=== PATIENT | male | born 1965 | race Caucasian/White ===

== ENCOUNTER 2023-12-23 09:27 | Inpatient (IN) | payer MEDICARE, SELFPAY ==
--- NOTE | ~2023-12-23 | CT_ITS ---
EXAMINATION: CT CHEST WITH CONTRAST CLINICAL INFORMATION: Rule out Boor have's syndrome COMPARISON: Previous chest CT from earlier the same day. TECHNIQUE: Multidetector volumetric CT imaging of the chest was obtained after the administration of 85 mL of Omnipaque 350 intravenous contrast without immediate adverse reactions. Axial MIP volume rendering provided. Sagittal and coronal reformatted images were obtained. This CT examination was performed using dose optimization techniques as appropriate, variously including the following: *Automated exposure control *Adjustment of mA and/or kV according to patient size (this includes techniques or standardized protocols for targeted exams where dose is matched to indication/reason for exam; i.e. extremities or head) *Use of iterative reconstruction technique DLP: 396 mGy-cm FINDINGS: LUNGS: Subsegmental atelectasis in the inferior segment of the lingula. This is adjacent to tethered are prominent extrapleural fat. Lungs are otherwise clear. MEDIASTINUM: The mediastinum is normal. The esophagus is normal-appearing. No wall thickening, dilatation or abnormal air or fluid collection in the posterior mediastinum is seen. Normal heart size. No coronary artery calcification. No pericardial effusion. No adenopathy. PLEURA: There is no pleural effusion. No pleural mass or thickening. AXILLA: Mild bilateral gynecomastia. No adenopathy. UPPER ABDOMEN: See abdomen and pelvis report from the same day OSSEOUS STRUCTURES: Degenerative changes of the spine. CT/CT chest w IV con IMPRESSION: Mild subsegmental atelectasis in the inferior segment of the lingula adjacent to an area of prominent extrapleural fat. Otherwise unremarkable exam. Normal-appearing esophagus. Fleischner guidelines were followed.
--- NOTE | ~2023-12-23 | XR_ITS ---
EXAMINATION: XR CHEST CLINICAL INFORMATION: Chest pain COMPARISON: Chest x-ray October 15, 2014 TECHNIQUE: 2 views of the chest were obtained. FINDINGS: Similar cardiac enlargement. The lungs are hypoinflated. There is no lobar consolidation. No pleural effusion or pneumothorax. Mild degenerative changes of the spine. XR/XR chest 2V IMPRESSION: Cardiomegaly without acute pulmonary pathology.
--- NOTE | ~2023-12-23 | US_ITS ---
EXAMINATION: US ABDOMEN LIMITED CLINICAL INFORMATION: Right upper quadrant pain. COMPARISON: CT scan abdomen and pelvis 12/23/2023 TECHNIQUE: Real-time imaging of the gallbladder and common bile duct. Technically difficult study due to bowel gas and body habitus. FINDINGS: GALLBLADDER: Normal. The gallbladder is physiologically distended without evidence of stones, sludge, polyps, wall thickening or pericholecystic fluid. No sonographic De Los Santos's sign COMMON BILE DUCT: Normal in caliber measuring 0.5 cm in diameter. US/US abdomen limited IMPRESSION: Normal-appearing gallbladder and common bile duct. No cholelithiasis or sludge within the gallbladder.
--- NOTE | ~2023-12-23 | CT_ITS ---
EXAMINATION: CT ABDOMEN AND PELVIS WITH CONTRAST CLINICAL INFORMATION: Abdominal pain COMPARISON: None available. TECHNIQUE: Multidetector volumetric images were obtained from the superior aspect of the liver through the pubic symphysis following administration 85 mL of Omnipaque 350 intravenous contrast. Sagittal and coronal reformatted images were obtained on the technologist's workstation. Oral contrast: Yes This CT examination was performed using dose optimization techniques as appropriate, variously including the following: *Automated exposure control *Adjustment of mA and/or kV according to patient size (this includes techniques or standardized protocols for targeted exams where dose is matched to indication/reason for exam; i.e. extremities or head) *Use of iterative reconstruction technique DLP: 1039 mGy-cm FINDINGS: LIVER, GALLBLADDER, AND BILIARY TREE: Fatty liver. Mild dependent increased attenuation in the gallbladder questionable for small gallstones or sludge. The bladder otherwise normal. No focal liver lesion evidence of cirrhotic change or biliary duct dilatation. PANCREAS: Unremarkable. SPLEEN: Unremarkable. ADRENAL GLANDS: 1 cm low-attenuation left adrenal lesion. This is difficult to characterize due to IV contrast. No imaging follow-up recommended. Normal right adrenal gland. KIDNEYS AND URETERS: The kidneys are normal in size, shape, and attenuation. No hydronephrosis, hydroureter, or calculi seen. No perinephric stranding. BLADDER: Unremarkable. GASTROINTESTINAL TRACT: The small and large bowel are unremarkable. Stomach is normal. The appendix is unremarkable. ABDOMINAL WALL: No significant hernia is appreciated. LYMPH NODES: Normal. VASCULAR: Unremarkable. PELVIC VISCERA: Unremarkable. OSSEOUS STRUCTURES: Degenerative changes of the spine.. CT/CT abdomen pelvis w IV con IMPRESSION: No acute findings. Fatty liver. Question small layering gallstones versus sludge in the gallbladder. Fleischner guidelines were followed.
[2023-12-23 09:31] VITALS: BP 152/98; BP 167/96; PULSE 120; PULSE 130; RESP 24; TEMP 36.8; O2SAT 93; O2SAT 97; BMI 40.5
--- NOTE | 2023-12-23 10:27 | ECG_ITS ---
Test Reason : TACHYCARDIA Blood Pressure : / mmHG Vent. Rate : 119 BPM Atrial Rate : 119 BPM P-R Int : 174 ms QRS Dur : 084 ms QT Int : 314 ms P-R-T Axes : 041 029 020 degrees QTc Int : 441 ms Sinus tachycardia with frequent Premature ventricular complexes Otherwise normal ECG When compared with ECG of 15-OCT-2015 02:15, Premature ventricular complexes are now Present ST less elevated in Inferior leads Referred By: Jeanette Hull Electronically Signed By:ANGELITA MEDINA MD
--- NOTE | 2023-12-23 10:36 | ED.CHESTPAIN ---
HPI - Chest Pain General Chief Complaint: Chest Pain Stated Complaint: ETOH WITHDRAWAL X2 DAYS,V/N,SOB,CP,HIGH BP 204/124 Time Seen by Provider: 12/23/23 10:08 Source: patient and RN notes reviewed Mode of arrival: ambulatory Limitations: no limitations History of Present Illness HPI narrative: This is a 58-year-old male, with a history of hypertension noncompliant on medications, CHF, EtOH dependency, presenting to the emergency department with complaints of chest pain with nausea, vomiting, diarrhea and anxiety for the last 5 days. Patient states that over the last couple of weeks he relapsed on alcohol, typically drinks 2-3 pt per day, last drank 1 pt of vodka yesterday. He states that he has had constant chest pain, which radiates into his bilateral arms. He endorses some shortness of breath. Denies any bloody vomitus. He does endorse black stool which started yesterday. No recent travel, surgeries, hospitalizations. No other complaints or concerns at this time. MD complaint: chest pain, chest heaviness and chest discomfort Timing of current episode: constant Onset: during rest Pain location: substernal Relieving factors: nothing Exacerbating factors: nothing Treatment prior to arrival: none Risk Factors Coronary artery disease risk factors: none Thoracic aortic dissection risk factors: none Related Data Allergies Allergy/AdvReac Type Severity Reaction Status Date / Time No Known Allergies Allergy Unverified 07/20/20 16:18 [No Known Allergies*] Review of Systems Review of Systems: Yes all other systems are reviewed and are negative Constitutional: Constitutional: Reports as per [facility] Past Medical History Attestation statement: The following information was validated with the patient. Social History Social History Advance Directives: No Advance Directives Information Provided: Yes Physical Exam Vital Signs: Vital Signs: Last Vital Signs Temp 97.9 F 12/23/23 13:04 Pulse 107 H 12/23/23 13:04 Resp 17 12/23/23 13:04 BP 176/108 H 12/23/23 13:04 Pulse Ox 95 12/23/23 13:04 O2 Del Method Room Air 12/23/23 13:04 BMI result Body Mass Index 40.5 Const: Other: Diaphoretic General: cooperative, comfortable and no acute distress Orientation/consciousness: patient oriented x3 Limitations: no limitations HEENT: Other: Dry mucous membranes Head: Yes normal to inspection, Yes normocephalic and Yes atraumatic Ears: hearing grossly normal bilaterally General nose exam: Normal external nose present Face and sinus: Yes normal facial exam Mouth: Normal oral and palatal mucosa present, oropharynx normal and moist mucous membranes Throat: Yes posterior oropharynx normal Eyes: General: appearance normal, both eyes and all related structures Eyelids: Yes eyelids normal Conjunctivae: conjunctivae normal Sclerae: sclerae normal Pupils: Equal, round and reactive pupils present EOM: EOMs intact bilaterally Neck: Neck: Yes normal visual inspection, Yes full ROM and Yes no lymphadenopathy Lymphatic: no lymphadenopathy noted Chest: Chest palpation & inspection: normal inspection of the chest Resp: Effort & Inspection: normal respiratory effort and able to speak in complete sentences Auscultation: clear to auscultation bilaterally, no crackles, no rales, no rhonchi and no wheezes Cardio: Rate: regular rate Rhythm: regular rhythm Heart sounds: S1 normal heart sound present and S2 normal heart sound present GI: Other: Abdomen is obese, with tenderness palpation in the right upper quadrant, epigastrium with guarding Inspection: Yes normal to inspection Skin: General skin exam: no rashes or lesions noted Trauma: no lacerations or abrasions Wounds: no wounds Neuro: General: patient oriented x3 and moves all extremities Cranial nerves: Yes Equal, round and reactive pupils present Extrem: Other: No calf tenderness General: Yes normal to inspection Right upper extremity: normal to inspection Left upper extremity: normal to inspection Right lower extremity: normal to inspection Left lower extremity: normal to inspection Course Reevaluation(s) Reevaluation #1: Patient re-evaluated, no relief after receiving IV Ativan. Will medicate with Ativan 2 mg IV, and morphine. Labs returned, no leukocytosis, platelets 135 likely due to ongoing ETOH abuse. AST ALT elevated at 72 in 41 respectively. Troponin elevated at 42.2, will repeat in 3 hours to trend. Time: 12:20 Reevaluation #2: Repeat troponin flat at 42.2. CT abdomen CT chest return there is subsegmental atelectasis in the inferior segment of the lingula, fatty liver and question of small layering gallstones versus sludge in the gallbladder. Given gallbladder findings and right upper quadrant pain, will obtain ultrasound. Patient appears to be more comfortable, reporting some burning pain in his abdomen, will treat with GI cocktail of maalox and lidocaine. He appears more comfortable at this time. Time: 15:25 Reevaluation #3: Ultrasound unremarkable for any gallbladder etiology. Patient will be admitted for alcohol withdrawal, nausea and vomiting. Time: 16:43 Medications Administered Discontinued Medications Generic Name Dose Route Start Last Admin Trade Name Freq PRN Reason Stop Dose Admin Al Hydroxide/Mg Hydroxide 30 ml 12/23/23 15:10 12/23/23 16:01 Magnesium Hydrox/Alum Hydrox 30 Ml Oral.Susp PO 12/23/23 15:11 30 ml ONCE ONE Administration Diphenhydramine HCl 50 mg 12/23/23 13:55 12/23/23 14:21 Diphenhydramine Hcl 50 Mg/Ml Vial IVPUSH 12/23/23 13:56 50 mg ONCE ONE Administration Sodium Chloride 1,000 mls @ 999 mls/hr 12/23/23 10:28 12/23/23 11:57 Ns IVCONT 12/23/23 11:28 Infused .Q1H1M ONE Infusion Sodium Chloride 1,000 mls @ 999 mls/hr 12/23/23 13:14 12/23/23 15:06 Ns IV 12/23/23 14:14 Infused .Q1H1M ONE Infusion Iohexol 100 ml 12/23/23 13:04 12/23/23 13:04 Iohexol 350 Mg/Ml 100 Ml Infus..Btl IV 12/23/23 13:05 85 ml ONCE ONE Administration Lidocaine HCl 15 ml 12/23/23 15:10 12/23/23 16:01 Lidocaine Hcl Viscous 2 % 15 Ml Solution MUCOUS MEM 12/23/23 15:11 15 ml ONCE ONE Administration Lorazepam 2 mg 12/23/23 10:44 12/23/23 11:01 Lorazepam 2 Mg/Ml Vial IVPUSH 12/23/23 10:45 2 mg ONCE ONE Administration Lorazepam 2 mg 12/23/23 12:06 12/23/23 12:20 Lorazepam 2 Mg/Ml Vial IVPUSH 12/23/23 12:07 2 mg ONCE ONE Administration Lorazepam 2 mg 12/23/23 13:05 12/23/23 13:53 Lorazepam 2 Mg/Ml Vial IVPUSH 12/23/23 13:06 2 mg ONCE ONE Administration Metoclopramide HCl 10 mg 12/23/23 13:55 12/23/23 14:21 Metoclopramide Hcl 10 Mg/2 Ml Vial IVPUSH 12/23/23 13:56 10 mg ONCE ONE Administration Morphine Sulfate 4 mg 12/23/23 12:06 12/23/23 12:18 Morphine Sulfate 4 Mg/Ml Cartridge IVPUSH 12/23/23 12:07 4 mg ONCE ONE Administration Protocol Ondansetron HCl 4 mg 12/23/23 12:36 12/23/23 13:09 Ondansetron Hcl 4 Mg/2 Ml Vial IVPUSH 12/23/23 12:37 4 mg ONCE ONE Administration Phenobarbital Sodium 75 mg 12/23/23 13:59 12/23/23 14:20 Phenobarbital Sodium 65 Mg/Ml Vial IVPUSH 12/23/23 14:00 75 mg ONCE ONE Administration Medical Decision Making Medical Decision Making [facility] Narrative: This is a 58-year-old male, with a history of hypertension noncompliant on medications, CHF, EtOH dependency, presenting to the emergency department with complaints of chest pain with nausea, vomiting, diarrhea and anxiety for the last 5 days. On arrival, blood pressure 167/96, pulse 120, respirations 24, 93% on room air, temperature 98.2?. Patient diaphoretic, appears to be uncomfortable secondary to chest pain and abdominal pain. He also is tremulous, question alcohol withdrawal. Differential diagnoses include ACS, pancreatitis, cholecystitis, cholangitis, gastritis, electrolyte derangement. Less likely Boerhaave syndrome, PE, pneumothorax. Plan: Chest x-ray, labs, EKG, IV fluids, IV Ativan Differential Diagnosis Differential Diagnoses: The differential diagnosis associated with the presentation includes See above Admission/Observation Consideration of admission/observation: Escalation of care including admission/observation considered Lab Data [facility] Lab Attestation statement: I reviewed the patient's lab results. No leukocytosis, stable H&H, platelets 135, slight elevation AST ALT, troponin 42.2, repeat 45.6. Urine with no evidence of UTI. Ethyl alcohol 98. 12/23/23 11:12 12/23/23 11:12 Labs: Lab Results 12/23/23 12/23/23 Range/Units 11:12 14:29 WBC 7.6 (4.8-10.8) X10*3/uL RBC 5.32 (4.60-5.80) X10*6/uL Hgb 15.8 (14.0-18.0) g/dl Hct 46.0 (42.0-52.0) % MCV 86.5 (80.0-98.0) fL MCH 29.7 (27.0-33.0) pg MCHC 34.3 (31.0-36.0) g/dl RDW 14.6 (11.0-16.0) % Plt Count 135 L (160-400) X10*3/uL MPV 9.5 (9.4-12.4) fL Immature Gran % (Auto) 0.3 (0.0-0.4) % Neut % (Auto) 76.7 H (45-73) % Lymph % (Auto) 15.4 L (20-40) % [place] % (Auto) 6.7 (2-11) % Eos % (Auto) 0.5 (0-4) % Baso % (Auto) 0.4 (0-2) % Lymph # (Auto) 1.2 (1.2-4.9) X10*3/uL [place] # (Auto) 0.5 (0.1-1.2) X10*3/uL Eos # (Auto) 0.0 (0.0-0.4) X10*3/uL Baso # (Auto) 0.0 (0.0-0.2) X10*3/uL Abs Immat Gran (auto) 0.02 (0.00-0.03) X10*3/uL Absolute Neuts (auto) 5.9 (2.0-8.3) x10*3/uL Absolute Nucleated RBC 0.000 (0.0-0.012) X10*3/uL Nucleated RBC % (auto) 0.0 (0.0-0.2) /100WBC Sodium 141 (135-145) mmol/L Potassium 3.7 (3.3-5.1) mmol/L Chloride 100 (96-108) mmol/L Carbon Dioxide 28 (22-29) mmol/L Anion Gap 17 (12-20) BUN 14 (9-16) mg/dL Creatinine 0.97 (0.5-1.4) mg/dL Estim Creat Clear Calc 116.7 Estimated GFR > 60 Random Glucose 118 H (60-115) mg/dL Calcium 9.2 (8.4-10.2) mg/dL Magnesium 1.6 (1.6-2.6) mg/dL Total Bilirubin 0.7 (0.0-1.0) mg/dL Direct Bilirubin 0.3 (0.0-0.5) mg/dL AST 72 H (5-37) U/L ALT 41 H (0-40) U/L Alkaline Phosphatase 100 (39-117) U/L Troponin I High Sens 42.2 H 45.6 H (<3.5-35.0) ng/L Total Protein 7.4 (6.5-8.0) g/dL Albumin 4.0 (3.5-5.0) g/dL Lipase 64 (8-78) U/L Urine Color Dark Yellow Urine Appearance Cloudy Urine pH 7.0 (5.0-9.0) Ur Specific [place] 1.020 (1.005-1.025) Urine Protein 100 (2+) H (Neg-Trace) mg/dL Urine Glucose (UA) Negative (Negative) mg/dL Urine Ketones Negative (Negative) mg/dL Urine Blood Trace H (Negative) Urine Nitrite Negative (Negative) Ur Leukocyte Esterase Negative (Negative) Urine RBC 6-10 H (0-2) /HPF Urine WBC 0-5 (0-5) /HPF Ur Squamous Epith Cells 3-5 (0-2) /HPF Urine Bacteria Trace (None Seen) Hyaline Casts 3-5 (0-2) /LPF Ethyl Alcohol 98 mg/dL Independent Interpretation I performed an independent interpretation of an: EKG and CT Scan Interpretation: EKG sinus tachycardia with frequent PVCs, at a ventricular rate of 119 beats per minute, WI interval 174, QTC 441, no ST elevation or depression. Radiology Impression Discussion of test interpretation with radiology: I have reviewed the radiologist's reading. Radiologist Impression: EXAMINATION: CT CHEST WITH CONTRAST CLINICAL INFORMATION: Rule out Boor have's syndrome COMPARISON: Previous chest CT from earlier the same day. TECHNIQUE: Multidetector volumetric CT imaging of the chest was obtained after the administration of 85 mL of Omnipaque 350 intravenous contrast without immediate adverse reactions. Axial MIP volume rendering provided. Sagittal and coronal reformatted images were obtained. This CT examination was performed using dose optimization techniques as appropriate, variously including the following: *Automated exposure control *Adjustment of mA and/or kV according to patient size (this includes techniques or standardized protocols for targeted exams where dose is matched to indication/reason for exam; i.e. extremities or head) *Use of iterative reconstruction technique DLP: 396 mGy-cm FINDINGS: LUNGS: Subsegmental atelectasis in the inferior segment of the lingula. This is adjacent to tethered are prominent extrapleural fat. Lungs are otherwise clear. MEDIASTINUM: The mediastinum is normal. The esophagus is normal-appearing. No wall thickening, dilatation or abnormal air or fluid collection in the posterior mediastinum is seen. Normal heart size. No coronary artery calcification. No pericardial effusion. No adenopathy. PLEURA: There is no pleural effusion. No pleural mass or thickening. AXILLA: Mild bilateral gynecomastia. No adenopathy. UPPER ABDOMEN: See abdomen and pelvis report from the same day OSSEOUS STRUCTURES: Degenerative changes of the spine. CT/CT chest w IV con IMPRESSION: Mild subsegmental atelectasis in the inferior segment of the lingula adjacent to an area of prominent extrapleural fat. Otherwise unremarkable exam. Normal-appearing esophagus. Fleischner guidelines were followed. Dictated By: Michell Alicea MD EXAMINATION: CT ABDOMEN AND PELVIS WITH CONTRAST CLINICAL INFORMATION: Abdominal pain COMPARISON: None available. TECHNIQUE: Multidetector volumetric images were obtained from the superior aspect of the liver through the pubic symphysis following administration 85 mL of Omnipaque 350 intravenous contrast. Sagittal and coronal reformatted images were obtained on the technologist's workstation. Oral contrast: Yes This CT examination was performed using dose optimization techniques as appropriate, variously including the following: *Automated exposure control *Adjustment of mA and/or kV according to patient size (this includes techniques or standardized protocols for targeted exams where dose is matched to indication/reason for exam; i.e. extremities or head) *Use of iterative reconstruction technique DLP: 1039 mGy-cm FINDINGS: LIVER, GALLBLADDER, AND BILIARY TREE: Fatty liver. Mild dependent increased attenuation in the gallbladder questionable for small gallstones or sludge. The bladder otherwise normal. No focal liver lesion evidence of cirrhotic change or biliary duct dilatation. PANCREAS: Unremarkable. SPLEEN: Unremarkable. ADRENAL GLANDS: 1 cm low-attenuation left adrenal lesion. This is difficult to characterize due to IV contrast. No imaging follow-up recommended. Normal right adrenal gland. KIDNEYS AND URETERS: The kidneys are normal in size, shape, and attenuation. No hydronephrosis, hydroureter, or calculi seen. No perinephric stranding. BLADDER: Unremarkable. GASTROINTESTINAL TRACT: The small and large bowel are unremarkable. Stomach is normal. The appendix is unremarkable. ABDOMINAL WALL: No significant hernia is appreciated. LYMPH NODES: Normal. VASCULAR: Unremarkable. PELVIC VISCERA: Unremarkable. OSSEOUS STRUCTURES: Degenerative changes of the spine.. CT/CT abdomen pelvis w IV con IMPRESSION: No acute findings. Fatty liver. Question small layering gallstones versus sludge in the gallbladder. Fleischner guidelines were followed. Dictated By: Michell Alicea MD EXAMINATION: XR CHEST CLINICAL INFORMATION: Chest pain COMPARISON: Chest x-ray October 15, 2014 TECHNIQUE: 2 views of the chest were obtained. FINDINGS: Similar cardiac enlargement. The lungs are hypoinflated. There is no lobar consolidation. No pleural effusion or pneumothorax. Mild degenerative changes of the spine. XR/XR chest 2V IMPRESSION: Cardiomegaly without acute pulmonary pathology. Dictated By: Jacob Salazar MD Independent Historian Clinical information obtained from an independent historian. History obtained from or confirmed by: EMS Prescription Management I considered prescription management with: Pain Medication Chronic Conditions Patient?s care impacted by: Other (etoh abuse, HTN) Social Determinants Patient?s care significantly limited by Social Determinants of Health including: Alcoholism and drug addiction in family Critical Care Time Critical Care Time Critical Care Time: Yes Total Critical Care Time: 50 Attestation: I have personally provided critical care time exclusive of time spent on separately billable procedures. Time includes review of lab data, radiology results, discussion with consultants, and monitoring for potential decompensation. Intervention performed as documented. Discharge Plan Discharge Patient Disposition: Admitted As Inpatient
[2023-12-23] MEDS: 0.9 % Sodium Chloride 1,000 ML 999 ML IVCONT (10:56)
[2023-12-23] MEDS: LORazepam 2 MG/ML VIAL IVPUSH ×3 (11:01→13:53)
[2023-12-23 11:02] VITALS: BP 201/130; PULSE 113; RESP 18; TEMP 36.7; O2SAT 96
[2023-12-23 11:20] LABS: MANUAL DIFF FLAG NO
[2023-12-23 11:21] LABS: Basophils Percent Auto 0.4 % (0-2); Eosinophils Percent Auto 0.5 % (0-4); Hemoglobin 15.8 g/dl (14.0-18.0); Imm Gran Abs Auto 0.02 X10*3/uL (0.00-0.03); Imm Gran Pct Auto 0.3 % (0.0-0.4); Lymphocytes Absolute Auto 1.2 X10*3/uL (1.2-4.9); Lymphocytes Percent Auto 15.4 % (20-40); Mean Corpuscular HGB Conc 34.3 g/dl (31.0-36.0); Mean Corpuscular Hemoglobin 29.7 pg (27.0-33.0); Mean Corpuscular Volume 86.5 fL (80.0-98.0); Mean Platelet Volume 9.5 fL (9.4-12.4); Monocytes Absolute Auto 0.5 X10*3/uL (0.1-1.2); Monocytes Percent Auto 6.7 % (2-11); Neutrophils Absolute Auto 5.9 x10*3/uL (2.0-8.3); Neutrophils Percent Auto 76.7 % (45-73); Platelet Count 135 X10*3/uL (160-400); Red Blood Count 5.32 X10*6/uL (4.60-5.80); Red Cell Distribution Width 14.6 % (11.0-16.0); White Blood Count 7.6 X10*3/uL (4.8-10.8)
[2023-12-23 11:22] LABS: Appearance Urine Cloudy; Color Urine Dark Yellow; Glucose Urine UA Negative (Negative); Leukocyte Esterase Urine Negative (Negative); Nitrite Urine Negative (Negative); UMIC TRIGGER UACC YES; Urine Blood Trace (Negative); Urine Ketones Negative (Negative); Urine Protein 100 (2+) mg/dL (Neg-Trace)
[2023-12-23 11:25] LABS: Bacteria Urine Trace (None Seen); WBC Urine 0-5 /HPF (0-5)
[2023-12-23 11:36] LABS: Alanine Aminotransferase 41 U/L (0-40); Alkaline Phosphatase 100 U/L (39-117); Anion Gap 17 (12-20); Aspartate Amino Transferase 72 U/L (5-37); Bilirubin Direct 0.3 mg/dL (0.0-0.5); Bilirubin Total 0.7 mg/dL (0.0-1.0); Blood Urea Nitrogen 14 mg/dL (9-16); Calcium 9.2 mg/dL (8.4-10.2); Carbon Dioxide 28 mmol/L (22-29); Chloride 100 mmol/L (96-108); Creatinine Clr Calc Pharmacy 116.7; Estimated Glomerular Filt Rate > 60; Ethanol 98 mg/dL; Glucose Random 118 mg/dL (60-115); Lipase 64 U/L (8-78); Magnesium 1.6 mg/dL (1.6-2.6); Potassium 3.7 mmol/L (3.3-5.1); Sodium 141 mmol/L (135-145); Total Protein 7.4 g/dL (6.5-8.0)
[2023-12-23 11:44] LABS: Troponin-I High Sensitivity 42.2 ng/L (<3.5-35.0)
[2023-12-23] MEDS: Morphine Sulfate 4 MG/ML CARTRIDGE IVPUSH (12:18)
[2023-12-23 13:04] VITALS: BP 176/108; PULSE 107; RESP 17; TEMP 36.6; O2SAT 95
[2023-12-23] MEDS: iohexoL 350 MG/ML 100 ML INFUS..BTL IV (13:04)
[2023-12-23] MEDS: ondansetron HCL 4 MG/2 ML VIAL IVPUSH ×2 (13:09→23:16)
[2023-12-23] MEDS: 0.9 % Sodium Chloride 1,000 ML 999 ML IV ×2 (13:37→17:49)
[2023-12-23] MEDS: PHENobarbitaL sodium 65 MG/ML VIAL 75 MG IVPUSH (14:20)
[2023-12-23] MEDS: diphenhydrAMINE HCL 50 MG/ML VIAL IVPUSH (14:21)
[2023-12-23] MEDS: Metoclopramide HCl 10 MG/2 ML VIAL IVPUSH (14:21)
[2023-12-23 14:56] LABS: Troponin-I High Sensitivity 45.6 ng/L (<3.5-35.0)
[2023-12-23] MEDS: Lidocaine HCl Viscous 2 % 15 ML SOLUTION MUCOUS MEM (16:01)
[2023-12-23] MEDS: Magnesium Hydrox/Alum Hydrox 30 ML ORAL.SUSP PO (16:01)
--- NOTE | 2023-12-23 17:45 | PHA.MEDREC ---
Pharmacy Consult ? Medication Reconciliation Pharmacy has completed the medication reconciliation. Patient reports only taking a one a day vitamin. Madeleine Arevalo, CindiD
[2023-12-23] MEDS: PHENobarbitaL sodium 130 MG/ML IM ONCE 310.7 MG IM (17:48)
--- NOTE | 2023-12-23 18:05 | PM.IMHP ---
History of Present Illness Date of Service: 12/23/23 Attending physician on admission: Jaime Leija Chief Complaint: Nausea and vomiting 58-year-old male with history of hypertension not currently on antihypertensives, unspecified congestive heart failure, alcohol use disorder presents to the ED earlier today for evaluation of intractable nausea and vomiting ongoing for 2 days. He states alcohol use was in remission for the last year but then 2 weeks ago had several significant life stressors and began drinking a 5th of vodka on a daily basis. About 2 days ago, he describes a feeling of impending doom and developed burning chest pain associated with dyspnea. There has been significant nausea with 10+ episodes of blood-tinged bilious vomitus and p.o. intolerance. He has also been experiencing sweats and tremors as well as auditory hallucinations which he is aware are not real, and occasional confusion. He denies any history of alcohol withdrawal seizures. His last drink was this morning. He denies any illicit substance use or marijuana use. He does smoke 1/2 pack of cigarettes daily with a 20 pack-year history. He is also reporting bilateral numbness tingling of the hands and feet. Since arrival, patient has been hypertensive with blood pressure on admission 176/108 but was as high as 201/130. He has been tachycardic into the 120s, vitals otherwise stable. No leukocytosis or anemia. Platelet count 135. Renal function normal, electrolyte levels normal. AST 72, ALT 41, total bilirubin normal. Initial troponin 42.2, repeat 45.6. EKG shows sinus tachycardia with frequent PVCs, no ST/depressions. Urinalysis unremarkable. Ethyl alcohol level 98. CT abdomen/pelvis negative for any acute findings but shows fatty liver and question of small layering gallstones versus sludge in the gallbladder. Chest CT shows mild subsegmental atelectasis in the inferior segment of the lingula adjacent to the area of prominent extrapleural fat, otherwise unremarkable. Abdominal ultrasound shows normal-appearing gallbladder and common bile duct. No cholelithiasis or sludge within the gallbladder. In the ED, given 3 L IV NS, Maalox, Reglan, morphine, Benadryl, ondansetron. Was given 2 mg Ativan x3 without improvement in withdrawal symptoms and was started on phenobarbital per protocol for acute alcohol withdrawal. Review of Systems Review of Systems: General: No fevers, malaise, unintentional weight loss HEENT: No blurred vision, diplopia. No sore throat, nasal congestion, rhinorrhea, sinus pain, ear pain Cardiovascular: +chest pain. No palpitations, or leg edema Respiratory: +dyspnea. No shortness of breath, wheezing, cough GI: +abd pain, +nausea/vomiting. No diarrhea, constipation, melena, hematochezia : No dysuria, hematuria, increased urinary frequency, decreased urinary output MSK: No myalgia, back pain Neuro: No headaches, weakness, paresthesias. +tremors Psych: +AH Skin: No rashes or lesions [facility] Medical History (Updated 01/03/24 @ 00:02 by Best Hammond) Morbid obesity CHF (congestive heart failure) HTN (hypertension) Social History Household Members: Significant Other Housing: [facility] Alcohol intake: current Alcohol intake frequency: 3 or more drinks per day Alcohol type: hard liquor Patient Tobacco Use Status: Current everyday Tobacco user Tobacco use type: Cigarette Cigarette Packs Per Day: 1 Cigarettes Per Day: 20.0 Years Smoked: 45 Substance Use Type: Marijuana service: No Meds Allergies Allergy/AdvReac Type Severity Reaction Status Date / Time No Known Allergies Allergy Unverified 07/20/20 16:18 [No Known Allergies*] Active Medications: Current Medications Acetaminophen (Acetaminophen 325 Mg Tablet) 650 mg PO Q6H PRN PRN Reason: Pain, Mild (Pain Scale 1-3) Calcium Carbonate (Calcium Carbonate 750 Mg Tab.Chew) 750 mg PO Q4H PRN PRN Reason: Heartburn Enoxaparin Sodium (Enoxaparin Sodium 40 Mg/0.4 Ml Syringe) 40 mg SUBCUT Q24H IVAN Thiamine HCl 100 mg/ Sodium (Chloride) 101 mls @ 202 mls/hr IV DAILY IVAN Folic Acid 1 mg/ Sodium (Chloride) 50.2 mls @ 100.4 mls/hr IV DAILY IVAN Stop: 12/25/23 09:29 Metoprolol Tartrate (Metoprolol Tartrate 50 Mg Tablet) 50 mg PO BID IVAN; Protocol Ondansetron HCl (Ondansetron Hcl 4 Mg/2 Ml Vial) 4 mg IVPUSH Q8H PRN PRN Reason: Nausea and Vomiting Pharmacy Consult (Consult Rx Etoh Phenob Im/Po) 1 each MISCELLANE ONCE PRN; Protocol PRN Reason: Consult order Phenobarbital (Phenobarbital 30 Mg Tablet) 60 mg PO BID [facility]; Protocol Stop: 12/25/23 21:01 Phenobarbital (Phenobarbital 30 Mg Tablet) 30 mg PO BID [facility]; Protocol Stop: 12/27/23 21:01 Phenobarbital (Phenobarbital 30 Mg Tablet) 30 mg PO DAILY [facility]; Protocol Stop: 12/29/23 09:01 Phenobarbital Sodium (Phenobarbital Sodium 130 Mg/Ml Vial Im Q3hx2) 232.7 mg IM Q3H IVAN; Protocol Stop: 12/23/23 23:01 Senna (Sennosides 8.6 Mg Tablet) 17.2 mg PO BEDTIME PRN PRN Reason: Constipation Sodium Chloride (0.9 % Sodium Chloride Flush 3 Ml Syringe) 3 ml IVFLUSH QSHIFT [facility] Home Medications Medication Instructions Recorded Confirmed Last Taken Type multivitamin 1 tab PO DAILY 12/23/23 12/23/23 Unknown History Physical Exam Vital Signs and Narrative: Vital Signs: Last Vital Signs Temp 97.9 F 12/23/23 13:04 Pulse 107 H 12/23/23 13:04 Resp 17 12/23/23 13:04 BP 176/108 H 12/23/23 13:04 Pulse Ox 95 12/23/23 13:04 O2 Del Method Room Air 12/23/23 13:04 BMI result Body Mass Index 40.5 Constitutional - Awake and Alert, No apparent distress Eyes - PERRLA, EOMI Cardiovascular - S1S2, RRR, No edema Respiratory - Normal lung expansion, Normal respiratory effort, No respiratory distress, CTA bilaterally Gastrointestinal - epigastric ttp, ND; +BS; No rebound or guarding Extremities - no calf tenderness bilaterally, no swelling Musculoskeletal - Normal inspection, normal ROM Skin - Warm, clammy, flushed face Neurological - Alert & oriented x3, CN II-XII in tact, tremulous with outstretched arms Psychological - Appropriate affect Results Labs 12/24/23 06:12 12/26/23 06:41 Labs: Laboratory Results - last 24 hr 12/23/23 12/23/23 11:12 14:29 MCV 86.5 MCH 29.7 MCHC 34.3 RDW 14.6 Plt Count 135 L MPV 9.5 Immature Gran % (Auto) 0.3 Neut % (Auto) 76.7 H Lymph % (Auto) 15.4 L [place] % (Auto) 6.7 Eos % (Auto) 0.5 Baso % (Auto) 0.4 Lymph # (Auto) 1.2 [place] # (Auto) 0.5 Eos # (Auto) 0.0 Baso # (Auto) 0.0 Abs Immat Gran (auto) 0.02 Absolute Neuts (auto) 5.9 Absolute Nucleated RBC 0.000 Nucleated RBC % (auto) 0.0 Anion Gap 17 Estim Creat Clear Calc 116.7 Estimated GFR > 60 Random Glucose 118 H Calcium 9.2 Magnesium 1.6 Total Bilirubin 0.7 Direct Bilirubin 0.3 AST 72 H ALT 41 H Alkaline Phosphatase 100 Troponin I High Sens 42.2 H 45.6 H Total Protein 7.4 Albumin 4.0 Lipase 64 Urine Color Dark Yellow Urine Appearance Cloudy Urine pH 7.0 Ur Specific [place] 1.020 Urine Protein 100 (2+) H Urine Glucose (UA) Negative Urine Ketones Negative Urine Blood Trace H Urine Nitrite Negative Ur Leukocyte Esterase Negative Urine RBC 6-10 H Urine WBC 0-5 Ur Squamous Epith Cells 3-5 Urine Bacteria Trace Hyaline Casts 3-5 Ethyl Alcohol 98 Imaging Radiologist's Impressions: Impressions Chest X-Ray 12/23/23 11:55 IMPRESSION: Cardiomegaly without acute pulmonary pathology. Abdomen/Pelvis CT 12/23/23 13:05 IMPRESSION: No acute findings. Fatty liver. Question small layering gallstones versus sludge in the gallbladder. Fleischner guidelines were followed. Chest CT 12/23/23 13:05 IMPRESSION: Mild subsegmental atelectasis in the inferior segment of the lingula adjacent to an area of prominent extrapleural fat. Otherwise unremarkable exam. Normal-appearing esophagus. Fleischner guidelines were followed. Abdomen Ultrasound 12/23/23 16:06 IMPRESSION: Normal-appearing gallbladder and common bile duct. No cholelithiasis or sludge within the gallbladder. Assessment and Plan (1) Alcohol withdrawal: Status: Resolved (2) Chest pain, atypical: Status: Resolved Plan 58-year-old male with history of hypertension not currently on antihypertensives, unspecified congestive heart failure, alcohol use disorder admitted for management of acute alcohol withdrawal #Acute alcohol withdrawal -relapsed 2 w ago drinking a fifth daily, last drink this morning. ethyl etoh level on arrival 98 -phenobarbital per protocol -iv thiamine, iv folic acid -monitor on ciwa q4h -addiction med consult #Elevated troponins -likely related to uncontrolled hypertension -ekg without acute ischemic changes -echo ordered -monitor on tele #Uncontrolled HTN -initiate metoprolol 50mg BID -monitor bp #atypical chest pain -likely d/t intractable vomiting #Sinus tachycardia -likely due to w/d -check tsh # transaminitis -likely due to alcohol use -follow # stocking-glove paresthesias -likely due to alcohol abuse -check vitamin B12, folic acid, TSH # chronic heart failure, unspecified ejection fraction -clinically euvolemic # cigarette smoker -cessation counseling -nicotine patch for NRT # morbid obesity with BMI greater than 40 -weight loss efforts encouraged DVT prophylaxis-Lovenox Full code Patient requires inpatient stay for at least 2 midnights for management of acute alcohol withdrawal in a patient who is at risk for severe withdrawal on phenobarbital per protocol and requiring expert consultation as well as further management of uncontrolled blood pressure levels resulting in elevated troponins Quality Stroke Does the patient have a stroke diagnosis?: No VTE Prior VTE?: No VTE Risk Level:: Medical - moderate - high VTE Device Contraindication: Treatment Not Indicated VTE Drug Contraindication: N/A - Med Ordered
[2023-12-23 18:42] LABS: TSH reflex Free T4 0.92 uIU/mL (0.32-4.0)
--- NOTE | 2023-12-23 19:04 | PC.NURSE ---
pt reports cp/n/v/d. pt reports being daily vodka drinker. He stopped drinking for a couple months but started back up again. 20g iv inserted RAC, fluids and meds given as documented.
[2023-12-23] MEDS: Thiamine HCL 100 MG in 0.9 % Sodium Chloride 100 ML 202 MG IV (19:54)
[2023-12-23] MEDS: Nicotine 14 MG PATCH.TD24 TRANSDERMA (19:54)
[2023-12-23] MEDS: PHENobarbitaL sodium 130 MG/ML VIAL IM Q3Hx2 232.7 MG IM ×2 (19:55→23:17)
[2023-12-23] MEDS: Enoxaparin Sodium 40 MG/0.4 ML SYRINGE SUBCUT (19:55)
[2023-12-23] MEDS: Metoprolol Tartrate 50 MG TABLET PO (19:56)
[2023-12-23] MEDS: Folic Acid 1 MG in 0.9 % Sodium Chloride 50 ML 100.4 MG IV (20:26)
[2023-12-23 20:56] LABS: Folate 4.5 ng/mL (> or = 4.0); Vitamin B12 705 pg/mL (200-900)
[2023-12-23 22:24] VITALS: BP 162/96; PULSE 100; RESP 19; TEMP 36.2; O2SAT 92
[2023-12-23 22:37] VITALS: BMI 39.4
[2023-12-23] MEDS: Acetaminophen 325 MG TABLET 650 MG PO (23:17)
[2023-12-23] MEDS: 0.9 % Sodium Chloride Flush 3 ML SYRINGE IVFLUSH (23:17)
[2023-12-23 23:42] VITALS: BP 160/105; PULSE 91; RESP 20; TEMP 36.7; O2SAT 94
[2023-12-24 03:09] VITALS: BP 155/98; PULSE 96; RESP 20; TEMP 36.4; O2SAT 97
[2023-12-24 06:28] LABS: MANUAL DIFF FLAG NO
[2023-12-24 06:37] LABS: Basophils Percent Auto 0.5 % (0-2); Eosinophils Absolute Auto 0.2 X10*3/uL (0.0-0.4); Eosinophils Percent Auto 3.8 % (0-4); Hematocrit 43.8 % (42.0-52.0); Hemoglobin 14.7 g/dl (14.0-18.0); Imm Gran Abs Auto 0.01 X10*3/uL (0.00-0.03); Imm Gran Pct Auto 0.2 % (0.0-0.4); Lymphocytes Absolute Auto 1.7 X10*3/uL (1.2-4.9); Mean Corpuscular HGB Conc 33.6 g/dl (31.0-36.0); Mean Corpuscular Hemoglobin 29.7 pg (27.0-33.0); Mean Corpuscular Volume 88.5 fL (80.0-98.0); Mean Platelet Volume 10.3 fL (9.4-12.4); Monocytes Absolute Auto 0.5 X10*3/uL (0.1-1.2); Monocytes Percent Auto 8.7 % (2-11); Neutrophils Absolute Auto 3.3 x10*3/uL (2.0-8.3); Neutrophils Percent Auto 56.8 % (45-73); Platelet Count 110 X10*3/uL (160-400); Red Blood Count 4.95 X10*6/uL (4.60-5.80); Red Cell Distribution Width 14.5 % (11.0-16.0); White Blood Count 5.7 X10*3/uL (4.8-10.8)
[2023-12-24 06:43] LABS: Anion Gap 13 (12-20); Blood Urea Nitrogen 8 mg/dL (9-16); Calcium 7.9 mg/dL (8.4-10.2); Carbon Dioxide 31 mmol/L (22-29); Chloride 98 mmol/L (96-108); Creatinine Clr Calc Pharmacy 131.4; Estimated Glomerular Filt Rate > 60; Glucose Random 89 mg/dL (60-115); Potassium 3.1 mmol/L (3.3-5.1); Sodium 139 mmol/L (135-145)
--- NOTE | 2023-12-24 07:00 | CA_ITS ---
Transthoracic Echocardiogram Patient (Last, First, Middle): Joshua Dougherty J Gender: Male Date of : 1965 Age: 58 Procedure Date: 12/24/2023 Procedure Type: Transthoracic Echocardiogram Location: [facility] [place] Height: 182.88 cm Weight: 131.54 kg BSA: 2.49 m2 Heart Rate: 65 bpm BP: 155 / 98 mmHg Food Service Ambassador: ORION Referring MD: Tina OROZCO Director Client: Zhao Rubio MD Symptoms: elevated trops Study Quality: Technically Difficult ECG Rhythm: Sinus Conclusions: - 1.Technically limited study especially parasternal windows 2. Mildly reduced LV ejection fraction with [id number] LVH with impaired relaxation filling pattern 3. Normal cardiac valvular Dopplers although valves are not well visualize 4. Mildly dilated ascending aorta Findings Procedure Information Contrast agent, definity, is being given per protocol without apparent complications. The quality of the study was technically difficult. The study quality is limited by patients body habitus. Peak GLS is -8.4%, which is markedly reduced. Left Ventricle Normal left ventricular cavity size. There is mildly increased left ventricular wall thickness. The left ventricular systolic function is mildly decreased. The visually estimated ejection fraction is between 45-50%. Spectral Doppler is indicative of an impaired relaxation filling pattern. Right Ventricle Normal right ventricular cavity size and systolic function. Atria The left atrium is mildly dilated. possible PFO present, consider bubble study if clinically indicated. The right atrium is likely dilated. Aortic Valve The aortic valve was not well visualized. There is no aortic valve stenosis. There is no aortic valve regurgitation. Mitral Valve Likely normal mitral valve structure and function. There is trace mitral valve regurgitation. There is no mitral valve stenosis. Pulmonic Valve The pulmonic valve was not well visualized. Tricuspid Valve The tricuspid valve was not well visualized. Tricuspid regurgitation envelope is inadequate for calculation of right ventricular systolic pressure. Great Vessels The pulmonary artery was not well visualized. There is mild dilatation of the ascending aorta measuring 3.70 cm. Venous The inferior vena cava was not well visualized. Pericardium/Pleural The pericardium was not well visualized. Prior Study Comparison No prior study available for comparison. Measurements 2D Linear Measurements IVSd: 1.44 0.6-0.9/0.6-1.0 cm LVIDd: 5.60 3.9-5.3/4.2-5.9 cm LVIDd Index: 2.25 2.4-3.2/2.2-3.1 cm/m2 LVIDs: 4.55 2.0-3.6 cm LVPWd: 1.28 0.7-1.1 cm LA Diam: 4.30 2.7-3.8/3.0-4.0 cm LAIDs Index: 1.73 1.5-2.3 cm/m2 LV Mass: 416.33 67-162/88-224 g LV Mass Index: 167.20 43-95/49-115 g/m2 LVOT Diam: 2.10 3.0+(-)1.3 cm 2D Systolic Function EF 4C: 41.80 >55% EF 2C: 51.90 >55% EF BiP: 47.50 >55% Mitral Valve MV Pk E: 0.27 MV PK A: 1.14 E/A: 0.20 E'Lateral: 4.57 E/E' Lat: 5.90 Aortic Valve AoV Pk Pascual: 1.23 AoV Mn Pascual: 0.84 AoV VTI: 0.19 AoV Pk Grad: 6.00 Aov Mn Grad: 3.00 CHUCK Cont.VTI: 2.36 LVOT LVOT Pk Pascual: 0.74 LVOT Mn Pascual: 0.58 LVOT VTI: 0.13 LVOT Pk Grad: 2.00 LVOT Mn Grad: 2.00 LVOT Diam: 2.10 LVOT Area: 3.46 Diastolic Function MV Pk E: 0.27 MV Pk A: 1.14 E/A: 0.20 E' Laterial: 4.57 E/E' Lat: 5.90 Right Ventricle TAPSE (mm): 13.40 TVS' Pascual: 8.92 Great Vessels Aorta Ao Asc: 3.70 2.1-3.4 cm Pulmonary Valve PV Pk Pascual: 0.75 Peak PV Grad: 2.00 Updated in Other Vendor System with Status of Final Zhao Rubio MD electronically signed on 12/24/2023 1:12:50 PM with status of Final
[2023-12-24 07:46] VITALS: BP 148/100; PULSE 93; RESP 18; TEMP 36.2; O2SAT 95
[2023-12-24] MEDS: PHENobarbitaL 30 MG TABLET 60 MG PO ×2 (08:49→19:38)
[2023-12-24] MEDS: Multivitamin TABLET 1 TAB PO (08:49)
[2023-12-24] MEDS: Metoprolol Tartrate 50 MG TABLET PO (08:49)
[2023-12-24] MEDS: Thiamine HCL 100 MG in 0.9 % Sodium Chloride 100 ML 202 MG IV (08:49)
[2023-12-24] MEDS: 0.9 % Sodium Chloride Flush 3 ML SYRINGE IVFLUSH ×3 (08:53→19:39)
[2023-12-24] MEDS: Potassium Chloride Packet 20 MEQ PACKET 40 MEQ PO (08:53)
[2023-12-24] MEDS: Nicotine 14 MG PATCH.TD24 TRANSDERMA (08:53)
--- NOTE | 2023-12-24 09:35 | MHC.CM.PN ---
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 His PCP is Magda Menard at [facility], but he has not been there in a long time. HCP discussed, form to be given and added to chart. CM to follow and assist with DC plan.
[2023-12-24] MEDS: Folic Acid 1 MG in 0.9 % Sodium Chloride 50 ML 100.4 MG IV (10:00)
[2023-12-24 11:50] VITALS: BP 160/100; PULSE 92; RESP 18; TEMP 36.8; O2SAT 94
--- NOTE | 2023-12-24 13:00 | P.PNIM_ITS ---
Subjective Subjective Date of Service: 12/24/23 Interval History: Seen and evaluated this morning denies any fever or chills reporting abd discomfort, nausea and feeling stressed no reported seizures no other overnight events Review of Systems Review of Systems: Yes all other systems are reviewed and are negative Physical Exam 2 Vital Signs: Vital Signs: Last Vital Signs Temp 98.3 F 12/24/23 11:50 Pulse 92 12/24/23 11:50 Resp 18 12/24/23 11:50 BP 160/100 H 12/24/23 11:50 Pulse Ox 94 12/24/23 11:50 O2 Del Method Room Air 12/24/23 11:50 BMI result Body Mass Index 39.4 Const: Other: Constitutional : Awake, interactive, in mild distress Neck : Normal inspection, Supple Cardiovascular : RRR, no JVP, no lower extremity edema Respiratory : good bilateral air entry, no crackles, wheezes or rhonchi Gastrointestinal: soft, lax, Normal bowel sounds, Non tender Skin : Warm, Dry Neurological : Alert & oriented x3, No focal deficit Objective Data Active Medications Acetaminophen (Acetaminophen 325 Mg Tablet) 650 mg PO Q6H PRN PRN Reason: Pain, Mild (Pain Scale 1-3) Last Admin: 12/23/23 23:17 Dose: 650 mg Documented By: MELONIE Calcium Carbonate (Calcium Carbonate 750 Mg Tab.Chew) 750 mg PO Q4H PRN PRN Reason: Heartburn Enoxaparin Sodium (Enoxaparin Sodium 40 Mg/0.4 Ml Syringe) 40 mg SUBCUT Q24H [facility] Last Admin: 12/23/23 19:55 Dose: 40 mg Documented By: KATHLEEN Thiamine HCl 100 mg/ Sodium (Chloride) 101 mls @ 202 mls/hr IV DAILY [facility] Last Infusion: 12/24/23 09:35 Dose: Infused Documented By: JAMAICA Folic Acid 1 mg/ Sodium (Chloride) 50.2 mls @ 100.4 mls/hr IV DAILY [facility] Stop: 12/25/23 09:29 Last Infusion: 12/24/23 11:56 Dose: Infused Documented By: JAMAICA Metoprolol Tartrate (Metoprolol Tartrate 50 Mg Tablet) 50 mg PO BID [facility]; Protocol Last Admin: 12/24/23 08:49 Dose: 50 mg Documented By: JAMAICA Multivitamins/Vitamin C (Multivitamin Tablet) 1 tab PO DAILY [facility] Last Admin: 12/24/23 08:49 Dose: 1 tab Documented By: JAMAICA Nicotine (Nicotine 14 Mg Patch.Td24) 14 mg TRANSDERMA DAILY [facility] Last Admin: 12/24/23 08:53 Dose: 14 mg Documented By: JAMAICA Ondansetron HCl (Ondansetron Hcl 4 Mg/2 Ml Vial) 4 mg IVPUSH Q8H PRN PRN Reason: Nausea and Vomiting Last Admin: 12/23/23 23:16 Dose: 4 mg Documented By: MELONIE Pharmacy Consult (Consult Rx Etoh Phenob Im/Po) 1 each MISCELLANE ONCE PRN; Protocol PRN Reason: Consult order Phenobarbital (Phenobarbital 30 Mg Tablet) 60 mg PO BID [facility]; Protocol Stop: 12/25/23 21:01 Last Admin: 12/24/23 08:49 Dose: 60 mg Documented By: JAMAICA Phenobarbital (Phenobarbital 30 Mg Tablet) 30 mg PO BID [facility]; Protocol Stop: 12/27/23 21:01 Phenobarbital (Phenobarbital 30 Mg Tablet) 30 mg PO DAILY [facility]; Protocol Stop: 12/29/23 09:01 Senna (Sennosides 8.6 Mg Tablet) 17.2 mg PO BEDTIME PRN PRN Reason: Constipation Sodium Chloride (0.9 % Sodium Chloride Flush 3 Ml Syringe) 3 ml IVFLUSH QSHIFT [facility] Last Admin: 12/24/23 08:53 Dose: 3 ml Documented By: JAMAICA Labs 12/24/23 06:12 12/24/23 06:12 Labs: Laboratory Results - last 24 hr 12/23/23 12/23/23 12/23/23 11:12 14:29 19:46 MCV MCH MCHC RDW Plt Count MPV Immature Gran % (Auto) Neut % (Auto) Lymph % (Auto) Cotton % (Auto) Eos % (Auto) Baso % (Auto) Lymph # (Auto) Cotton # (Auto) Eos # (Auto) Baso # (Auto) Abs Immat Gran (auto) Absolute Neuts (auto) Absolute Nucleated RBC Nucleated RBC % (auto) Anion Gap Estim Creat Clear Calc Estimated GFR Random Glucose Calcium Troponin I High Sens 45.6 H Vitamin B12 705 Folate 4.5 TSH 0.92 12/24/23 06:12 MCV 88.5 MCH 29.7 MCHC 33.6 RDW 14.5 Plt Count 110 L MPV 10.3 Immature Gran % (Auto) 0.2 Neut % (Auto) 56.8 Lymph % (Auto) 30.0 Cotton % (Auto) 8.7 Eos % (Auto) 3.8 Baso % (Auto) 0.5 Lymph # (Auto) 1.7 Cotton # (Auto) 0.5 Eos # (Auto) 0.2 Baso # (Auto) 0.0 Abs Immat Gran (auto) 0.01 Absolute Neuts (auto) 3.3 Absolute Nucleated RBC 0.000 Nucleated RBC % (auto) 0.0 Anion Gap 13 Estim Creat Clear Calc 131.4 Estimated GFR > 60 Random Glucose 89 Calcium 7.9 L D Troponin I High Sens Vitamin B12 Folate TSH Assessment and Plan (1) Alcohol withdrawal: Status: Acute (2) Uncontrolled hypertension: Status: Acute Plan 58-year-old male with history of hypertension not currently on antihypertensives, unspecified congestive heart failure, alcohol use disorder admitted for management of acute alcohol withdrawal #Acute alcohol withdrawal Continue phenobarbital per protocol iv thiamine, iv folic acid monitor on [facility] addiction med consult Encourage PO intake #Elevated troponins related to uncontrolled hypertension Trop remained flat ekg without acute ischemic changes echo pending monitor on tele #Uncontrolled HTN Start Amlodipine Decrease metoprolol to 25mg BID monitor bp #atypical chest pain resolved, likely d/t intractable vomiting #Sinus tachycardia likely due to w/d Normal TSH # transaminitis likely due to alcohol use, follow # stocking-glove paresthesias likely due to alcohol abuse check vitamin B12, folic acid, TSH # chronic heart failure, unspecified ejection fraction clinically euvolemic # cigarette smoker cessation counseling nicotine patch for NRT # morbid obesity with BMI greater than 40 weight loss efforts encouraged DVT prophylaxis Lovenox Full code Patient requires inpatient stay overnight for management of acute alcohol withdrawal in a patient who is at risk for severe withdrawal on phenobarbital per protocol as well as further management of uncontrolled blood pressure levels resulting in elevated troponins Quality Stroke Does the patient have a stroke diagnosis?: No VTE Prior VTE?: No VTE Risk Level:: Medical - moderate - high VTE Device Contraindication: Treatment Not Indicated VTE Drug Contraindication: N/A - Med Ordered
[2023-12-24] MEDS: amLODIPine Besylate 5 MG TABLET PO (14:37)
[2023-12-24] MEDS: Sennosides 8.6 MG TABLET 17.2 MG PO (14:37)
[2023-12-24] MEDS: ondansetron HCL 4 MG/2 ML VIAL IVPUSH (14:37)
[2023-12-24 15:31] VITALS: BP 158/98; PULSE 123; RESP 18; TEMP 36.1; O2SAT 95
[2023-12-24] MEDS: Enoxaparin Sodium 40 MG/0.4 ML SYRINGE SUBCUT (17:19)
[2023-12-24] MEDS: Lactulose 20 GM/30 ML SOLUTION PO (17:19)
[2023-12-24 19:31] VITALS: BP 154/104; PULSE 111; RESP 18; TEMP 37; O2SAT 95
[2023-12-24] MEDS: Psyllium seed 3.7 GM PACKET PO (19:38)
[2023-12-24] MEDS: Metoprolol Tartrate 25 MG TABLET PO (19:38)
[2023-12-24 23:53] VITALS: BP 117/83; PULSE 102; RESP 20; TEMP 36.3; O2SAT 96
[2023-12-25] MEDS: Acetaminophen 325 MG TABLET 650 MG PO ×3 (00:02→17:20)
[2023-12-25] MEDS: ondansetron HCL 4 MG/2 ML VIAL IVPUSH ×3 (00:02→17:20)
[2023-12-25 04:00] VITALS: BP 143/89; PULSE 80; RESP 20; TEMP 36.2; O2SAT 97
[2023-12-25 06:06] LABS: Glucose, Whole Blood 93 mg/dL (60-115)
--- NOTE | 2023-12-25 06:10 | PC.NURSE ---
Pt CIWA 15. Nausea/drenched in sweat/shakes, HR in the 120s. MD Dennis Parker notified. 1x dose phenobarbital ordered STAT.
[2023-12-25] MEDS: PHENobarbitaL 30 MG TABLET 60 MG PO ×3 (06:20→21:08)
[2023-12-25 06:42] LABS: Anion Gap 15 (12-20); Blood Urea Nitrogen 13 mg/dL (9-16); Calcium 8.7 mg/dL (8.4-10.2); Carbon Dioxide 32 mmol/L (22-29); Chloride 95 mmol/L (96-108); Creatinine Clr Calc Pharmacy 104.4; Estimated Glomerular Filt Rate > 60; Glucose Random 83 mg/dL (60-115); Potassium 3.5 mmol/L (3.3-5.1); Sodium 138 mmol/L (135-145)
[2023-12-25 07:39] VITALS: BP 150/97; PULSE 93; RESP 16; TEMP 36.6; O2SAT 99
[2023-12-25 08:04] LABS: B Type Natriuretic Peptide 294 pg/mL (<100)
[2023-12-25] MEDS: Metoprolol Tartrate 25 MG TABLET PO ×2 (09:20→21:51)
[2023-12-25] MEDS: Multivitamin TABLET 1 TAB PO (09:20)
[2023-12-25] MEDS: amLODIPine Besylate 5 MG TABLET PO (09:20)
[2023-12-25] MEDS: Thiamine HCL 100 MG in 0.9 % Sodium Chloride 100 ML 202 MG IV (09:21)
[2023-12-25] MEDS: 0.9 % Sodium Chloride Flush 3 ML SYRINGE IVFLUSH (09:22)
[2023-12-25] MEDS: Nicotine 14 MG PATCH.TD24 TRANSDERMA (09:22)
[2023-12-25] MEDS: Folic Acid 1 MG in 0.9 % Sodium Chloride 50 ML 100.4 MG IV (09:28)
[2023-12-25 11:28] VITALS: BP 166/97; PULSE 84; RESP 16; TEMP 36.6; O2SAT 94
--- NOTE | 2023-12-25 12:54 | P.PNIM_ITS ---
Subjective Subjective Date of Service: 12/25/23 Interval History: Seen and evaluated this morning denies any fever or chills resolved abd discomfort, still reporting mild nausea and feeling stressed no reported seizures Review of Systems Review of Systems: Yes all other systems are reviewed and are negative Physical Exam 2 Vital Signs: Vital Signs: Last Vital Signs Temp 97.9 F 12/25/23 11:28 Pulse 84 12/25/23 11:28 Resp 16 12/25/23 11:28 BP 166/97 H 12/25/23 11:28 Pulse Ox 94 12/25/23 11:28 O2 Del Method Room Air 12/25/23 11:28 BMI result Body Mass Index 39.4 Const: Other: Constitutional : Awake, interactive, in mild distress Neck : Normal inspection, Supple Cardiovascular : RRR, no JVP, no lower extremity edema Respiratory : good bilateral air entry, no crackles, wheezes or rhonchi Gastrointestinal: soft, lax, Normal bowel sounds, Non tender Skin : Warm, Dry Neurological : Alert & oriented x3, No focal deficit Objective Data Active Medications Acetaminophen (Acetaminophen 325 Mg Tablet) 650 mg PO Q6H PRN PRN Reason: Pain, Mild (Pain Scale 1-3) Last Admin: 12/25/23 09:52 Dose: 650 mg Documented By: KIRTSIN Amlodipine Besylate (Amlodipine Besylate 5 Mg Tablet) 5 mg PO DAILY [facility]; Protocol Last Admin: 12/25/23 09:20 Dose: 5 mg Documented By: KIRSTIN Calcium Carbonate (Calcium Carbonate 750 Mg Tab.Chew) 750 mg PO Q4H PRN PRN Reason: Heartburn Enoxaparin Sodium (Enoxaparin Sodium 40 Mg/0.4 Ml Syringe) 40 mg SUBCUT Q24H [facility] Last Admin: 12/24/23 17:19 Dose: 40 mg Documented By: GIBSON Thiamine HCl 100 mg/ Sodium (Chloride) 101 mls @ 202 mls/hr IV DAILY [facility] Last Admin: 12/25/23 09:21 Dose: 202 mls/hr Documented By: KIRSTIN Lactulose (Lactulose 20 Gm/30 Ml Solution) 20 gm PO BID [facility] Last Admin: 12/25/23 07:30 Dose: Not Given Documented By: KIRSTIN Non-Admin Reason: pt had multiple loose stools Metoprolol Tartrate (Metoprolol Tartrate 25 Mg Tablet) 25 mg PO BID [facility]; Protocol Last Admin: 12/25/23 09:20 Dose: 25 mg Documented By: KIRSTIN Multivitamins/Vitamin C (Multivitamin Tablet) 1 tab PO DAILY [facility] Last Admin: 12/25/23 09:20 Dose: 1 tab Documented By: KIRSTIN Nicotine (Nicotine 14 Mg Patch.Td24) 14 mg TRANSDERMA DAILY [facility] Last Admin: 12/25/23 09:22 Dose: 14 mg Documented By: KIRSTIN Ondansetron HCl (Ondansetron Hcl 4 Mg/2 Ml Vial) 4 mg IVPUSH Q8H PRN PRN Reason: Nausea and Vomiting Last Admin: 12/25/23 09:28 Dose: 4 mg Documented By: KIRSTIN Pharmacy Consult (Consult Rx Etoh Phenob Im/Po) 1 each MISCELLANE ONCE PRN; Protocol PRN Reason: Consult order Phenobarbital (Phenobarbital 30 Mg Tablet) 60 mg PO BID [facility]; Protocol Stop: 12/25/23 21:01 Last Admin: 12/25/23 09:20 Dose: 60 mg Documented By: KIRSTIN Phenobarbital (Phenobarbital 30 Mg Tablet) 30 mg PO BID [facility]; Protocol Stop: 12/27/23 21:01 Phenobarbital (Phenobarbital 30 Mg Tablet) 30 mg PO DAILY [facility]; Protocol Stop: 12/29/23 09:01 Psyllium Hydrophilic Mucilloid (Psyllium Seed 3.7 Gm Packet) 3.7 gm PO BEDTIME [facility] Last Admin: 12/24/23 19:38 Dose: 3.7 gm Documented By: MELONIE Senna (Sennosides 8.6 Mg Tablet) 17.2 mg PO BEDTIME PRN PRN Reason: Constipation Last Admin: 12/24/23 14:37 Dose: 17.2 mg Documented By: JAMAICA Sodium Chloride (0.9 % Sodium Chloride Flush 3 Ml [facility]) [facility] Admin: 12/25/23 09:22 Dose: 3 ml Documented By: KIRSTIN Labs 12/24/23 06:12 12/25/23 05:56 Labs: Laboratory Results - last 24 hr 12/25/23 12/25/23 05:56 06:01 Anion Gap 15 Estim Creat Clear Calc 104.4 Estimated GFR > 60 POC Glucose 93 Random Glucose 83 Calcium 8.7 D B-Natriuretic Peptide 294 H Assessment and Plan (1) Uncontrolled hypertension: Status: Acute (2) Alcohol withdrawal: Status: Acute Plan 58-year-old male with history of hypertension not currently on antihypertensives, unspecified congestive heart failure, alcohol use disorder admitted for management of acute alcohol withdrawal #Acute alcohol withdrawal CIWA monitoring Continue phenobarbital per protocol iv thiamine, iv folic acid monitor on [facility] addiction team following Encourage PO intake #Elevated troponins related to uncontrolled hypertension Trop remained flat ekg without acute ischemic changes echo showing stable systolic CHF monitor on tele #Uncontrolled HTN Start Amlodipine Decrease metoprolol to 25mg BID monitor bp #Sinus tachycardia likely due to w/d Normal TSH # transaminitis likely due to alcohol use, follow # stocking-glove paresthesias likely due to alcohol abuse check vitamin B12, folic acid, TSH # chronic heart failure, reduced ejection fraction clinically euvolemic # cigarette smoker cessation counseling nicotine patch for NRT # morbid obesity with BMI greater than 40 weight loss efforts encouraged DVT prophylaxis Lovenox Full code Patient requires inpatient stay overnight for management of acute alcohol withdrawal in a patient who is at risk for severe withdrawal on phenobarbital per protocol as well as further management of uncontrolled blood pressure levels resulting in elevated troponins Quality Stroke Does the patient have a stroke diagnosis?: No VTE Prior VTE?: No VTE Risk Level:: Medical - moderate - high VTE Device Contraindication: Treatment Not Indicated VTE Drug Contraindication: N/A - Med Ordered
[2023-12-25] MEDS: 0.9 % Sodium Chloride 1,000 ML 125 ML IVCONT (13:28)
[2023-12-25 16:00] VITALS: BP 138/84; PULSE 109; RESP 16; TEMP 36.9; O2SAT 97
[2023-12-25] MEDS: Enoxaparin Sodium 40 MG/0.4 ML SYRINGE SUBCUT (17:20)
[2023-12-25 20:00] VITALS: BP 140/110; PULSE 110; RESP 18; TEMP 36.6; O2SAT 96
[2023-12-25] MEDS: Ketorolac Tromethamine 30 MG/ML VIAL IVPUSH (21:06)
[2023-12-25] MEDS: Prochlorperazine Edisylate 10 MG/2 ML VIAL 5 MG IVPUSH (21:06)
--- NOTE | 2023-12-25 21:10 | PC.NURSE ---
Assumed care of patient at 19:00. Pt on CIWA score protocol, scoring 18 at 20:00 (see assessment for full details). BP elevated 140/110 and HR 110. Pt c/o nausea/vomiting and generalized body aches, not yet due for prn tylenol or zofran. Covering Dr. Dennis Parker notified with orders for 1x compazine, 1x toradol and phenobarb with written orders to hold off on scheduled po phenobarb until later this shift (11pm or 12am per MD). Will continue to monitor safety and comfort.
[2023-12-25 23:24] VITALS: BP 120/102; PULSE 77; RESP 18; TEMP 36.1; O2SAT 99
--- NOTE | 2023-12-26 00:02 | PC.NURSE ---
Patient CIWA reassessment s/p 1x po phenobarbital given per MD in the evening was 6. Pt remained hypertensive as well 120/102 manually, HR 77 despite 1x toradol. Pt reports generalized aches improved, given prn tylenol. MD notified, written order to give the scheduled dose of po phenobarb from 21:00 now. 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
[2023-12-26] MEDS: Acetaminophen 325 MG TABLET 650 MG PO ×2 (00:05→07:38)
[2023-12-26] MEDS: 0.9 % Sodium Chloride Flush 3 ML SYRINGE IVFLUSH ×3 (00:06→10:53)
[2023-12-26] MEDS: PHENobarbitaL 30 MG TABLET 60 MG PO (00:06)
[2023-12-26 01:05] VITALS: RESP 16
[2023-12-26 03:22] VITALS: BP 150/98; PULSE 75; RESP 18; TEMP 36; O2SAT 94
[2023-12-26 07:25] LABS: Anion Gap 12 (12-20); Blood Urea Nitrogen 18 mg/dL (9-16); Calcium 8.1 mg/dL (8.4-10.2); Carbon Dioxide 27 mmol/L (22-29); Chloride 101 mmol/L (96-108); Creatinine Clr Calc Pharmacy 105.4; Estimated Glomerular Filt Rate > 60; Glucose Random 82 mg/dL (60-115); Potassium 3.2 mmol/L (3.3-5.1); Sodium 137 mmol/L (135-145)
[2023-12-26] MEDS: Metoprolol Tartrate 25 MG TABLET PO (07:39)
[2023-12-26] MEDS: PHENobarbitaL 30 MG TABLET PO (07:39)
[2023-12-26] MEDS: amLODIPine Besylate 5 MG TABLET PO (07:39)
[2023-12-26] MEDS: Multivitamin TABLET 1 TAB PO (07:39)
[2023-12-26] MEDS: Thiamine HCL 100 MG in 0.9 % Sodium Chloride 100 ML 202 MG IV (07:39)
[2023-12-26] MEDS: ondansetron HCL 4 MG/2 ML VIAL IVPUSH (07:40)
[2023-12-26] MEDS: Nicotine 14 MG PATCH.TD24 TRANSDERMA (07:41)
[2023-12-26] MEDS: Calcium Carbonate 750 MG TAB.CHEW PO (07:58)
[2023-12-26 08:00] VITALS: BP 165/101; PULSE 83; RESP 19; TEMP 36.3; O2SAT 93
[2023-12-26] MEDS: Potassium Chloride Packet 20 MEQ PACKET 40 MEQ PO (10:52)
--- NOTE | 2023-12-26 11:46 | P.DS_ITS ---
DS: Providers Provider Date of Service: 12/26/23 Date of admission: 12/23/23 17:57 Primary care physician: ERNESTO Scott Consults: 12/23/23 18:04 Addiction Medicine Routine Consulting Provider: Addiction Covering Reason for consultation: etoh dependence DS: Diagnosis Discharge Diagnosis (1) Uncontrolled hypertension: Status: Acute (2) Alcohol withdrawal: Status: Acute (3) Elevated troponin: Status: Acute DS: Summary Hospital Course Hospital Course: Admission note HPI 58-year-old male with history of hypertension not currently on antihypertensives, unspecified congestive heart failure, alcohol use disorder presents to the ED earlier today for evaluation of intractable nausea and vomiting ongoing for 2 days. He states alcohol use was in remission for the last year but then 2 weeks ago had several significant life stressors and began drinking a 5th of vodka on a daily basis. About 2 days ago, he describes a feeling of impending doom and developed burning chest pain associated with dyspnea. There has been significant nausea with 10+ episodes of blood-tinged bilious vomitus and p.o. intolerance. He has also been experiencing sweats and tremors as well as auditory hallucinations which he is aware are not real, and occasional confusion. He denies any history of alcohol withdrawal seizures. His last drink was this morning. He denies any illicit substance use or marijuana use. He does smoke 1/2 pack of cigarettes daily with a 20 pack-year history. He is also reporting bilateral numbness tingling of the hands and feet. Since arrival, patient has been hypertensive with blood pressure on admission 176/108 but was as high as 201/130. He has been tachycardic into the 120s, vitals otherwise stable. No leukocytosis or anemia. Platelet count 135. Renal function normal, electrolyte levels normal. AST 72, ALT 41, total bilirubin normal. Initial troponin 42.2, repeat 45.6. EKG shows sinus tachycardia with frequent PVCs, no ST/depressions. Urinalysis unremarkable. Ethyl alcohol level 98. CT abdomen/pelvis negative for any acute findings but shows fatty liver and question of small layering gallstones versus sludge in the gallbladder. Chest CT shows mild subsegmental atelectasis in the inferior segment of the lingula adjacent to the area of prominent extrapleural fat, otherwise unremarkable. Abdominal ultrasound shows normal-appearing gallbladder and common bile duct. No cholelithiasis or sludge within the gallbladder. In the ED, given 3 L IV NS, Maalox, Reglan, morphine, Benadryl, ondansetron. Was given 2 mg Ativan x3 without improvement in withdrawal symptoms and was started on phenobarbital per protocol for acute alcohol withdrawal. Hospital course #Acute alcohol withdrawal Monitored on CIWA and treated with phenobarbital protocol along with iv thiamine, iv folic acid. addiction team evaluated the patient and gave outpatient resources. tolerated diet well as withdrawal symptoms resolved and he was able to ambulate safely. #Elevated troponins related to uncontrolled hypertension Trop remained flat with ekg without acute ischemic changes. echo showing stable systolic CHF. will need better control of his blood pressure. #Uncontrolled HTN Started on Amlodipine and Metoprolol to 25mg BID with partial resoponse. changed to Amlodipine and Losartan on discharge. We advise you complete abstinence from alcohol Start Amlodipine and Losartan as prescribed Quit smoking record blood pressure readings 3-4 times daily for the next week and report read ings to PCP for further adjustments of your medications Time Attestation Discharge coordination time: Greater than 30 minutes Quality: Safe Use of Opioids Does Pt have an Active Cancer Diagnosis on the Problem List?: No Quality: Stroke Does the patient have a stroke diagnosis?: No Physical Exam Vital Signs: Vital Signs: Last Vital Signs Temp 97.3 F 12/26/23 08:00 Pulse 83 12/26/23 08:00 Resp 19 12/26/23 08:00 BP 165/101 H 12/26/23 08:00 Pulse Ox 93 12/26/23 08:00 O2 Del Method Room Air 12/26/23 08:00 BMI result Body Mass Index 39.4 Const: Other: Constitutional : Awake, interactive, not in distress Neck : Normal inspection, Supple Cardiovascular : RRR, no JVP, no lower extremity edema Respiratory : good bilateral air entry, no crackles, wheezes or rhonchi Gastrointestinal: soft, lax, Normal bowel sounds, Non tender Skin : Warm, Dry Neurological : Alert & oriented x3, No focal deficit DS: Data Data Completed and Pending Labs on day of discharge: Laboratory Results - last 24 hr 12/26/23 06:41 Hold Purple Top SEE NOTE Sodium 137 Potassium 3.2 L Chloride 101 Carbon Dioxide 27 Anion Gap 12 BUN 18 H Creatinine 1.06 Estim Creat Clear Calc 105.4 Estimated GFR > 60 Random Glucose 82 Calcium 8.1 L D Imaging Chest x-ray: Radiologist's impression: ITS Impressions Chest X-Ray 12/23/23 11:55 IMPRESSION: Cardiomegaly without acute pulmonary pathology. Abdomen/Pelvis CT 12/23/23 13:05 IMPRESSION: No acute findings. Fatty liver. Question small layering gallstones versus sludge in the gallbladder. Fleischner guidelines were followed. Chest CT 12/23/23 13:05 IMPRESSION: Mild subsegmental atelectasis in the inferior segment of the lingula adjacent to an area of prominent extrapleural fat. Otherwise unremarkable exam. Normal-appearing esophagus. Fleischner guidelines were followed. Abdomen Ultrasound 12/23/23 16:06 IMPRESSION: Normal-appearing gallbladder and common bile duct. No cholelithiasis or sludge within the gallbladder. Discharge Plan Discharge Anticipated Discharge Date/Time: 12/26/23 11:39 Patient Disposition: Home, Self-Care Discharge Diagnosis: Alcohol withdrawal Uncontrolled hypertention Referrals: Magda Menard PA [Primary Care Provider] - 1 Week Discharge Medications: New nicotine 14 mg/24 hr Patch 24 Hour 14 mg transdermal DAILY Qty: 30 0RF amlodipine 5 mg Tablet 5 mg PO DAILY Qty: 90 0RF Protocol: Hold for SBP< HOLD for SBP < : 90 losartan 25 mg tablet 25 mg PO DAILY Qty: 90 0RF Continued multivitamin Tablet 1 tab PO DAILY Discharge Orders: Discharge Order (Routine); Ordered 12/26/23 Ordered By: Denisse Martinez Diet: Advance to usual diet Activity on Discharge: As tolerated Stand Alone Forms: Patient Portal Discharge page Care Plan Goals: Read below Health Concerns: Read below Plan of Treatment: Read below Assessment: We advise you complete abstinence from alcohol Start Amlodipine and Losartan as prescribed Quit smoking record blood pressure readings 3-4 times daily for the next week and report readings to PCP for further adjustments of your medications
[2023-12-26 12:00] VITALS: BP 141/91; PULSE 100; RESP 20; TEMP 36.1; O2SAT 95
--- NOTE | 2023-12-26 13:18 | MHC.CM.PN ---
pt has been medically cleared for DC. He will go home via family transport, DC plan is self care.
--- NOTE | 2023-12-26 14:25 | MHC.RECOVRN ---
Met with pt in 477 after consult placed to Addiction Medicine for alcohol use. Pt had presented to the ED reporting chest pain, with n/v/d x 5 days as well as alcohol use. Upon evaluation, pt admitted for alcohol withdrawal and atypical chest pain. Pt sitting in bed, awake, alert, easily engages in conversation. Pt reports alcohol use, 1-2 pints vodka daily x 2 weeks. Pt reports prior to 2 weeks ago last use was 2022. Pt reports he ceased alcohol use day prior to admission and woke up feeling unwell so he came to the emergency room. Pt reports that when he ceased alcohol use in 2022 he did not have any withdrawal symptoms. Pt reports after he stopped drinking he was able to stay in recovery by staying busy, routine. 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 Pt reports 2 weeks ago he was having increased stress at work and his cat . Pt states It all just came crashing down. Pt tearful, reports he typically does not express his emotions and feels like he needs to. Discussed treatment options, including PHP. Pt reports he is not working for at least a week or 2, encouraged pt to call outpatient [facility] and explore PHP/IOP, pt agreeable. Pt provided with written recovery resources as well as t/w contact information if needed. Pt denies other questions or concerns. Plan to follow up with PHP/IOP.
== END 2023-12-26 14:47 | disposition home or self-care (01) | DRG 897 ==
LOC: HO.ED 16:45 → HO.EDOVER 19:50 → HO.IMC 20:00
PROVIDERS: Physician Assistant Medical; Admitting Provider Physician Assistant; Emergency Provider Emergency Medicine; PCP Physician Assistant; Visit Provider Student in an Organized Health Care Education/Training Program
DX: F10.232 Alcohol dependence with withdrawal with perceptual disturbance (principal); I50.22 Chronic systolic (congestive) heart failure; I11.0 Hypertensive heart disease with heart failure; E66.01 Morbid (severe) obesity due to excess calories; R20.2 Paresthesia of skin; Z71.3 Dietary counseling and surveillance; F17.210 Nicotine dependence, cigarettes, uncomplicated; Y90.4 Blood alcohol level of 80-99 mg/100 ml; Z68.39 Body mass index [BMI] 39.0-39.9, adult; Z91.148 Patient's other noncompliance with medication regimen for other reason; Z71.6 Tobacco abuse counseling; Z79.899 Other long term (current) drug therapy
CPT/HCPCS: 36415; 71046; 71260; 74177; 76705; 80048; 80076; 80307; 81001; 82607; 82746; 82947; 83690; 83735; 83880; 84443; 84484; 85025; 93005; 93306; 93356; 99285; J0737; J1200; J1650; J1885; J2060; J2270; J2405; J2560; J2765; J3411; Q9957; Q9967

== ENCOUNTER → 2023-12-23 10:27 | Outpatient (BNV) | payer OTHER, SELFPAY | PROVIDERS: Emergency Provider Emergency Medicine; Visit Provider Internal Medicine Cardiovascular Disease | DX: I49.3 Ventricular premature depolarization (principal) | CPT/HCPCS: 93010 ==

== ENCOUNTER 2023-12-23 17:57 | Outpatient (BNV) | payer OTHER, SELFPAY | END 2023-12-24 07:00 | PROVIDERS: Admitting Provider Physician Assistant; Emergency Provider Emergency Medicine; PCP Physician Assistant; Visit Provider Internal Medicine Cardiovascular Disease | DX: I51.7 Cardiomegaly (principal) | CPT/HCPCS: 93306 ==

== ENCOUNTER → 2023-12-23 17:57 | Outpatient (BNV) | payer SELFPAY | PROVIDERS: Admitting Provider Physician Assistant; Emergency Provider Emergency Medicine; PCP Physician Assistant; Visit Provider Student in an Organized Health Care Education/Training Program | DX: F10.939 Alcohol use, unspecified with withdrawal, unspecified (principal); Y90.4 Blood alcohol level of 80-99 mg/100 ml; R07.89 Other chest pain | CPT/HCPCS: 99223; 99232; 99233; 99238 ==

== ENCOUNTER 2025-01-05 19:42 | Inpatient (IN) | payer MEDICARE, OTHER, SELFPAY ==
--- NOTE | 2025-01-05 | ECG_ITS ---
Test Reason : REPEAT EKG Blood Pressure : */* mmHG Vent. Rate : 92 BPM Atrial Rate : 92 BPM P-R Int : 188 ms QRS Dur : 102 ms QT Int : 382 ms P-R-T Axes : 31 14 58 degrees QTcB Int : 472 ms Normal sinus rhythm Minimal voltage criteria for LVH, may be normal variant ( R in aVL ) Septal infarct , age undetermined Possible Inferior infarct , age undetermined Abnormal ECG When compared with ECG of 05-Jan-2025 19:47, Borderline criteria for Inferior infarct are now Present Referred By: Behzad Weir Electronically Signed By: ANGELITA MEDINA MD
--- NOTE | ~2025-01-05 | US_ITS ---
EXAMINATION: US TRIPLEX LOWER EXTREMITY, RIGHT CLINICAL INFORMATION: Right leg pain COMPARISON: None available. TECHNIQUE: Color-flow triplex imaging with spectral analysis and compression Doppler were performed on the right lower extremity. FINDINGS: Respiratory variation, normal compression and augmented flow are noted throughout the right lower extremity. The visualized common femoral vein, superficial femoral vein, profunda femoral vein, popliteal vein and midcalf peroneal and posterior tibial venous segments show no evidence of deep venous thrombosis. There is no Mckoy's cyst. US/US venous duplex LE RT IMPRESSION: No evidence of deep venous thrombosis involving the right lower extremity. Electronically signed by: Jay Fishman MD 01/06/2025 07:07 AM DONNY
--- NOTE | ~2025-01-05 | XR_ITS ---
CLINICAL HISTORY: cough 2 view chest x-ray Comparison: CT - CT CHEST W IV CON - 12/23/23 12:48 EST CR/SR - XR CHEST 2V - 12/23/23 11:53 EST Findings: The lungs are clear. Heart size is normal. No acute fracture. IMPRESSION: 1. No acute findings. This document has been electronically signed by: Damon Junior MD on 01/05/2025 22:20:52
--- NOTE | 2025-01-05 19:43 | ECG_ITS ---
Test Reason : CP Blood Pressure : */* mmHG Vent. Rate : 102 BPM Atrial Rate : 102 BPM P-R Int : 180 ms QRS Dur : 96 ms QT Int : 358 ms P-R-T Axes : 53 50 51 degrees QTcB Int : 466 ms Sinus tachycardia Nonspecific ST abnormality Abnormal ECG When compared with ECG of 23-Dec-2023 10:36, Premature ventricular complexes are no longer Present T wave inversion no longer evident in Inferior leads Referred By: Lily Peterson Electronically Signed By: ANGELITA MEDINA MD
[2025-01-05 19:50] VITALS: BP 181/90; PULSE 102; RESP 24; TEMP 36.6; O2SAT 97; BMI 44.0
--- NOTE | 2025-01-05 19:56 | ED_ITS ---
HPI - General Adult General Chief complaint: Psychiatric Symptoms Stated complaint: chest pain Time Seen by Provider: 01/05/25 20:27 Source: patient, RN notes reviewed and old records reviewed Mode of arrival: ambulatory Limitations: other (acute alcohol intoxication) History of Present Illness ED Provider: Carmella HPI narrative: 59-year-old male past medical history significant for hypertension, CHF, alcohol dependence, noncompliant with medications presents for evaluation depression with suicidal ideation. The patient also reports chest pain which has been going on for weeks. He reports the chest pain is chronic, constant, 6/10 and in the center of his chest. This is unrelated to eating or exertion The patient reports that he is unable to deal with life stressors including things have been going on for decades and he also mentions of passing of his . The patient states that he can not cope with all these and he is having suicidal thoughts. The patient admits to oxalate attempting to hang himself earlier today. He reports that he went down into his basement and tied a rope to a pipe. He reports that he tried to hang himself but ?the rope immediately snapped when I tried. The patient reports right leg swelling for the last few weeks that seems to be worsening Related Data Home Medications ?Medication ?Instructions ?Recorded ?Confirmed carvedilol 25 mg tablet 25 mg PO BID 01/05/25 01/05/25 folic acid 1 mg tablet 1 mg PO DAILY 01/05/25 01/05/25 furosemide 40 mg tablet 40 mg PO DAILY 01/05/25 01/05/25 thiamine HCl (vitamin B1) 100 mg 100 mg PO DAILY 01/05/25 01/05/25 tablet (Vitamin B-1) valsartan 40 mg tablet 40 mg PO DAILY 01/05/25 01/05/25 Allergies Allergy/AdvReac Type Severity Reaction Status Date / Time No Known Allergies Allergy Verified 01/05/25 19:58 [No Known Allergies*] Review of Systems 2 Constitutional: Constitutional: Denies body ache(s), Denies chills, Denies fever(s) and Denies headache(s) Eyes: Eyes: Denies blurry vision ENT: Denies dysphagia, Denies vertigo, Denies dizziness, Denies headache(s) and Denies neck pain Cardiovascular: Cardiovascular: Reports chest pain, Reports chest pain at rest and Denies dyspnea Respiratory: Respiratory: Denies cough and Denies dyspnea Gastrointestinal: Gastrointestinal: Denies abdominal pain, Denies dysphagia, Denies nausea and Denies vomiting Musculoskeletal: Musculoskeletal: Denies back pain, Denies arthralgias, Denies joint swelling, Denies limited range of motion and Denies neck pain Integumentary/Breasts: Skin/Breast: Denies rash Neurologic: Denies vertigo, Denies dizziness and Denies headache(s) Psychiatric: Psychiatric: Reports anxiety, Reports depression and Reports suicidal ideation [facility] Past Medical History Medical History (Updated 01/06/25 @ 14:40 by Amairani Hernandez MD) Morbid obesity CHF (congestive heart failure) HTN (hypertension) Social History Social History Household Members: Significant Other Housing: [facility] Alcohol intake: current Alcohol intake frequency: 3 or more drinks per day Alcohol type: hard liquor Patient Tobacco Use Status: Current everyday Tobacco user Tobacco use type: Cigarette Cigarette Packs Per Day: 1 Cigarettes Per Day: 20.0 Years Smoked: 45 Smoked in Last 30 Days: No Use of substances other than those prescribed or required for medical reasons: No Substance Use Type: Marijuana Advance Directives: No Advance Directives Information Provided: No Do you have a plan to hurt others: No Plan service: No Physical Exam ED Vital Signs: Vital Signs - 24 hr 01/05/25 19:50 01/05/25 22:35 01/06/25 03:11 Temperature 97.9 F 98.9 F Pulse Rate 102 H 102 H 90 Respiratory Rate 24 H 16 Blood Pressure 181/90 H 181/90 H 174/93 H Pulse Oximetry 97 93 Oxygen Delivery Method Room Air Room Air BMI result Body Mass Index 44.0 Const General: healthy appearing, comfortable, no acute distress, alert and awake Nutritional Appearance: well nourished Orientation/consciousness: patient oriented x3 HENMT Head: Yes normocephalic and Yes atraumatic Throat: Yes posterior oropharynx normal Eyes Eyelids: Yes eyelids normal Conjunctivae: conjunctivae normal Sclerae: sclerae normal Corneas: corneas normal Pupils: Equal, round and reactive pupils present EOM: EOMs intact bilaterally Neck Other: No anterior neck edema, no ligature yates. No C-spine tenderness Neck: Yes full ROM Resp Effort & Inspection: normal respiratory effort, able to speak in complete sentences, no audible wheezes and not labored Auscultation: clear to auscultation bilaterally Cardio Rate: regular rate Rhythm: regular rhythm GI Inspection: No distended Palpation (GI): Soft to palpation, not firm, nontender, no guarding and not rigid Skin General skin exam: elasticity normal Neuro General: patient oriented x3 Cranial nerves: Yes CN's II-XII intact bilaterally, Yes Equal, round and reactive pupils present and Yes Bilaterally intact EOM present Cognition (Neuro): normal cognition Extrem Other: 2+ pitting edema to the right lower extremity, no edema with the left lower extremity Course Course Course Narrative: This is a Rapid Medical Exam performed in triage by Lily Peterson PA-C. Full HPI, ROS and PE to be performed by primary ED provider. 59 yo M presenting to the ED c/o chest pain, +ETOH intoxication, drank about 1 pint 100 proof vodka, last drink around 15:00. States tried to hang himself today. I'm always alive, I don't understand it, I cant kill myself. Denies drug use. +admits to hx alcohol withdrawal seizures in the past PE: +ETOH odor on breath, rambling, +suicidal Plan: EKG, labs, CARE team consult Reevaluation(s) Reevaluation #1: Patient's troponins are flat, he was medically cleared for care team evaluation. Anticipate inpatient level of care. Time: 23:46 Reevaluation #2: Dr Hernandez's note: 59-year-old male was alcohol use disorder has been drinking alcohol for the last 3 weeks, last drink was about 24 hours ago, patient with history of DTs in the past, Patient feel anxious, nauseous, and having tremors, tongue fasciculation, CIWA score is 14. Patient at risk for progressing to DTs received multiple doses of Ativan with no relief of his symptoms will start the patient on phenobarb, will admit the patient to the medical service. Time: 14:39 Medications Administered Generic Name Dose Route Start Last Admin Trade Name Freq PRN Reason Stop Dose Admin Carvedilol 25 mg 01/06/25 09:00 01/05/25 22:35 Carvedilol 25 Mg Tablet PO 25 mg BID IVAN Administration Protocol Folic Acid 1 mg 01/06/25 09:00 01/06/25 08:36 Folic Acid 1 Mg Tablet PO 1 mg DAILY IVAN Administration Furosemide 40 mg 01/06/25 09:00 01/06/25 09:22 Furosemide 40 Mg Tablet PO 40 mg DAILY IVAN Administration Protocol Thiamine HCl 100 mg 01/06/25 09:00 01/06/25 08:36 Thiamine Hcl 100 Mg Tablet PO 100 mg DAILY IVAN Administration Valsartan 40 mg 01/06/25 09:00 01/06/25 09:22 Valsartan 40 Mg Tablet PO 40 mg DAILY IVAN Administration Protocol Discontinued Medications Generic Name Dose Route Start Last Admin Trade Name Veronica PRN Reason Stop Dose Admin Lorazepam 2 mg 01/05/25 20:30 01/05/25 20:35 Lorazepam 1 Mg Tablet PO 01/05/25 20:31 2 mg ONCE ONE Administration Lorazepam 2 mg 01/06/25 03:17 01/06/25 03:26 Lorazepam 1 Mg Tablet PO 01/06/25 03:18 2 mg ONCE ONE Administration Lorazepam 2 mg 01/06/25 08:26 01/06/25 08:36 Lorazepam 1 Mg Tablet PO 01/06/25 08:27 2 mg ONCE ONE Administration Lorazepam 2 mg 01/06/25 12:08 01/06/25 12:18 Lorazepam 1 Mg Tablet PO 01/06/25 12:09 2 mg ONCE ONE Administration Melatonin 6 mg 01/05/25 22:33 01/05/25 22:36 Melatonin 3 Mg Tablet PO 01/05/25 22:34 6 mg ONCE ONE Administration Medical Decision Making Medical Decision Making [facility] Narrative: 59-year-old male presents for evaluation of primarily depression with suicidal ideation. He also complains of chest pain in his found to be hypotensive. He was noncompliant with his medications. He was hypertensive to 181/90. He was tachycardic to 102 and a respiratory rate of 24. This may all be related to the fact the patient is quite upset and crying due to his depression. However given his reported chest pain and his reported suicide attempt he will require additional medical workup. Plan for chest x-ray, ultrasound of the right lower extremity given the leg swelling, we will add on a BNP due to his history of heart failure with leg swelling and chest pain. His EKG is nonischemic. The patient's troponin is within normal limits at 26.8. This is down from around 40 2 weeks ago. However given his active chest pain we will get a repeat troponin Differential Diagnosis Differential Diagnoses: The differential diagnosis associated with the presentation includes Chest pain Depression Suicidal ideation ACS less likely CHF DVT Lab Data MDM Lab Attestation statement: I reviewed the patient's lab results. No leukocytosis or significant anemia. Normal platelet count. No electrolyte abnormalities warranting intervention. Patient has a slight elevation of the AST and ALT which is likely attributed to alcohol abuse. In his troponin within normal limits. 01/05/25 19:55 01/05/25 19:55 Labs: Lab Results 01/05/25 01/05/25 01/06/25 Range/Units 19:55 22:12 03:06 WBC 6.6 (4.8-10.8) X10*3/uL RBC 4.70 (4.60-5.80) X10*6/uL Hgb 13.8 L (14.0-18.0) g/dl Hct 41.5 L (42.0-52.0) % MCV 88.3 (80.0-98.0) fL MCH 29.4 (27.0-33.0) pg MCHC 33.3 (31.0-36.0) g/dl RDW 15.8 (11.0-16.0) % Plt Count 203 D (160-400) X10*3/uL MPV 9.3 L (9.4-12.4) fL Immature Gran % (Auto) 0.2 (0.0-0.4) % Neut % (Auto) 37.3 L (45-73) % Lymph % (Auto) 48.4 H (20-40) % [place] % (Auto) 8.3 (2-11) % Eos % (Auto) 4.4 H (0-4) % Baso % (Auto) 1.4 (0-2) % Lymph # (Auto) 3.2 (1.2-4.9) X10*3/uL [place] # (Auto) 0.6 (0.1-1.2) X10*3/uL Eos # (Auto) 0.3 (0.0-0.4) X10*3/uL Baso # (Auto) 0.1 (0.0-0.2) X10*3/uL Abs Immat Gran (auto) 0.01 (0.00-0.03) X10*3/uL Absolute Neuts (auto) 2.5 (2.0-8.3) x10*3/uL Absolute Nucleated RBC 0.000 (0.0-0.012) X10*3/uL Nucleated RBC % (auto) 0.0 (0.0-0.2) /100WBC PT 10.7 L (10.9-12.4) SEC INR 0.9 (0.9-1.1) Sodium 145 (135-145) mmol/L Potassium 3.8 (3.3-5.1) mmol/L Chloride 108 (96-108) mmol/L Carbon Dioxide 28 (22-29) mmol/L Anion Gap 13 (12-20) BUN 12 (9-16) mg/dL Creatinine 0.80 (0.5-1.4) mg/dL Estim Creat Clear Calc 142.1 Estimated GFR > 60 Random Glucose 95 (60-115) mg/dL Calcium 8.4 (8.4-10.2) mg/dL Magnesium 1.8 (1.6-2.6) mg/dL Total Bilirubin 0.3 (0.0-1.0) mg/dL Direct Bilirubin 0.2 (0.0-0.5) mg/dL AST 65 H (5-37) U/L ALT 58 H (0-40) U/L Alkaline Phosphatase 87 (39-117) U/L Troponin I High Sens 26.8 28.2 (<3.5-35.0) ng/L B-Natriuretic Peptide 33 (<100) pg/mL Total Protein 7.5 (6.5-8.0) g/dL Albumin 4.0 (3.5-5.0) g/dL Lipase 77 (8-78) U/L Urine Opiates Screen Not Detected (Not Detect) Ur Buprenorphine Scrn Not Detected (Not Detect) ng/mL Ur Oxycodone Screen Not Detected (Not Detect) ng/mL Urine Methadone Screen Not Detected (Not Detect) ng/mL Urine Fentanyl Screen Not Detected (Not Detect) Ur Barbiturates Screen POSITIVE H (Not Detect) Ur Phencyclidine Scrn Not Detected (Not Detect) Ur Amphetamines Screen Not Detected (Not Detect) U Benzodiazepines Scrn Not Detected (Not Detect) Urine Cocaine Screen POSITIVE H (Not Detect) U Marijuana (THC) Screen POSITIVE H (Not Detect) Ethyl Alcohol 423 H* mg/dL Influenza Type A (PCR) NEGATIVE (Negative) Influenza Type B (PCR) NEGATIVE (Negative) RSV RNA Qual (PCR) NEGATIVE (Negative) SARS-CoV-2 RNA (RT-PCR) NEGATIVE (Negative) Independent Interpretation I performed an independent interpretation of an: EKG (Sinus tachycardia rate of 102 beats minute. No significant change when compared to previous from December 23, 2023) Discharge Plan Discharge Clinical Impression: Suicidal ideation, Chest pain, Alcohol withdrawal Patient Disposition: Admitted As Inpatient Prescriptions: No Action furosemide 40 mg tablet 40 mg PO DAILY carvedilol 25 mg tablet 25 mg PO BID thiamine HCl (vitamin B1) [Vitamin B-1] 100 mg tablet 100 mg PO DAILY folic acid 1 mg tablet 1 mg PO DAILY valsartan 40 mg tablet 40 mg PO DAILY Print Language: Uzbek
[2025-01-05 20:02] LABS: MANUAL DIFF FLAG NO
[2025-01-05 20:05] LABS: Basophils Absolute Auto 0.1 X10*3/uL (0.0-0.2); Basophils Percent Auto 1.4 % (0-2); Eosinophils Absolute Auto 0.3 X10*3/uL (0.0-0.4); Eosinophils Percent Auto 4.4 % (0-4); Hematocrit 41.5 % (42.0-52.0); Hemoglobin 13.8 g/dl (14.0-18.0); Imm Gran Abs Auto 0.01 X10*3/uL (0.00-0.03); Imm Gran Pct Auto 0.2 % (0.0-0.4); Lymphocytes Absolute Auto 3.2 X10*3/uL (1.2-4.9); Lymphocytes Percent Auto 48.4 % (20-40); Mean Corpuscular HGB Conc 33.3 g/dl (31.0-36.0); Mean Corpuscular Hemoglobin 29.4 pg (27.0-33.0); Mean Corpuscular Volume 88.3 fL (80.0-98.0); Mean Platelet Volume 9.3 fL (9.4-12.4); Monocytes Absolute Auto 0.6 X10*3/uL (0.1-1.2); Monocytes Percent Auto 8.3 % (2-11); Neutrophils Absolute Auto 2.5 x10*3/uL (2.0-8.3); Neutrophils Percent Auto 37.3 % (45-73); Platelet Count 203 X10*3/uL (160-400); Red Cell Distribution Width 15.8 % (11.0-16.0); White Blood Count 6.6 X10*3/uL (4.8-10.8)
[2025-01-05 20:12] LABS: INTERNATIONAL NORM RATIO 0.9 (0.9-1.1); Prothrombin Time 10.7 SEC (10.9-12.4)
[2025-01-05 20:16] LABS: Ethanol 423 mg/dL
[2025-01-05 20:20] LABS: Alanine Aminotransferase 58 U/L (0-40); Alkaline Phosphatase 87 U/L (39-117); Anion Gap 13 (12-20); Aspartate Amino Transferase 65 U/L (5-37); Bilirubin Direct 0.2 mg/dL (0.0-0.5); Bilirubin Total 0.3 mg/dL (0.0-1.0); Blood Urea Nitrogen 12 mg/dL (9-16); Calcium 8.4 mg/dL (8.4-10.2); Carbon Dioxide 28 mmol/L (22-29); Chloride 108 mmol/L (96-108); Creatinine Clr Calc Pharmacy 142.1; Estimated Glomerular Filt Rate > 60; Glucose Random 95 mg/dL (60-115); Lipase 77 U/L (8-78); Magnesium 1.8 mg/dL (1.6-2.6); Potassium 3.8 mmol/L (3.3-5.1); Sodium 145 mmol/L (135-145); Total Protein 7.5 g/dL (6.5-8.0)
[2025-01-05 20:28] LABS: Troponin-I High Sensitivity 26.8 ng/L (<3.5-35.0)
[2025-01-05] MEDS: LORazepam 1 MG TABLET 2 MG PO (20:35)
[2025-01-05 20:42] LABS: Influenza A PCR NEGATIVE (Negative); Influenza B PCR NEGATIVE (Negative); Resp Syncy Virus RNA Qual PCR NEGATIVE (Negative); SARS COV2 PCR INHOUSE NEGATIVE (Negative)
[2025-01-05 21:11] LABS: B Type Natriuretic Peptide 33 pg/mL (<100)
--- OUTSIDE RECORDS SUMMARY | 2025-01-05 21:52 | XMS_ITS | Encounter Summary ---
Author Organization [facility] Address [address] [place] [address] Care Team Providers Care Purchasing Associate Name Role Phone Physician, No Pcp Primary Care Provider Unavaila ble Reason for Visit * Reason Comments Chest Pain Suicidal * Auth/Cert (Routine) Specialty Diagnoses / Procedures Referred By Contac t Referred To Contact Diagnoses Alcohol withdrawal (CMS/HCC) Precordial pain Alcohol abuse with withdrawal (CMS/HCC) Procedures . Jeffrey Hopkins MD [address] [place] [address] Phone: tel: fax: [facility] [address] [place] [phone] Phone: tel: Referral ID Status Reason Start Date Expiration Date Visits Re quested Visits Authorized [id number] 1 1 Encounter Details Date Type Department Care Team (Latest Contact Info) Description 12/20/2024 5:20 PM EST - 12/23/2024 6:02 PM EST Hospital Encounter [facility] [address] [place] [phone] Johan Gaona, DO [address] [place] [phone] Jeffrey Hopkins MD [address] [place] [phone] Yobany Black MD [address] [place] [phone] Thalia Singh MD [address] [place] [phone] Precordial pain (Primary Dx); Alcohol abuse with withdrawal (CMS/HCC); Hypokalemia Discharge Disposition: Home or Self Care Social History Tobacco Use Types Packs/Day Years Used Date Smoking Tobacco: Every Day Cigarettes Alcohol Use Standard Drinks/Week Comments Yes 0 (1 standard drink = 0.6 oz pur e alcohol) Housing Instability Answer Date Recorde d Are you worried that in the next 2 months you may not have stable housing? Patient declined 12/21/2024 Food Access & Nutrition Answer Date Rec orded Do you have access to a vari ety of food including fruits and vegetables? Patient declined 12/21/2024 Health Literacy Answer Date Recorded How often do you need to hav e someone help you when you read instructions, pamphlets, or other written material from your doctor or pharmacy? Patient declined 12/21/2024 Caregiver: How often do you need to have someone help you when you read instructions, pamphlets, or other written material from your doctor or pharmacy? Not on file 025 Financial Risk Answer Date Recorded How hard is it for you to pa y for the very basics like food, housing, medical care, and air conditioning / heating? Patient declined 12/21/2024 Transportation Answer Date Recorded Has the lack of transportati on kept you from meetings, work, or from getting things needed for daily living? Patient declined 12/21/2024 Has the lack of transportati on kept you from medical appointments or from getting medications? Patient declined 12/21/2024 Social Isolation Answer Date Recorded How often do you feel lonely or isolated from those around you? Patient declined 12/21/2024 Food Risk Answer Date Recorded Within the past 12 months we worried whether our food would run out before we got money to buy more. Patient declined 025 Within the past 12 months th e food we bought just didn't last and we didn't have money to get more. Patient declined 12/04 Dependent Care Answer Date Recorded Do you need help finding or paying for care for your loved ones. For example, child welfare counselor or elderly care for an older adult? Patient declined 12/21/2024 Education Answer Date Recorded Do you think completing more education or training, like finishing a GED, going to college, or learning a trade, would be helpful for you? Patient declined 12/21/2024 Employment and Income Answer Date Recor ded During the last four weeks, have you been actively looking for work? Patient declined 12/21/2024 Living Situation Answer Date Recorded What is your living situation? 0 12/21/2024 Interpersonal Safety Answer Date Record ed Physical Abuse 12/21/2024 Verbal Abuse 12/21/2024 Sex and Gender Information Value Date Recorded Sex Assigned at Male 12/20/2024 7:06 PM EST Legal Sex Male 8:46 PM EST Gender Identity Male 12/20/2024 7:06 PM EST Sexual Orientation Straight 12/20/2024 7: 06 PM EST documented as of this encounter Last Filed Vital Signs Vital Sign Reading Time Taken Comments Blood Pressure 155/102 12/23/2024 12:17 PM EST Pulse 83 12/23/2024 12:17 PM EST Temperature 37.2 ??C (99 ??F) 12/23/2024 12:17 PM EST Respiratory Rate 18 12/23/2024 12:17 PM EST Oxygen Saturation 97% 12/23/2024 12:17 PM EST Inhaled Oxygen Concentration - - Weight 159 kg (350 lb) 12/20/2024 5:36 PM EST Height 180.3 cm (5' 11 ) 12/20/2024 5:36 PM EST Body Mass Index 48.82 12/20/2024 5:36 PM EST documented in this encounter Functional Status * Are you deaf or do you have serious difficulty hearing? Answer Date of Assessment Author No 12/20/2024 7:13 PM Jessica Silverio RN * Are you blind or do you have serious difficulty seeing, even when wearing glasses? Answer Date of Assessment Author No 12/20/2024 7:13 PM Jessica Silverio RN * Do you have serious difficulty walking or climbing stairs? Answer Date of Assessment Author No 12/20/2024 7:13 PM Jessica Silverio RN * Do you have serious difficulty dressing or bathing? Answer Date of Assessment Author No 12/20/2024 7:13 PM Jessica Silverio RN * Because of a physical, mental, or emotional condition, do you have serious difficulty doing errandsalone such as visiting the doctor? Answer Date of Assessment Author No 12/20/2024 7:13 PM Jessica Silverio RN documented as of this encounter Mental Status * Because of a physical, mental, or emotional condition, do you have serious difficulty concentrating, remembering, or making decisions? (5 years old or older) Answer Entry Date Author No 12/20/2024 7:13 PM EST Jessica Christensen RN documented in this encounter Discharge Summaries * Thalia Singh MD - 12/23/2024 1:35 PM EST Images from the original note were not included. [facility] DISCHARGE SUMMARY Patient Information Manny Hopkins : 1965 [59 y.o.] Admitting Provider Jeffrey Hopkins MD Discharge Provider Thalia Singh MD, Thalia Singh MD Primary Care Physician No Pcp Physician Admission Date 12/20/2024 Discharge Date 12/23/2024 Summary of Hospital Problems Primary Discharge Diagnosis: Alcohol withdrawal (CMS/HCC) Secondary Discharge Diagnosis: chf Discharge Destination: home Code Status at Discharge: Full Code - Default Hospital Course Summary LOS: 3 days H&P as on 12/20/2024 59 year-old male with past medical history significant for combined systolic and diastolic CHF, hypertension, alcohol use, and further history below presents with multiple varying symptoms. Pt statesthat there had been multiple deaths in his family, including his , [id number], and [id number]-[id number], and all of their funerals are tomorrow. After the of his over a week ago, pt has been consistenly drinking vodka daily. Pt has history of alcohol use with withdrawal for which he as been hospitalized previously for. Last drink was yesterday which was a liter of vodka. Prior to this, pt states the last time he drank alcohol was in June. Pt also reports midline/left chest pain radiating into his abdomen for about a week that has been consistent and disturbing his sleep. He mentions a cough producing clear phlegm and shortness of breath for a few days. Pt had one episode of projectile vomiting yesterday and last bowel movement was this morning. Denies hemturia, hematochiezia, melena, diarrhea. Pt states he has thoughts of hurting himself and has come in for help. Pt mentions he is feeling very anxious at this time. Pt reports numbness in his extremities for about a week.Otherwise, pt denies current nausea or vomiting, fevers, chills. Pt has self-discontinued his chronic home medications over a year ago and that was about the last time he was seen by a provider/PCP. In ED, pt received 500 mL normal saline bolus, combined 2 mg IV Ativan, and was initiated on Phenobarbital protocol. Upon H&P, pt is afebrile, HR 115, RR 20, BP 161/125, spO2 98% RA. Labs: AST 77, ALT 61, anion gap 19, troponin 32, 31, BNP 10. TOx screen positive for cannabinoids. EKG #1 at 1850: sinus tachycardia, 101 bpm, no acute ischemic changes EKG #2 at 1929: normal sinus rhythm, 100 bpm, no acute ischemic changes prolonged QTc at 508 CXR with possible right sided infiltrate although pending formal read. Hospital course Patient is 59 years old male with past medical history significant for alcohol use disorder is currently in the hospital for management of alcohol withdrawal syndrome, depression, suicidal ideation. # Acute alcohol withdrawals # Depression with suicidal ideation -Patient was treated with phenobarbital protocol and was on oral phenobarbital taper. Patient was seen by addiction medicine team, psychiatry. Patient also received clonidine for anxiety associated with alcohol withdrawals which was subsequently discontinued. Subsequently psychiatrist cleared the patient for discharge and additionally centime recommending oral naltrexone 50 mg p.o. daily upon discharge. -On the day of discharge patient overall feeling little better, will get PT evaluation today and patient is stable for discharge today. Patient was also seen by dietitian and long term care social worker at the hospital. 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 -Patient has history of combined heart failure, likely alcohol-related and has seen painter airbrush inthe past in 2019. Patient's weight was about 310 pounds at that time and was prescribed valsartan 320 mg once daily and oral Lasix 80 mg once daily. Patient has been noncompliant with his medicationsat home given the current situation. Recommend patient that he follows up with his previous painter airbrush at [facility]. For now we will restart valsartan at 40 mg once daily, Lasix 40 mg once dailyand Coreg 25 twice daily. # Hypertension -Patient reports taking carvedilol in the past and has not been taking it for the last 8 months. Does not remember the dose. Dispense history does not show any medications. Patient initiated on clonidine for management of alcohol withdrawals, anxiety and also elevated blood pressure. Subsequently discontinued and started on oral Coreg 12.5 twice daily. # Underlying COPD # Chronic smoker -Continued albuterol as needed for wheezing. No need for steroids at this point given no signs of COPD exacerbation. Offered nicotine replacement. Comfortable appearing on room air # Disposition Home, stable for discharge today. PT evaluation requested. Total time spent 40 minutes doing chart review, interviewing patient, gathering information, performing physical exam, formulating plan, explaining management plan to patient, coordinating care with specialists, coordinating care with RN, documentation and placing orders. Follow-Up Instructions and Recommendations No Pcp Physician Follow up If you do not have a primary care provider, please contact one of the following to make arrangements to follow up. [facility] Schedule an appointment as soon as possible for a visit for management of heart failure Discharge Procedure Orders Basic metabolic panel Standing Status: Future Standing Exp. Date: 12/23/25 Discharge Diet: Cardiac Heart Healthy Diet (Low Cholesterol / Low Fat / No Added Salt), 2 gm SodiumRetriction Diet; 2000 mL per day; Fiber, fruits and vegetables are encouraged to avoid constipation. Order Specific Question Answer Comments Discharge diet you should follow at home Cardiac Heart Healthy Diet (Low Cholesterol / Low Fat / NoAdded Salt) Discharge diet you should follow at home 2 gm Sodium Retriction Diet Restrict your fluid intake to 2000 mL per day General Instructions for your diet at home Fiber, fruits and vegetables are encouraged to avoid constipation. Notify provider - General Order Specific Question Answer Comments Reason(s) If you are unable to obtain your medications/prescriptions Reason(s) If your symptoms return or worsen Reason(s) If you experience severe uncontrolled pain or pain not relieved by medication Reason(s) If you experience a fever above 101 degree Fahrenheit (38.3 degrees Celsius) or chills Reason(s) If you experience severe lightheadedness or dizziness Reason(s) If you experience increased confusion, irritability, slurred or incoherent speech Reason(s) If you experience increasing drowsiness or extreme fatigue Reason(s) If you experience difficulty breathing, headache, or visual disturbances Reason(s) If you experience persistent nausea or vomiting Reason(s) If you experience an inability to eat, drink, or take medication Reason(s) If you experience decreased urine output, increased heart rate, facial flushing and/or any other signs of dehydration Reason(s) If you experience unusual weight gain or loss Reason(s) If you experience skin that becomes itchy, red, swollen and/or a new rash Restrict your activities and rest today, may resume normal activity tomorrow There are no outpatient Patient Instructions on file for this admission. Discharge Medications Your medication list START taking these medications Instructions Last Dose Given Next Dose Due carvediloL 25 mg tablet Commonly known as: COREG Take 1 tablet (25 mg total) by mouth 2 (two) times a day with meals. folic acid 1 mg tablet Commonly known as: FOLVITE Start taking on: December 24, 2024 Take 1 tablet (1 mg total) by mouth 1 (one) time each day. furosemide 40 mg tablet Commonly known as: LASIX Start taking on: December 24, 2024 Take 1 tablet (40 mg total) by mouth 1 (one) time each day. naltrexone 50 mg tablet Commonly known as: DEPADE Start taking on: December 24, 2024 Take 1 tablet (50 mg total) by mouth 1 (one) time each day. potassium chloride 10 mEq CR tablet Commonly known as: KLOR-CON M10 Take 2 tablets (20 mEq total) by mouth 1 (one) time each day for 5 days. Tablet may be swallowed whole (do not crush/chew/suck on) OR broken in half and each half swallowed separately OR dissolved (whole tablet) in ~4 ounces of water (allow ~2 minutes to dissolve, stir well and administer immediately). prochlorperazine 10 mg tablet Commonly known as: COMPAZINE Take 1 tablet (10 mg total) by mouth every 8 (eight) hours if needed for nausea or vomiting for up to 5 days. thiamine 100 mg tablet Commonly known as: VITAMIN B-1 Start taking on: December 24, 2024 Take 1 tablet (100 mg total) by mouth 1 (one) time each day. valsartan 40 mg tablet Commonly known as: DIOVAN Start taking on: December 24, 2024 Take 1 tablet (40 mg total) by mouth 1 (one) time each day. Where to Get Your Medications These medications were sent to [id number] - [place] - [address] [facility] [address] [place] [phone] carvediloL 25 mg tablet folic acid 1 mg tablet furosemide 40 mg tablet naltrexone 50 mg tablet potassium chloride 10 mEq CR tablet prochlorperazine 10 mg tablet thiamine 100 mg tablet valsartan 40 mg tablet Physical Exam at time of Discharge Physical Exam Constitutional: Appearance: Normal appearance. HENT: Head: Normocephalic and atraumatic. Eyes: Conjunctiva/sclera: Conjunctivae normal. Cardiovascular: Rate and Rhythm: Normal rate and regular rhythm. Pulses: Normal pulses. Heart sounds: Normal heart sounds. Pulmonary: Effort: Pulmonary effort is normal. No respiratory distress. Breath sounds: Normal breath sounds. Abdominal: General: Bowel sounds are normal. There is no distension. Palpations: Abdomen is soft. Neurological: Mental Status: He is alert. Mental status is at baseline. Psychiatric: Behavior: Behavior normal. Vitals Visit Vitals BP (!) 155/102 (BP Location: Left arm, Patient Position: Lying) Pulse 83 Temp 37.2 ??C (99 ??F) (Oral) Resp 18 Temp (24hrs), Av.7 ??C (98.1 ??F), Min:36 ??C (96.8 ??F), Max:37.2 ??C (99 ??F) Body mass index is 48.82 kg/m??. No results found for: PTWT , PTHT documented in this encounter Medications at Time of Discharge carvediloL (COREG) 25 mg tablet Take 1 tablet (25 mg total) by mouth 2 (two) times a day with meals. 60 each 12/23/2024 folic acid (FOLVITE) 1 mg tablet Take 1 tablet (1 mg total) by mouth 1 (one) time each day. 30 each 12/24/2024 5 furosemide (LASIX) 40 mg tablet Take 1 tablet (40 mg total) by mouth 1 (one) time each day. 30 each 12/24/2024 5 naltrexone (DEPADE) 50 mg tablet Take 1 tablet (50 mg total) by mouth 1 (one) time each day. 30 each 12/24/2024 5 thiamine (VITAMIN B-1) 100 mg tablet Take 1 tablet (100 mg total) by mouth 1 (one) time each day. 30 tablet 12/24/2024 5 valsartan (DIOVAN) 40 mg tablet Take 1 tablet (40 mg total) by mouth 1 (one) time each day. 30 tablet 12/24/2024 5 prochlorperazine (COMPAZINE) 10 mg tablet Take 1 tablet (10 mg total) by mouth every 8 (eight) hours if needed for nausea or vomiting for up to 5 days. 15 each 12/23/2024 5 potassium chloride (KLOR-CON M10) 10 mEq CR tablet Take 2 tablets (20 mEq total) by mouth 1 (one) time each day for 5 days. Tablet may be swallowed whole (do not crush/chew/suck on) OR broken in half and each half swallowed separately OR dissolved (whole tablet) in ~4 ounces of water (allow ~2 minutes to dissolve, stir well and administer immediately). 10 each 12/23/2024 5 documented as of this encounter Ordered Prescriptions Prescription Sig Dispense Quantity Refills Last Filled Start Date End Date valsartan (DIOVAN) 40 mg tablet Take 1 tablet (40 mg total) by mouth 1 (one) time each day. 30 tablet 12/24/2024 5 thiamine (VITAMIN B-1) 100 mg tablet Take 1 tablet (100 mg total) by mouth 1 (one) time each day. 30 tablet 12/24/2024 5 naltrexone (DEPADE) 50 mg tablet Take 1 tablet (50 mg total) by mouth 1 (one) time each day. 30 each 12/24/2024 5 furosemide (LASIX) 40 mg tablet Take 1 tablet (40 mg total) by mouth 1 (one) time each day. 30 each 12/24/2024 5 folic acid (FOLVITE) 1 mg tablet Take 1 tablet (1 mg total) by mouth 1 (one) time each day. 30 each 12/24/2024 5 carvediloL (COREG) 25 mg tablet Take 1 tablet (25 mg total) by mouth 2 (two) times a day with meals. 60 each 12/23/2024 5 potassium chloride (KLOR-CON M10) 10 mEq CR tablet Take 2 tablets (20 mEq total) by mouth 1 (one) time each day for 5 days. Tablet may be swallowed whole (do not crush/chew/suck on) OR broken in half and each half swallowed separately OR dissolved (whole tablet) in ~4 ounces of water (allow ~2 minutes to dissolve, stir well and administer immediately). 10 each 12/23/2024 5 prochlorperazine (COMPAZINE) 10 mg tablet Take 1 tablet (10 mg total) by mouth every 8 (eight) hours if needed for nausea or vomiting for up to 5 days. 15 each 12/23/2024 5 documented in this encounter Discharge Disposition Disposition Code Departure Means Destination Comment s Home or Self Care documented in this encounter Progress Notes * Abimbola Simmons - 12/23/2024 2:16 PM EST IM-was signed by patient and copy given to him, copy was placed in file 12/23/2024 @ 2:05 pm * PAUL Pacheco - 12/23/2024 2:13 PM EST Discharge: 12/23/24 1412 Transportation Transportation at discharge [employer] providing transportation [employer] [facility] What day is the transport expected? 12/23/24 Final Discharge Disposition Home or Self Care Patient aware of discharge plan. * Thalia Singh MD - 12/23/2024 1:35 PM EST H&P as on 12/20/2024 59 year-old male with past medical history significant for combined systolic and diastolic CHF, hypertension, alcohol use, and further history below presents with multiple varying symptoms. Pt statesthat there had been multiple deaths in his family, including his , [id number], and [id number], and all of their funerals are tomorrow. After the of his over a week ago, pt has been consistenly drinking vodka daily. Pt has history of alcohol use with withdrawal for which he as been hospitalized previously for. Last drink was yesterday which was a liter of vodka. Prior to this, pt states the last time he drank alcohol was in June. Pt also reports midline/left chest pain radiating into his abdomen for about a week that has been consistent and disturbing his sleep. He mentions a cough producing clear phlegm and shortness of breath for a few days. Pt had one episode of projectile vomiting yesterday and last bowel movement was this morning. Denies hemturia, hematochiezia, melena, diarrhea. Pt states he has thoughts of hurting himself and has come in for help. Pt mentions he is feeling very anxious at this time. Pt reports numbness in his extremities for about a week.Otherwise, pt denies current nausea or vomiting, fevers, chills. Pt has self-discontinued his chronic home medications over a year ago and that was about the last time he was seen by a provider/PCP. In ED, pt received 500 mL normal saline bolus, combined 2 mg IV Ativan, and was initiated on Phenobarbital protocol. Upon H&P, pt is afebrile, HR 115, RR 20, BP 161/125, spO2 98% RA. Labs: AST 77, ALT 61, anion gap 19, troponin 32, 31, BNP 10. TOx screen positive for cannabinoids. EKG #1 at 1850: sinus tachycardia, 101 bpm, no acute ischemic changes EKG #2 at 1929: normal sinus rhythm, 100 bpm, no acute ischemic changes prolonged QTc at 508 CXR with possible right sided infiltrate although pending formal read. Hospital course Patient is 59 years old male with past medical history significant for alcohol use disorder is currently in the hospital for management of alcohol withdrawal syndrome, depression, suicidal ideation. # Acute alcohol withdrawals # Depression with suicidal ideation -Patient was treated with phenobarbital protocol and was on oral phenobarbital taper. Patient was seen by addiction medicine team, psychiatry. Patient also received clonidine for anxiety associated with alcohol withdrawals which was subsequently discontinued. Subsequently psychiatrist cleared the patient for discharge and additionally centime recommending oral naltrexone 50 mg p.o. daily upon discharge. -On the day of discharge patient overall feeling little better, will get PT evaluation today and patient is stable for discharge today. Patient was also seen by dietitian and long term care social worker at the hospital. 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 -Patient has history of combined heart failure, likely alcohol-related and has seen painter airbrush inthe past in 2019. Patient's weight was about 310 pounds at that time and was prescribed valsartan 320 mg once daily and oral Lasix 80 mg once daily. Patient has been noncompliant with his medicationsat home given the current situation. Recommend patient that he follows up with his previous painter airbrush at [facility]. For now we will restart valsartan at 40 mg once daily, Lasix 40 mg once dailyand Coreg 25 twice daily. # Hypertension -Patient reports taking carvedilol in the past and has not been taking it for the last 8 months. Does not remember the dose. Dispense history does not show any medications. Patient initiated on clonidine for management of alcohol withdrawals, anxiety and also elevated blood pressure. Subsequently discontinued and started on oral Coreg 12.5 twice daily. # Underlying COPD # Chronic smoker -Continued albuterol as needed for wheezing. No need for steroids at this point given no signs of COPD exacerbation. Offered nicotine replacement. Comfortable appearing on room air # Disposition Home, stable for discharge today. PT evaluation requested. Total time spent 40 minutes doing chart review, interviewing patient, gathering information, performing physical exam, formulating plan, explaining management plan to patient, coordinating care with specialists, coordinating care with RN, documentation and placing orders. * Kiara Anaya, PT - 12/23/2024 1:15 PM EST [facility] Evaluation & Treatment PT Discharge Recommendations: Home independent Staff Recommendations for safe patient handling: supervision with no assistive device Modified Killian Scale Score: AM-PAC 6 Clicks Scoring Form: Unable: 1 A Lot: 2 A Little: 3 None: 4 How much difficulty does the patient currently have? Turning over in bed (including adjustment of bedclothes, sheets, and blankets) [] [] [] [x] Sitting down on and standing up from a chair with arms (wheelchair, bedside commode etc [] [] [] [x] Moving from lying on back to sitting on the side of the bed [] [] [] [x] How much help from another person does the patient currently need? Moving to and from a bed to a chair ( including a wheelchair) [] [] [] [x] To walk in hospital room [] [] [] [x] Climbing 3-5 steps with a railing [] [] [x] [] Score: 23 /24 Score indicates the pt is appropriate for discharge home with no additional servcies indicated Precautions Medical Precautions: Fall Risk Safety Interventions: Call farzier within reach, ID band on RUE Weight Bearing Status: Full LUE Weight Bearing Status: Full RLE Weight Bearing Status: Full LLE Weight Bearing Status: Full Fall prevention education provided including use of call light in hospital, use of appropriate assistive device, safe mobility techniques, and safety measures at home. PT Received On: 12/23/24 PT Start Time: 1315 PT Stop Time: 1345 PT Time Calculation (min): 30 min General Family/Caregiver Present: No Precautions Medical Precautions: Fall Risk Safety Interventions: Call frazier within reach, ID band on RUE Weight Bearing Status: Full LUE Weight Bearing Status: Full RLE Weight Bearing Status: Full LLE Weight Bearing Status: Full Cognition Overall Cognitive Status: Within Functional Limits Arousal/Alertness: Appropriate responses to stimuli Orientation Level: Oriented X4 Following Commands: Follows all commands and directions without difficulty Safety Judgment: Good awareness of safety precautions Problem Solving: Able to problem solve independently Hearing: Intact Vision: Intact Speech: Intact Integumentary: no acute issues noted History of Present Illness: Patient is a 59 y.o. male admitted to [facility] on 12/20/2024. Patient Active Problem List Diagnosis Chronic combined systolic and diastolic congestive heart failure (CMS/HCC) Past Medical History: Diagnosis Date Alcohol use Depression Hypertension Systolic and diastolic CHF, chronic (CMS/HCC) Past Surgical History: Procedure Laterality Date FINGER SURGERY Left left ring finger KNEE SURGERY PROCEDURE: HISTORICAL KNEE SURGERY Social History Home Living Environment: Home Living Type of Home: House Lives With: Alone Home Adaptive Equipment: None Home Layout: One level Home Access: Stairs to enter with rails Entrance Stairs-Rails: Rail on the right going up Entrance Stairs-Number of Steps: 3 Prior Function Level of [place]: Independent with mobility and functional transfers Ambulation Status: Household ambulator, Community ambulator Indoor Mobility Assistance: Independent Stairs Assistance : Independent Prior Device Use: No prior device use Do you drive?: Yes Mode of Transportation: Car 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 Which is your dominant hand?: Right General Assessment 12/23/24 1315 PT Last Visit PT Received On 12/23/24 General Family/Caregiver Present No PT Time Calculation PT Start Time 1315 PT Stop Time 1345 PT Time Calculation (min) 30 min Precautions Medical Precautions Fall Risk Safety Interventions Call frazier within reach;ID band on RUE Weight Bearing Status Full LUE Weight Bearing Status Full RLE Weight Bearing Status Full LLE Weight Bearing Status Full Vital Signs Patient Identification Yes Pain Assessment Pain Assessment 0-10 Pain Score 4 Pain Type (reports pain in b thighs since hospitalization) Pain Orientation Upper;Anterior Pain Radiating Towards also has chronic pain in B knees related to OA Cognition Overall Cognitive Status WFL Arousal/Alertness Appropriate responses to stimuli Orientation Level Oriented X4 Following Commands Follows all commands and directions without difficulty Safety Judgment Good awareness of safety precautions Problem Solving Able to problem solve independently Home Living Type of Home House Lives With Alone Home Adaptive Equipment None Home Layout One level Home Access Stairs to enter with rails Entrance Stairs-Rails Rail on the right going up Entrance Stairs-Number of Steps 3 Prior Function Level of [place] Independent with mobility and functional transfers Ambulation Status Household ambulator;Community ambulator Indoor Mobility Assistance Independent Stairs Assistance Independent Prior Device Use No prior device use Do you drive? 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 Right Activity Tolerance Endurance (mild fatigue after stair management) Sensation Light Touch No apparent deficits Proprioception Proprioception No apparent deficits Static Sitting Balance Static Sitting-Level of Assistance Independent Static Sitting-Balance Support Feet supported;No upper extremity supported Dynamic Sitting Balance Dynamic Sitting-Level of Assistance Independent Dynamic Sitting-Balance Forward lean Dynamic Sitting-Balance Support No upper extremity supported;Feet supported Static Standing Balance Static Standing-Level of Assistance Supervision Static Standing-Balance Support No upper extremity supported Dynamic Standing Balance Dynamic Standing-Level of Assistance Supervision Dynamic Standing-Balance Ambulation Dynamic Standing-Balance Support No upper extremity supported Bed Mobility Sitting to Lying Assistance Independent Lying to Sitting Assistance Independent Transfers Sit to Stand Assistance Supervision Chair/Bed to Chair/Bed Transfer Assistance Supervision Ambulation Walking Assistance Supervision Device No device Distance Ambulated (ft) 75 (able ot amb 75' x 2) Stairs 4 steps: Assistance Supervision Rails Right Device No device Number of Stairs 4 RUE Assessment RUE Assessment Within Functional Limits LUE Assessment LUE Assessment Within Functional Limits RLE Assessment RLE Assessment Within Functional Limits LLE Assessment LLE Assessment Within Functional Limits LLE Assessment Comments B LE strength grossly 4/5 throughout PT Assessment PT Assessment Results At baseline Evaluation/Treatment Tolerance Patient tolerated treatment well Medical Staff Made Aware Yes Plan PT Discharge Recommendations Home independent PT - Evaluation Status Complete PT - OK to Discharge Yes PT Evaluation Time Entry PT Evaluation (Moderate) Time Entry 30 Treatment performed during evaluation: None performed ADDITIONAL COMMENTS: Chart reviewed. RN clears pt for session. Pt agrees to participate and presented seated at the edgeof the bed upon PT arrival. All lines in place. HR 97-108 with activity Initiated education on the importance of PT, bed mobility safety, Transfer Safety, Ambulation Safety , Therapy Plan of Care, Home Safety, Energy Conservations strategies, and importance of OOB activity . Pt verbalized understanding. EXIT STATUS: Session ended with patient seated at the edge of the bed , tray table and call light within reach, and RN made aware. Physical Therapy Assessment/Plan Manny Hopkins is a 59 y.o. male admitted to [facility] on 12/20/2024 for Alcohol withdrawal (CMS/FORMERLY [facility]) [F10.939] Precordial pain [R07.2] Alcohol abuse with withdrawal (CMS/HCC) [F10.139] . Pt presents with decreased BLE strength, balance deficits, decreased activity tolerance, and far below functional baseline. Pt performed bed mobility Independent, , Transfers with Supervision, and ambulates Supervision 75 ft . PT recommends Home independent when medically stable for safe discharge and to optimize functional mobility and independence. Goals Encounter Problems Encounter Problems (Active) There are no active problems. Encounter Problems (Resolved) There are no resolved problems. Education Documentation Mobility Training, taught by Kiara Anaya PT at 12/23/2024 4:23 PM. Learner: Patient Readiness: Eager Method: Explanation Response: Verbalizes Understanding Comment: Educated on pacing once he is discharged and to not try to do too much all at once. he appears to have a good understanding Education Comments No comments found. Kiara Anaya PT * Thalia Singh MD - 12/23/2024 12:52 PM EST [facility] Provider Response Note PATIENT: MANNY HOPKINS : 1965 ADMIT DATE: 12/20/2024 10:29 PM DISCH DATE: RESPONDING PROVIDER #: [id number] PROVIDER RESPONSE TEXT: The patient has hypomagnesemia. QUERY TEXT: Please provide diagnosis that reflects the below lab values. magnesium 12/21/24 0552 1.6 12/23/24 0539 1.7 The patient's clinical indicators include: Options provided: -- hypomagnesemia -- insignificant findings -- Other - I will add my own diagnosis -- Disagree - Not applicable / Not valid Query created by: Evelyne Ferrara on 12/23/2024 12:49 PM Electronically signed by: THALIA SINGH MD 12/23/2024 12:52 PM * Ernestina Borja DO - 12/23/2024 11:31 AM EST Images from the original note were not included. Manny Hopkins 1965 [id number] Author: Ernestina Borja DO DOS: 12/23/2024 Requesting Service: Hospitalist Service Chief Complaint: Alcohol withdrawal (CMS/HCC) Reason for Consultation: Alcohol use disorder Source of History: Patient and chart Subjective History of Present Illness: Manny Hopkins is a 59 y.o. male with a history of alcohol use disorder admitted for management of alcohol withdrawal symptoms and suicidal ideation. In the last 24, the one-to-one sitter was discontinued as patient denied thoughts of self-harm or a plan. Patient reports that he is being discharged today but feels that he has not been adequately prepared for this as his cell phone needs to be charged and he does not have a ride. He denies symptoms of withdrawal. Allergies: No Known Allergies Home Medications: Prior to Admission medications Not on File Past Medical History: Past Medical History: Diagnosis Date Alcohol use Depression Hypertension Systolic and diastolic CHF, chronic (CMS/HCC) Past Surgical History: Past Surgical History: Procedure Laterality Date FINGER SURGERY Left left ring finger KNEE SURGERY PROCEDURE: HISTORICAL KNEE SURGERY Family History: Family History Problem Relation Name Age of Onset Heart attack Mother age 56, mi Hypertension Mother Hypertension Father Other (Other: Lajas's disease ) Sister Other (Other: Alzheimer's ) Maternal Grandmother Other (Other: ruptured abdominal aortic aneurysm ) Paternal Grandfather Age 60 Social History: Social History Tobacco Use Smoking Status Every Day Current packs/day: 1.50 Types: Cigarettes Smokeless Tobacco Not on file Social History Substance and Sexual Activity Alcohol Use Yes Social History Substance and Sexual Activity Drug Use No Objective Review of Systems Constitutional: Negative for chills and fever. Respiratory: Negative for shortness of breath. Cardiovascular: Negative for chest pain. Neurological: Negative for tremors. Psychiatric/Behavioral: The patient is nervous/anxious. Last Recorded Vitals: Blood pressure (!) 150/114, pulse 80, temperature 37.1 ??C (98.7 ??F), temperature source Temporal,resp. rate 18, height 1.803 m (71 ), weight 159 kg (350 lb), SpO2 97%. Physical Exam Gen: NAD, sitting upright HEENT: pupils normal, OP clear Musc: normal ROM Skin: No rashes or lesions Neuro: Alert and oriented, No tremor Pysch: +anxious, +irritable Labs: Lab Results Component Value Date GLUCOSE 87 12/23/2024 CALCIUM 8.1 (L) 12/23/2024 NA 136 12/23/2024 K 3.1 (L) 12/23/2024 CO2 33 (H) 12/23/2024 CL 100 12/23/2024 BUN 15 12/23/2024 CREATININE 0.93 12/23/2024 Lab Results Component Value Date WBC 6.3 12/21/2024 HGB 13.9 12/21/2024 HCT 42.0 12/21/2024 MCV 87.9 12/21/2024 PLT 145 12/21/2024 Imaging: XR Chest 2 Views Narrative: PROCEDURE: PA and lateral radiographs of the chest. HISTORY: chest pain. COMPARISON: None. FINDINGS: Lungs, pleural spaces, and pulmonary vasculature are normal. The heart is mildly enlarged. Mild degenerative changes of the finding. Impression: No acute findings. -------- FINAL REPORT -------- Dictated By: Sabino Oviedo Dictated Date: 12/21/2024 08:04 ET Assigned Physician: Sabino Oviedo Reviewed and Electronically Signed By: Sabino Oviedo Signed Date: 12/21/2024 08:07 ET Workstation ID: [id number] Transcribed By: Self Edit Transcribed Date: 12/21/2024 08:04 ET Meds: carvediloL, 12.5 mg, oral, BID with meals enoxaparin, 40 mg, subcutaneous, q12h IVAN folic acid, 1 mg, oral, Daily naltrexone, 50 mg, oral, Daily nicotine, 1 patch, transdermal, Daily PHENobarbitaL, 32.4 mg, oral, BID sodium chloride, 10 mL, intravenous, BID thiamine, 100 mg, oral, Daily PRN medications: acetaminophen, albuterol, hydrOXYzine pamoate, prochlorperazine OR prochlorperazine OR prochlorperazine, [COMPLETED] Insert peripheral IV AND Maintain IV access AND [COMPLETED] Saline lock IV AND sodium chloride AND sodium chloride Assessment and Plan Manny Hopkins is a 59 y.o. male with a history of alcohol use disorder admitted for management of withdrawal symptoms. Alcohol use disorder Patient received on 10mg/kg of ideal body weight IM phenobarbital loading protocol Symptoms of withdrawal improving. Continue phenobarbital oral taper. Continue thiamine, folate and multivitamin. Reviewed medications for alcohol use disorder (SONIA)-patient agreeable to starting oral naltrexone Plan to start 50mg PO naltrexone -please discharge with bridge prescription Pt has been referred to the [facility] sampler first program Encouraged patient to engage in program of recovery as outpatient including groups, counseling and meetings. Refer to family preservation caseworker for assistance with discharge plans/transportation. Thank you for the interesting consultation. Please reach out with any questions or concerns. Principal Problem: Alcohol withdrawal ([facility]) Provider Attestation Electronically signed by Ernestina Borja DO * Jennifer Delgado - 12/23/2024 10:25 AM EST SPIRITUAL CARE Date/Time:12/23/24 at 10:25 AM EST Type of Visit: Initial Visit, Outplacement Consultant Rounding , and Crisis Visit Reason for Visit: Spiritual/Emotional Support and Spiritual Assessment Time Spent: 35 Minutes Location: [address] [place] [address] Sacramental Encounters: Spiritual Distress Assessment: Spiritual Distress Assessment at beginning of visit Meaning - Overall Life Balance: Some evidence of unmet spiritual need Transcendence: No evidence of unmet spiritual need Values - Acknowledgement: No evidence of unmet spiritual need Values - Control: No evidence of unmet spiritual need Psycho-Social Identity: Some evidence of unmet spiritual need SDAT Beginning of Visit Average Score: 0.4 Spiritual Distress Assessment at end of visit Meaning - Overall Life Balance: No evidence of unmet spiritual need Transcendence: No evidence of unmet spiritual need Values - Acknowledgement: No evidence of unmet spiritual need Values - Control: No evidence of unmet spiritual need Psycho-Social Identity: No evidence of unmet spiritual need SDAT End of Visit Average Score: 0 Spiritual Assessment/Distress Spiritual Care Assessment: Assessment: Manny, was awake, alert, lying and resting in bed at the time of visit. Manny, recently lost his mother in law who lived with him a . Shared how they cared for her for many years. A day to her burial, he found his epi which triggered his crisis situation that led to hospitalization. They were buried in his absence by family. He was observed getting tearful/crying while sharing memories of live together with and mother in law. Described them as exceptionalpeople. Provided supporting, comforting and consoling presence. Per his request and desire, prayed for their happy repose, promised Holy Mass intention for them. Manny's avinash evangelical listed as none but raised Congregation but prefer Shinto. Voiced appreciation for the visit and the peace and comfort speaking with director of events brought to him. Intervention: NE Spiritual Care Interventions : provided grief counseling, provided support, listened empathically, and provided prayer Outcomes: distress reduced, expressed gratitude, expressed peace, progressed toward acceptance, progressed toward focus on the present, and tearfully processed emotions Plan of Care: Visit as needed *Reference: Spiritual Distress Assessment Tool: The SDAT is a clinical tool used by chaplains to identify unmet spiritual and emotional needs that can impact Goals of Care in the following categories: Spiritual Distress Assessment Legend Spiritual Needs Related Questions Meaning Are you having difficulties coping with what is happening to your now? Does your hospitalization have any repercussions on the way you live usually? Transcendence Do you have a particular evangelical, avinash, or spirituality? Is your evangelical/spirituality/avinash challenged by what is happening to you now? Values Do you think that the health professionals caring for you know you well enough? Do you feel that you are participating in the decisions made about your care? Psycho-Social Identity Do you have any worries or difficulties regarding your family or other persons close to you? Do you feel lonely? Do you have links to your avinash community? SCALE 0= no evidence of unmet spiritual needs 1= some evidence of unmet spiritual needs 2= substantial evidence of unmet spiritual needs 3= evidence of severe unmet spiritual needs * Jasmin Harry NP - 12/22/2024 3:13 PM EST Images from the original note were not included. Psychiatry Progress note Patient seen by me, nursing report reviewed with the interdisciplinary team, medications and chart history reviewed. Subjective: (reported issues and events over the last 24 hours) I owe it to her memory to get back to living, she would never not want me to give up. Principal Problem: Alcohol withdrawal (CMS/HCC) Objective: Seclusion/Restraint in last 24 hours: No Blood pressure (!) 149/97, pulse 101, temperature 36.8 ??C (98.3 ??F), temperature source Temporal,resp. rate 16, height 1.803 m (71 ), weight 159 kg (350 lb), SpO2 96%. Appearance/Grooming: eye contact good, grooming poorly kept, and less ill-appearing Musculoskeletal: Normal Orientation: Appropriate to age, Person, Place, and Time Mood: sad Affect: mood-congruent and appropriate Memory: Recent: good Remote: good Attention Span: fair Concentration: fair Language Usage: Appropriate to age Speech: Coherent and Regular rate, rhythm, volume and articulation Fund. Of Knowledge: WNL Thought Processes: Abstract reasoning appropriate to age and Coherent Thought Associations: Logical Thought Abnormalities or Psychosis: Not present Judgement: Appropriate to age and Fair Insight: fair Sleep: I was able to get a few hours Appetite: better, less nauseous Energy: increase Lab Results: Results for orders placed or performed during the hospital encounter of 12/20/24 Troponin I high sensitivity Collection Time: 12/20/24 6:07 PM Result Value Ref Range High Sensitivity Troponin I 32 <=79 ng/L B-type natriuretic peptide Collection Time: 12/20/24 6:07 PM Result Value Ref Range BNP 10 <=100 pcg/mL CBC auto differential Collection Time: 12/20/24 6:07 PM Result Value Ref Range WBC 6.9 4.8 - 10.8 K/mcL RBC 5.60 (H) 4.50 - 5.50 M/mcL Hemoglobin 16.1 13.5 - 17.5 g/dL Hematocrit 49.6 42.0 - 54.0 % MCV 88.4 79.0 - 98.0 FL MCH 28.7 27.0 - 32.0 pcg MCHC 32.5 32.0 - 37.0 g/dL RDW 13.5 11.0 - 15.0 % Platelets 168 130 - 400 K/mcL MPV 10.1 7.0 - 11.0 FL NRBC 0.0 <1.0 % NRBC Absolute 0.00 <0.10 K/mcL Neutrophils Relative 74.0 % Lymphocytes Relative 21.2 % Monocytes Relative 3.3 % Eosinophils Relative 0.3 % Basophils Relative 0.9 % Immature Granulocytes Relative 0.3 % Neutrophils Absolute 5.13 1.50 - 7.00 K/mcL Lymphocytes Absolute 1.47 1.00 - 5.00 K/mcL Monocytes Absolute 0.23 0.20 - 1.00 K/mcL Eosinophils Absolute 0.02 0.00 - 0.50 K/mcL Basophils Absolute 0.06 0.00 - 0.20 K/mcL Immature Granulocytes Absolute 0.02 0.00 - 0.03 K/mcL Comprehensive metabolic panel Collection Time: 12/20/24 6:08 PM Result Value Ref Range Sodium 141 133 - 145 mmol/L Potassium 4.0 3.5 - 5.5 mmol/L Chloride 101 96 - 110 mmol/L CO2 21 21 - 32 mmol/L Anion Gap 19 (H) 3 - 11 Glucose 68 (L) 70 - 100 mg/dL BUN 18 5 - 25 mg/dL Creatinine 1.00 0.70 - 1.30 mg/dL eGFR 86 >=60 mL/min/1.73m2 BUN/Creatinine Ratio 18.0 Calcium 8.3 (L) 8.5 - 10.5 mg/dL AST (SGOT) 77 (H) 10 - 42 unit/L ALT (SGPT) 61 (H) 10 - 60 unit/L Alkaline Phosphatase 94 42 - 121 unit/L Total Protein 7.3 6.0 - 8.0 g/dL Albumin 3.8 3.2 - 5.0 g/dL Total Bilirubin 0.8 0.0 - 1.4 mg/dL Lipase Collection Time: 12/20/24 6:08 PM Result Value Ref Range Lipase 85 (H) 13 - 75 unit/L Magnesium Collection Time: 12/20/24 6:08 PM Result Value Ref Range Magnesium 1.9 1.9 - 2.6 mg/dL Vitamin B12 and folate Collection Time: 12/20/24 6:08 PM Result Value Ref Range Vitamin B-12 586 250 - 900 pcg/mL Folate 8.3 2.8 - 17.0 ng/ml ECG 12 lead Collection Time: 12/20/24 6:50 PM Result Value Ref Range Ventricular Rate ECG 101 BPM Atrial Rate 101 BPM P-R Interval 164 ms QRS Duration 106 ms Q-T Interval 384 ms QTc 497 ms P Wave [place] 39 degrees R [place] 15 degrees T [place] 54 degrees ECG Interpretation Sinus tachycardia Minimal voltage criteria for LVH, may be normal variant Borderline ECG No previous ECGs available Confirmed by Juaquin SEWELL JOHN ([id number]) on 12/21/2024 7:47:23 AM Troponin I high sensitivity Collection Time: 12/20/24 7:21 PM Result Value Ref Range High Sensitivity Troponin I 31 <=79 ng/L ECG 12 lead Collection Time: 12/20/24 7:29 PM Result Value Ref Range Ventricular Rate ECG 100 BPM Atrial Rate 100 BPM P-R Interval 180 ms QRS Duration 100 ms Q-T Interval 394 ms QTc 508 ms P Wave [place] 47 degrees R [place] 19 degrees T [place] 56 degrees ECG Interpretation Normal sinus rhythm Possible Left atrial enlargement Prolonged QT Abnormal ECG When compared with ECG of 20-DEC-2024 18:50, (unconfirmed) No significant change was found Confirmed by Juaquin SEWELL JOHN ([id number]) on 12/21/2024 7:49:16 AM Drug abuse screen 8a panel, urine Collection Time: 12/20/24 9:34 PM Result Value Ref Range Amphetamine Screen, Ur Negative Negative Barbiturate Screen, Ur Negative Negative Benzodiazepine Screen, Ur Negative Negative Cocaine Screen, Ur Negative Negative Opiate Screen, Ur Negative Negative Cannabinoid (THC) Screen, Ur Positive (A) Negative Oxycodone Screen, Ur Negative Negative Fentanyl, Ur Negative Negative Procalcitonin Collection Time: 12/21/24 12:20 AM Result Value Ref Range Procalcitonin 0.06 <=0.16 ng/mL Respiratory virus panel molecular study Collection Time: 12/21/24 12:24 AM Specimen: Nares; Swab Result Value Ref Range Adenovirus Detection by PCR Not Detected Not Detected Influenza A PCR Not Detected Not Detected Influenza B PCR Not Detected Not Detected Coronavirus 229E Not Detected Not Detected Coronavirus HKU1 Not Detected Not Detected Coronavirus OC43 Not Detected Not Detected Coronavirus NL63 Not Detected Not Detected Parainfluenza Virus 1 Not Detected Not Detected Parainfluenza Virus 2 Not Detected Not Detected Parainfluenza Virus 3 Not Detected Not Detected Parainfluenza Virus 4 Not Detected Not Detected RSV PCR Not Detected Not Detected Human Metapneumovirus A and B Not Detected Not Detected Rhinovirus/Enterovirus Not Detected Not Detected Bordetella pertussis Not Detected Not Detected Bordetella parapertussis Not Detected Not Detected Mycoplasma pneumo by PCR Not Detected Not Detected Chlamydia pneumoniae Not Detected Not Detected SARS COV-2 Not Detected Not Detected Basic metabolic panel Collection Time: 12/21/24 5:52 AM Result Value Ref Range Sodium 135 133 - 145 mmol/L Potassium 3.5 3.5 - 5.5 mmol/L Chloride 97 96 - 110 mmol/L CO2 30 21 - 32 mmol/L Anion Gap 8 3 - 11 Glucose 107 (H) 70 - 100 mg/dL BUN 19 5 - 25 mg/dL Creatinine 0.99 0.70 - 1.30 mg/dL eGFR 87 >=60 mL/min/1.73m2 BUN/Creatinine Ratio 19.2 Calcium 7.8 (L) 8.5 - 10.5 mg/dL Magnesium Collection Time: 12/21/24 5:52 AM Result Value Ref Range Magnesium 1.6 (L) 1.9 - 2.6 mg/dL Hepatic function panel Collection Time: 12/21/24 5:52 AM Result Value Ref Range Total Protein 6.5 6.0 - 8.0 g/dL Albumin 3.3 3.2 - 5.0 g/dL Total Bilirubin 1.1 0.0 - 1.4 mg/dL Bilirubin, Direct 0.3 0.0 - 0.3 mg/dL Bilirubin, Indirect 0.8 0.0 - 1.1 mg/dL ALT (SGPT) 51 10 - 60 unit/L AST (SGOT) 52 (H) 10 - 42 unit/L Alkaline Phosphatase 84 42 - 121 unit/L CBC auto differential Collection Time: 12/21/24 5:52 AM Result Value Ref Range WBC 6.3 4.8 - 10.8 K/mcL RBC 4.80 4.50 - 5.50 M/mcL Hemoglobin 13.9 13.5 - 17.5 g/dL Hematocrit 42.0 42.0 - 54.0 % MCV 87.9 79.0 - 98.0 FL MCH 29.1 27.0 - 32.0 pcg MCHC 33.1 32.0 - 37.0 g/dL RDW 13.2 11.0 - 15.0 % Platelets 145 130 - 400 K/mcL MPV 10.0 7.0 - 11.0 FL NRBC 0.0 <1.0 % NRBC Absolute 0.00 <0.10 K/mcL Neutrophils Relative 62.9 % Lymphocytes Relative 26.3 % Monocytes Relative 7.5 % Eosinophils Relative 2.2 % Basophils Relative 0.8 % Immature Granulocytes Relative 0.3 % Neutrophils Absolute 3.95 1.50 - 7.00 K/mcL Lymphocytes Absolute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 headaches. Psychiatric/Behavioral: Negative for self-injury and suicidal ideas. Last Recorded Vitals: Blood pressure (!) 170/100, pulse 99, temperature 36.7 ??C (98 ??F), temperature source Temporal, resp. rate 18, height 1.803 m (71 ), weight 159 kg (350 lb), SpO2 97%. Physical Exam Gen: NAD HEENT: pupils normal, OP clear CV: Regularly tachycardic Pulm: CTA Musc: normal ROM Skin: No rashes or lesions Neuro: Alert and oriented, No tremor Pysch: +teary, +anxious Labs: Lab Results Component Value Date GLUCOSE 104 (H) 12/22/2024 CALCIUM 8.3 (L) 12/22/2024 NA 134 12/22/2024 K 3.3 (L) 12/22/2024 CO2 31 12/22/2024 CL 97 12/22/2024 BUN 14 12/22/2024 CREATININE 0.94 12/22/2024 Lab Results Component Value Date WBC 6.3 12/21/2024 HGB 13.9 12/21/2024 HCT 42.0 12/21/2024 MCV 87.9 12/21/2024 PLT 145 12/21/2024 Imaging: XR Chest 2 Views Narrative: PROCEDURE: PA and lateral radiographs of the chest. HISTORY: chest pain. COMPARISON: None. FINDINGS: Lungs, pleural spaces, and pulmonary vasculature are normal. The heart is mildly enlarged. Mild degenerative changes of the finding. Impression: No acute findings. -------- FINAL REPORT -------- Dictated By: Sabino Oviedo Dictated Date: 12/21/2024 08:04 ET Assigned Physician: Sabino Oviedo Reviewed and Electronically Signed By: Sabino Oviedo Signed Date: 12/21/2024 08:07 ET Workstation ID: [id number] Transcribed By: Self Edit Transcribed Date: 12/21/2024 08:04 ET Meds: carvediloL, 12.5 mg, oral, BID with meals [Held by provider] cloNIDine, 0.2 mg, oral, q8h IVAN enoxaparin, 40 mg, subcutaneous, q12h IVAN folic acid, 1 mg, oral, Daily nicotine, 1 patch, transdermal, Daily PHENobarbitaL, 64.8 mg, oral, BID Followed by [START ON 12/23/2024] PHENobarbitaL, 32.4 mg, oral, BID sodium chloride, 10 mL, intravenous, BID thiamine, 100 mg, oral, Daily PRN medications: acetaminophen, albuterol, prochlorperazine OR prochlorperazine OR prochlorperazine, [COMPLETED] Insert peripheral IV AND Maintain IV access AND [COMPLETED] Saline lock IV AND sodium chloride AND sodium chloride Assessment and Plan Manny Hopkins is a 59 y.o. male with a history of alcohol use disorder admitted for management of withdrawal symptoms and suicidal ideation in setting of acute grief. Alcohol use disorder Patient received on 10mg/kg of ideal body weight IM phenobarbital loading protocol Symptoms of withdrawal improving. Continue phenobarbital oral taper. Continue thiamine, folate and multivitamin. Discussed treatment of alcohol use disorder and reviewed medications for alcohol use disorder (SONIA)-considering oral naltrexone. Would start when N/V improved given possible GI side effects. MIN obtained and referral to [facility] program made Reviewed other options for treatment and offered support. 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 Thank you for the interesting consultation. Please reach out with any questions or concerns. Principal Problem: Alcohol withdrawal ([facility] [place]) Provider Attestation Electronically signed by Ernestina Borja DO * Lance Gallardo - 12/22/2024 9:57 AM EST Images from the original note were not included. Director Of Music Therapy Note Manny Hopkins 1965 [id number] Author: Lance Gallardo DOS: 12/22/2024 Manny Hopkins is a 59 y.o. male with a history of EtOH misuse. I utilized active listening and motivational interviewing during this initial contact to help establish a positive working rapport and to begin to build trust. Mr. Hopkins stated that he does feel he needs some sort of supportive and structured environment, but isn't sure if he would be able to attend and inpatient program for a full 30 days due to his personal responsibilities. I am putting together a packet for Mr. Hopkins that will include multiple different [employer] programs, their contact information and outlines of what each program offers. With Mr. Hopkins consent, I am also sendinghis referral to a few of these programs spo that he can get on their waitlists. Referrals: CSS and IOP Harm Reduction: Support information for alcohol use disorder was given to patient. SIGNATURES: Lance Gallardo - Certified Director Of Music Therapy * Thalia Singh MD - 12/21/2024 5:32 PM EST Images from the original note were not included. [facility] PROGRESS NOTE Date: 12/21/2024 Author: Thalia Singh MD Patient ID: Manny Hopkins is a 59 y.o. male : 1965 MR#: [id number] SUBJECTIVE Subjective Patient seen by the bedside this morning No acute events overnight. Patient is ill-appearing, actively withdrawing. Noted upper extremity , tremors. Patient reports history of withdrawal seizures in the past Allergies Patient has no known allergies. Current Medications: cloNIDine, 0.1 mg, oral, q8h IVAN enoxaparin, 40 mg, subcutaneous, q12h IVAN folic acid, 1 mg, oral, Daily nicotine, 1 patch, transdermal, Daily ondansetron, 4 mg, intravenous, Once PHENobarbitaL, 64.8 mg, oral, BID Followed by [START ON 12/23/2024] PHENobarbitaL, 32.4 mg, oral, BID sodium chloride, 10 mL, intravenous, BID thiamine, 100 mg, oral, Daily PRN medications: acetaminophen, albuterol, prochlorperazine OR prochlorperazine OR prochlorperazine, [COMPLETED] Insert peripheral IV AND Maintain IV access AND [COMPLETED] Saline lock IV AND sodium chloride AND sodium chloride OBJECTIVE Vitals: 12/21/24 0559 12/21/24 0815 12/21/24 1112 12/21/24 1448 BP: (!) 154/86 127/82 (!) 159/116 (!) 187/108 BP Location: Left arm Patient Position: Sitting Pulse: 94 103 109 107 Resp: 18 Temp: 37.1 ??C (98.8 ??F) 37.2 ??C (99 ??F) 36.9 ??C (98.4 ??F) 36.9 ??C (98.5 ??F) TempSrc: Temporal SpO2: 93% 98% 94% 95% Weight: Height: Physical Exam Constitutional: General: He is in acute distress. Appearance: Normal appearance. He is ill-appearing. HENT: Head: Normocephalic and atraumatic. Eyes: Conjunctiva/sclera: Conjunctivae normal. Pupils: Pupils are equal, round, and reactive to light. Cardiovascular: Rate and Rhythm: Regular rhythm. Tachycardia present. Pulses: Normal pulses. Heart sounds: Normal heart sounds. Pulmonary: Effort: Pulmonary effort is normal. No respiratory distress. Breath sounds: Normal breath sounds. No stridor. No wheezing. Abdominal: General: Bowel sounds are normal. There is no distension. Palpations: Abdomen is soft. Tenderness: There is no abdominal tenderness. Skin: General: Skin is warm. Coloration: Skin is not jaundiced. Neurological: Mental Status: He is alert. LABS HEMATOLOGY Lab Results Component Value Date WBC 6.3 12/21/2024 HGB 13.9 12/21/2024 HCT 42.0 12/21/2024 MCV 87.9 12/21/2024 PLT 145 12/21/2024 CHEMISTRY Lab Results Component Value Date GLUCOSE 107 (H) 12/21/2024 NA 135 12/21/2024 K 3.5 12/21/2024 CO2 30 12/21/2024 CL 97 12/21/2024 BUN 19 12/21/2024 CREATININE 0.99 12/21/2024 EGFR 87 12/21/2024 CALCIUM 7.8 (L) 12/21/2024 MG 1.6 (L) 12/21/2024 ANIONGAP 8 12/21/2024 Imaging: XR Chest 2 Views Narrative: PROCEDURE: PA and lateral radiographs of the chest. HISTORY: chest pain. COMPARISON: None. FINDINGS: Lungs, pleural spaces, and pulmonary vasculature are normal. The heart is mildly enlarged. Mild degenerative changes of the finding. Impression: No acute findings. -------- FINAL REPORT -------- Dictated By: Sabino Oivedo Dictated Date: 12/21/2024 08:04 ET Assigned Physician: Sabino Oviedo Reviewed and Electronically Signed By: Sabino Oviedo Signed Date: 12/21/2024 08:07 ET Workstation ID: [id number] Transcribed By: Self Edit Transcribed Date: 12/21/2024 08:04 ET ASSESSMENT & PLAN Patient is 59 years old male with past medical history significant for alcohol use disorder is currently in the hospital for management of alcohol withdrawal syndrome, depression, suicidal ideation. # Acute alcohol withdrawals # Depression with suicidal ideation -Patient received phenobarbital protocol. Patient is on oral phenobarbital taper. -Patient seen by addiction medicine team, psychiatrist. Continue thiamine, folic acid multivitamin supplements. Clonidine ordered as as needed, changed to scheduled. Continue monitoring in telemetry unit given the history of alcohol withdrawal seizures in the past. -Patient can be transferred to inpatient psych once medically cleared. Anticipate another 24 to 48 hours for alcohol withdrawal symptoms to improve. Patient qualifies for section 12 and cannot leave AMA # History of combined systolic diastolic congestive heart failure. -Continue home medications carvedilol 25 mg twice daily, Lasix 40 daily, valsartan 320 mg daily. Patient is noncompliant with home medications. # Underlying COPD # Chronic smoker -Continue albuterol as needed for wheezing. No need for steroids at this point given no signs of COPD exacerbation. Offered nicotine replacement. # Disposition -Continue telemetry monitoring until medically cleared. -Patient will need inpatient psych placement given the depression, suicidal ideation. Continue one-to-one sitter. Total time spent 35minutes doing chart review, interviewing patient, gathering information, performing physical exam, formulating plan, explaining management plan to patient, coordinating care with specialists, coordinating care with RN, documentation and placing orders. * PAUL Pacheco - 12/21/2024 4:03 PM EST Admission: 12/21/24 1601 Initial Transition Plan Initial Transition Plan Home Discharge Planning Living Arrangements Alone Type of Residence Private residence (Single level condo with 5 [address]) Assistive Devices None Support Systems None Medication Coverage Has Med Coverage Under Insurance Plan Yes Medication Affordability No concerns related to payment for meds Informed Choice Informed Choice Given? Yes Discharge Barriers Barriers to Discharge Plan Medically complex placement (pheno taper, sitter, IVF, electrolytes, psych consult) [place]: 12/22-12/23 * Ml Christensen RN - 12/21/2024 6:59 AM EST ED RN HANDOFF (All Sepulved[place] Below Must Be Completed) Reason/Diagnosis for Admission: Type of Admission: [] Medsurg, [x] Telemetry Already in a Hospital Bed: [] Yes / [x] No Room Considerations/Precautions (ex: fever, diarrhea, or any infectious concerns): [] Yes / [x] No Mail Clerk Bills: [x] Yes / [] No If YES, Cardiac Rhythm: [] NSR, [] SB, [x] ST, [] A-FIB, [] A-Flutter, [] Pacemaker, [] 1st Degree HB, [] 2nd Degree HB, [] 3rd Degree HB Reason for Mail Clerk Bills: Pheno/ alcohol withdrawal/ chest pain VS: Visit Vitals BP (!) 154/86 Pulse 94 Temp 37.1 ??C (98.8 ??F) Resp 18 Ht 1.803 m (71 ) Wt 159 kg (350 lb) SpO2 93% BMI 48.82 kg/m?? Smoking Status Every Day BSA 2.68 m?? Current Mental Status: A/O x [x]4, []3, []2, []1 Current Ambulation Status: one assist IV Access: [x] Yes / [] No Field IV present: [x] Yes / [] No Hx of Violence: [] Yes / [x] No / [] Unknown Fall Risk:[] Yes / [x] No Yellow Bracelet Applied [] Yes / [x] No Yellow Socks Applied [] Yes / [x] No Patient Belongings inventoried and BL completed: [x] Yes / [] No Patient belongings stored in the security closet: [x] Yes (If Yes please supply Security bag #): [email or web address] [id number] [] No Patient Medications stored in Pharmacy: [] Yes (If Yes please supply Medication Security bag #): [x] No ED Summary of Care: Pt comes to ED with c/o chest pain and vague SI statements. Recent relapse withalcohol. Had three deaths in the family, today - depression. Ativan given as well as phenobarb x 2. Became nauseous about an hour ago, compazine given with good effect. Submitted by and Phone Extension: Ml MARTINEZ [phone] * Ledy Marino - 12/20/2024 6:08 PM EST Second trop/EKG due 1919 Ledy Marino 12/20/241807 * Jeniffer Fulton RN - 12/20/2024 5:24 PM EST Per EMS from home c/o 06/12 non rebounding CP. Patient stated he also drank 1/2 a gallon of whiskey.Patient also making SI statements. Per EMS patient had nothing to drink today. Upon speaking to the patient he disclosed that he did not drink whiskey he drank a liter of vodka and has not drank alcohol since last night. * Johan Gaona DO - 12/20/2024 5:17 PM EST Emergency Medicine Note Patient Name: Manny Hopkins Initial Evaluation: 12/20/2024 : 1965 Patient's PCP: No Pcp Physician Emergency Physician: Johan Gaona DO History of Present Illness Chief Complaint: Chief Complaint Patient presents with Chest Pain Suicidal HPI: This 59-year-old male with reported history of previous EtOH use presents to the emergency department complaining that he started drinking vodka heavily 3 days ago secondary to stress at home. He denies any other illicit drug use. No trauma or urinary. No fevers, chills or sweats. He has had some mild epigastric pain as well. No vomiting. No diarrhea. No significant productive cough. Patient denies any known history of CAD or thromboembolic disease. Last EtOH reportedly was yesterday. He does not report feeling shaky currently., Patient reports that he has been having substernal area andepigastric area abdominal pain that has been steady and persistent for the past 3 days. No back pain. No shortness of breath. No palpitations. No headache or neck pain. No focal numbness or weakness. Of note, the patient reportedly stated that he was feeling suicidal to the RN, and does confirm that he has been feeling suicidal lately with all the stress. No HI. No visual or auditory hallucinations reported. He denies any attempt to hurt himself including no toxic ingestion. No other acute complaints. ROS: I have performed a ROS with the pertinent positives and negatives documented in the history ofpresent illness. Previous History No past medical history on file. Past Surgical History: Procedure Laterality Date KNEE SURGERY PROCEDURE: HISTORICAL KNEE SURGERY Social History Tobacco Use Smoking status: Every Day Current packs/day: 1.50 Types: Cigarettes Substance Use Topics Alcohol use: No Drug use: No Family History Problem Relation Name Age of Onset Heart attack Mother age 56, mi Hypertension Mother Hypertension Father Other (Other: Carlos's disease ) Sister Other (Other: Alzheimer's ) Maternal Grandmother Other (Other: ruptured abdominal aortic aneurysm ) Paternal Grandfather Age 60 has No Known Allergies. No current facility-administered medications on file prior to encounter. No current outpatient medications on file prior to encounter. Physical Exam ED Triage Vitals [12/20/24 1731] Temp Heart Rate Resp BP 36.9 ??C (98.4 ??F) 101 20 (!) 148/122 SpO2 Temp Source Heart Rate Source Patient Position 98 % Oral -- -- BP Location FiO2 (%) -- -- General: Alert and oriented x 3, nontoxic in no acute distress. He does appear to be mildly anxious. HEENT: [place] and moist mucosa neck: Soft and supple Chest: Good air entry bilaterally, no evidence of respiratory distress Circulatory: Mild tachycardia abdomen: Soft, non-distended, mild reproducible epigastric tenderness, remainder the abdomen is nontender. Good bowel sounds x 4 quadrants, no rebound or guarding. Extremities: Warm and well-perfused skin: Warm and dry Neuro: Alert and oriented x 3, no obvious gross acute focal deficits Psychiatric: Positive SI Results Labs Reviewed COMPREHENSIVE METABOLIC PANEL - Abnormal Result Value Sodium 141 Potassium 4.0 Chloride 101 CO2 21 Anion Gap 19 (*) Glucose 68 (*) BUN 18 Creatinine 1.00 eGFR 86 BUN/Creatinine Ratio 18.0 Calcium 8.3 (*) AST (SGOT) 77 (*) ALT (SGPT) 61 (*) Alkaline Phosphatase 94 Total Protein 7.3 Albumin 3.8 Total Bilirubin 0.8 LIPASE - Abnormal Lipase 85 (*) CBC WITH AUTO DIFFERENTIAL - Abnormal WBC 6.9 RBC 5.60 (*) Hemoglobin 16.1 Hematocrit 49.6 MCV 88.4 MCH 28.7 MCHC 32.5 RDW 13.5 Platelets 168 MPV 10.1 NRBC 0.0 NRBC Absolute 0.00 Neutrophils Relative 74.0 Lymphocytes Relative 21.2 Monocytes Relative 3.3 Eosinophils Relative 0.3 Basophils Relative 0.9 Immature Granulocytes Relative 0.3 Neutrophils Absolute 5.13 Lymphocytes Absolute 1.47 Monocytes Absolute 0.23 Eosinophils Absolute 0.02 Basophils Absolute 0.06 Immature Granulocytes Absolute 0.02 DRUG ABUSE SCREEN 8A PANEL, URINE - Abnormal Amphetamine Screen, Ur Negative Barbiturate Screen, Ur Negative Benzodiazepine Screen, Ur Negative Cocaine Screen, Ur Negative Opiate Screen, Ur Negative Cannabinoid (THC) Screen, Ur Positive (*) Oxycodone Screen, Ur Negative Fentanyl, Ur Negative Narrative: Assay cutoffs: Amphetamines 1000 ng/mL Barbiturates 200 ng/mL Benzodiazepines 200 ng/mL Cocaine 300 ng/mL Fentanyl 1 ng/mL Opiates 300 ng/mL Oxycodone 100 ng/mL THC 50 ng/mL Semi-quantitative assay for screening purposes only. Unconfirmed screening result should not be used for non-medical purposes. *ALTERNATE METHOD CONFIRMATION DONE UPON REQUEST ONLY* TROPONIN I HIGH SENSITIVITY - Normal High Sensitivity Troponin I 32 Narrative: High levels of biotin in samples may falsely decrease hsTroponin values. Use caution when interpreting hsTroponin results in patients taking biotin who exhibit renal impairment (eGFR <60) or in patients taking more than 20 mg/day of biotin. TROPONIN I HIGH SENSITIVITY - Normal High Sensitivity Troponin I 31 Narrative: High levels of biotin in samples may falsely decrease hsTroponin values. Use caution when interpreting hsTroponin results in patients taking biotin who exhibit renal impairment (eGFR <60) or in patients taking more than 20 mg/day of biotin. MAGNESIUM - Normal Magnesium 1.9 B-TYPE NATRIURETIC PEPTIDE - Normal BNP 10 CBC AND DIFFERENTIAL Narrative: The following orders were created for panel order CBC and differential. Procedure Abnormality Status --------- ------ CBC auto differential[[id number]] Abnormal Final result Please view results for these tests on the individual orders. Abnormal Labs Reviewed COMPREHENSIVE METABOLIC PANEL - Abnormal; Notable for the following components: Result Value Anion Gap 19 (*) Glucose 68 (*) Calcium 8.3 (*) AST (SGOT) 77 (*) ALT (SGPT) 61 (*) All other components within normal limits LIPASE - Abnormal; Notable for the following components: Lipase 85 (*) All other components within normal limits CBC WITH AUTO DIFFERENTIAL - Abnormal; Notable for the following components: RBC 5.60 (*) All other components within normal limits DRUG ABUSE SCREEN 8A PANEL, URINE - Abnormal; Notable for the following components: Cannabinoid (THC) Screen, Ur Positive (*) All other components within normal limits Narrative: Assay cutoffs: Amphetamines 1000 ng/mL Barbiturates 200 ng/mL Benzodiazepines 200 ng/mL Cocaine 300 ng/mL Fentanyl 1 ng/mL Opiates 300 ng/mL Oxycodone 100 ng/mL THC 50 ng/mL Semi-quantitative assay for screening purposes only. Unconfirmed screening result should not be used for non-medical purposes. *ALTERNATE METHOD CONFIRMATION DONE UPON REQUEST ONLY* XR Chest 2 Views (Results Pending) I have discussed the incidental/abnormal imaging and/or lab abnormalities with the patient and haveinstructed them the need for further evaluation and workup with their primary care doctor. The laboratory results, imaging results and other diagnostic exam results were reviewed in the EMR. EKG Interpretation Sinus rhythm at 101 bpm Critical Care Time None ? Medical Decision Making Medications PHENobarbital injection 260 mg (has no administration in time range) aluminum-magnesium hydroxide-simethicone (MAALOX) 200-200-20 mg/5 mL suspension 30 mL (has no administration in time range) And lidocaine (XYLOCAINE) 2 % mouth solution 10 mL (has no administration in time range) sodium chloride 0.9 % bolus 500 mL (0 mL intravenous Stopped 12/20/242214) LORazepam (ATIVAN) injection 1 mg (1 mg intravenous Given 12/20/241958) LORazepam (ATIVAN) injection 1 mg (1 mg intravenous Given 12/20/242146) ED Course as of 12/20/242232 Mon Dec 20, 20242024 X-ray: Possible right lower lobe infiltrate [KN] 2229 Patient with history of EtOH abuse, with recent relapse, presents emergency department with shakiness, chest pain and probable EtOH withdrawal. Patient received doses of Ativan in the ED and is still hypertensive and with some tachycardia and probable EtOH withdrawal. The case was discussed with the medical team, and phenobarbital will be started for EtOH withdrawal. Patient will continue bevery closely observed on a secured entrance monitor while in the ED. [KN] ED Course User Index [KN] Johan Gaona DO Clinical Impressions as of 12/20/242232 Precordial pain Alcohol abuse with withdrawal (CMS/HCC) Procedures Procedures Diagnosis 1. Precordial pain 2. Alcohol abuse with withdrawal (CMS/HCC) Disposition Admit to Inpatient ED Prescriptions None Physician Attestation Johan Gaona DO 12/20/241942 Johan Gaona DO 12/20/241943 Johan Gaona DO 12/20/242232 documented in this encounter H&P Notes * ERNESTO Stahl - 12/20/2024 11:54 PM EST Images from the original note were not included. [facility] HISTORY AND PHYSICAL Please contact author [ERNESTO Stahl] via [employer]. Patient: Manny Hopkins Admission Date/Time: 12/20/2024 5:20 PM : 1965 [59 y.o.] Patient's PCP: No Pcp Physician Attending Provider: Jeffrey Hopkins MD CHIEF COMPLAINT Chest and abdominal pain, alcohol use HISTORY OF PRESENT ILLNESS 59 year-old male with past medical history significant for combined systolic and diastolic CHF, hypertension, alcohol use, and further history below presents with multiple varying symptoms. Pt statesthat there had been multiple deaths in his family, including his , [id number], and [id number], and all of their funerals are tomorrow. After the of his over a week ago, pt has been consistenly drinking vodka daily. Pt has history of alcohol use with withdrawal for which he as been hospitalized previously for. Last drink was yesterday which was a liter of vodka. Prior to this, pt states the last time he drank alcohol was in June. Pt also reports midline/left chest pain radiating into his abdomen for about a week that has been consistent and disturbing his sleep. He mentions a cough producing clear phlegm and shortness of breath for a few days. Pt had one episode of projectile vomiting yesterday and last bowel movement was this morning. Denies hemturia, hematochiezia, melena, diarrhea. Pt states he has thoughts of hurting himself and has come in for help. Pt mentions he is feeling very anxious at this time. Pt reports numbness in his extremities for about a week.Otherwise, pt denies current nausea or vomiting, fevers, chills. Pt has self-discontinued his chronic home medications over a year ago and that was about the last time he was seen by a provider/PCP. In ED, pt received 500 mL normal saline bolus, combined 2 mg IV Ativan, and was initiated on Phenobarbital protocol. Upon H&P, pt is afebrile, HR 115, RR 20, BP 161/125, spO2 98% RA. Labs: AST 77, ALT 61, anion gap 19, troponin 32, 31, BNP 10. TOx screen positive for cannabinoids. EKG #1 at 1850: sinus tachycardia, 101 bpm, no acute ischemic changes EKG #2 at 1929: normal sinus rhythm, 100 bpm, no acute ischemic changes prolonged QTc at 508 CXR with possible right sided infiltrate although pending formal read. Review of Systems A 12 point review of system was completed and the pertinent positive/negatives are included in the HPI. MEDICAL HISTORY Past Medical History Past Medical History: Diagnosis Date ??? Alcohol use ??? Depression ??? Hypertension ??? Systolic and diastolic CHF, chronic (CMS/HCC) Past Surgical History Past Surgical History: Procedure Laterality Date ??? FINGER SURGERY Left left ring finger ??? KNEE SURGERY PROCEDURE: HISTORICAL KNEE SURGERY Social History reports that he has been smoking cigarettes. He does not have any smokeless tobacco history on file. He reports current alcohol use. He reports that he does not use drugs. Family History family history includes Heart attack in his mother; Hypertension in his father and mother; Other: Lajas's disease in his sister; Other: Alzheimer's in his maternal grandmother; Other: ruptured abdominal aortic aneurysm in his paternal grandfather. Allergies has No Known Allergies. Home Medications No current facility-administered medications on file prior to encounter. No current outpatient medications on file prior to encounter. Pt has self discontinued all chronic home medications over a year ago. OBJECTIVE Vitals Visit Vitals BP (!) 147/80 (BP Location: Right arm, Patient Position: Sitting) Pulse (!) 115 Temp 36.6 ??C (97.8 ??F) (Oral) Resp 20 Temp (24hrs), Av.7 ??C (98.1 ??F), Min:36.6 ??C (97.8 ??F), Max:36.9 ??C (98.4 ??F) Body mass index is 48.82 kg/m??. No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 partner, [id number] and [id number]. He states he was planning for his mother in law's when he found his partner unexpectedly. He states he had been drinking 1/2 gallon of vodka per day for the last 2 to 3 weeks. He has a 50-year history of alcohol use disorder. He reports 6 months of sobriety from June 2024 until the last few weeks. At that time he stopped cold turkey and recalls experiencing hallucinations and withdrawal seizures. He states that he was more functional when he was sober and is interested in treatment. 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 He complains of nausea and vomiting. Allergies: No Known Allergies Home Medications: Prior to Admission medications Not on File Past Medical History: Past Medical History: Diagnosis Date Alcohol use Depression Hypertension Systolic and diastolic CHF, chronic (CMS/HCC) Past Surgical History: Past Surgical History: Procedure Laterality Date FINGER SURGERY Left left ring finger KNEE SURGERY PROCEDURE: HISTORICAL KNEE SURGERY Family History: Family History Problem Relation Name Age of Onset Heart attack Mother age 56, mi Hypertension Mother Hypertension Father Other (Other: Lajas's disease ) Sister Other (Other: Alzheimer's ) Maternal Grandmother Other (Other: ruptured abdominal aortic aneurysm ) Paternal Grandfather Age 60 Social History: Social History Tobacco Use Smoking Status Every Day Current packs/day: 1.50 Types: Cigarettes Smokeless Tobacco Not on file Social History Substance and Sexual Activity Alcohol Use Yes Social History Substance and Sexual Activity Drug Use No He lives in [place] 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 Review of Systems: Review of Systems Constitutional: Negative for chills and fever. Respiratory: Negative for shortness of breath. Gastrointestinal: Positive for nausea and vomiting. Psychiatric/Behavioral: Positive for dysphoric mood. The patient is nervous/anxious. Objective Last Recorded Vitals: Blood pressure (!) 159/116, pulse 109, temperature 36.9 ??C (98.4 ??F), resp. rate 14, height 1.803m (71 ), weight 159 kg (350 lb), SpO2 94%. Physical Exam Constitutional: Appearance: He is obese. Cardiovascular: Rate and Rhythm: Tachycardia present. Heart sounds: Normal heart sounds. Pulmonary: Breath sounds: Normal breath sounds. Musculoskeletal: General: Normal range of motion. Skin: General: Skin is warm and dry. Neurological: Motor: Tremor present. Psychiatric: Mood and Affect: Mood is anxious. Affect is tearful. Labs: Results for orders placed or performed during the hospital encounter of 12/20/24 Troponin I high sensitivity Collection Time: 12/20/24 6:07 PM Result Value Ref Range High Sensitivity Troponin I 32 <=79 ng/L B-type natriuretic peptide Collection Time: 12/20/24 6:07 PM Result Value Ref Range BNP 10 <=100 pcg/mL CBC auto differential Collection Time: 12/20/24 6:07 PM Result Value Ref Range WBC 6.9 4.8 - 10.8 K/mcL RBC 5.60 (H) 4.50 - 5.50 M/mcL Hemoglobin 16.1 13.5 - 17.5 g/dL Hematocrit 49.6 42.0 - 54.0 % MCV 88.4 79.0 - 98.0 FL MCH 28.7 27.0 - 32.0 pcg MCHC 32.5 32.0 - 37.0 g/dL RDW 13.5 11.0 - 15.0 % Platelets 168 130 - 400 K/mcL MPV 10.1 7.0 - 11.0 FL NRBC 0.0 <1.0 % NRBC Absolute 0.00 <0.10 K/mcL Neutrophils Relative 74.0 % Lymphocytes Relative 21.2 % Monocytes Relative 3.3 % Eosinophils Relative 0.3 % Basophils Relative 0.9 % Immature Granulocytes Relative 0.3 % Neutrophils Absolute 5.13 1.50 - 7.00 K/mcL Lymphocytes Absolute 1.47 1.00 - 5.00 K/mcL Monocytes Absolute 0.23 0.20 - 1.00 K/mcL Eosinophils Absolute 0.02 0.00 - 0.50 K/mcL Basophils Absolute 0.06 0.00 - 0.20 K/mcL Immature Granulocytes Absolute 0.02 0.00 - 0.03 K/mcL Comprehensive metabolic panel Collection Time: 12/20/24 6:08 PM Result Value Ref Range Sodium 141 133 - 145 mmol/L Potassium 4.0 3.5 - 5.5 mmol/L Chloride 101 96 - 110 mmol/L CO2 21 21 - 32 mmol/L Anion Gap 19 (H) 3 - 11 Glucose 68 (L) 70 - 100 mg/dL BUN 18 5 - 25 mg/dL Creatinine 1.00 0.70 - 1.30 mg/dL eGFR 86 >=60 mL/min/1.73m2 BUN/Creatinine Ratio 18.0 Calcium 8.3 (L) 8.5 - 10.5 mg/dL AST (SGOT) 77 (H) 10 - 42 unit/L ALT (SGPT) 61 (H) 10 - 60 unit/L Alkaline Phosphatase 94 42 - 121 unit/L Total Protein 7.3 6.0 - 8.0 g/dL Albumin 3.8 3.2 - 5.0 g/dL Total Bilirubin 0.8 0.0 - 1.4 mg/dL Lipase Collection Time: 12/20/24 6:08 PM Result Value Ref Range Lipase 85 (H) 13 - 75 unit/L Magnesium Collection Time: 12/20/24 6:08 PM Result Value Ref Range Magnesium 1.9 1.9 - 2.6 mg/dL Vitamin B12 and folate Collection Time: 12/20/24 6:08 PM Result Value Ref Range Vitamin B-12 586 250 - 900 pcg/mL Folate 8.3 2.8 - 17.0 ng/ml ECG 12 lead Collection Time: 12/20/24 6:50 PM Result Value Ref Range Ventricular Rate ECG 101 BPM Atrial Rate 101 BPM P-R Interval 164 ms QRS Duration 106 ms Q-T Interval 384 ms QTc 497 ms P Wave [place] 39 degrees R [place] 15 degrees T [place] 54 degrees ECG Interpretation Sinus tachycardia Minimal voltage criteria for LVH, may be normal variant Borderline ECG No previous ECGs available Confirmed by Juaquin SEWLEL JOHN ([id number]) on 12/21/2024 7:47:23 AM Troponin I high sensitivity Collection Time: 12/20/24 7:21 PM Result Value Ref Range High Sensitivity Troponin I 31 <=79 ng/L ECG 12 lead Collection Time: 12/20/24 7:29 PM Result Value Ref Range Ventricular Rate ECG 100 BPM Atrial Rate 100 BPM P-R Interval 180 ms QRS Duration 100 ms Q-T Interval 394 ms QTc 508 ms P Wave [place] 47 degrees R [place] 19 degrees T [place] 56 degrees ECG Interpretation Normal sinus rhythm Possible Left atrial enlargement Prolonged QT Abnormal ECG When compared with ECG of 20-DEC-2024 18:50, (unconfirmed) No significant change was found Confirmed by Juaquin SEWELL JOHN ([id number]) on 12/21/2024 7:49:16 AM Drug abuse screen 8a panel, urine Collection Time: 12/20/24 9:34 PM Result Value Ref Range Amphetamine Screen, Ur Negative Negative Barbiturate Screen, Ur Negative Negative Benzodiazepine Screen, Ur Negative Negative Cocaine Screen, Ur Negative Negative Opiate Screen, Ur Negative Negative Cannabinoid (THC) Screen, Ur Positive (A) Negative Oxycodone Screen, Ur Negative Negative Fentanyl, Ur Negative Negative Procalcitonin Collection Time: 12/21/24 12:20 AM Result Value Ref Range Procalcitonin 0.06 <=0.16 ng/mL Respiratory virus panel molecular study Collection Time: 12/21/24 12:24 AM Specimen: Nares; Swab Result Value Ref Range Adenovirus Detection by PCR Not Detected Not Detected Influenza A PCR Not Detected Not Detected Influenza B PCR Not Detected Not Detected Coronavirus 229E Not Detected Not Detected Coronavirus HKU1 Not Detected Not Detected Coronavirus OC43 Not Detected Not Detected Coronavirus NL63 Not Detected Not Detected Parainfluenza Virus 1 Not Detected Not Detected Parainfluenza Virus 2 Not Detected Not Detected Parainfluenza Virus 3 Not Detected Not Detected Parainfluenza Virus 4 Not Detected Not Detected RSV PCR Not Detected Not Detected Human Metapneumovirus A and B Not Detected Not Detected Rhinovirus/Enterovirus Not Detected Not Detected Bordetella pertussis Not Detected Not Detected Bordetella parapertussis Not Detected Not Detected Mycoplasma pneumo by PCR Not Detected Not Detected Chlamydia pneumoniae Not Detected Not Detected SARS COV-2 Not Detected Not Detected Basic metabolic panel Collection Time: 12/21/24 5:52 AM Result Value Ref Range Sodium 135 133 - 145 mmol/L Potassium 3.5 3.5 - 5.5 mmol/L Chloride 97 96 - 110 mmol/L CO2 30 21 - 32 mmol/L Anion Gap 8 3 - 11 Glucose 107 (H) 70 - 100 mg/dL BUN 19 5 - 25 mg/dL Creatinine 0.99 0.70 - 1.30 mg/dL eGFR 87 >=60 mL/min/1.73m2 BUN/Creatinine Ratio 19.2 Calcium 7.8 (L) 8.5 - 10.5 mg/dL Magnesium Collection Time: 12/21/24 5:52 AM Result Value Ref Range Magnesium 1.6 (L) 1.9 - 2.6 mg/dL Hepatic function panel Collection Time: 12/21/24 5:52 AM Result Value Ref Range Total Protein 6.5 6.0 - 8.0 g/dL Albumin 3.3 3.2 - 5.0 g/dL Total Bilirubin 1.1 0.0 - 1.4 mg/dL Bilirubin, Direct 0.3 0.0 - 0.3 mg/dL Bilirubin, Indirect 0.8 0.0 - 1.1 mg/dL ALT (SGPT) 51 10 - 60 unit/L AST (SGOT) 52 (H) 10 - 42 unit/L Alkaline Phosphatase 84 42 - 121 unit/L CBC auto differential Collection Time: 12/21/24 5:52 AM Result Value Ref Range WBC 6.3 4.8 - 10.8 K/mcL RBC 4.80 4.50 - 5.50 M/mcL Hemoglobin 13.9 13.5 - 17.5 g/dL Hematocrit 42.0 42.0 - 54.0 % MCV 87.9 79.0 - 98.0 FL MCH 29.1 27.0 - 32.0 pcg MCHC 33.1 32.0 - 37.0 g/dL RDW 13.2 11.0 - 15.0 % Platelets 145 130 - 400 K/mcL MPV 10.0 7.0 - 11.0 FL NRBC 0.0 <1.0 % NRBC Absolute 0.00 <0.10 K/mcL Neutrophils Relative 62.9 % Lymphocytes Relative 26.3 % Monocytes Relative 7.5 % Eosinophils Relative 2.2 % Basophils Relative 0.8 % Immature Granulocytes Relative 0.3 % Neutrophils Absolute 3.95 1.50 - 7.00 K/mcL Lymphocytes Absolute 1.65 1.00 - 5.00 K/mcL Monocytes Absolute 0.47 0.20 - 1.00 K/mcL Eosinophils Absolute 0.14 0.00 - 0.50 K/mcL Basophils Absolute 0.05 0.00 - 0.20 K/mcL Immature Granulocytes Absolute 0.02 0.00 - 0.03 K/mcL Imaging: XR Chest 2 Views Narrative: PROCEDURE: PA and lateral radiographs of the chest. HISTORY: chest pain. COMPARISON: None. FINDINGS: Lungs, pleural spaces, and pulmonary vasculature are normal. The heart is mildly enlarged. Mild degenerative changes of the finding. Impression: No acute findings. -------- FINAL REPORT -------- Dictated By: Sabino Oviedo Dictated Date: 12/21/2024 08:04 ET Assigned Physician: Sabino Oviedo Reviewed and Electronically Signed By: Sabino Oviedo Signed Date: 12/21/2024 08:07 ET Workstation ID: [id number] Transcribed By: Self Edit Transcribed Date: 12/21/2024 08:04 ET Meds: enoxaparin, 40 mg, subcutaneous, q12h IVAN folic acid, 1 mg, oral, Daily nicotine, 1 patch, transdermal, Daily PHENobarbitaL, 64.8 mg, oral, BID Followed by [START ON 12/23/2024] PHENobarbitaL, 32.4 mg, oral, BID sodium chloride, 10 mL, intravenous, BID thiamine, 100 mg, oral, Daily PRN medications: acetaminophen, albuterol, cloNIDine, prochlorperazine OR prochlorperazine OR prochlorperazine, [COMPLETED] Insert peripheral IV AND Maintain IV access AND [COMPLETED]Saline lock IV AND sodium chloride AND sodium chloride Assessment and Plan Manny Hopkins is a 59 y.o. male with a history of alcohol use disorder admitted for management of withdrawal symptoms and suicidal ideation in setting of acute grief. Alcohol use disorder, in withdrawal Patient received on 10mg/kg of ideal body weight IM phenobarbital loading protocol Continues to endorse symptoms of withdrawal including N/V and tremor. Continue phenobarbital oral taper. May need additional IM dose if symptoms persists. Continue thiamine, folate and multivitamin. Replete electrolytes. Discussed treatment of alcohol use disorder and reviewed medications for alcohol use disorder ([place]) Reviewed other options for treatment and offered support. 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 Thank you for the interesting consultation. Please reach out with any questions or concerns. Principal Problem: Alcohol withdrawal ([facility] [place]) Provider Attestation Electronically signed by Ernestina Borja DO documented in this encounter Plan of Treatment Scheduled Orders Name Type Priority Associated Diagnoses Orde r Schedule Basic metabolic panel Lab Routine Hypokalemia Expected: 12/30/2024, Expires: 12/23/2025 documented as of this encounter Procedures Procedure Name Priority Date/Time Associated Diagnosis Comments ECG ANNOTATED 12/24/2024 PHOSPHORUS Routine 12/23/2024 5:39 AM EST MAGNESIUM Routine 12/23/2024 5:39 AM EST BASIC METABOLIC PANEL Routine 12/23/2024 5:39 AM EST EXTRA TUBES Routine 12/23/2024 5:34 AM EST LAVENDER - EDTA Routine 12/23/2024 5:34 AM EST ECG 12-LEAD Routine 12/22/2024 5:56 PM EST EXTRA TUBES Routine 12/22/2024 8:18 AM EST LAVENDER - EDTA Routine 12/22/2024 8:18 AM EST HEMOGLOBIN A1C Add-On 12/22/2024 8:18 AM EST COMPREHENSIVE METABOLIC PANEL Routine 12/22/2024 8:18 AM EST CBC WITH AUTO DIFFERENTIAL Routine 12/21/2024 5:52 AM EST CBC AND DIFFERENTIAL Routine 12/21/2024 5:52 AM EST MAGNESIUM Routine 12/21/2024 5:52 AM EST HEPATIC FUNCTION PANEL Routine 5:52 AM EST BASIC METABOLIC PANEL Routine 12/21/2024 5:52 AM EST RESPIRATORY VIRUS PANEL MOLECULAR STUDY Routine 12/21/2024 12:24 AM EST PROCALCITONIN STAT 12/21/2024 12:20 AM EST DRUG ABUSE SCREEN 8A PANEL, URINE STAT 12/20/2024 9:34 PM EST ECG 12-LEAD STAT 12/20/2024 7:29 PM EST TROPONIN I HIGH SENSITIVITY STAT 12/20/2024 7:21 PM EST XR CHEST 2 VIEWS STAT 12/20/2024 7:00 PM EST ECG 12-LEAD STAT 12/20/2024 6:50 PM EST VITAMIN B12 AND FOLATE Add-On 6:08 PM EST MAGNESIUM STAT 12/20/2024 6:08 PM EST LIPASE STAT 12/20/2024 6:08 PM EST COMPREHENSIVE METABOLIC PANEL STAT 12/20/2024 6:08 PM EST TROPONIN I HIGH SENSITIVITY STAT 12/20/2024 6:07 PM EST CBC WITH AUTO DIFFERENTIAL STAT 12/20/2024 6:07 PM EST CBC AND DIFFERENTIAL STAT 12/20/2024 6:07 PM EST B-TYPE NATRIURETIC PEPTIDE STAT 12/20/2024 6:07 PM EST documented in this encounter Results * ECG-Annotated (12/24/2024) us Provider Onbase MD ECG ORDERABLES Final Result * (ABNORMAL) Basic metabolic panel (12/23/2024 5:39 AM EST) Sodium 136 133 - 145 mmol/L LAB CHEMISTRY METHOD 12/23/2024 7:19 AM EST [facility] Potassium 3.1(L) 3.5 - 5.5 mmol/L LAB CHEMISTRY METHOD 12/23/2024 7:19 AM EST [facility] Chloride 100 96 - 110 mmol/L LAB CHEMISTRY METHOD 12/23/2024 7:19 AM EST [facility] CO2 33(H) 21 - 32 mmol/L LAB CHEMISTRY METHOD 12/23/2024 7:19 AM [facility] Anion Gap 3 3 - 11 LAB CHEMISTRY METHOD 12/23/2024 7:19 AM [facility] Glucose 87 70 - 100 mg/dL LAB CHEMISTRY METHOD 12/23/2024 7:19 AM [facility] BUN 15 5 - 25 mg/dL LAB CHEMISTRY METHOD 12/23/2024 7:19 AM [facility] Creatinine 0.93 0.70 - 1.30 mg/dL LAB CHEMISTRY METHOD 12/23/2024 7:19 AM [facility] eGFR 94 >=60 mL/min/1. 73m2 LAB CHEMISTRY METHOD 12/23/2024 7:19 AM [facility] Comment:Calculation based on the??Chronic Kidney Disease Epidemiology Collaboration (CKD-EPI) equation refit??without adjustment for race. BUN/Creatinine Ratio 16.1 LAB CHEMISTRY METHOD 12/23/2024 7:19 AM [facility] Calcium 8.1(L) 8.5 - 10.5 mg/dL LAB CHEMISTRY METHOD 12/23/2024 7:19 AM [facility] Blood Venous blood specimen / Unknown Venipuncture / Unknown 12/23/2024 5:39 AM EST 12/23/2024 6:43 AM EST Thalia Singh MD LAB BLOOD ORDERABLES Fi nal Result [facility] [address] [place] [address], * (ABNORMAL) Magnesium (12/23/2024 5:39 AM EST) Magnesium 1.7(L) 1.9 - 2.6 mg/dL LAB CHEMISTRY METHOD 12/23/2024 7:19 AM [facility] Blood Venous blood specimen / Unknown Venipuncture / Unknown 12/23/2024 5:39 AM EST 12/23/2024 6:43 AM EST us Thalia Singh MD LAB BLOOD ORDERABLES Fi nal Result Performing Organization Address [facility]/ZIP Co de Phone Number [facility] [address] [place] [address], [place] [phone] * Phosphorus (12/23/2024 5:39 AM EST) Phosphorus 3.3 2.5 - 4.5 mg/dL LAB CHEMISTRY METHOD 12/23/2024 7:19 AM EST [facility] Blood Venous blood specimen / Unknown Venipuncture / Unknown 12/23/2024 5:39 AM EST 12/23/2024 6:43 AM EST Thalia Singh MD LAB BLOOD ORDERABLES Fi nal Result Performing Organization Address [facility] de Phone Number [facility] [address] [place] [address], [place] [phone] * Lavender tube (12/23/2024 5:34 AM EST) Pathologist [facility] [place] Extra Tube Hold for add-ons. 12/23/2024 8:01 AM EST [facility] Comment:Auto resulted. Blood Venous blood specimen / Unknown Venipuncture / Unknown 12/23/2024 5:34 AM EST 12/23/2024 6:46 AM EST us Thalia Singh MD LAB BLOOD ORDERABLES Fi nal Result Performing Organization Address [facility]/ZIP Co de Phone Number [facility] [address] [place] [address], [place] [phone] * ECG 12 lead (12/22/2024 5:56 PM EST) Ventricular Rate ECG 87 BPM GEMUSE Atrial Rate 87 BPM GEMUSE P-R Interval 176 ms GEMUSE QRS Duration 102 ms GEMUSE Q-T Interval 422 ms GEMUSE QTc 507 ms GEMUSE P Wave [place] -11 degrees GEMUSE R [place] 15 degrees GEMUSE T [place] 51 degrees GEMUSE ECG Interpretation Sinus rhythm with occasional Premature ventricular complexes Moderate voltage criteria for LVH, may be normal variant Prolonged QT When compared with ECG of 20-DEC-2024 19:29, Premature ventricular complexes are now Present Confirmed by BYRON DOSS ([id number]) on 12/22/2024 8:24:33 PM GEMUSE 12/22/2024 5:56 PM EST 12/22/2024 8:24 PM EST Thalia Singh MD ECG ORDERABLES Final R esult GEMUSE * Hemoglobin A1c (12/22/2024 8:18 AM EST) Pathologist [facility] [place] Hemoglobin A1C 5.7 <6.5 % LAB CHEMISTRY METHOD 12/22/2024 1:57 PM EST [facility] Mean Bld Glu Estim. 117 mg/dL LAB CHEMISTRY METHOD 12/22/2024 1:57 PM EST [facility] Blood Venous blood specimen / Unknown 12/22/2024 8:18 AM EST 12/22/2024 8:25 AM EST Thalia Singh MD LAB BLOOD ORDERABLES Fi nal Result [facility] [address] [place] [address], [place] [phone] * Lavender tube (12/22/2024 8:18 AM EST) Pathologist [facility] [place] Extra Tube Hold for add-ons. 12/22/2024 10:01 AM EST [facility] Comment:Auto resulted. Blood Venous blood specimen / Unknown 12/22/2024 8:18 AM EST 12/22/2024 8:25 AM EST Thalia Singh MD LAB BLOOD ORDERABLES Fi nal Result [facility] [address] [place] [address], * (ABNORMAL) Comprehensive metabolic panel (12/22/2024 8:18 AM EST) Sodium 134 133 - 145 mmol/L LAB CHEMISTRY METHOD 12/22/2024 9:02 AM [facility] Potassium 3.3(L) 3.5 - 5.5 mmol/L LAB CHEMISTRY METHOD 12/22/2024 9:02 AM [facility] Chloride 97 96 - 110 mmol/L LAB CHEMISTRY METHOD 12/22/2024 9:02 AM [facility] CO2 31 21 - 32 mmol/L LAB CHEMISTRY METHOD 12/22/2024 9:02 AM [facility] Anion Gap 6 3 - 11 LAB CHEMISTRY METHOD 12/22/2024 9:02 AM [facility] Glucose 104(H) 70 - 100 mg/dL LAB CHEMISTRY METHOD 12/22/2024 9:02 AM [facility] BUN 14 5 - 25 mg/dL LAB CHEMISTRY METHOD 12/22/2024 9:02 AM [facility] Creatinine 0.94 0.70 - 1.30 mg/dL LAB CHEMISTRY METHOD 12/22/2024 9:02 AM [facility] eGFR 93 >=60 mL/min/1. 73m2 LAB CHEMISTRY METHOD 12/22/2024 9:02 AM [facility] Comment:Calculation based on the??Chronic Kidney Disease Epidemiology Collaboration (CKD-EPI) equation refit??without adjustment for race. BUN/Creatinine Ratio 14.9 LAB CHEMISTRY METHOD 12/22/2024 9:02 AM [facility] Calcium 8.3(L) 8.5 - 10.5 mg/dL LAB CHEMISTRY METHOD 12/22/2024 9:02 AM [facility] AST (SGOT) 53(H) 10 - 42 unit/L LAB CHEMISTRY METHOD 12/22/2024 9:02 AM [facility] ALT (SGPT) 49 10 - 60 unit/L LAB CHEMISTRY METHOD 12/22/2024 9:02 AM [facility] Alkaline Phosphatase 79 42 - 121 unit/L LAB CHEMISTRY METHOD 12/22/2024 9:02 AM [facility] Total Protein 6.0 6.0 - 8.0 g/dL LAB CHEMISTRY METHOD 12/22/2024 9:02 AM [facility] Albumin 3.2 3.2 - 5.0 g/dL LAB CHEMISTRY METHOD 12/22/2024 9:02 AM [facility] Total Bilirubin 1.7(H) 0.0 - 1.4 mg/dL LAB CHEMISTRY METHOD 12/22/2024 9:02 AM [facility] Blood Venous blood specimen / Unknown Venipuncture / Unknown 12/22/2024 8:18 AM EST 12/22/2024 8:24 AM EST Thalia Singh MD LAB BLOOD ORDERABLES Fi nal Result [facility] [address] [place] [address], * CBC auto differential (12/21/2024 5:52 AM EST) WBC 6.3 4.8 - 10.8 K/mcL LAB HEMETOLOGY METHOD 12/21/2024 6:53 AM [facility] RBC 4.80 4.50 - 5.50 M/mcL LAB HEMETOLOGY METHOD 12/21/2024 6:53 AM [facility] Hemoglobin 13.9 13.5 - 17.5 g/dL LAB HEMETOLOGY METHOD 12/21/2024 6:53 AM [facility] Hematocrit 42.0 42.0 - 54.0 % LAB HEMETOLOGY METHOD 12/21/2024 6:53 AM [facility] MCV 87.9 79.0 - 98.0 FL LAB HEMETOLOGY METHOD 12/21/2024 6:53 AM [facility] MCH 29.1 27.0 - 32.0 pcg LAB HEMETOLOGY METHOD 12/21/2024 6:53 AM [facility] MCHC 33.1 32.0 - 37.0 g/dL LAB HEMETOLOGY METHOD 12/21/2024 6:53 AM [facility] RDW 13.2 11.0 - 15.0 % LAB HEMETOLOGY METHOD 12/21/2024 6:53 AM [facility] Platelets 145 130 - 400 K/mcL LAB HEMETOLOGY METHOD 12/21/2024 6:53 AM [facility] MPV 10.0 7.0 - 11.0 FL LAB HEMETOLOGY METHOD 12/21/2024 6:53 AM [facility] NRBC 0.0 <1.0 % LAB HEMETOLOGY METHOD 12/21/2024 6:53 AM [facility] NRBC Absolute 0.00 <0.10 K/mcL LAB HEMETOLOGY METHOD 12/21/2024 6:53 AM [facility] Neutrophils Relative 62.9 % LAB HEMETOLOGY METHOD 12/21/2024 6:53 AM [facility] Lymphocytes Relative 26.3 % LAB HEMETOLOGY METHOD 12/21/2024 6:53 AM [facility] Monocytes Relative 7.5 % LAB HEMETOLOGY METHOD 12/21/2024 6:53 AM EST [facility] Eosinophils Relative 2.2 % LAB HEMETOLOGY METHOD 12/21/2024 6:53 AM [facility] Basophils Relative 0.8 % LAB HEMETOLOGY METHOD 12/21/2024 6:53 AM [facility] Immature Granulocytes Relative 0.3 % LAB HEMETOLOGY METHOD 12/21/2024 6:53 AM EST [facility] Neutrophils Absolute 3.95 1.50 - 7.00 K/mcL LAB HEMETOLOGY METHOD 12/21/2024 6:53 AM [facility] Lymphocytes Absolute 1.65 1.00 - 5.00 K/mcL LAB HEMETOLOGY METHOD 12/21/2024 6:53 AM [facility] Monocytes Absolute 0.47 0.20 - 1.00 K/mcL LAB HEMETOLOGY METHOD 12/21/2024 6:53 AM EST [facility] Eosinophils Absolute 0.14 0.00 - 0.50 K/mcL LAB HEMETOLOGY METHOD 12/21/2024 6:53 AM EST [facility] Basophils Absolute 0.05 0.00 - 0.20 K/mcL LAB HEMETOLOGY METHOD 12/21/2024 6:53 AM [facility] Immature Granulocytes Absolute 0.02 0.00 - 0.03 K/mcL LAB HEMETOLOGY METHOD 12/21/2024 6:53 AM [facility] Blood Venous blood specimen / Unknown Venipuncture / Unknown 12/21/2024 5:52 AM EST 12/21/2024 6:34 AM EST us Jeffrey Hopkins MD LAB BLOOD ORDERABLES Final Result [facility] [address] [place] [address], * (ABNORMAL) Hepatic function panel (12/21/2024 5:52 AM EST) [facility] Total Protein 6.5 6.0 - 8.0 g/dL LAB CHEMISTRY METHOD 12/21/2024 7:24 AM EST [facility] Albumin 3.3 3.2 - 5.0 g/dL LAB CHEMISTRY METHOD 12/21/2024 7:24 AM EST [facility] Total Bilirubin 1.1 0.0 - 1.4 mg/dL LAB CHEMISTRY METHOD 12/21/2024 7:24 AM [facility] Bilirubin, Direct 0.3 0.0 - 0.3 mg/dL LAB CHEMISTRY METHOD 12/21/2024 7:24 AM [facility] Bilirubin, Indirect 0.8 0.0 - 1.1 mg/dL LAB CHEMISTRY METHOD 12/21/2024 7:24 AM [facility] ALT (SGPT) 51 10 - 60 unit/L LAB CHEMISTRY METHOD 12/21/2024 7:24 AM [facility] AST (SGOT) 52(H) 10 - 42 unit/L LAB CHEMISTRY METHOD 12/21/2024 7:24 AM [facility] Alkaline Phosphatase 84 42 - 121 unit/L LAB CHEMISTRY METHOD 12/21/2024 7:24 AM [facility] Blood Venous blood specimen / Unknown Venipuncture / Unknown 12/21/2024 5:52 AM EST 12/21/2024 6:34 AM EST us Polly OROZCO LAB BLOOD ORDERABLES Final R esult [facility] [address] [place] [address], [place] [phone] * (ABNORMAL) Magnesium (12/21/2024 5:52 AM EST) [facility] Magnesium 1.6(L) 1.9 - 2.6 mg/dL LAB CHEMISTRY METHOD 12/21/2024 7:24 AM [facility] Blood Venous blood specimen / Unknown Venipuncture / Unknown 12/21/2024 5:52 AM EST 12/21/2024 6:34 AM EST us Jeffrey Hopkins MD LAB BLOOD ORDERABLES Final Result [facility] [address] [place] [address], [place] [phone] * (ABNORMAL) Basic metabolic panel (12/21/2024 5:52 AM EST) [facility] Sodium 135 133 - 145 mmol/L LAB CHEMISTRY METHOD 12/21/2024 7:24 AM [facility] Potassium 3.5 3.5 - 5.5 mmol/L LAB CHEMISTRY METHOD 12/21/2024 7:24 AM [facility] Chloride 97 96 - 110 mmol/L LAB CHEMISTRY METHOD 12/21/2024 7:24 AM [facility] CO2 30 21 - 32 mmol/L LAB CHEMISTRY METHOD 12/21/2024 7:24 AM [facility] Anion Gap 8 3 - 11 LAB CHEMISTRY METHOD 12/21/2024 7:24 AM [facility] Glucose 107(H) 70 - 100 mg/dL LAB CHEMISTRY METHOD 12/21/2024 7:24 AM [facility] BUN 19 5 - 25 mg/dL LAB CHEMISTRY METHOD 12/21/2024 7:24 AM [facility] Creatinine 0.99 0.70 - 1.30 mg/dL LAB CHEMISTRY METHOD 12/21/2024 7:24 AM [facility] eGFR 87 >=60 mL/min/1. 73m2 LAB CHEMISTRY METHOD 12/21/2024 7:24 AM [facility] Comment:Calculation based on the??Chronic Kidney Disease Epidemiology Collaboration (CKD-EPI) equation refit??without adjustment for race. BUN/Creatinine Ratio 19.2 LAB CHEMISTRY METHOD 12/21/2024 7:24 AM EST [facility] Calcium 7.8(L) 8.5 - 10.5 mg/dL LAB CHEMISTRY METHOD 12/21/2024 7:24 AM [facility] Blood Venous blood specimen / Unknown Venipuncture / Unknown 12/21/2024 5:52 AM EST 12/21/2024 6:34 AM EST us Jeffrey Hopkins MD LAB BLOOD ORDERABLES Final Result [facility] [address] [place] [address], * Respiratory virus panel molecular study (12/21/2024 12:24 AM EST) Adenovirus Detection by PCR Not Detected Not Detected LAB MICROBIOLOGY METHOD 12/21/2024 1:46 AM [facility] Influenza A PCR Not Detected Not Detected LAB MICROBIOLOGY METHOD 12/21/2024 1:46 AM [facility] Influenza B PCR Not Detected Not Detected LAB MICROBIOLOGY METHOD 12/21/2024 1:46 AM [facility] Coronavirus 229E Not Detected Not Detected LAB MICROBIOLOGY METHOD 12/21/2024 1:46 AM [facility] Coronavirus HKU1 Not Detected Not Detected LAB MICROBIOLOGY METHOD 12/21/2024 1:46 AM [facility] Coronavirus OC43 Not Detected Not Detected LAB MICROBIOLOGY METHOD 12/21/2024 1:46 AM [facility] Coronavirus NL63 Not Detected Not Detected LAB MICROBIOLOGY METHOD 12/21/2024 1:46 AM [facility] Parainfluenza Virus 1 Not Detected Not Detected LAB MICROBIOLOGY METHOD 12/21/2024 1:46 AM [facility] Parainfluenza Virus 2 Not Detected Not Detected LAB MICROBIOLOGY METHOD 12/21/2024 1:46 AM [facility] Parainfluenza Virus 3 Not Detected Not Detected LAB MICROBIOLOGY METHOD 12/21/2024 1:46 AM [facility] Parainfluenza Virus 4 Not Detected Not Detected LAB MICROBIOLOGY METHOD 12/21/2024 1:46 AM [facility] RSV PCR Not Detected Not Detected LAB MICROBIOLOGY METHOD 12/21/2024 1:46 AM [facility] Human Metapneumovirus A and B Not Detected Not Detected LAB MICROBIOLOGY METHOD 12/21/2024 1:46 AM [facility] Rhinovirus/Entero virus Not Detected Not Detected LAB MICROBIOLOGY METHOD 12/21/2024 1:46 AM [facility] Bordetella pertussis Not Detected Not Detected LAB MICROBIOLOGY METHOD 12/21/2024 1:46 AM [facility] Bordetella parapertussis Not Detected Not Detected LAB MICROBIOLOGY METHOD 12/21/2024 1:46 AM [facility] Mycoplasma pneumo by PCR Not Detected Not Detected LAB MICROBIOLOGY METHOD 12/21/2024 1:46 AM [facility] Chlamydia pneumoniae Not Detected Not Detected LAB MICROBIOLOGY METHOD 12/21/2024 1:46 AM [facility] SARS COV-2 Not Detected Not Detected LAB MICROBIOLOGY METHOD 12/21/2024 1:46 AM [facility] Swab Both anterior nares / Unknown Non-blood Collection / Unknown 12/21/2024 12:24 AM EST 12/21/2024 12:48 AM [facility] - 12/21/2024 1:46 AM EST Testing was performed using the [employer] Respiratory Pathogen PCR Assay. All results must be correlated with the clinical findings. Results should not be used as the sole basis for diagnosis. False Negative results may occur from the presence of sequence variants in the region targeted by the assay or the presence of inhibitors. Results may be affected by concurrent antiviral/antimicrobial therapy or levels of organisms that are below the limit of detection. Polly OROZCO LAB MICROBIOLOGY - GENERAL O RDERABLES Final Result Performing Organization Address [facility]/ZIP Co de Phone Number [facility] [address] [place] [address], * Procalcitonin (12/21/2024 12:20 AM EST) Procalcitonin 0.06 <=0.16 ng/mL LAB CHEMISTRY METHOD 12/21/2024 8:52 AM EST [facility] Blood Venous blood specimen / Unknown Venipuncture / Unknown 12/21/2024 12:20 AM EST 12/21/2024 12:26 AM EST Narrative [facility] - 12/21/2024 8:52 AM EST Procalcitonin > 2.00 ng/ml: Procalcitonin Levels above 2.00 ng/ml, on the first day of ICU admission represent a high risk for progression to severe sepsis and/or septic shock. Procalcitonin < 0.50 ng/ml: Procalcitonin levels below 0.50 ng/ml on the first day of ICU admission represent a low risk for progression to severe sepsis and/or septic shock. Concentrations <0.5 ng/mL do not exclude an infection, on account of local ized infections (without systemic signs) which can be associated with such low concentrations, or a systemic infection in its initial stages (<6 hours). Furthermore, increased procalcitonin can occur without infection. PCT concentrations between 0.5 and 2.0 ng/mL should be interpreted taking into account the patient's history. It is recommended to retest PCT within 6-24 hours if any concentrations <2.0 ng/mL are obtained. Polly OROZCO LAB BLOOD ORDERABLES Final R esult Performing Organization Address [facility]/ZIP Co de Phone Number [facility] [address] [place] [address], [place] [phone] * (ABNORMAL) Drug abuse screen 8a panel, urine (12/20/2024 9:34 PM EST) Amphetamine Screen, Ur Negative Negative LAB CHEMISTRY METHOD 5 10:10 PM [facility] Comment:Certain OTC medicati ons containing ephedrine, phenylephrine, pseudoephedrine and phenylpropanolamine can cause false positive results. Barbiturate Screen, Ur Negative Negative LAB CHEMISTRY METHOD 5 10:10 PM [facility] Benzodiazepine Screen, Ur Negative Negative LAB CHEMISTRY METHOD 5 10:10 PM [facility] Cocaine Screen, Ur Negative Negative LAB CHEMISTRY METHOD 5 10:10 PM [facility] Opiate Screen, Ur Negative Negative LAB CHEMISTRY METHOD 5 10:10 PM [facility] Cannabinoid (THC) Screen, Ur Positive(A ) Negative LAB CHEMISTRY METHOD 5 10:10 PM [facility] Comment:Specimens from patie nts taking pantoprazole sodium (Protonix) have been shown to produce false positive results. Oxycodone Screen, Ur Negative Negative LAB CHEMISTRY METHOD 5 10:10 PM [facility] Fentanyl, Ur Negative Negative LAB CHEMISTRY METHOD 5 10:10 PM [facility] Urine Urine specimen obtained by clean catch procedure / Unknown Non-blood Collection / Unknown 12/20/2024 9:34 PM EST 12/20/2024 9:41 PM EST [facility] - 12/20/2024 10:10 PM EST Assay cutoffs: Amphetamines ? 1000 ng/mL Barbiturates ?200 ng/mL Benzodiazepines ?? 200 ng/mL Cocaine ? 300 ng/mL Fentanyl ?1 ng/mL Opiates ? 300 ng/mL Oxycodone ? 100 ng/mL THC ?50 ng/mL Semi-quantitative assay for screening purposes only. Unconfirmed screening result should not be used for non-medical purposes. *ALTERNATE METHOD CONFIRMATION DONE UPON REQUEST ONLY* Johan Gaona DO LAB URINE ORDERABLES Final Res ult Performing Organization Address [facility]/ZIP Co de Phone Number [facility]) [facility] [address] [place] [address], [place] [phone] * ECG 12 lead (12/20/2024 7:29 PM EST) [facility] Ventricular Rate ECG 100 BPM GEMUSE Atrial Rate 100 BPM GEMUSE P-R Interval 180 ms GEMUSE QRS Duration 100 ms GEMUSE Q-T Interval 394 ms GEMUSE QTc 508 ms GEMUSE P Wave [place] 47 degrees GEMUSE R [place] 19 degrees GEMUSE T [place] 56 degrees GEMUSE ECG Interpretation Normal sinus rhythm Possible Left atrial enlargement Prolonged QT Abnormal ECG When compared with ECG of 20-DEC-2024 18:50, (unconfirmed) No significant change was found Confirmed by Juaquin SEWELL JOHN ([id number]) on 12/21/2024 7:49:16 AM [facility] 12/20/2024 7:29 PM EST 12/21/2024 7:49 AM EST Johan Gaona DO ECG ORDERABLES Final Result Performing Organization Address [facility] Co de Phone Number [facility] * Troponin I high sensitivity (12/20/2024 7:21 PM EST) [facility] High Sensitivity Troponin I 31 <=79 ng/L LAB CHEMISTRY METHOD 12/20/2024 8:09 PM EST [facility] Blood Venous blood specimen / Unknown Venipuncture / Unknown 12/20/2024 7:21 PM EST 12/20/2024 7:42 PM EST Narrative [facility] [place] ([facility]) [facility] - 12/20/2024 8:09 PM EST High levels of biotin in samples may falsely decrease hsTroponin values. ??Use caution when interpreting hsTroponin results in patients taking biotin who exhibit renal impairment (eGFR <60) or in patients taking more than 20 mg/day of biotin. us Johan Gaona DO LAB BLOOD ORDERABLES Final Res ult [facility] [place] [place] ([facility]) [facility] [address] [place] [address], [place] [phone] * XR Chest 2 Views (12/20/2024 7:00 PM EST) Anatomical Region Laterality Modality Body Radiographic Amena ging 12/21/2024 8:04 AM EST Impressions 12/21/2024 8:07 AM EST No acute findings. -------- FINAL REPORT -------- Dictated By: Sabino Oviedo Dictated Date: 12/21/2024 08:04 ET Assigned Physician: Sabino Oviedo Reviewed and Electronically Signed By: Sabino Oviedo Signed Date: 12/21/2024 08:07 ET Workstation ID: [id number] Transcribed By: Self Edit Transcribed Date: 12/21/2024 08:04 ET Narrative 12/21/2024 8:07 AM EST PROCEDURE: PA and lateral radiographs of the chest. HISTORY: chest pain. COMPARISON: None. FINDINGS: Lungs, pleural spaces, and pulmonary vasculature are normal. ??The heart is mildly enlarged. ??Mild degenerative changes of the finding. Procedure Note Sabino Oviedo MD - 12/21/2024 PROCEDURE: PA and lateral radiographs of the chest. HISTORY: chest pain. COMPARISON: None. FINDINGS: Lungs, pleural spaces, and pulmonary vasculature are normal. The heart ismildly enlarged. Mild degenerative changes of the finding. IMPRESSION: No acute findings. -------- FINAL REPORT -------- Dictated By: Sabino Oviedo Dictated Date: 12/21/2024 08:04 ET Assigned Physician: Sabino Oviedo Reviewed and Electronically Signed By: Sabino Oviedo Signed Date: 12/21/2024 08:07 ET Workstation ID: [id number] Transcribed By: Self Edit Transcribed Date: 12/21/2024 08:04 ET us Jeffrey Hopkins MD IMG XR PROCEDURES Final Res ult * ECG 12 lead (12/20/2024 6:50 PM EST) Pathologist [facility] [place] Ventricular Rate ECG 101 BPM GEMUSE Atrial Rate 101 BPM GEMUSE P-R Interval 164 ms GEMUSE QRS Duration 106 ms GEMUSE Q-T Interval 384 ms GEMUSE QTc 497 ms GEMUSE P Wave [place] 39 degrees GEMUSE R [place] 15 degrees GEMUSE T [place] 54 degrees GEMUSE ECG Interpretation Sinus tachycardia Minimal voltage criteria for LVH, may be normal variant Borderline ECG No previous ECGs available Confirmed by Juaquin SEWELL JOHN ([id number]) on 12/21/2024 7:47:23 AM [facility] 12/20/2024 6:50 PM EST 12/21/2024 7:47 AM EST us Johan Gaona DO ECG ORDERABLES Final Result [facility] * Vitamin B12 and folate (12/20/2024 6:08 PM EST) Pathologist [facility] [place] Vitamin B-12 586 250 - 900 pcg/mL LAB CHEMISTRY METHOD 12/21/2024 12:45 AM EST [facility] Folate 8.3 2.8 - 17.0 ng/ml LAB CHEMISTRY METHOD 12/21/2024 12:45 AM EST [facility] Blood Venous blood specimen / Unknown Venipuncture / Unknown 12/20/2024 6:08 PM EST 12/20/2024 6:21 PM EST Polly Cast PA LAB BLOOD ORDERABLES Final R esult Performing Organization Address [facility]/ZIP Co de Phone Number [facility] [address] [place] [address], [place] [phone] * Magnesium (12/20/2024 6:08 PM EST) Pathologist [facility] [place] Magnesium 1.9 1.9 - 2.6 mg/dL LAB CHEMISTRY METHOD 12/20/2024 6:52 PM EST [facility] Blood Venous blood specimen / Unknown Venipuncture / Unknown 12/20/2024 6:08 PM EST 12/20/2024 6:21 PM EST Johan Gaona DO LAB BLOOD ORDERABLES Final Res ult Performing Organization Address [facility] Co de Phone Number [facility] [address] [place] [address], [place] [phone] * (ABNORMAL) Lipase (12/20/2024 6:08 PM EST) Pathologist [facility] [place] Lipase 85(H) 13 - 75 unit/L LAB CHEMISTRY METHOD 12/20/2024 6:52 PM EST [facility] Blood Venous blood specimen / Unknown Venipuncture / Unknown 12/20/2024 6:08 PM EST 12/20/2024 6:21 PM EST Johan Gaona DO LAB BLOOD ORDERABLES Final Res ult Performing Organization Address [facility]/ZIP Co de Phone Number [facility] [address] [place] [address], [place] [phone] * (ABNORMAL) Comprehensive metabolic panel (12/20/2024 6:08 PM EST) Sodium 141 133 - 145 mmol/L LAB CHEMISTRY METHOD 12/20/2024 7:18 PM EST [facility] Potassium 4.0 3.5 - 5.5 mmol/L LAB CHEMISTRY METHOD 12/20/2024 7:18 PM [facility] Chloride 101 96 - 110 mmol/L LAB CHEMISTRY METHOD 12/20/2024 7:18 PM [facility] CO2 21 21 - 32 mmol/L LAB CHEMISTRY METHOD 12/20/2024 7:18 PM [facility] Anion Gap 19(H) 3 - 11 LAB CHEMISTRY METHOD 12/20/2024 7:18 PM [facility] Glucose 68(L) 70 - 100 mg/dL LAB CHEMISTRY METHOD 12/20/2024 7:18 PM [facility] BUN 18 5 - 25 mg/dL LAB CHEMISTRY METHOD 12/20/2024 7:18 PM [facility] Creatinine 1.00 0.70 - 1.30 mg/dL LAB CHEMISTRY METHOD 12/20/2024 7:18 PM [facility] eGFR 86 >=60 mL/min/1. 73m2 LAB CHEMISTRY METHOD 12/20/2024 7:18 PM [facility] Comment:Calculation based on the??Chronic Kidney Disease Epidemiology Collaboration (CKD-EPI) equation refit??without adjustment for race. BUN/Creatinine Ratio 18.0 LAB CHEMISTRY METHOD 12/20/2024 7:18 PM [facility] Calcium 8.3(L) 8.5 - 10.5 mg/dL LAB CHEMISTRY METHOD 12/20/2024 7:18 PM [facility] AST (SGOT) 77(H) 10 - 42 unit/L LAB CHEMISTRY METHOD 12/20/2024 7:18 PM [facility] ALT (SGPT) 61(H) 10 - 60 unit/L LAB CHEMISTRY METHOD 12/20/2024 7:18 PM [facility] Alkaline Phosphatase 94 42 - 121 unit/L LAB CHEMISTRY METHOD 12/20/2024 7:18 PM [facility] Total Protein 7.3 6.0 - 8.0 g/dL LAB CHEMISTRY METHOD 12/20/2024 7:18 PM EST [facility] Albumin 3.8 3.2 - 5.0 g/dL LAB CHEMISTRY METHOD 12/20/2024 7:18 PM [facility] Total Bilirubin 0.8 0.0 - 1.4 mg/dL LAB CHEMISTRY METHOD 12/20/2024 7:18 PM EST [facility] Blood Venous blood specimen / Unknown Venipuncture / Unknown 12/20/2024 6:08 PM EST 12/20/2024 6:21 PM EST us Johan Gaona DO LAB BLOOD ORDERABLES Final Res ult [facility] [address] [place] [address], * (ABNORMAL) CBC auto differential (12/20/2024 6:07 PM EST) WBC 6.9 4.8 - 10.8 K/mcL LAB HEMETOLOGY METHOD 12/20/2024 6:35 PM [facility] RBC 5.60(H) 4.50 - 5.50 M/mcL LAB HEMETOLOGY METHOD 12/20/2024 6:35 PM [facility] Hemoglobin 16.1 13.5 - 17.5 g/dL LAB HEMETOLOGY METHOD 12/20/2024 6:35 PM [facility] Hematocrit 49.6 42.0 - 54.0 % LAB HEMETOLOGY METHOD 12/20/2024 6:35 PM [facility] MCV 88.4 79.0 - 98.0 FL LAB HEMETOLOGY METHOD 12/20/2024 6:35 PM [facility] MCH 28.7 27.0 - 32.0 pcg LAB HEMETOLOGY METHOD 12/20/2024 6:35 PM [facility] MCHC 32.5 32.0 - 37.0 g/dL LAB HEMETOLOGY METHOD 12/20/2024 6:35 PM [facility] RDW 13.5 11.0 - 15.0 % LAB HEMETOLOGY METHOD 12/20/2024 6:35 PM [facility] Platelets 168 130 - 400 K/mcL LAB HEMETOLOGY METHOD 12/20/2024 6:35 PM [facility] MPV 10.1 7.0 - 11.0 FL LAB HEMETOLOGY METHOD 12/20/2024 6:35 PM [facility] NRBC 0.0 <1.0 % LAB HEMETOLOGY METHOD 12/20/2024 6:35 PM [facility] NRBC Absolute 0.00 <0.10 K/mcL LAB HEMETOLOGY METHOD 12/20/2024 6:35 PM [facility] Neutrophils Relative 74.0 % LAB HEMETOLOGY METHOD 12/20/2024 6:35 PM [facility] Lymphocytes Relative 21.2 % LAB HEMETOLOGY METHOD 12/20/2024 6:35 PM [facility] Monocytes Relative 3.3 % LAB HEMETOLOGY METHOD 12/20/2024 6:35 PM [facility] Eosinophils Relative 0.3 % LAB HEMETOLOGY METHOD 12/20/2024 6:35 PM [facility] Basophils Relative 0.9 % LAB HEMETOLOGY METHOD 12/20/2024 6:35 PM [facility] Immature Granulocytes Relative 0.3 % LAB HEMETOLOGY METHOD 12/20/2024 6:35 PM [facility] Neutrophils Absolute 5.13 1.50 - 7.00 K/mcL LAB HEMETOLOGY METHOD 12/20/2024 6:35 PM [facility] Lymphocytes Absolute 1.47 1.00 - 5.00 K/[facility] LAB HEMETOLOGY METHOD 12/20/2024 6:35 PM EST [facility] Monocytes Absolute 0.23 0.20 - 1.00 K/[facility] HEMETOLOGY METHOD 12/20/2024 6:35 PM EST [facility] Eosinophils Absolute 0.02 0.00 - 0.50 K/[facility] HEMETOLOGY METHOD 12/20/2024 6:35 PM EST [facility] Basophils Absolute 0.06 0.00 - 0.20 K/[facility] HEMETOLOGY METHOD 12/20/2024 6:35 PM EST [facility] Immature Granulocytes Absolute 0.02 0.00 - 0.03 K/[facility] HEMETOLOGY METHOD 12/20/2024 6:35 PM EST [facility] Blood Venous blood specimen / Unknown Venipuncture / Unknown 12/20/2024 6:07 PM EST 12/20/2024 6:21 PM EST us Johan Gaona DO LAB BLOOD ORDERABLES Final Res ult [facility] [address] [place] [address], [place] [phone] * B-type natriuretic peptide (12/20/2024 6:07 PM EST) BNP 10 <=100 pcg/mL LAB CHEMISTRY METHOD 12/20/2024 6:58 PM EST [facility] Blood Venous blood specimen / Unknown Venipuncture / Unknown 12/20/2024 6:07 PM EST 12/20/2024 6:21 PM EST us Johan Gaona DO LAB BLOOD ORDERABLES Final Res ult [facility] [address] [place] [address], [place] [phone] * Troponin I high sensitivity (12/20/2024 6:07 PM EST) High Sensitivity Troponin I 32 <=79 ng/L LAB CHEMISTRY METHOD 12/20/2024 6:51 PM EST [facility] Blood Venous blood specimen / Unknown Venipuncture / Unknown 12/20/2024 6:07 PM EST 12/20/2024 6:21 PM EST Narrative [facility] - 12/20/2024 6:51 PM EST High levels of biotin in samples may falsely decrease hsTroponin values. ??Use caution when interpreting hsTroponin results in patients taking biotin who exhibit renal impairment (eGFR <60) or in patients taking more than 20 mg/day of biotin. 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) documented in this encounter Admitting Diagnoses Diagnosis Alcohol withdrawal (CMS/HCC) Alcohol withdrawal documented in this encounter Administered Medications Inactive Administered Medications - up to 3 most recent administrations Medication Order MAR Action Action Date Dose Rate Site acetaminophen (TYLENOL) tablet 650 mg 650 mg, oral, Every 4 hours PRN, mild pain, headaches, fever - temperature GREATER than 38 C (100.4 F), Starting on Fri12/20/24 at 2302 Given 12/23/2024 1:15 AM EST 650 mg albuterol 2.5 mg /3 mL (0.083 %) nebulizer solution 2.5 mg 2.5 mg, nebulization, Every 6 hours PRN, wheezing, Starting on Fri12/20/24 at 2304 aluminum-magnesium hydroxide-simethicone (MAALOX) 200-200-20 mg/5 mL suspension 30 mL 30 mL, oral, Once, On Fri12/20/24 at 2227, For 1 dose Given 12/20/2024 10:44 PM EST 30 mL carvediloL (COREG) tablet 12.5 mg 12.5 mg, oral, 2 times daily with meals, First dose on Fri12/22/24 at 1100 Given 12/23/2024 4:37 PM EST 12.5 mg Given 12/23/2024 9:06 AM EST 12.5 mg Given 12/22/2024 12:55 PM EST 12.5 mg cloNIDine (CATAPRES) tablet 0.1 mg 0.1 mg, oral, Every 8 hours PRN, anxiety, Starting on Fri12/20/24 at 2323, Obtain vital signs prior to administration and document. Hold if SBP <110,HR<55 Given 12/20/2024 11:39 PM EST 0.1 mg cloNIDine (CATAPRES) tablet 0.1 mg 0.1 mg, oral, Every 8 hours scheduled, First dose (after last modification) on Fri12/21/24 at 1745, Obtain vital signs prior to administration and document. Hold if SBP <110,HR<55 Given 12/22/2024 6:46 AM EST 0.1 mg Given 12/21/2024 5:45 PM EST 0.1 mg cloNIDine (CATAPRES) tablet 0.2 mg 0.2 mg, oral, Every 8 hours scheduled, First dose (after last modification) on Fri12/22/24 at 1000, Obtain vital signs prior to administration and document. Hold if SBP <110,HR<55, On hold since Fri12/22/2024 at 1044 until manually unheld Given 12/22/2024 10:33 AM EST 0.2 mg dextrose 5 % lactated ringers infusion 100 mL/hr, intravenous, Continuous, Starting on Fri12/20/24 at 2303, For 10 hours New Bag 12/21/2024 12:25 AM EST 100 mL/hr 100 mL/hr enoxaparin (LOVENOX) injection 40 mg 40 mg, subcutaneous, Every 12 hours scheduled, First dose on Fri12/20/24 at 2303, Indication: VTE/PE Prophylaxis Given 12/23/2024 9:07 AM EST 40 mg Left Lower Abdomen Given 12/22/2024 9:03 PM EST 40 mg Ri ght Upper Arm (Back) Given 12/22/2024 8:07 AM EST 40 mg Ri ght Upper Arm (Back) folic acid (FOLVITE) tablet 1 mg 1 mg, oral, Daily, First dose on Fri12/21/24 at 0900 Given 12/23/2024 9:06 AM EST 1 mg Given 12/22/2024 8:08 AM EST 1 mg Given 12/21/2024 8:31 AM EST 1 mg furosemide (LASIX) tablet 40 mg 40 mg, oral, Daily, First dose on Fri12/23/24 at 1230 Given 12/23/2024 12:18 PM EST 40 mg hydrALAZINE (APRESOLINE) injection 10 mg 10 mg, intravenous, Once, On Fri12/21/24 at 2100, For 1 dose Given 12/21/2024 8:58 PM EST 10 mg hydrOXYzine pamoate (VISTARIL) capsule 25 mg 25 mg, oral, Every 8 hours PRN, anxiety, Starting on Fri12/22/24 at 1744 Given 12/22/2024 6:21 PM EST 25 mg lidocaine (XYLOCAINE) 2 % mouth solution 10 mL 10 mL, Mouth/Throat, Once, On Fri12/20/24 at 2227, For 1 dose Given 12/20/2024 10:44 PM EST 10 mL LORazepam (ATIVAN) injection 1 mg 1 mg, intravenous, Once, On Fri12/20/24 at 1943, For 1 dose, Prior to IV use, lorazepam injection should be DILUTED with an equal volume of compatible solution; Rate of administration should NOT exceed 2 mg/min. Given 12/20/2024 7:59 PM EST 1 mg LORazepam (ATIVAN) injection 1 mg 1 mg, intravenous, Once, On Fri12/20/24 at 2133, For 1 dose, Prior to IV use, lorazepam injection should be DILUTED with an equal volume of compatible solution; Rate of administration should NOT exceed 2 mg/min. Given 12/20/2024 9:47 PM EST 1 mg LORazepam (ATIVAN) injection 2 mg 2 mg, intravenous, Once, On Fri12/21/24 at 0035, For 1 dose, Prior to IV use, lorazepam injection should be DILUTED with an equal volume of compatible solution; Rate of administration should NOT exceed 2 mg/min. Given 12/21/2024 12:53 AM EST 2 mg magnesium sulfate 2 gram/50 mL (4 %) IVPB 2 g 2 g, intravenous, at 25 mL/hr, Administer over 2 Hours, Once, On Fri12/23/24 at 0830, For 1 dose New Bag 12/23/2024 9:07 AM EST 2 g 25 mL/hr naltrexone (DEPADE) tablet 50 mg 50 mg, oral, Daily, First dose on Fri12/23/24 at 1115 Given 12/23/2024 11:56 AM EST 50 mg nicotine (NICODERM CQ) 21 mg/24 hr patch 1 patch 1 patch, transdermal, Administer over 24 Hours, Daily, First dose on Fri12/20/24 at 2305 Patch Applied 12/20/2024 11:39 PM EST 1 patch Right Arm nicotine (NICODERM CQ) 21 mg/24 hr patch 1 patch 1 patch, transdermal, Administer over 24 Hours, Daily, First dose (after last modification) on Fri12/21/24 at 1915 Patch Applied 12/23/2024 9:06 AM EST 1 patch Left Arm Patch Applied 12/22/2024 8:08 AM EST 1 patch Right Arm Patch Applied 12/21/2024 8:59 PM EST 1 patch Left Arm ondansetron (PF) (ZOFRAN) injection 4 mg 4 mg, intravenous, Once, On Fri12/21/24 at 1745, For 1 dose Given 12/21/2024 5:45 PM EST 4 mg PHENobarbital injection 260 mg 260 mg, intramuscular, Every 3 hours, First dose on Fri12/20/24 at 2230, For 3 doses Given 12/21/2024 4:43 AM EST 260 mg Left Anterior Thigh Given 12/21/2024 1:51 AM EST 260 mg Le ft Deltoid Given 12/20/2024 10:39 PM EST 260 mg R ight Deltoid PHENobarbitaL tablet 32.4 mg 32.4 mg, oral, 2 times daily, First dose on Fri12/23/24 at 0900, For 4 doses Given 12/23/2024 9:05 AM EST 32.4 mg PHENobarbitaL tablet 64.8 mg 64.8 mg, oral, 2 times daily, First dose on Fri12/21/24 at 0900, For 4 doses Given 12/22/2024 9:03 PM EST 64.8 mg Given 12/22/2024 8:07 AM EST 64.8 mg Given 12/21/2024 8:58 PM EST 64.8 mg potassium chloride (KLOR-CON M20) CR tablet 20 mEq 20 mEq, oral, Once, On [facility] 12/23/24 at 1030, For 1 dose, Tablet may be swallowed whole (do not crush/chew/suck on) OR broken in half and each half swallowed separately OR dissolved (whole tablet) in ~4 ounces of water (allow ~2 minutes to dissolve, stir well and administer immediately). Given 12/23/2024 9:59 AM EST 20 mEq potassium chloride (KLOR-CON M20) CR tablet 40 mEq 40 mEq, oral, Once, On [facility] 12/23/24 at 0830, For 1 dose, Tablet may be swallowed whole (do not crush/chew/suck on) OR broken in half and each half swallowed separately OR dissolved (whole tablet) in ~4 ounces of water (allow ~2 minutes to dissolve, stir well and administer immediately). Given 12/23/2024 9:06 AM EST 40 mEq prochlorperazine (COMPAZINE) injection 10 mg 10 mg, intravenous, Every 6 hours PRN, nausea, vomiting, Starting on Fri12/20/24 at 2302, 2nd Line Option: -ONLY give IV if patient is unable to take orally. -Give IM if patient does not have IV Access -If inadequate response within 30 minutes, proceed to next-line agent or contact provider if no further options ordered. Given 12/21/2024 11:58 AM EST 10 mg Given 12/21/2024 6:22 AM EST 10 mg prochlorperazine (COMPAZINE) suppository 25 mg 25 mg, rectal, Every 12 hours PRN, nausea, vomiting, Starting on Fri12/20/24 at 2302, 2nd Line Option: -ONLY give [place] if patient is unable to take orally and cannot receive IV/IM. -If inadequate response within 30 minutes, proceed to next-line agent or contact provider if no further options ordered. prochlorperazine (COMPAZINE) tablet 10 mg 10 mg, oral, Every 6 hours PRN, nausea, vomiting, Starting on Fri12/20/24 at 2302, 2nd Line Option: -Give IV or IM if patient is unable to take orally. -If inadequate response within 30 minutes, proceed to next-line agent or contact provider if no further options ordered. Given 12/22/2024 2:06 AM EST 10 mg sodium chloride 0.9 % bolus 500 mL 500 mL, intravenous, at 1,000 mL/hr, Administer over 30 Minutes, Once, On Fri12/20/24 at 1930, For 1 dose New Bag 12/20/2024 7:40 PM EST 500 mL 1000 mL/hr sodium chloride 0.9 % flush 10 mL 10 mL, intravenous, 2 times daily, First dose on Fri12/20/24 at 2303 Given 12/23/2024 9:08 AM EST 10 mL Given 12/22/2024 9:05 PM EST 10 mL Given 12/22/2024 8:09 AM EST 10 mL sodium chloride 0.9 % flush 10 mL 10 mL, intravenous, As needed, line care, Starting on Fri12/20/24 at 2302 thiamine (VITAMIN B-1) injection 100 mg 100 mg, intravenous, Once, On Fri12/20/24 at 2303, For 1 dose Given 12/20/2024 11:39 PM EST 100 mg thiamine (VITAMIN B-1) tablet 100 mg 100 mg, oral, Daily, First dose on Fri12/21/24 at 0900 Given 12/23/2024 9:06 AM EST 100 mg Given 12/22/2024 8:08 AM EST 100 mg Given 12/21/2024 8:31 AM EST 100 mg traZODone (DESYREL) tablet 25 mg 25 mg, oral, Once, On Fri12/21/24 at 2100, For 1 dose Given 12/21/2024 8:59 PM EST 25 mg valsartan (DIOVAN) tablet 40 mg 40 mg, oral, Daily, First dose on Fri12/23/24 at 1230 Given 12/23/2024 12:17 PM EST 40 mg documented in this encounter Active and Recently Administered Medications Times are shown in EST. Scheduled Medication Order 12/21/2024 12/22/2024 12/23/2024 carvediloL (COREG) tablet 12.5 mg 12.5 mg, oral, 2 times daily with meals, First dose on Fri12/22/24 at 1100 1255 (Given - Provider: Rosemary Olea RN) 0906 (Given - Provider: Radha Posada, MICHELLE)1637 (Given - Provider: Radha Posada, MICHELLE) cloNIDine (CATAPRES) tablet 0.1 mg (CANCELED) 0.1 mg, oral, Every 8 hours scheduled, First dose (after last modification) on Fri12/21/24 at 1745, Obtain vital signs prior to administration and document. Hold if SBP <110,HR<55 1745 (Given - Provider: Rosemary Olea RN) 0646 (Given - Provider: Ronda Ballesteros RN) cloNIDine (CATAPRES) tablet 0.2 mg (CANCELED) 0.2 mg, oral, Every 8 hours scheduled, First dose (after last modification) on Fri12/22/24 at 1000, Obtain vital signs prior to administration and document. Hold if SBP <110,HR<55, On hold since Fri12/22/2024 at 1044 until manually unheld 1033 (Given - Provider: Rosemary Olea RN)1044 (Held by provider - Provider: Thalia Singh MD - Reason: Change in vital signs)2200 (Hold - Provider: Ronda Ballesteros RN - Reason: See Provider Order) 0600 (Hold - Provider: Ronda Ballesteros RN - Reason: See Provider Order)0753 (Unheld by provider - Provider: Thalia Singh MD) enoxaparin (LOVENOX) injection 40 mg 40 mg, subcutaneous, Every 12 hours scheduled, First dose on Fri12/20/24 at 2303, Indication: VTE/PE Prophylaxis 0831 (Given - Provider: Rosemary Olea RN)205 (Given - Provider: Ronda Ballesteros RN) 0807 (Given - Provider: Rosemary Olea RN)210 (Given - Provider: Ronda Ballesteros RN) 0907 (Given - Provider: Radha Posada, MICHELLE) folic acid (FOLVITE) tablet 1 mg 1 mg, oral, Daily, First dose on Fri12/21/24 at 0900 0831 (Given - Provider: Rosemary Olea RN) 0808 (Given - Provider: Rosemary Olea RN) 0906 (Given - Provider: Radha Posada, MICHELLE) furosemide (LASIX) tablet 40 mg 40 mg, oral, Daily, First dose on Jenna 12/23/24 at 1230 1218 (Given - Provider: Radha Posada, MICHELLE) hydrALAZINE (APRESOLINE) injection 10 mg (COMPLETED) 10 mg, intravenous, Once, On Fri12/21/24 at 2100, For 1 dose 2057 (Given - Provider: Ronda Ballesteros RN) LORazepam (ATIVAN) injection 2 mg (COMPLETED) 2 mg, intravenous, Once, On Fri12/21/24 at 0035, For 1 dose, Prior to IV use, lorazepam injection should be DILUTED with an equal volume of compatible solution; Rate of administration should NOT exceed 2 mg/min. 0053 (Given - Provider: Ml Christensen RN) magnesium sulfate 2 gram/50 mL (4 %) IVPB 2 g (COMPLETED) 2 g, intravenous, at 25 mL/hr, Administer over 2 Hours, Once, On Fri12/23/24 at 0830, For 1 dose 0907 (New Bag - Provider: Radha Posada RN)1143 (Stopped - Provider: Radha Posada RN) naltrexone (DEPADE) tablet 50 mg 50 mg, oral, Daily, First dose on Fri12/23/24 at 1115 1156 (Given - Provider: Radha Posada, MICHELLE) nicotine (NICODERM CQ) 21 mg/24 hr patch 1 patch 1 patch, transdermal, Administer over 24 Hours, Daily, First dose (after last modification) on Fri12/21/24 at 1915 2059 (Patch Applied - Provider: Ronda Ballesteros RN)2112 (Patch Removed - Provider: Ronda Ballesteros, MICHELLE - Comment: Time moved from discontinued order due to modification) 0808 (Patch Applied - Provider: Rosemary Olea RN) 0906 (Patch Applied - Provider: Radha Posada, MICHELLE)0916 (Patch Removed - Provider: Radha Posada, MICHELLE)1802 (Due: Patch Removed - Provider: Automatic Discharge Provider - Comment: Time automatically adjusted from order being discontinued) ondansetron (PF) (ZOFRAN) injection 4 mg (COMPLETED) 4 mg, intravenous, Once, On Fri12/21/24 at 1745, For 1 dose 1745 (Given - Provider: Rosemary Olea RN) PHENobarbital injection 260 mg (COMPLETED) 260 mg, intramuscular, Every 3 hours, First dose on Fri12/20/24 at 2230, For 3 doses 0151 (Given - Provider: Ml Christensen RN)0443 (Given - Provider: Ml Christensen RN) PHENobarbitaL tablet 32.4 mg(Linked Group 1) 32.4 mg, oral, 2 times daily, First dose on Fri12/23/24 at 0900, For 4 doses 0905 (Given - Provider: Radha Posada RN) PHENobarbitaL tablet 64.8 mg (COMPLETED)(Linked Group 1) 64.8 mg, oral, 2 times daily, First dose on Fri12/21/24 at 0900, For 4 doses 0831 (Given - Provider: Rosemary Olea RN)2058 (Given - Provider: Ronda Ballesteros RN) 08 (Given - Provider: Rosemary Olea RN)2103 (Given - Provider: Ronda Ballesteros RN) potassium chloride (KLOR-CON M20) CR tablet 20 mEq (COMPLETED)(Linked Group 2) 20 mEq, oral, Once, On Fri12/23/24 at 1030, For 1 dose, Tablet may be swallowed whole (do not crush/chew/suck on) OR broken in half and each half swallowed separately OR dissolved (whole tablet) in ~4 ounces of water (allow ~2 minutes to dissolve, stir well and administer immediately). 0959 (Given - Provider: Radha Posada RN) potassium chloride (KLOR-CON M20) CR tablet 40 mEq (COMPLETED)(Linked Group 2) 40 mEq, oral, Once, On Fri12/23/24 at 0830, For 1 dose, Tablet may be swallowed whole (do not crush/chew/suck on) OR broken in half and each half swallowed separately OR dissolved (whole tablet) in ~4 ounces of water (allow ~2 minutes to dissolve, stir well and administer immediately). 0906 (Given - Provider: Radha Posada RN) sodium chloride 0.9 % flush 10 mL(Linked Group 3) 10 mL, intravenous, 2 times daily, First dose on Fri12/20/24 at 2303 0832 (Given - Provider: Rosemary Olea RN)2112 (Given - Provider: Ronda Ballesteros RN) 0809 (Given - Provider: Rosemary Olea RN)210 (Given - Provider: Ronda Ballesteros RN) 0908 (Given - Provider: Radha Posada, MICHELLE) thiamine (VITAMIN B-1) tablet 100 mg 100 mg, oral, Daily, First dose on Fri12/21/24 at 0900 0831 (Given - Provider: Rosemary Olea RN) 0808 (Given - Provider: Rosemary Olea RN) 0906 (Given - Provider: Radha Posada RN) traZODone (DESYREL) tablet 25 mg (COMPLETED) 25 mg, oral, Once, On Fri12/21/24 at 2100, For 1 dose 2058 (Given - Provider: Ronda Ballesteros RN) valsartan (DIOVAN) tablet 40 mg 40 mg, oral, Daily, First dose on Jenna 12/23/24 at 1230 1217 (Given - Provider: Radha Posada RN) Continuous Medication Order 12/21/2024 12/22/2024 12/23/2024 dextrose 5 % lactated ringers infusion (CANCELED) 100 mL/hr, intravenous, Continuous, Starting on Fri12/20/24 at 2303, For 10 hours 0001 (Not Given - Provider: Ml Christensen RN - Reason: Other - Comment: already charted)0025 (New Bag - Provider: Ml Christensen RN)1050 (Stopped - Provider: Rosemary Olea RN) PRN Medication Order 12/21/2024 12/22/2024 12/23/2024 acetaminophen (TYLENOL) tablet 650 mg 650 mg, oral, Every 4 hours PRN, mild pain, headaches, fever - temperature GREATER than 38 C (100.4 F), Starting on Fri12/20/24 at 2302 0115 (Given - Provider: Ronda Ballesteros RN) albuterol 2.5 mg /3 mL (0.083 %) nebulizer solution 2.5 mg 2.5 mg, nebulization, Every 6 hours PRN, wheezing, Starting on Fri12/20/24 at 2304 hydrOXYzine pamoate (VISTARIL) capsule 25 mg 25 mg, oral, Every 8 hours PRN, anxiety, Starting on Fri12/22/24 at 1744 1821 (Given - Provider: Rosemary Olea, MICHELLE) prochlorperazine (COMPAZINE) injection 10 mg(Linked Group 4) 10 mg, intravenous, Every 6 hours PRN, nausea, vomiting, Starting on Fri12/20/24 at 2302, 2nd Line Option: -ONLY give IV if patient is unable to take orally. -Give IM if patient does not have IV Access -If inadequate response within 30 minutes, proceed to next-line agent or contact provider if no further options ordered. 0622 (Given - Provider: Sarah Lord RN)1158 (Given - Provider: Rosemary Olea RN) 0206 (See Alternative - Provider: Ronda Ballesteros, MICHELLE) prochlorperazine (COMPAZINE) suppository 25 mg(Linked Group 4) 25 mg, rectal, Every 12 hours PRN, nausea, vomiting, Starting on Fri12/20/24 at 2302, 2nd Line Option: -ONLY give [place] if patient is unable to take orally and cannot receive IV/IM. -If inadequate response within 30 minutes, proceed to next-line agent or contact provider if no further options ordered. 0622 (See Alternative - Provider: Sarah Lord RN)1158 (See Alternative - Provider: Rosemary Olea RN) 0206 (See Alternative - Provider: Ronda Ballesteros, MICHELLE) prochlorperazine (COMPAZINE) tablet 10 mg(Linked Group 4) 10 mg, oral, Every 6 hours PRN, nausea, vomiting, Starting on Fri12/20/24 at 2302, 2nd Line Option: -Give IV or IM if patient is unable to take orally. -If inadequate response within 30 minutes, proceed to next-line agent or contact provider if no further options ordered. 0622 (See Alternative - Provider: Sarah Lord RN)1158 (See Alternative - Provider: Rosemary Olea RN) 0206 (Given - Provider: Ronda Ballesteros RN) sodium chloride 0.9 % flush 10 mL(Linked Group 3) 10 mL, intravenous, As needed, line care, Starting on Fri12/20/24 at 2302 Linked Groups Order Group 1: PHENobarbitaL tablet 64.8 mg (COMPLETED)Jump to med 64.8 mg, oral, 2 times daily, First dose on Fri12/21/24 at 0900, For 4 doses Followed by PHENobarbitaL tablet 32.4 mgJump to med 32.4 mg, oral, 2 times daily, First dose on Fri12/23/24 at 0900, For 4 doses Group 2: potassium chloride (KLOR-CON M20) CR tablet 40 mEq (COMPLETED)Jump to med 40 mEq, oral, Once, On Fri12/23/24 at 0830, For 1 dose, Tablet may be swallowed whole (do not crush/chew/suck on) OR broken in half and each half swallowed separately OR dissolved (whole tablet) in ~4 ounces of water (allow ~2 minutes to dissolve, stir well and administer immediately). Followed by potassium chloride (KLOR-CON M20) CR tablet 20 mEq (COMPLETED)Jump to med 20 mEq, oral, Once, On Fri12/23/24 at 1030, For 1 dose, Tablet may be swallowed whole (do not crush/chew/suck on) OR broken in half and each half swallowed separately OR dissolved (whole tablet) in ~4 ounces of water (allow ~2 minutes to dissolve, stir well and administer immediately). Group 3: Insert peripheral IV (COMPLETED) STAT, Once, On Fri12/20/24 at 2303, For 1 occurrence And Maintain IV access (CANCELED) Until discontinued, Starting on Fri12/20/24 at 2303, Until Specified And Saline lock IV (COMPLETED) Routine, Once, On Fri12/20/24 at 2303, For 1 occurrence And sodium chloride 0.9 % flush 10 mLJump to med 10 mL, intravenous, 2 times daily, First dose on Fri12/20/24 at 2303 And sodium chloride 0.9 % flush 10 mLJump to med 10 mL, intravenous, As needed, line care, Starting on Fri12/20/24 at 2302 Group 4: prochlorperazine (COMPAZINE) tablet 10 mgJump to med 10 mg, oral, Every 6 hours PRN, nausea, vomiting, Starting on Fri12/20/24 at 2302, 2nd Line Option: -Give IV or IM if patient is unable to take orally. -If inadequate response within 30 minutes, proceed to next-line agent or contact provider if no further options ordered. Or prochlorperazine (COMPAZINE) injection 10 mgJump to med 10 mg, intravenous, Every 6 hours PRN, nausea, vomiting, Starting on Fri12/20/24 at 2302, 2nd Line Option: -ONLY give IV if patient is unable to take orally. -Give IM if patient does not have IV Access -If inadequate response within 30 minutes, proceed to next-line agent or contact provider if no further options ordered. Or prochlorperazine (COMPAZINE) suppository 25 mgJump to med 25 mg, rectal, Every 12 hours PRN, nausea, vomiting, Starting on Fri12/20/24 at 2302, 2nd Line Option: -ONLY give [place] if patient is unable to take orally and cannot receive IV/IM. -If inadequate response within 30 minutes, proceed to next-line agent or contact provider if no further options ordered. documented in this encounter Orders Medications Ordered That Nick ht Not Have Been Administered Count Last Ordered Date First Ordered Date cloNIDine (CATAPRES) tablet 0.2 mg 1 2024 nicotine (NICODERM CQ) 7 mg/24 hr 1 patch 1 12/21/2024 polyvinyl alcohol-povidone ( PF) (ARTIFICIAL TEARS) 1.4-0.6 % ophthalmic solution 2 drop 1 12/21/2024 albuterol 2.5 mg /3 mL (0.08 3 %) nebulizer solution 2.5 mg 1 12/20/2024 hydrOXYzine pamoate (VISTARI L) capsule 50 mg 1 12/20/2024 ondansetron (PF) (ZOFRAN) injection 4 mg 1 12/20/2024 ondansetron ODT (ZOFRAN-ODT) disintegrating tablet 4 mg 1 12/20/2024 prochlorperazine (COMPAZINE) suppository 25 mg 1 12/20/2024 sodium chloride 0.9 % flush 10 mL 1 025 Diet Count Last Ordered Date First Orde red Date ADULT DISCHARGE DIET 1 12/23/2024 Nursing Count Last Ordered Date First Orde red Date ACTIVITY 1 12/23/2024 NOTIFY PROVIDER - INDICATE REASON 1 025 VITAL SIGNS 1 12/20/2024 Consult Count Last Ordered Date First Orde red Date IP CONSULT TO SOCIAL WORK 1 12/21/2024 IP CONSULT TO ADDICTION MEDICINE 1 12/20/19 IP CONSULT TO PSYCHIATRY 1 12/20/2024 PT Count Last Ordered Date First Orde red Date PT EVAL AND TREAT 1 12/23/2024 IV Count Last Ordered Date First Orde red Date INSERT PERIPHERAL IV 1 12/20/2024 SALINE LOCK IV 1 12/20/2024 Admission Count Last Ordered Date First Orde red Date ADMIT TO INPATIENT 1 12/20/2024 Transfer Count Last Ordered Date First Orde red Date ED TO FLOOR BED REQUEST 1 12/20/2024 Discharge Count Last Ordered Date First Orde red Date DISCHARGE PATIENT 1 12/23/2024 documented in this encounter Additional Health Concerns Infection Onset Date Last Indicated Resolved Time Respiratory Rule-Out 12/20/2024 12/21/2024 025 1:46 AM EST COVID-19 Rule-Out 12/20/2024 12/21/2024 12/21/2024 1:46 AM EST documented as of this encounter Care Teams Purchasing Associate Relationship Specialty Start Date End Date Physician, No Pcp PCP - General 12/20/24 documented as of this encounter
--- NOTE | 2025-01-05 22:25 | MHC.EDTECH ---
Repeat EKG completed at 21:02. Provider aware
[2025-01-05 22:35] VITALS: BP 181/90; PULSE 102
[2025-01-05] MEDS: carvediloL 25 MG TABLET PO (22:35)
[2025-01-05 22:36] LABS: Troponin-I High Sensitivity 28.2 ng/L (<3.5-35.0)
[2025-01-05] MEDS: Melatonin 3 MG TABLET 6 MG PO (22:36)
--- NOTE | 2025-01-05 23:58 | PC.NURSE ---
Took over care from Rn Mary, pt sleeping at this time.
[2025-01-06 03:11] VITALS: BP 174/93; PULSE 90; RESP 16; TEMP 37.2; O2SAT 93
[2025-01-06] MEDS: LORazepam 1 MG TABLET 2 MG PO ×3 (03:26→12:18)
--- NOTE | 2025-01-06 03:27 | PC.NURSE ---
pt oob to bathroom, urine collected and sent, pt medicated per jan.
[2025-01-06 03:45] LABS: Amphetamine Screen Urine Not Detected (Not Detect); Barbiturates, Urine POSITIVE (Not Detect); Benzodiazepines Screen Urine Not Detected (Not Detect); Buprenorphine Scr Not Detected (Not Detect); Cannabinoid Screen Urine POSITIVE (Not Detect); Cocaine Screen Urine POSITIVE (Not Detect); Fentanyl, urine Not Detected (Not Detect); Methadone Screen, Urine Not Detected (Not Detect); Opiate Screen Urine Not Detected (Not Detect); Oxycodone Screen Urine Not Detected (Not Detect); Phencyclidine Screen Urine Not Detected (Not Detect)
[2025-01-06] MEDS: Folic Acid 1 MG TABLET PO (08:36)
[2025-01-06] MEDS: Thiamine HCL 100 MG TABLET PO (08:36)
--- NOTE | 2025-01-06 08:48 | PC.NURSE ---
Awaiting missing 09:00 meds. per pharmacy at this time.
[2025-01-06] MEDS: Valsartan 40 MG TABLET PO (09:22)
[2025-01-06] MEDS: Furosemide 40 MG TABLET PO (09:22)
--- NOTE | 2025-01-06 14:38 | PC.NURSE ---
Pt. gives this RN permission to speak with his sister, Mervat Frederick.
[2025-01-06 15:52] VITALS: BP 163/82; PULSE 86; RESP 16; TEMP 36.6; O2SAT 94
[2025-01-06] MEDS: LORazepam 1 MG TABLET PO (16:12)
--- NOTE | 2025-01-06 16:41 | P.HPHOSP_ITS ---
History of Present Illness Date of Service: 01/06/25 Attending physician on admission: Jaime Leija Chief Complaint: Alcohol withdrawal Pt is a 59-year-old male with a PMH significant for?HTN, unspecified CHF, alcohol use disorder w/hx of withdrawal, depression, and anxiety who initially presented to the ED yesterday on 01/05/2025 with increasing depression with SI with plan to hang himself. Pt apparently has been having increased life stressors including the recent passing of his , and attempted to hang himself by tying a rope around a pipe in the basement, but rope immediately snapped. Initial workup in the ED was overall unremarkable, though did show mild transaminitis of AST 65 and ALT 58. Serial troponins flat and WNL at 26.8 and 28.2. Tox screen positive for barbiturates, cocaine, and marijuana, and ethyl alcohol level 423. Pt was seen and evaluated by crisis and pt was placed in the Behavioral pod while awaiting in pt placement. While in the ED pt began having withdrawal symptoms. Despite multiple doses of Ativan CIWA score continued to be high at 14, and pt was started on phenobarb protocol. Pt is unable to specify how much he has been drinking lately, but it has been ?a lot? for the past 4 weeks. Pt reports increased anxiety, nausea without vomiting, headache, and auditory hallucinations including ring tones and hearing his cat. Chronic SOB around baseline. Chronic chest pain around baseline. No chest pressure or palpitations. Denies fever, chills. No abdominal pain. Pt will be admitted to the hospital for treatment and further evaluation of acute alcohol withdrawal. Once pt is medically stabilized and cleared, will likely need inpatient psychiatric stabilization. Review of Systems 2 Review of Systems: Negative except for that which is stated in the [facility] Medical History Morbid obesity CHF (congestive heart failure) HTN (hypertension) Social History Household Members: Significant Other Housing: Condominium Alcohol intake: current Alcohol intake frequency: 3 or more drinks per day Alcohol type: hard liquor Patient Tobacco Use Status: Current everyday Tobacco user Tobacco use type: Cigarette Cigarette Packs Per Day: 1 Cigarettes Per Day: 20.0 Years Smoked: 45 Smoked in Last 30 Days: No Use of substances other than those prescribed or required for medical reasons: No Substance Use Type: Marijuana Advance Directives: No Advance Directives Information Provided: No Do you have a plan to hurt others: No Plan service: No Meds Allergies Allergy/AdvReac Type Severity Reaction Status Date / Time No Known Allergies Allergy Verified 01/05/25 19:58 [No Known Allergies*] Active Medications: Current Medications Acetaminophen (Acetaminophen 325 Mg Tablet) 650 mg PO Q6H PRN PRN Reason: Pain, Mild 1-3,fever,headache Calcium Carbonate (Calcium Carbonate 750 Mg Tab.Chew) 750 mg PO Q4H PRN PRN Reason: Heartburn Carvedilol (Carvedilol 25 Mg Tablet) 25 mg PO BID [facility]; Protocol Last Admin: 01/05/25 22:35 Dose: 25 mg Enoxaparin Sodium (Enoxaparin Sodium 40 Mg/0.4 Ml Syringe) 40 mg SUBCUT Q24H IVAN Famotidine (Famotidine 20 Mg Tablet) 20 mg PO BID [facility] Folic Acid (Folic Acid 1 Mg Tablet) 1 mg PO DAILY IVAN Last Admin: 01/06/25 08:36 Dose: 1 mg Furosemide (Furosemide 40 Mg Tablet) 40 mg PO DAILY [facility]; Protocol Last Admin: 01/06/25 09:22 Dose: 40 mg Magnesium Hydroxide (Milk Of Magnesia 30 Ml Oral.Susp) 30 ml PO DAILY PRN PRN Reason: Constipation Multivitamins/Vitamin C (Multivitamin Tablet) 1 tab PO DAILY [facility] Stop: 01/09/25 15:14 Ondansetron HCl (Ondansetron Hcl 4 Mg/2 Ml Vial) 4 mg IVPUSH Q8H PRN PRN Reason: Nausea and Vomiting Pharmacy Consult (Consult Rx Etoh Phenob Im/Po) 1 each MISCELLANE ONCE PRN; Protocol PRN Reason: Consult order Phenobarbital (Phenobarbital 30 Mg Tablet) 60 mg PO BID [facility]; Protocol Stop: 01/08/25 21:01 Phenobarbital (Phenobarbital 30 Mg Tablet) 30 mg PO BID IVAN; Protocol Stop: 01/10/25 21:01 Phenobarbital (Phenobarbital 30 Mg Tablet) 30 mg PO DAILY [facility]; Protocol Stop: 01/12/25 09:01 Phenobarbital Sodium (Phenobarbital Sodium 130 Mg/Ml Vial Im Q3hx2) 271 mg IM Q3H IVAN; Protocol Stop: 01/06/25 21:01 Sodium Chloride (0.9 % Sodium Chloride Flush 3 Ml Syringe) 3 ml IVFLUSH QSHIFT IVAN Thiamine HCl (Thiamine Hcl 100 Mg Tablet) 100 mg PO DAILY IVAN Last Admin: 01/06/25 08:36 Dose: 100 mg Valsartan (Valsartan 40 Mg Tablet) 40 mg PO DAILY [facility]; Protocol Last Admin: 01/06/25 09:22 Dose: 40 mg Home Medications ?Medication ?Instructions ?Recorded ?Confirmed ?Last Taken ?Type carvedilol 25 mg tablet 25 mg PO BID 01/05/25 01/05/25 01/04/25 20:00 History folic acid 1 mg tablet 1 mg PO DAILY 01/05/25 01/05/25 01/04/25 08:00 History furosemide 40 mg tablet 40 mg PO DAILY 01/05/25 01/05/25 01/04/25 08:00 History thiamine HCl (vitamin B1) 100 mg 100 mg PO DAILY 01/05/25 01/05/25 01/04/25 08:00 History tablet (Vitamin B-1) valsartan 40 mg tablet 40 mg PO DAILY 01/05/25 01/05/25 Unknown History Physical Exam 2 Vital Signs and Narrative: Vital Signs: Last Vital Signs Temp 97.9 F 01/06/25 15:52 Pulse 86 01/06/25 15:52 Resp 16 01/06/25 15:52 BP 163/82 H 01/06/25 15:52 Pulse Ox 94 01/06/25 15:52 O2 Del Method Room Air 01/06/25 15:52 BMI result Body Mass Index 44.0 General: AOx3, no acute distress Resp: CTA bilaterally CVS: S1, S2, RRR GI: +BS, NT, no distention Skin: Warm, dry Neuro: Cranial nerves II-XII grossly intact bilaterally. Motor grossly intact bilaterally. Mild upper extremity tremors noted. Extremities: No edema Psych: Flar affect Results Labs 01/05/25 19:55 01/05/25 19:55 Labs: Laboratory Results - last 24 hr 01/05/25 01/06/25 19:55 03:06 MCV 88.3 MCH 29.4 MCHC 33.3 RDW 15.8 Plt Count 203 D MPV 9.3 L Immature Gran % (Auto) 0.2 Neut % (Auto) 37.3 L Lymph % (Auto) 48.4 H Pine % (Auto) 8.3 Eos % (Auto) 4.4 H Baso % (Auto) 1.4 Lymph # (Auto) 3.2 Pine # (Auto) 0.6 Eos # (Auto) 0.3 Baso # (Auto) 0.1 Abs Immat Gran (auto) 0.01 Absolute Neuts (auto) 2.5 Absolute Nucleated RBC 0.000 Nucleated RBC % (auto) 0.0 PT 10.7 L INR 0.9 Anion Gap 13 Estim Creat Clear Calc 142.1 Estimated GFR > 60 Random Glucose 95 Calcium 8.4 Magnesium 1.8 Total Bilirubin 0.3 Direct Bilirubin 0.2 AST 65 H ALT 58 H Alkaline Phosphatase 87 B-Natriuretic Peptide 33 Total Protein 7.5 Albumin 4.0 Lipase 77 Urine Opiates Screen Not Detected Ur Buprenorphine Scrn Not Detected Ur Oxycodone Screen Not Detected Urine Methadone Screen Not Detected Urine Fentanyl Screen Not Detected Ur Barbiturates Screen POSITIVE H Ur Phencyclidine Scrn Not Detected Ur Amphetamines Screen Not Detected U Benzodiazepines Scrn Not Detected Urine Cocaine Screen POSITIVE H U Marijuana (THC) Screen POSITIVE H Ethyl Alcohol 423 H* Influenza Type A (PCR) NEGATIVE Influenza Type B (PCR) NEGATIVE RSV RNA Qual (PCR) NEGATIVE SARS-CoV-2 RNA (RT-PCR) NEGATIVE Imaging Radiologist's Impressions: Impressions Venous Duplex 01/05/25 21:11 IMPRESSION: No evidence of deep venous thrombosis involving the right lower extremity. Electronically signed by: Jay Fishman MD 01/06/2025 07:07 AM [facility] [place] and Plan (1) Alcohol withdrawal: Status: Acute Plan Pt is a 59-year-old male with a PMH significant for?HTN, unspecified CHF, alcohol use disorder w/hx of withdrawal, depression, and anxiety who initially presented to the ED yesterday on 01/05/2025 with increasing depression with SI with plan to hang himself. Pt will be admitted to the hospital for treatment and further evaluation of acute alcohol withdrawal. Once pt is medically stabilized and cleared, will likely need inpatient psychiatric stabilization. Acute alcohol withdrawal Pt daily drinking a lot x4 weeks Hx of alcohol withdrawal CIWA score of 14 despite multiple doses of Ativan p.o. Will start on phenobarb protocol Daily multivitamin, folic acid, thiamine Addiction medicine consult Monitor on telemetry Depression with SI Attempted to hang self in basement yesterday Increasing depression from life stressors, including recent passing of 1 on sitter Will need inpatient psychiatric admission once medically cleared HTN Continue valsartan carvedilol CHF unspecified Not in acute exacerbation Continue home Lasix Full Code Attending:?Dr. Leija DVT Prophylaxis: Lovenox Pt will require a hospitalization of at least two nights for treatment of?acute alcohol withdrawal requiring administration of phenobarb protocol and close monitoring. Quality Stroke Does the patient have a stroke diagnosis?: No VTE Prior VTE?: No VTE Risk Level:: Medical - moderate - high VTE Device Contraindication: Treatment Not Indicated VTE Drug Contraindication: N/A - Med Ordered
[2025-01-06] MEDS: Multivitamin TABLET 1 TAB PO (16:51)
[2025-01-06] MEDS: PHENobarbitaL sodium 130 MG/ML IM ONCE 361 MG IM (16:51)
[2025-01-06] MEDS: Enoxaparin Sodium 40 MG/0.4 ML SYRINGE SUBCUT (16:51)
--- NOTE | 2025-01-06 18:32 | PHA.MEDREC ---
Pharmacy Consult ? Medication Reconciliation Pharmacy reviewed med rec done by nursing. Spoke with patient and asked him about Naltrexone 50mg tabs since those were just filled 12/27/24 for 30 days but the patient states he never got to start that due to the pharmacy being out of it. Claims matches what is on med rec and patient confirmed the medications are correct and last time he took his medications ().
[2025-01-06 19:06] VITALS: BP 174/103; PULSE 93; RESP 24; TEMP 37.4; O2SAT 94
[2025-01-06] MEDS: PHENobarbitaL sodium 130 MG/ML VIAL IM Q3Hx2 271 MG IM ×2 (19:14→21:46)
[2025-01-06] MEDS: Nicotine 14 MG PATCH.TD24 TRANSDERMA (19:14)
[2025-01-06 21:45] VITALS: BP 174/103; PULSE 92
[2025-01-06] MEDS: Famotidine 20 MG TABLET PO (21:45)
[2025-01-06] MEDS: carvediloL 25 MG TABLET PO (21:45)
[2025-01-06 22:00] VITALS: BP 145/80; PULSE 86; RESP 11; TEMP 36.9; O2SAT 97
[2025-01-07] VITALS (7 sets, daily range): BP systolic 134–172; BP diastolic 64–104; PULSE 68–88; RESP 14–20; TEMP 36.3–36.9; O2SAT 94–96; BMI 44.0
[2025-01-07 05:00] LABS: Hematocrit 37.7 % (42.0-52.0); Mean Corpuscular HGB Conc 34.5 g/dl (31.0-36.0); Mean Corpuscular Volume 87.1 fL (80.0-98.0); Mean Platelet Volume 9.7 fL (9.4-12.4); Platelet Count 134 X10*3/uL (160-400); Red Blood Count 4.33 X10*6/uL (4.60-5.80); Red Cell Distribution Width 15.2 % (11.0-16.0); White Blood Count 4.2 X10*3/uL (4.8-10.8)
[2025-01-07 05:23] LABS: Anion Gap 15 (12-20); Blood Urea Nitrogen 12 mg/dL (9-16); Calcium 8.3 mg/dL (8.4-10.2); Carbon Dioxide 28 mmol/L (22-29); Chloride 100 mmol/L (96-108); Creatinine Clr Calc Pharmacy 160.2; Estimated Glomerular Filt Rate > 60; Glucose Random 91 mg/dL (60-115); Magnesium 1.3 mg/dL (1.6-2.6); Potassium 2.7 mmol/L (3.3-5.1); Sodium 140 mmol/L (135-145)
[2025-01-07] MEDS: Potassium Chloride ER 20 MEQ TAB.ER.PRT 40 MEQ PO ×3 (06:08→20:00)
[2025-01-07] MEDS: Magnesium Sulfate/H2O 2 GM/50 ML PIGGYBACK IV ×2 (06:08→08:50)
--- NOTE | 2025-01-07 08:41 | MHC.CM.PN ---
Patient will benefit from a Recovery Team Consult R/T ETOH and a Care Team Consult R/T SI with plan and recent attempt to hang himself. CM has initiated and will follow for dc planning. PCP is Dr. Magda Menard.
[2025-01-07] MEDS: Famotidine 20 MG TABLET PO ×2 (08:51→19:59)
[2025-01-07] MEDS: Multivitamin TABLET 1 TAB PO (08:51)
[2025-01-07] MEDS: PHENobarbitaL 30 MG TABLET 60 MG PO ×2 (08:51→19:59)
[2025-01-07] MEDS: Nicotine 14 MG PATCH.TD24 TRANSDERMA (08:51)
[2025-01-07] MEDS: Furosemide 40 MG TABLET PO (08:51)
[2025-01-07] MEDS: Thiamine HCL 100 MG TABLET PO (08:52)
[2025-01-07] MEDS: Folic Acid 1 MG TABLET PO (08:52)
[2025-01-07] MEDS: carvediloL 25 MG TABLET PO ×2 (08:52→20:00)
[2025-01-07] MEDS: Valsartan 40 MG TABLET PO (09:39)
--- NOTE | 2025-01-07 13:33 | MHC.RECOVRN ---
Met with pt in 486 after receiving consult to Addiction Medicine for alcohol use disorder. Pt currently admitted with alcohol withdrawal with plan to transfer to [facility] once medically cleared due to a suicide attempt by hanging. Pt sitting in bed, awake, alert, easily engages in conversation, tearful. Pt reports he and his partner had been taking care of his partner's mother for some time in their home. During that time, approx 4 weeks ago, pts brother from alcohol related issues (at 43 years old). Pts partner's mother then . Pt and partner planned for home memorial for pts mother and brother on the same day. The day before the services, pt found his partner laying on the ground, . At that point, pt resumed alcohol use after 6 months in recovery. AUDIT-C Brief Intervention Pt had positive screen for unhealthy alcohol use on admission, subsequently met with t/w to discuss alcohol use and recovery supports/options. This copy writer met with patient to discuss current alcohol use and concerns related to increased risk of alcohol related problems.? Pt reports 2 pints vodka daily x 4 weeks. Discussed how alcohol use has impacted health, including negative impact on overall physical wellbeing and emotional health. Withdrawal History: reports a couple alcohol withdrawal seizures Treatment History: did not discuss Supports:?minimal family support (elderly father and sister with health issues) Discussed risk reduction strategies including drinking below the recommended limit. Provided pt with written resources including information on inpatient and outpatient treatment, SONIA, harm reduction, and recovery coaching. Pt plans to follow up with recovery rn after discharge. Referral has been sent. Pt provided with t/w contact information if questions or concerns arise. Denies other questions or concerns at this time.?
--- NOTE | 2025-01-07 15:59 | HO.PM.IMPN ---
Subjective Subjective Date of Service: 01/07/25 Interval History: Complain of mild nausea, tolerated diet no other acute issues Review of Systems All other system reviewed and are negative. Physical Exam Vital Signs: Vital Signs: Last Vital Signs Temp 97.4 F 01/07/25 15:05 Pulse 76 01/07/25 15:05 Resp 18 01/07/25 15:05 BP 134/64 01/07/25 15:05 Pulse Ox 96 01/07/25 15:05 O2 Del Method Room Air 01/07/25 15:05 BMI result Body Mass Index 44.0 Const: Other: General resting comfortably in no acute distress. Neck no JVD. CVS regular rate rhythm, Respiratory lungs clear to auscultation, no respiratory distress, no wheeze, no rhonchi. Gastrointestinal abdomen soft, non tender, bowel sounds audible Extremities no edema. Neuro non focal , mild hand tremors Skin no rash Flat affect Objective Data Active Medications Acetaminophen (Acetaminophen 325 Mg Tablet) 650 mg PO Q6H PRN PRN Reason: Pain, Mild 1-3,fever,headache Calcium Carbonate (Calcium Carbonate 750 Mg Tab.Chew) 750 mg PO Q4H PRN PRN Reason: Heartburn Carvedilol (Carvedilol 25 Mg Tablet) 25 mg PO BID [facility]; Protocol Last Admin: 01/07/25 08:52 Dose: 25 mg Documented By: VALENTINE Enoxaparin Sodium (Enoxaparin Sodium 40 Mg/0.4 Ml Syringe) 40 mg SUBCUT Q24H [facility] Last Admin: 01/06/25 16:51 Dose: 40 mg Documented By: GERALDINE Famotidine (Famotidine 20 Mg Tablet) 20 mg PO BID [facility] Last Admin: 01/07/25 08:51 Dose: 20 mg Documented By: VALENTINE Folic Acid (Folic Acid 1 Mg Tablet) 1 mg PO DAILY [facility] Last Admin: 01/07/25 08:52 Dose: 1 mg Documented By: VALENTINE Furosemide (Furosemide 40 Mg Tablet) 40 mg PO DAILY [facility]; Protocol Last Admin: 01/07/25 08:51 Dose: 40 mg Documented By: VALENTINE Magnesium Hydroxide (Milk Of Magnesia 30 Ml Oral.Susp) 30 ml PO DAILY PRN PRN Reason: Constipation Multivitamins/Vitamin C (Multivitamin Tablet) 1 tab PO DAILY [facility] Stop: 01/09/25 15:14 Last Admin: 01/07/25 08:51 Dose: 1 tab Documented By: VALENTINE Nicotine (Nicotine 14 Mg Patch.Td24) 14 mg TRANSDERMA DAILY [facility] Last Admin: 01/07/25 08:51 Dose: 14 mg Documented By: VALENTINE Ondansetron HCl (Ondansetron Hcl 4 Mg/2 Ml Vial) 4 mg IVPUSH Q8H PRN PRN Reason: Nausea and Vomiting Pharmacy Consult (Consult Rx Etoh Phenob Im/Po) 1 each MISCELLANE ONCE PRN; Protocol PRN Reason: Consult order Phenobarbital (Phenobarbital 30 Mg Tablet) 60 mg PO BID [facility]; Protocol Stop: 01/08/25 21:01 Last Admin: 01/07/25 08:51 Dose: 60 mg Documented By: VALENTINE Phenobarbital (Phenobarbital 30 Mg Tablet) 30 mg PO BID [facility]; Protocol Stop: 01/10/25 21:01 Phenobarbital (Phenobarbital 30 Mg Tablet) 30 mg PO DAILY [facility]; Protocol Stop: 01/12/25 09:01 Potassium Chloride (Potassium Chloride Er 20 Meq Tab.Er.Prt) 40 meq PO BID [facility] Stop: 01/08/25 08:59 Last Admin: 01/07/25 08:51 Dose: 40 meq Documented By: VALENTINE Sodium Chloride (0.9 % Sodium Chloride Flush 3 Ml Syringe) 3 ml IVFLUSH QSHIFT [facility] Last Admin: 01/07/25 07:34 Dose: Not Given Documented By: VALENTINE Non-Admin Reason: Patient Asleep Thiamine HCl (Thiamine Hcl 100 Mg Tablet) 100 mg PO DAILY [facility] Last Admin: 01/07/25 08:52 Dose: 100 mg Documented By: VALENTINE Valsartan (Valsartan 40 Mg Tablet) 40 mg PO DAILY [facility]; Protocol Last Admin: 01/07/25 09:39 Dose: 40 mg Documented By: [email or web address] Labs 01/07/25 04:40 01/07/25 04:40 Labs: Laboratory Results - last 24 hr 01/07/25 04:40 MCV 87.1 MCH 30.0 MCHC 34.5 RDW 15.2 Plt Count 134 L D MPV 9.7 Absolute Nucleated RBC 0.000 Nucleated RBC % (auto) 0.0 Anion Gap 15 Estim Creat Clear Calc 160.2 Estimated GFR > 60 Random Glucose 91 Calcium 8.3 L Magnesium 1.3 L* Assessment and Plan (1) Alcohol withdrawal: Status: Acute (2) Suicidal ideation: Status: Acute (3) Elevated troponin: Status: Acute Plan 59-year-old male with a PMH significant for?HTN, unspecified CHF, alcohol use disorder w/hx of withdrawal, depression, and anxiety who initially presented to the ED yesterday on 01/05/2025 with increasing depression with SI with plan to hang himself. Pt will be admitted to the hospital for treatment and further evaluation of acute alcohol withdrawal. Once pt is medically stabilized and cleared, will likely need inpatient psychiatric stabilization. Acute alcohol withdrawal Hx of alcohol withdrawal CIWA score of 14 despite multiple doses of Ativan p.o. on admission, CIWA 6 this morning on phenobarb protocol, Daily multivitamin, folic acid, thiamine Addiction medicine consult Monitor on telemetry Acute hypokalemia will replete and follow labs Acute hypo magnesemia likely due to poor nutrition and alcohol use replace and follow labs. Depression with SI Attempted to hang self in basement Increasing depression from life stressors, including recent passing of Continue sitter Will need inpatient psychiatric admission once medically cleared HTN Continue valsartan Coreg and carvedilol CHF unspecified Not in acute exacerbation Continue home Lasix Class 3 obesity will recommend low-calorie diet Full Code DVT Prophylaxis: Lovenox Pt will require a hospitalization of at least two nights for treatment of?acute alcohol withdrawal requiring administration of phenobarb protocol and close monitoring. Quality Stroke Does the patient have a stroke diagnosis?: No VTE Prior VTE?: No VTE Risk Level:: Medical - moderate - high VTE Device Contraindication: Treatment Not Indicated VTE Drug Contraindication: N/A - Med Ordered
[2025-01-07] MEDS: Enoxaparin Sodium 40 MG/0.4 ML SYRINGE SUBCUT (16:07)
[2025-01-07] MEDS: Acetaminophen 325 MG TABLET 650 MG PO (16:08)
[2025-01-07] MEDS: 0.9 % Sodium Chloride Flush 3 ML SYRINGE IVFLUSH ×2 (16:17→20:01)
[2025-01-07] MEDS: hydrOXYzine HCL 25 MG TABLET PO (19:59)
[2025-01-07] MEDS: ondansetron HCL 4 MG/2 ML VIAL IVPUSH (20:00)
[2025-01-08 04:00] VITALS: BP 133/76; PULSE 66; RESP 16; TEMP 36.3; O2SAT 96
[2025-01-08 07:03] VITALS: BP 144/96; PULSE 72; RESP 18; TEMP 36.5; O2SAT 94
[2025-01-08 07:24] LABS: Anion Gap 13 (12-20); Blood Urea Nitrogen 16 mg/dL (9-16); Calcium 8.8 mg/dL (8.4-10.2); Carbon Dioxide 30 mmol/L (22-29); Chloride 101 mmol/L (96-108); Estimated Glomerular Filt Rate > 60; Glucose Random 88 mg/dL (60-115); Magnesium 1.8 mg/dL (1.6-2.6); Potassium 3.7 mmol/L (3.3-5.1); Sodium 140 mmol/L (135-145)
[2025-01-08] MEDS: carvediloL 25 MG TABLET PO ×2 (07:50→19:46)
[2025-01-08] MEDS: Folic Acid 1 MG TABLET PO (07:50)
[2025-01-08] MEDS: PHENobarbitaL 30 MG TABLET 60 MG PO ×2 (07:50→19:46)
[2025-01-08] MEDS: Furosemide 40 MG TABLET PO (07:50)
[2025-01-08] MEDS: Nicotine 14 MG PATCH.TD24 TRANSDERMA (07:51)
[2025-01-08] MEDS: Thiamine HCL 100 MG TABLET PO (07:51)
[2025-01-08] MEDS: Famotidine 20 MG TABLET PO ×2 (07:51→19:46)
[2025-01-08] MEDS: Multivitamin TABLET 1 TAB PO (07:51)
[2025-01-08] MEDS: Valsartan 40 MG TABLET PO (07:51)
[2025-01-08] MEDS: 0.9 % Sodium Chloride Flush 3 ML SYRINGE IVFLUSH ×3 (07:52→19:50)
--- NOTE | 2025-01-08 10:33 | MHC.RECOVRN ---
Met with pt in - to follow up and provide support.? Pt awake, alert, easily engages in conversation. Pt reports getting some good sleep and that this is helping him feel better and think more clearly. Pt shared some tears and reflections with this com writer. Active listening and reassurance provided. Pt reports his main W/D sx currently in Nausea and diarrhea for which he is receiving treatment. Pt reports that [facility] called him yesterday and that they are going to connect on Fri. Pt is also going to look into grief support group at [facility] that [facility] was [facility] about. Pt denies other concerns at this time.? T/w available as needed.
--- NOTE | 2025-01-08 11:23 | P.PNIM_ITS ---
Subjective Subjective Date of Service: 01/08/25 Interval History: Complaining of anxiety, some relief with Atarax, complaining of mild nausea and intermittent diarrhea, denies headache, no lightheadedness, no dizziness, tolerating diet, no vomiting, no abdominal pain. No chest pain, no tachycardia, vitals stable Review of Systems All other system reviewed and are negative Physical Exam 2 Vital Signs: Vital Signs: Last Vital Signs Temp 97.7 F 01/08/25 07:03 Pulse 72 01/08/25 07:03 Resp 18 01/08/25 07:03 BP 144/96 H 01/08/25 07:03 Pulse Ox 94 01/08/25 07:03 O2 Del Method Room Air 01/08/25 07:03 BMI result Body Mass Index 44.0 Const: Other: General in no acute distress. Neck no JVD. CVS regular rate rhythm, Respiratory lungs clear to auscultation, no respiratory distress, Gastrointestinal abdomen soft, non tender, obese bowel sounds audible, Extremities no edema. Neuro non focal ,speech clear, no tremors. Skin no rash Anxious Objective Data Active Medications Acetaminophen (Acetaminophen 325 Mg Tablet) 650 mg PO Q6H PRN PRN Reason: Pain, Mild 1-3,fever,headache Last Admin: 01/07/25 16:08 Dose: 650 mg Documented By: SAMANTHA Calcium Carbonate (Calcium Carbonate 750 Mg Tab.Chew) 750 mg PO Q4H PRN PRN Reason: Heartburn Carvedilol (Carvedilol 25 Mg Tablet) 25 mg PO BID [facility]; Protocol Last Admin: 01/08/25 07:50 Dose: 25 mg Documented By: CAROLYN Enoxaparin Sodium (Enoxaparin Sodium 40 Mg/0.4 Ml Syringe) 40 mg SUBCUT Q24H [facility] Last Admin: 01/07/25 16:07 Dose: 40 mg Documented By: SAMANTHA Famotidine (Famotidine 20 Mg Tablet) 20 mg PO BID [facility] Last Admin: 01/08/25 07:51 Dose: 20 mg Documented By: CAROLYN Folic Acid (Folic Acid 1 Mg Tablet) 1 mg PO DAILY [facility] Last Admin: 01/08/25 07:50 Dose: 1 mg Documented By: CAROLYN Furosemide (Furosemide 40 Mg Tablet) 40 mg PO DAILY [facility]; Protocol Last Admin: 01/08/25 07:50 Dose: 40 mg Documented By: CAROLYN Hydroxyzine HCl (Hydroxyzine Hcl 25 Mg Tablet) 25 mg PO Q6H PRN PRN Reason: anxiety/restlessness Last Admin: 01/07/25 19:59 Dose: 25 mg Documented By: ARSENIO Magnesium Hydroxide (Milk Of Magnesia 30 Ml Oral.Susp) 30 ml PO DAILY PRN PRN Reason: Constipation Multivitamins/Vitamin C (Multivitamin Tablet) 1 tab PO DAILY [facility] Stop: 01/09/25 15:14 Last Admin: 01/08/25 07:51 Dose: 1 tab Documented By: CAROLYN Nicotine (Nicotine 14 Mg Patch.Td24) 14 mg TRANSDERMA DAILY [facility] Last Admin: 01/08/25 07:51 Dose: 14 mg Documented By: CAROLYN Ondansetron HCl (Ondansetron Hcl 4 Mg/2 Ml Vial) 4 mg IVPUSH Q8H PRN PRN Reason: Nausea and Vomiting Last Admin: 01/07/25 20:00 Dose: 4 mg Documented By: ARSENIO Pharmacy Consult (Consult Rx Etoh Phenob Im/Po) 1 each MISCELLANE ONCE PRN; Protocol PRN Reason: Consult order Phenobarbital (Phenobarbital 30 Mg Tablet) 60 mg PO BID [facility]; Protocol Stop: 01/08/25 21:01 Last Admin: 01/08/25 07:50 Dose: 60 mg Documented By: CAROLYN Phenobarbital (Phenobarbital 30 Mg Tablet) 30 mg PO BID [facility]; Protocol Stop: 01/10/25 21:01 Phenobarbital (Phenobarbital 30 Mg Tablet) 30 mg PO DAILY [facility]; Protocol Stop: 01/12/25 09:01 Sodium Chloride (0.9 % Sodium Chloride Flush 3 Ml Syringe) 3 ml IVFLUSH QSHIFT [facility] Last Admin: 01/08/25 07:52 Dose: 3 ml Documented By: CAROLYN Thiamine HCl (Thiamine Hcl 100 Mg Tablet) 100 mg PO DAILY [facility] Last Admin: 01/08/25 07:51 Dose: 100 mg Documented By: CAROLYN Valsartan (Valsartan 40 Mg Tablet) 40 mg PO DAILY [facility]; Protocol Last Admin: 01/08/25 07:51 Dose: 40 mg Documented By: CAROLYN Labs 01/07/25 04:40 01/08/25 06:11 Labs: Laboratory Results - last 24 hr 01/08/25 06:11 Hold Purple Top SEE NOTE Anion Gap 13 Estim Creat Clear Calc 116.0 Estimated GFR > 60 Random Glucose 88 Calcium 8.8 D Magnesium 1.8 Assessment and Plan (1) Alcohol withdrawal: Status: Acute (2) Suicidal ideation: Status: Acute Plan 59-year-old male with a PMH significant for?HTN, unspecified CHF, alcohol use disorder w/hx of withdrawal, depression, and anxiety who initially presented to the ED yesterday on 01/05/2025 with increasing depression with SI with plan to hang himself. Pt will be admitted to the hospital for treatment and further evaluation of acute alcohol withdrawal. Once pt is medically stabilized and cleared, will likely need inpatient psychiatric stabilization. Acute alcohol withdrawal Hx of alcohol withdrawal CIWA improved on phenobarb protocol, Daily multivitamin, folic acid, thiamine Being followed by Addiction Team, patient is connected to kids activities coach Continue Atarax for anxiety Monitor on telemetry Acute hypokalemia repleted repeat potassium 3.7 Acute hypo magnesemia likely due to poor nutrition and alcohol use repleted. Depression with SI Attempted to hang self in basement Increasing depression from life stressors, including recent passing of Continue sitter Consult care team once medically clear for possible inpatient psychiatric admission Substance use disorder with U tox positive for barbiturates, cocaine and marijuana Being followed by Addiction Team HTN Continue valsartan Coreg and carvedilol CHF unspecified Not in acute exacerbation Continue home Lasix Tobacco use disorder continue nicotine patch, counseling done Class 3 obesity will recommend low-calorie diet Chronic thrombocytopenia stable Full Code DVT Prophylaxis: Lovenox Pt will require continued inpatient hospitalization for treatment of?acute alcohol withdrawal requiring administration of phenobarb protocol and close monitoring. Quality Stroke Does the patient have a stroke diagnosis?: No VTE Prior VTE?: No VTE Risk Level:: Medical - moderate - high VTE Device Contraindication: Treatment Not Indicated VTE Drug Contraindication: N/A - Med Ordered
[2025-01-08 11:27] VITALS: BP 141/87; PULSE 74; RESP 20; TEMP 36.6; O2SAT 93
[2025-01-08] MEDS: hydrOXYzine HCL 25 MG TABLET PO ×2 (11:32→19:48)
[2025-01-08 15:50] VITALS: BP 141/78; PULSE 79; RESP 18; TEMP 36.7; O2SAT 96
[2025-01-08] MEDS: Enoxaparin Sodium 40 MG/0.4 ML SYRINGE SUBCUT (15:53)
[2025-01-08 19:34] VITALS: BP 150/83; PULSE 78; RESP 17; TEMP 37.4; O2SAT 96
[2025-01-08] MEDS: ondansetron HCL 4 MG/2 ML VIAL IVPUSH (19:48)
[2025-01-09] VITALS (7 sets, daily range): BP systolic 124–154; BP diastolic 67–95; PULSE 65–79; RESP 16–18; TEMP 36.4–37.3; O2SAT 95–97
[2025-01-09] MEDS: hydrOXYzine HCL 25 MG TABLET PO ×3 (04:40→17:52)
[2025-01-09] MEDS: Furosemide 40 MG TABLET PO (08:28)
[2025-01-09] MEDS: Folic Acid 1 MG TABLET PO (08:28)
[2025-01-09] MEDS: PHENobarbitaL 30 MG TABLET PO ×2 (08:29→20:14)
[2025-01-09] MEDS: Multivitamin TABLET 1 TAB PO (08:29)
[2025-01-09] MEDS: Famotidine 20 MG TABLET PO ×2 (08:29→20:15)
[2025-01-09] MEDS: carvediloL 25 MG TABLET PO ×2 (08:29→20:14)
[2025-01-09] MEDS: Thiamine HCL 100 MG TABLET PO (08:29)
[2025-01-09] MEDS: Valsartan 40 MG TABLET PO (08:29)
[2025-01-09] MEDS: Nicotine 14 MG PATCH.TD24 TRANSDERMA (08:32)
[2025-01-09] MEDS: 0.9 % Sodium Chloride Flush 3 ML SYRINGE IVFLUSH ×3 (08:33→20:17)
--- NOTE | 2025-01-09 12:00 | MHC.RECOVRN ---
Met with pt in 486-1 to follow up and provide support.? Pt sleeping but easily awakes to voice, alert, easily engages in conversation. Pt reports being very tired and did not sleep well last night. Pt reports he is being transferred to inpt. psych and communicated being in acceptance with this. Pt processing through his grief and appears to be more at piece today. Pt denies other concerns at this time.? T/w available as needed.
--- NOTE | 2025-01-09 12:03 | MHC.RECOVRN ---
Met with pt in 486-1 to follow up and provide support.? Pt sleeping but easily awakes to voice, alert, easily engages in conversation. Pt reports being very tired and did not sleep well last night. Pt reports he is being transferred to inpt. psych and communicated being in acceptance with this. Pt processing through his grief and appears to be more at peace today. Pt denies other concerns at this time.? T/w available as needed.
[2025-01-09] MEDS: ondansetron HCL 4 MG/2 ML VIAL IVPUSH ×2 (12:12→20:15)
--- NOTE | 2025-01-09 13:18 | MHC.CARE ---
Pt will be an adult inpatient psychiatric bedsearch. Hospitalist Jaime Leija was notified. Section 12a to be signed and placed in pt's chart.
[2025-01-09] MEDS: Enoxaparin Sodium 40 MG/0.4 ML SYRINGE SUBCUT (15:32)
--- NOTE | 2025-01-09 15:55 | HO.PM.IMPN ---
Subjective Subjective Date of Service: 01/09/25 Interval History: Being followed for suicidal ideation/alcohol withdrawal. Feeling significantly better, denies anxiety, no tremors, tolerating diet. Review of Systems All other system reviewed and are negative Physical Exam Vital Signs: Vital Signs: Last Vital Signs Temp 98.0 F 01/09/25 15:31 Pulse 79 01/09/25 15:31 Resp 18 01/09/25 15:31 BP 143/82 H 01/09/25 15:31 Pulse Ox 95 01/09/25 15:31 O2 Del Method Room Air 01/09/25 15:31 BMI result Body Mass Index 44.0 Const: Other: General in no acute distress. Neck no JVD. CVS regular rate rhythm, Respiratory lungs clear to auscultation, no respiratory distress, Gastrointestinal abdomen soft, non tender, obese bowel sounds audible, Extremities no edema. Neuro non focal ,speech clear, no tremors. Skin no rash Psych appropriate affect Objective Data Active Medications Acetaminophen (Acetaminophen 325 Mg Tablet) 650 mg PO Q6H PRN PRN Reason: Pain, Mild 1-3,fever,headache Last Admin: 01/07/25 16:08 Dose: 650 mg Documented By: SAMANTHA Calcium Carbonate (Calcium Carbonate 750 Mg Tab.Chew) 750 mg PO Q4H PRN PRN Reason: Heartburn Carvedilol (Carvedilol 25 Mg Tablet) 25 mg PO BID [facility]; Protocol Last Admin: 01/09/25 08:29 Dose: 25 mg Documented By: CAROLYN Enoxaparin Sodium (Enoxaparin Sodium 40 Mg/0.4 Ml Syringe) 40 mg SUBCUT Q24H [facility] Last Admin: 01/09/25 15:32 Dose: 40 mg Documented By: CAROLYN Famotidine (Famotidine 20 Mg Tablet) 20 mg PO BID [facility] Last Admin: 01/09/25 08:29 Dose: 20 mg Documented By: CAROLYN Folic Acid (Folic Acid 1 Mg Tablet) 1 mg PO DAILY [facility] Last Admin: 01/09/25 08:28 Dose: 1 mg Documented By: CAROLYN Furosemide (Furosemide 40 Mg Tablet) 40 mg PO DAILY [facility]; Protocol Last Admin: 01/09/25 08:28 Dose: 40 mg Documented By: CAROLYN Hydroxyzine HCl (Hydroxyzine Hcl 25 Mg Tablet) 25 mg PO Q6H PRN PRN Reason: anxiety/restlessness Last Admin: 01/09/25 12:08 Dose: 25 mg Documented By: CAROLYN Magnesium Hydroxide (Milk Of Magnesia 30 Ml Oral.Susp) 30 ml PO DAILY PRN PRN Reason: Constipation Nicotine (Nicotine 14 Mg Patch.Td24) 14 mg TRANSDERMA DAILY [facility] Last Admin: 01/09/25 08:32 Dose: 14 mg Documented By: CAROLYN Ondansetron HCl (Ondansetron Hcl 4 Mg/2 Ml Vial) 4 mg IVPUSH Q8H PRN PRN Reason: Nausea and Vomiting Last Admin: 01/09/25 12:12 Dose: 4 mg Documented By: CAROLYN Pharmacy Consult (Consult Rx Etoh Phenob Im/Po) 1 each MISCELLANE ONCE PRN; Protocol PRN Reason: Consult order Phenobarbital (Phenobarbital 30 Mg Tablet) 30 mg PO BID [facility]; Protocol Stop: 01/10/25 21:01 Last Admin: 01/09/25 08:29 Dose: 30 mg Documented By: CAROLYN Phenobarbital (Phenobarbital 30 Mg Tablet) 30 mg PO DAILY [facility]; Protocol Stop: 01/12/25 09:01 Sodium Chloride (0.9 % Sodium Chloride Flush 3 Ml Syringe) 3 ml IVFLUSH QSHIFT [facility] Last Admin: 01/09/25 15:32 Dose: 3 ml Documented By: CAROLYN Thiamine HCl (Thiamine Hcl 100 Mg Tablet) 100 mg PO DAILY [facility] Last Admin: 01/09/25 08:29 Dose: 100 mg Documented By: CAROLYN Valsartan (Valsartan 40 Mg Tablet) 40 mg PO DAILY [facility]; Protocol Last Admin: 01/09/25 08:29 Dose: 40 mg Documented By: CAROLYN Labs 01/07/25 04:40 01/08/25 06:11 Assessment and Plan (1) Alcohol withdrawal: Status: Acute (2) Suicidal ideation: Status: Acute Plan 59-year-old male with a PMH significant for?HTN, unspecified CHF, alcohol use disorder w/hx of withdrawal, depression, and anxiety who initially presented to the ED yesterday on 01/05/2025 with increasing depression with SI with plan to hang himself. Pt will be admitted to the hospital for treatment and further evaluation of acute alcohol withdrawal. Once pt is medically stabilized and cleared, will likely need inpatient psychiatric stabilization. Acute alcohol withdrawal Hx of alcohol withdrawal CIWA 0 on phenobarb protocol, Daily multivitamin, folic acid, thiamine Being followed by Addiction Team, patient is connected to excellence coach Continue Atarax for anxiety Monitor on telemetry Acute hypokalemia repleted repeat potassium 3.7 Acute hypo magnesemia likely due to poor nutrition and alcohol use repleted. Depression with SI Attempted to hang self in basement Increasing depression from life stressors, including recent passing of Continue sitter Seen by care team section 12 signed patient will be transferred to psych floor once bed available Substance use disorder with U tox positive for barbiturates, cocaine and marijuana Being followed by Addiction Team HTN Continue valsartan Coreg and carvedilol CHF unspecified Not in acute exacerbation Continue home Lasix Tobacco use disorder continue nicotine patch, counseling done Class 3 obesity will recommend low-calorie diet Chronic thrombocytopenia stable Full Code DVT Prophylaxis: Lovenox Pt will require continued inpatient hospitalization for treatment of?acute alcohol withdrawal requiring administration of phenobarb protocol and safe disposition to psych for suicidal ideation. Quality Stroke Does the patient have a stroke diagnosis?: No VTE Prior VTE?: No VTE Risk Level:: Medical - moderate - high VTE Device Contraindication: Treatment Not Indicated VTE Drug Contraindication: N/A - Med Ordered
--- NOTE | 2025-01-09 17:55 | PC.NURSE ---
Pt reported explosive loose stools today few times , reported nausea no vomiting stated that he experiences massive cramps and than he has loose stools. Stated that he his frustrated b/c of that
[2025-01-10] VITALS: BP 140/71; PULSE 61; RESP 17; TEMP 36.5; O2SAT 93
[2025-01-10] MEDS: hydrOXYzine HCL 25 MG TABLET PO ×2 (00:34→09:10)
[2025-01-10 04:00] VITALS: BP 118/58; PULSE 64; RESP 16; TEMP 36.8; O2SAT 95
[2025-01-10 07:15] VITALS: BP 153/91; PULSE 72; RESP 19; TEMP 36.4; O2SAT 98
[2025-01-10] MEDS: carvediloL 25 MG TABLET PO (08:08)
[2025-01-10] MEDS: Famotidine 20 MG TABLET PO (08:08)
[2025-01-10] MEDS: Folic Acid 1 MG TABLET PO (08:08)
[2025-01-10] MEDS: Valsartan 40 MG TABLET PO (08:08)
[2025-01-10] MEDS: Furosemide 40 MG TABLET PO (08:08)
[2025-01-10] MEDS: PHENobarbitaL 30 MG TABLET PO (08:08)
[2025-01-10] MEDS: Thiamine HCL 100 MG TABLET PO (08:08)
[2025-01-10] MEDS: Nicotine 14 MG PATCH.TD24 TRANSDERMA (08:09)
[2025-01-10] MEDS: 0.9 % Sodium Chloride Flush 3 ML SYRINGE IVFLUSH (08:19)
--- NOTE | 2025-01-10 09:38 | MHC.CM.PN ---
Maryuri evaluated the patient 01/10/24. An [facility] bed search is in progress. DP [facility] Patient will need assist with transport.
[2025-01-10 11:34] VITALS: BP 136/74; PULSE 69; RESP 18; TEMP 36.7; O2SAT 96
--- NOTE | 2025-01-10 12:12 | P.DS_ITS ---
DS: Providers Provider Date of Service: 01/10/25 Date of admission: 01/06/25 15:10 Date of discharge: 01/10/25 Primary care physician: ERNESTO Scott Consults: 01/05/25 19:59 ED CARE Team Crisis Consult Stat Comment: Reason for consultation: +SI with attempt today. +etoh 01/06/25 15:10 Consult for Sitter Routine Reason for consultation: SI w/plan to hang himself 01/06/25 17:56 Addiction Medicine Routine Consulting Provider: Addiction Covering Reason for consultation: Alcohol use disorder 01/09/25 07:24 Inpt CARE Team Crisis Consult Routine Comment: Reason for consultation: medically cleared/SI DS: Diagnosis Discharge Diagnosis (1) Alcohol withdrawal: Status: Acute (2) Suicidal ideation: Status: Acute DS: Summary Hospital Course Hospital Course: History of presenting illness: Date of Service: 01/06/25 Attending physician on admission: Jaime Leija Chief Complaint: Alcohol withdrawal Pt is a 59-year-old male with a PMH significant for?HTN, unspecified CHF, alcohol use disorder w/hx of withdrawal, depression, and anxiety who initially presented to the ED yesterday on 01/05/2025 with increasing depression with SI with plan to hang himself. Pt apparently has been having increased life stressors including the recent passing of his , and attempted to hang himself by tying a rope around a pipe in the basement, but rope immediately snapped. Initial workup in the ED was overall unremarkable, though did show mild transaminitis of AST 65 and ALT 58. Serial troponins flat and WNL at 26.8 and 28.2. Tox screen positive for barbiturates, cocaine, and marijuana, and ethyl alcohol level 423. Pt was seen and evaluated by crisis and pt was placed in the Behavioral pod while awaiting in pt placement. While in the ED pt began having withdrawal symptoms. Despite multiple doses of Ativan CIWA score continued to be high at 14, and pt was started on phenobarb protocol. Pt is unable to specify how much he has been drinking lately, but it has been ?a lot? for the past 4 weeks. Pt reports increased anxiety, nausea without vomiting, headache, and auditory hallucinations including ring tones and hearing his cat. Chronic SOB around baseline. Chronic chest pain around baseline. No chest pressure or palpitations. Denies fever, chills. No abdominal pain. Pt will be admitted to the hospital for treatment and further evaluation of acute alcohol withdrawal. Once pt is medically stabilized and cleared, will likely need inpatient psychiatric stabilization. Hospital course: 59-year-old male with a PMH significant for?HTN, unspecified CHF, alcohol use disorder w/hx of withdrawal, depression, and anxiety who initially presented to the ED on 01/05/2025 with increasing depression with SI with plan to hang himself in ED patient noted to have acute alcohol withdrawal therefore admitted to medical floor with following medical issues. Acute alcohol withdrawal treated with phenobarb protocol ,multivitamin, folic acid and thiamine, at present hemodynamically stable, CIWA 0, therefore medically cleared for discharge to psych facility. Acute hypokalemia and acute hypo magnesemia due to alcohol use with poor nutrition, repleted and normalized. Depression with SI ,Attempted to hang self in basement , Increasing depression from life stressors, including recent passing of , seen by psych and referred to inpatient psychiatric admission. Substance use disorder with U tox positive for barbiturates, cocaine and marijuana, strongly recommend to abstain from illicit drug use. HTN stable BP, Continue valsartan Coreg and carvedilol CHF unspecified Not in acute exacerbation, Continue home Lasix Tobacco use disorder continue nicotine patch, counseling done. Class 3 obesity will recommend low-calorie diet Chronic thrombocytopenia stable count. Time Attestation Discharge Coordination Time (in mins): 40 Quality: Safe Use of Opioids Does Pt have an Active Cancer Diagnosis on the Problem List?: No Quality: Stroke Does the patient have a stroke diagnosis?: No Physical Exam Vital Signs: Vital Signs: Last Vital Signs Temp 98.1 F 01/10/25 11:34 Pulse 69 01/10/25 11:34 Resp 18 01/10/25 11:34 BP 136/74 01/10/25 11:34 Pulse Ox 96 01/10/25 11:34 O2 Del Method Room Air 01/10/25 11:34 BMI result Body Mass Index 44.0 Const: Other: General in no acute distress. Neck no JVD. CVS regular rate rhythm, Respiratory lungs clear to auscultation, no respiratory distress, Gastrointestinal abdomen soft, non tender, obese,bowel sounds audible, Extremities no edema. Neuro non focal ,speech clear, no tremors. Skin no rash Psych appropriate affect DS: Data Data Completed and Pending Completed studies during hospitalization [Text1]: Procedures Detoxification Services for Substance Abuse Treatment (12/23/23) Discharge Plan Discharge Patient Disposition: Xfer Psychiatric Hosp Referrals: Magda Menard PA [Primary Care Provider] - 1 Week Discharge Medications: New nicotine 14 mg/24 hr Patch 24 Hour 14 mg transdermal DAILY Qty: 30 0RF acetaminophen 325 mg Tablet 650 mg PO Q6H PRN (Reason: Pain, Mild 1-3,Fever,Headache) Qty: 30 0RF Continued furosemide 40 mg tablet 40 mg PO DAILY carvedilol 25 mg tablet 25 mg PO BID thiamine HCl (vitamin B1) [Vitamin B-1] 100 mg tablet 100 mg PO DAILY folic acid 1 mg tablet 1 mg PO DAILY valsartan 40 mg tablet 40 mg PO DAILY Discharge Orders: Discharge Order (Routine); Ordered 01/10/25 Ordered By: Jamie Leija Diet: Advance to usual diet Activity on Discharge: As tolerated Stand Alone Forms: Patient Portal Discharge page Print Language: Divehi Care Plan Goals: Acute alcohol withdrawal treated with phenobarb protocol, CIWA 0 Acute hypokalemia and hypo magnesemia repleted Substance use disorder Tobacco use disorder Depression with suicidal ideation being transferred to inpatient psych Health Concerns: Hypertension Congestive heart failure Tobacco use disorder , continue nicotine patch Plan of Treatment: Outpatient follow-up with primary care Assessment: As above
--- NOTE | 2025-01-10 12:31 | MHC.CM.PN ---
Patient is discharged today [facility] He will transport via with [facility] staff.
== END 2025-01-10 13:53 | DRG 897 ==
LOC: HO.ED 01-06 14:39 → HO.EDOVER 01-06 15:30 → HO.IMC 01-07 08:35
PROVIDERS: Physician Assistant; Admitting Provider Student in an Organized Health Care Education/Training Program; Emergency Provider Emergency Medicine; PCP Physician Assistant; Visit Provider Hospitalist
DX: F10.239 Alcohol dependence with withdrawal, unspecified (principal); R45.851 Suicidal ideations; Z68.41 Body mass index [BMI] 40.0-44.9, adult; F10.229 Alcohol dependence with intoxication, unspecified; D69.6 Thrombocytopenia, unspecified; I11.0 Hypertensive heart disease with heart failure; F17.210 Nicotine dependence, cigarettes, uncomplicated; Z71.6 Tobacco abuse counseling; Y90.8 Blood alcohol level of 240 mg/100 ml or more; Z91.148 Patient's other noncompliance with medication regimen for other reason; F32.A Depression, unspecified; I50.9 Heart failure, unspecified; F41.9 Anxiety disorder, unspecified; Z63.4 Disappearance and death of family member; E83.42 Hypomagnesemia; E87.6 Hypokalemia; E66.813 Obesity, class 3; Z71.3 Dietary counseling and surveillance; Z20.822 Contact with and (suspected) exposure to COVID-19; Z79.899 Other long term (current) drug therapy
CPT/HCPCS: 0241U; 36415; 71046; 80048; 80076; 80307; 83690; 83735; 83880; 84484; 85025; 85027; 85610; 93005; 93971; 99285; J1650; J2405; J2560; J3475; S9485

== ENCOUNTER → 2025-01-05 19:43 | Outpatient (BNV) | payer OTHER, SELFPAY | PROVIDERS: Emergency Provider Emergency Medicine; Visit Provider Internal Medicine Cardiovascular Disease | DX: R94.31 Abnormal electrocardiogram [ECG] [EKG] (principal); R00.0 Tachycardia, unspecified | CPT/HCPCS: 93010 ==

== ENCOUNTER → 2025-01-05 20:45 | Outpatient (BNV) | payer OTHER, SELFPAY | PROVIDERS: Emergency Provider Emergency Medicine; Visit Provider Radiology Diagnostic Radiology | DX: R05.9 Cough, unspecified (principal) | CPT/HCPCS: 71046 ==

== ENCOUNTER → 2025-01-06 15:10 | Outpatient (BNV) | payer OTHER, SELFPAY | PROVIDERS: Admitting Provider Student in an Organized Health Care Education/Training Program; Emergency Provider Emergency Medicine; PCP Physician Assistant; Visit Provider Student in an Organized Health Care Education/Training Program | DX: F10.939 Alcohol use, unspecified with withdrawal, unspecified (principal); R45.851 Suicidal ideations; R79.89 Other specified abnormal findings of blood chemistry | CPT/HCPCS: 99223; 99232; 99239 ==

== ENCOUNTER 2025-01-10 13:53 | Outpatient (BNV) | payer OTHER, SELFPAY | END 2025-01-14 16:34 | PROVIDERS: Admitting Provider Psychiatry & Neurology Psychiatry; Visit Provider Specialist | DX: I10 Essential (primary) hypertension (principal) | CPT/HCPCS: 76775; 93975 ==

== ENCOUNTER 2025-01-10 13:53 | Inpatient (IN) | payer OTHER, MEDICARE, SELFPAY ==
--- NOTE | ~2025-01-10 | US_ITS ---
CLINICAL HISTORY: Uncontrolled HTN US Renal with Doppler Comparison: None Findings: Right kidney normal size and echotexture, 11.3 cm length. No hydronephrosis. Normal color Doppler. Resistive index is normal. Left kidney normal size and echotexture, 11.6 cm length. No hydronephrosis. Normal color Doppler. Resistive index is normal. Urinary bladder was not imaged. IMPRESSION: 1. Normal bilateral resistive index. 2. No hydronephrosis. This document has been electronically signed by: Hannah Saleh MD on 01/14/2025 19:18:07
[2025-01-10 14:00] VITALS: BP 192/99; PULSE 78; RESP 17; TEMP 37.1; O2SAT 98
[2025-01-10 14:41] LABS: Alanine Aminotransferase 69 U/L (0-40); Alkaline Phosphatase 89 U/L (39-117); Anion Gap 13 (12-20); Aspartate Amino Transferase 74 U/L (5-37); Bilirubin Total 0.5 mg/dL (0.0-1.0); Blood Urea Nitrogen 22 mg/dL (9-16); Calcium 8.7 mg/dL (8.4-10.2); Carbon Dioxide 30 mmol/L (22-29); Chloride 101 mmol/L (96-108); Estimated Glomerular Filt Rate > 60; Glucose Fasting 122 mg/dL (60-99); Potassium 3.7 mmol/L (3.3-5.1); Sodium 140 mmol/L (135-145); Total Protein 7.7 g/dL (6.5-8.0)
[2025-01-10 14:55] VITALS: BMI 43.7
[2025-01-10] MEDS: Flu Vacc TS2024-25(6mos up)/PF 0.5 ML SYRINGE IM (15:44)
[2025-01-10] MEDS: hydrOXYzine HCL 25 MG TABLET PO (15:46)
--- OUTSIDE RECORDS SUMMARY | 2025-01-10 15:46 | XMS_ITS | Clinical Summary ---
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 60 each 5 01/23/20 25 Active folic acid (FOLVITE) 1 mg tablet Take 1 tablet (1 mg total) by mouth 1 (one) time each day. 30 each 5 01/24/20 25 Active furosemide (LASIX) 40 mg tablet Take 1 tablet (40 mg total) by mouth 1 (one) time each day. 30 each 5 01/24/20 25 Active naltrexone (DEPADE) 50 mg tablet Take 1 tablet (50 mg total) by mouth 1 (one) time each day. 30 each 5 01/24/20 25 Active thiamine (VITAMIN B-1) 100 mg tablet Take 1 tablet (100 mg total) by mouth 1 (one) time each day. 30 tablet 5 01/24/20 25 Active valsartan (DIOVAN) 40 mg tablet Take 1 tablet (40 mg total) by mouth 1 (one) time each day. 30 tablet 5 01/24/20 25 Active prochlorperazin e (COMPAZINE) 10 mg tablet Take 1 tablet (10 mg total) by mouth every 8 (eight) hours if needed for nausea or vomiting for up to 5 days. 15 each 5 12/28/19 25 potassium chloride (KLOR-CON M10) 10 mEq CR tablet Take 2 tablets (20 mEq total) by mouth 1 (one) time each day for 5 days. Tablet may be swallowed whole (do not crush/chew/suck on) OR broken in half and each half swallowed separately OR dissolved (whole tablet) in ~4 ounces of water (allow ~2 minutes to dissolve, stir well and administer immediately). 10 each 12/28/19 Active Problems Problem Noted Date Diagnosed Date Chronic combined systolic an d diastolic congestive heart failure 12/23/2024 Resolved Problems Problem Noted Date Diagnosed Date Resolved Date Alcohol withdrawal 12/20/2024 Encounters Date Type Department Care Team Description 12/20/2024 5:20 PM EST - 12/23/2024 6:02 PM EST Hospital Encounter [facility] [address] [place] [address] Johan Gaona, Jeffrey Bhatt MD Nasser, Nada S, MD Seralathan, Manikandan, MD Precordial pain (Primary Dx); Alcohol abuse with withdrawal (CMS/HCC); Hypokalemia Discharge Disposition: Home or Self Care from Last 3 Months Surgical History Surgery Date Site/Laterality Comments KNEE SURGERY PROCEDURE: HISTORICAL KNEE SURGERY FINGER SURGERY Left left ring finger Medical History Medical History Date Comments Hypertension Systolic and diastolic CHF, chronic (CMS/HCC) Alcohol use Depression Family History Medical History Relation Name Comments Hypertension Father Other: Alzheimer's Maternal Grandmother Heart attack Mother age 56, mi Hypertension Mother Other: ruptured abdominal aortic aneurysm Paternal Gra ndfather Age 60 Other: Marshall's disease Sister 1 Relation Name Status Comments Father Maternal Grandmother Mother Paternal Grandfather Sister 1 Sister 2 Social History Tobacco Use Types Packs/Day Years [...] for your loved ones. For example, child protective services specialist or elderly care for an older adult? [...] Orientation Straight 12/20/2024 7: 06 PM EST Obstetrics History Last Filed Vital Signs Vital Sign Reading [...] Mass Index 48.82 12/20/2024 5:36 PM EST Plan of Treatment Health Maintenance Due Date Last Done Comments Hepatitis A Vaccines (1 of 2 - Risk 2-dose series) 1983 Pneumococcal Vaccine: 50+ Years (1 of 2 - PCV) 1983 Pneumococcal Vaccine: Pediatrics (0 to 5 Years) and At-Risk Patients (6 to 64 Years) (1 of 2 - PCV) 1983 Zoster Vaccines (1 of 2) 2014 DTaP,Tdap,and Td Vaccines (2 - Td or Tdap) 12/05/2018 12/05/2008 COVID-19 Vaccine ( - season) 2024 Influenza Vaccine (#1) 2024 09/24/2019 RSV Immunization Patients 60+ Years Old (1 - Risk 60-74 years 1-dose series) 2024 Cholesterol Screening (Lipid Panel) 12/21/2024 09/22/2019 Colorectal Cancer Screening: Colonoscopy 12/21/2024 Depression Screening 12/21/2024 HIV Screening 12/21/2024 Hepatitis C Screening 12/21/2024 Lung Cancer Screening (Low Dose CT) 12/21/2024 Social Influencers of Health Screening 12/21/2025 12/21/2024 Hypertension/CHF/CAD Annual BMP Blood Test 12/23/2025 12/23/2024, 12/22/2024, 12/21/2024, Additional history exists HIB Vaccines Aged Out No longer eligi ble based on patient's age to complete this topic HPV Vaccines Aged Out No longer eligi ble based on patient's age to complete this topic Hepatitis B Vaccines Aged Out No long er eligible based on patient's age to complete this topic IPV Vaccines Aged Out No longer eligi ble based on patient's age to complete this topic MMR Vaccines Aged Out No longer eligi ble based on patient's age to complete this topic Meningococcal ACWY Vaccine Aged Out N o longer eligible based on patient's age to complete this topic Meningococcal B Vacine Aged Out No lo nger eligible based on patient's age to complete this topic RSV Immunization Patients Under 20 months Aged Out No longer eligible based on patient's age to complete this topic Varicella Vaccines Aged Out No longer eligible based on patient's age to complete this topic Procedures Procedure Name Priority Date/Time Associated Diagnosis Comments ECG ANNOTATED 12/24/2024 BASIC METABOLIC PANEL Routine 12/23/2024 5:39 AM EST MAGNESIUM Routine 12/23/2024 5:39 AM EST PHOSPHORUS Routine 12/23/2024 5:39 AM EST LAVENDER - EDTA Routine 12/23/2024 5:34 AM EST EXTRA TUBES Routine 12/23/2024 5:34 AM EST ECG 12-LEAD Routine 12/22/2024 5:56 PM EST HEMOGLOBIN A1C Add-On 12/22/2024 8:18 AM EST LAVENDER - EDTA Routine 12/22/2024 8:18 AM EST EXTRA TUBES Routine 12/22/2024 8:18 AM EST COMPREHENSIVE METABOLIC PANEL Routine 12/22/2024 8:18 AM EST CBC WITH AUTO DIFFERENTIAL Routine 12/21/2024 5:52 AM EST HEPATIC FUNCTION PANEL Routine 5:52 AM EST MAGNESIUM Routine 12/21/2024 5:52 AM EST CBC AND DIFFERENTIAL Routine 12/21/2024 5:52 AM EST BASIC METABOLIC PANEL Routine [...] METABOLIC PANEL STAT 12/20/2024 6:08 PM EST CBC WITH AUTO DIFFERENTIAL STAT 12/20/2024 6:07 PM EST B-TYPE NATRIURETIC PEPTIDE STAT 12/20/2024 6:07 PM EST CBC AND DIFFERENTIAL STAT 12/20/2024 6:07 PM EST TROPONIN I HIGH SENSITIVITY STAT 12/20/2024 6:07 PM EST from Last 3 Months Results * ECG-Annotated (12/24/2024) Provider Onbase MD ECG ORDERABLES Final Result * Phosphorus (12/23/2024 5:39 AM EST) Pathologist [facility] Phosphorus 3.3 2.5 - 4.5 mg/dL LAB CHEMISTRY METHOD 12/23/2024 7:19 AM EST [facility] Blood Venous blood specimen / Unknown Venipuncture / Unknown 12/23/2024 5:39 AM EST 12/23/2024 6:43 AM EST Gene Singh MD LAB BLOOD ORDERABLES Fi nal Result Performing Organization Address City/[facility]/ZIP Co de Phone Number [facility] [address] [place] [address], [place] [phone] * (ABNORMAL) Magnesium (12/23/2024 5:39 AM EST) Only the most recent of3 resultswithin the time period is included. [facility] Magnesium 1.7(L) 1.9 - 2.6 mg/dL LAB CHEMISTRY METHOD 12/23/2024 7:19 AM EST [facility] Blood Venous blood specimen / Unknown Venipuncture / Unknown 12/23/2024 5:39 AM EST 12/23/2024 6:43 AM EST Gene Singh MD LAB BLOOD ORDERABLES Fi nal Result [facility] [address] [place] [address], [place] [phone] * (ABNORMAL) Basic metabolic panel (12/23/2024 5:39 AM EST) Only the most recent of2 resultswithin the time period is included. Pathologist [facility] Sodium 136 133 - 145 mmol/L LAB CHEMISTRY METHOD 12/23/2024 7:19 AM EST [facility] Potassium 3.1(L) 3.5 - 5.5 mmol/L LAB CHEMISTRY METHOD 12/23/2024 7:19 AM [facility] Chloride 100 96 - 110 mmol/L LAB CHEMISTRY METHOD 12/23/2024 7:19 AM [facility] CO2 33(H) 21 - 32 mmol/L LAB CHEMISTRY METHOD 12/23/2024 7:19 AM [facility] Anion Gap 3 3 - 11 LAB CHEMISTRY METHOD 12/23/2024 7:19 AM [facility] Glucose 87 70 - 100 mg/dL LAB CHEMISTRY METHOD 12/23/2024 7:19 AM [facility] BUN 15 5 - 25 mg/dL LAB CHEMISTRY METHOD 12/23/2024 7:19 AM [facility] Creatinine 0.93 0.70 - 1.30 mg/dL LAB CHEMISTRY METHOD 12/23/2024 7:19 AM [facility] eGFR 94 >=60 mL/min/1. 73m2 LAB CHEMISTRY METHOD 12/23/2024 7:19 AM [facility] Comment:Calculation based on the??Chronic Kidney Disease Epidemiology Collaboration (CKD-EPI) equation refit??without adjustment for race. BUN/Creatinine Ratio 16.1 LAB CHEMISTRY METHOD 12/23/2024 7:19 AM [facility] Calcium 8.1(L) 8.5 - 10.5 mg/dL LAB CHEMISTRY METHOD 12/23/2024 7:19 AM [facility] Blood Venous blood specimen / Unknown Venipuncture / Unknown 12/23/2024 5:39 AM EST 12/23/2024 6:43 AM EST Gene Singh MD LAB BLOOD ORDERABLES Fi nal Result [facility] [address] [place] [address], * Lavender tube (12/23/2024 5:34 AM EST) Only the most recent of2 resultswithin the time period is included. Pathologist [facility] Extra Tube Hold for add-ons. 12/23/2024 8:01 AM EST [facility] Comment:Auto resulted. Blood Venous blood specimen / Unknown Venipuncture / Unknown 12/23/2024 5:34 AM EST 12/23/2024 6:46 AM EST Gene Singh MD LAB BLOOD ORDERABLES Fi nal Result Performing Organization Address [facility] Co de Phone Number [facility] [address] [place] [address], [place] [phone] * ECG 12 lead (12/22/2024 5:56 PM EST) Only the most recent of3 resultswithin the time period is included. Pathologist [facility] Ventricular Rate ECG 87 BPM GEMUSE Atrial Rate 87 BPM GEMUSE P-R Interval 176 ms GEMUSE QRS Duration 102 ms GEMUSE Q-T Interval 422 ms GEMUSE QTc 507 ms GEMUSE P Wave [place] -11 degrees GEMUSE R [place] 15 degrees GEMUSE T [place] 51 degrees GEMUSE ECG Interpretation Sinus rhythm with occasional Premature ventricular complexes Moderate voltage criteria for LVH, may be normal variant Prolonged QT When compared with ECG of 20-DEC-2024 19:29, Premature ventricular complexes are now Present Confirmed by BYRON DOSS ([id number]) on 12/22/2024 8:24:33 PM GEMUSE 12/22/2024 5:56 PM EST 12/22/2024 8:24 PM EST us Gene Singh MD ECG ORDERABLES Final R esult Performing Organization Address City/[facility]/ZIP Co de Phone Number GEMUSE * Hemoglobin A1c (12/22/2024 8:18 AM EST) Pathologist [facility] Hemoglobin A1C 5.7 <6.5 % LAB CHEMISTRY METHOD 12/22/2024 1:57 PM EST [facility] Mean Bld Glu Estim. 117 mg/dL LAB CHEMISTRY METHOD 12/22/2024 1:57 PM [facility] Blood Venous blood specimen / Unknown 12/22/2024 8:18 AM EST 12/22/2024 8:25 AM EST us Gene Singh MD LAB BLOOD ORDERABLES Fi nal Result [facility] [address] [place] [address], [place] [phone] * (ABNORMAL) Comprehensive metabolic panel (12/22/2024 8:18 AM EST) Only the most recent of2 resultswithin the time period is included. Sodium 134 133 - 145 mmol/L LAB CHEMISTRY METHOD 12/22/2024 9:02 AM [facility] Potassium 3.3(L) 3.5 - 5.5 mmol/L LAB CHEMISTRY METHOD 12/22/2024 9:02 AM [facility] Chloride 97 96 - 110 mmol/L LAB CHEMISTRY METHOD 12/22/2024 9:02 AM [facility] CO2 31 21 - 32 mmol/L LAB CHEMISTRY METHOD 12/22/2024 9:02 AM [facility] Anion Gap 6 3 - 11 LAB CHEMISTRY METHOD 12/22/2024 9:02 AM [facility] Glucose 104(H) 70 - 100 mg/dL LAB CHEMISTRY METHOD 12/22/2024 9:02 AM [facility] BUN 14 5 - 25 mg/dL LAB CHEMISTRY METHOD 12/22/2024 9:02 AM [facility] Creatinine 0.94 0.70 - 1.30 mg/dL LAB CHEMISTRY METHOD 12/22/2024 9:02 AM [facility] eGFR 93 >=60 mL/min/1. 73m2 LAB CHEMISTRY METHOD 12/22/2024 9:02 AM [facility] Comment:Calculation based on the??Chronic Kidney Disease Epidemiology Collaboration (CKD-EPI) equation refit??without adjustment for race. BUN/Creatinine Ratio 14.9 LAB CHEMISTRY METHOD 12/22/2024 9:02 AM [facility] Calcium 8.3(L) 8.5 - 10.5 mg/dL LAB CHEMISTRY METHOD 12/22/2024 9:02 AM [facility] AST (SGOT) 53(H) 10 - 42 unit/L LAB CHEMISTRY METHOD 12/22/2024 9:02 AM [facility] ALT (SGPT) 49 10 - 60 unit/L LAB CHEMISTRY METHOD 12/22/2024 9:02 AM [facility] Alkaline Phosphatase 79 42 - 121 unit/L LAB CHEMISTRY METHOD 12/22/2024 9:02 AM [facility] Total Protein 6.0 6.0 - 8.0 g/dL LAB CHEMISTRY METHOD 12/22/2024 9:02 AM [facility] Albumin 3.2 3.2 - 5.0 g/dL LAB CHEMISTRY METHOD 12/22/2024 9:02 AM [facility] Total Bilirubin 1.7(H) 0.0 - 1.4 mg/dL LAB CHEMISTRY METHOD 12/22/2024 9:02 AM [facility] Blood Venous blood specimen / Unknown Venipuncture / Unknown 12/22/2024 8:18 AM EST 12/22/2024 8:24 AM EST us Gene Singh MD LAB BLOOD ORDERABLES Fi nal Result [facility] [address] [place] [address], * CBC auto differential (12/21/2024 5:52 AM EST) Only the most recent of2 resultswithin the time period is included. [facility] WBC 6.3 4.8 - 10.8 K/mcL LAB HEMETOLOGY METHOD 12/21/2024 6:53 AM [facility] RBC 4.80 4.50 - 5.50 M/mcL LAB HEMETOLOGY METHOD 12/21/2024 6:53 AM [facility] Hemoglobin 13.9 13.5 - 17.5 g/dL LAB HEMETOLOGY METHOD 12/21/2024 6:53 AM [facility] Hematocrit 42.0 42.0 - 54.0 % LAB HEMETOLOGY METHOD 12/21/2024 6:53 AM [facility] MCV 87.9 79.0 - 98.0 FL LAB HEMETOLOGY METHOD 12/21/2024 6:53 AM [facility] MCH 29.1 27.0 - 32.0 pcg LAB HEMETOLOGY METHOD 12/21/2024 6:53 AM [facility] MCHC 33.1 32.0 - 37.0 g/dL LAB HEMETOLOGY METHOD 12/21/2024 6:53 AM [facility] RDW 13.2 11.0 - 15.0 % LAB HEMETOLOGY METHOD 12/21/2024 6:53 AM [facility] Platelets 145 130 - 400 K/mcL LAB HEMETOLOGY METHOD 12/21/2024 6:53 AM [facility] MPV 10.0 7.0 - 11.0 FL LAB HEMETOLOGY METHOD 12/21/2024 6:53 AM [facility] NRBC 0.0 <1.0 % LAB HEMETOLOGY METHOD 12/21/2024 6:53 AM [facility] NRBC Absolute 0.00 <0.10 K/mcL LAB HEMETOLOGY METHOD 12/21/2024 6:53 AM [facility] Neutrophils Relative 62.9 % LAB HEMETOLOGY METHOD 12/21/2024 6:53 AM [facility] Lymphocytes Relative 26.3 % LAB HEMETOLOGY METHOD 12/21/2024 6:53 AM [facility] Monocytes Relative 7.5 % LAB HEMETOLOGY METHOD 12/21/2024 6:53 AM [facility] Eosinophils Relative 2.2 % LAB HEMETOLOGY METHOD 12/21/2024 6:53 AM [facility] Basophils Relative 0.8 % LAB HEMETOLOGY METHOD 12/21/2024 6:53 AM [facility] Immature Granulocytes Relative 0.3 % LAB HEMETOLOGY METHOD 12/21/2024 6:53 AM [facility] Neutrophils Absolute 3.95 1.50 - 7.00 K/mcL LAB HEMETOLOGY METHOD 12/21/2024 6:53 AM [facility] Lymphocytes Absolute 1.65 1.00 - 5.00 K/mcL LAB HEMETOLOGY METHOD 12/21/2024 6:53 AM [facility] Monocytes Absolute 0.47 0.20 - 1.00 K/mcL LAB HEMETOLOGY METHOD 12/21/2024 6:53 AM [facility] Eosinophils Absolute 0.14 0.00 - 0.50 K/mcL LAB HEMETOLOGY METHOD 12/21/2024 6:53 AM [facility] Basophils Absolute 0.05 0.00 - 0.20 K/mcL LAB HEMETOLOGY METHOD 12/21/2024 6:53 AM [facility] Immature Granulocytes Absolute 0.02 0.00 - 0.03 K/mcL LAB HEMETOLOGY METHOD 12/21/2024 6:53 AM [facility] Blood Venous blood specimen / Unknown Venipuncture / Unknown 12/21/2024 5:52 AM EST 12/21/2024 6:34 AM EST us Jeffrey Dougherty MD LAB BLOOD ORDERABLES Final Result [facility] [address] [place] [address], [place] [phone] * (ABNORMAL) Hepatic function panel (12/21/2024 5:52 AM EST) Total Protein 6.5 6.0 - 8.0 g/dL LAB CHEMISTRY METHOD 12/21/2024 7:24 AM EST [facility] Albumin 3.3 3.2 - 5.0 g/dL LAB CHEMISTRY METHOD 12/21/2024 7:24 AM [facility] Total Bilirubin 1.1 0.0 - 1.4 mg/dL LAB CHEMISTRY METHOD 12/21/2024 7:24 AM [facility] Bilirubin, Direct 0.3 0.0 - 0.3 mg/dL LAB CHEMISTRY METHOD 12/21/2024 7:24 AM [facility] Bilirubin, Indirect 0.8 0.0 - 1.1 mg/dL LAB CHEMISTRY METHOD 12/21/2024 7:24 AM [facility] ALT (SGPT) 51 10 - 60 unit/L LAB CHEMISTRY METHOD 12/21/2024 7:24 AM [facility] AST (SGOT) 52(H) 10 - 42 unit/L LAB CHEMISTRY METHOD 12/21/2024 7:24 AM [facility] Alkaline Phosphatase 84 42 - 121 unit/L LAB CHEMISTRY METHOD 12/21/2024 7:24 AM [facility] Blood Venous blood specimen / Unknown Venipuncture / Unknown 12/21/2024 5:52 AM EST 12/21/2024 6:34 AM EST us Polly OROZCO LAB BLOOD ORDERABLES Final R esult [facility] [address] [place] [address], * Respiratory virus panel molecular study (12/21/2024 12:24 AM EST) Adenovirus Detection by PCR Not Detected Not Detected LAB MICROBIOLOGY METHOD 12/21/2024 1:46 AM EST [facility] Influenza A PCR Not Detected Not Detected LAB MICROBIOLOGY METHOD 12/21/2024 1:46 AM EST [facility] Influenza B PCR Not Detected Not Detected LAB MICROBIOLOGY METHOD 12/21/2024 1:46 AM EST [facility] Coronavirus 229E Not Detected Not Detected LAB MICROBIOLOGY METHOD 12/21/2024 1:46 AM EST [facility] Coronavirus HKU1 Not Detected Not Detected LAB MICROBIOLOGY METHOD 12/21/2024 1:46 AM EST [facility] Coronavirus OC43 Not Detected Not Detected LAB MICROBIOLOGY METHOD 12/21/2024 1:46 AM EST [facility] Coronavirus NL63 Not Detected Not Detected LAB MICROBIOLOGY METHOD 12/21/2024 1:46 AM EST [facility] Parainfluenza Virus 1 Not Detected Not Detected LAB MICROBIOLOGY METHOD 12/21/2024 1:46 AM EST [facility] Parainfluenza Virus 2 Not Detected Not Detected LAB MICROBIOLOGY METHOD 12/21/2024 1:46 AM EST [facility] Parainfluenza Virus 3 Not Detected Not Detected LAB MICROBIOLOGY METHOD 12/21/2024 1:46 AM EST [facility] Parainfluenza Virus 4 Not Detected Not Detected LAB MICROBIOLOGY METHOD 12/21/2024 1:46 AM EST [facility] RSV PCR Not Detected Not Detected LAB MICROBIOLOGY METHOD 12/21/2024 1:46 AM [facility] Human Metapneumovirus A and B Not Detected Not Detected LAB MICROBIOLOGY METHOD 12/21/2024 1:46 AM EST [facility] Rhinovirus/Entero virus Not Detected Not Detected LAB MICROBIOLOGY METHOD 12/21/2024 1:46 AM EST [facility] Bordetella pertussis Not Detected Not Detected LAB MICROBIOLOGY METHOD 12/21/2024 1:46 AM EST [facility] Bordetella parapertussis Not Detected Not Detected LAB MICROBIOLOGY METHOD 12/21/2024 1:46 AM [facility] Mycoplasma pneumo by PCR Not Detected Not Detected LAB MICROBIOLOGY METHOD 12/21/2024 1:46 AM EST [facility] Chlamydia pneumoniae Not Detected Not Detected LAB MICROBIOLOGY METHOD 12/21/2024 1:46 AM [facility] SARS COV-2 Not Detected Not Detected LAB MICROBIOLOGY METHOD 12/21/2024 1:46 AM [facility] Swab Both anterior nares / Unknown Non-blood Collection / Unknown 12/21/2024 12:24 AM EST 12/21/2024 12:48 AM EST [facility] - 12/21/2024 1:46 AM EST Testing was performed using the DLS Respiratory Pathogen PCR Assay. All results must [...] that are below the limit of detection. us Polly OROZCO LAB MICROBIOLOGY - GENERAL O RDERABLES Final Result [facility] [address] [place] [address], * Procalcitonin (12/21/2024 12:20 AM EST) Procalcitonin 0.06 <=0.16 ng/mL LAB CHEMISTRY METHOD 12/21/2024 8:52 AM [facility] Blood Venous blood specimen / Unknown Venipuncture / Unknown 12/21/2024 12:20 AM EST 12/21/2024 12:26 AM EST Narrative [facility] - 12/21/2024 8:52 AM EST [...] OROZCO LAB BLOOD ORDERABLES Final R esult [facility] [address] [place] [address], * (ABNORMAL) Drug abuse screen 8a panel, urine (12/20/2024 9:34 PM EST) Pathologist [facility] Amphetamine Screen, Ur Negative Negative LAB CHEMISTRY METHOD 5 10:10 PM EST [facility] Comment:Certain OTC medicati ons containing ephedrine, phenylephrine, pseudoephedrine and phenylpropanolamine can cause false positive results. Barbiturate Screen, Ur Negative Negative LAB CHEMISTRY METHOD 5 10:10 PM EST [facility] Benzodiazepine Screen, Ur Negative Negative LAB CHEMISTRY METHOD 5 10:10 PM EST [facility] Cocaine Screen, Ur Negative Negative LAB CHEMISTRY METHOD 5 10:10 PM EST [facility] Opiate Screen, Ur Negative Negative LAB CHEMISTRY METHOD 5 10:10 PM [facility] Cannabinoid (THC) Screen, Ur Positive(A ) Negative LAB CHEMISTRY METHOD 5 10:10 PM EST [facility] Comment:Specimens from patie nts taking pantoprazole sodium (Protonix) have been shown to produce false positive results. Oxycodone Screen, Ur Negative Negative LAB CHEMISTRY METHOD 5 10:10 PM EST [facility] Fentanyl, Ur Negative Negative LAB CHEMISTRY METHOD 5 10:10 PM [facility] Urine Urine specimen obtained by clean catch procedure / Unknown Non-blood Collection / Unknown 12/20/2024 9:34 PM EST 12/20/2024 9:41 PM EST Narrative [facility] - 12/20/2024 10:10 PM EST Assay cutoffs: Amphetamines ? 1000 ng/mL Barbiturates ?200 ng/mL Benzodiazepines ?? 200 ng/mL Cocaine ? 300 ng/mL Fentanyl ?1 ng/mL Opiates ? 300 ng/mL Oxycodone ? 100 ng/mL THC ?50 ng/mL Semi-quantitative assay for screening purposes only. Unconfirmed screening result should not be used for non-medical purposes. *ALTERNATE METHOD CONFIRMATION DONE UPON REQUEST ONLY* us Johan Gaona DO LAB URINE ORDERABLES Final Res ult [facility] [address] [place] [address], * Troponin I high sensitivity (12/20/2024 7:21 PM EST) Only the most recent of2 resultswithin the time period is included. High Sensitivity Troponin I 31 <=79 ng/L LAB CHEMISTRY METHOD 12/20/2024 8:09 PM EST [facility] Blood Venous blood specimen / Unknown Venipuncture / Unknown 12/20/2024 7:21 PM EST 12/20/2024 7:42 PM EST Narrative [facility] - 12/20/2024 8:09 PM EST High levels of biotin in samples may falsely decrease hsTroponin values. ??Use caution when interpreting hsTroponin results in patients taking biotin who exhibit renal impairment (eGFR <60) or in patients taking more than 20 mg/day of biotin. us Johan Gaona DO LAB BLOOD ORDERABLES Final Res ult [facility] [address] [place] [address], [place] [phone] * XR Chest 2 Views (12/20/2024 7:00 PM EST) Anatomical Region Laterality Modality Body Radiographic Amena ging 12/21/2024 8:04 AM EST Impressions 12/21/2024 8:07 AM EST No acute findings. -------- FINAL REPORT -------- Dictated By: Sabino Oviedo Dictated Date: 12/21/2024 08:04 ET Assigned Physician: Sabino Oviedo Reviewed and Electronically Signed By: Sabino Oviedo Signed Date: 12/21/2024 08:07 ET Workstation ID: [id number] Transcribed By: Self Edit Transcribed Date: 12/21/2024 08:04 ET Narrative 12/21/2024 8:07 AM EST PROCEDURE: PA and lateral radiographs of the chest. HISTORY: chest pain. COMPARISON: None. FINDINGS: Lungs, pleural spaces, and pulmonary vasculature are normal. ??The heart is mildly enlarged. ??Mild degenerative changes of the finding. Procedure Note Snodgress, Sabino, MD - 12/21/2024 PROCEDURE: PA and lateral [...] Signed Date: 12/21/2024 08:07 ET Workstation ID: [id number] Transcribed By: Self Edit Transcribed Date: 12/21/2024 08:04 ET Jeffrey Dougherty MD IMG XR PROCEDURES Final Res ult * Vitamin B12 and folate (12/20/2024 6:08 PM EST) [facility] Vitamin B-12 586 250 - 900 pcg/mL LAB CHEMISTRY METHOD 12/21/2024 12:45 AM EST [facility] Folate 8.3 2.8 - 17.0 ng/ml LAB CHEMISTRY METHOD 12/21/2024 12:45 AM EST [facility] Blood Venous blood specimen / Unknown Venipuncture / Unknown 12/20/2024 6:08 PM EST 12/20/2024 6:21 PM EST Polly OROZCO LAB BLOOD ORDERABLES Final R esult [facility] [address] [place] [address], * (ABNORMAL) Lipase (12/20/2024 6:08 PM EST) Pathologist [facility] Lipase 85(H) 13 - 75 unit/L LAB CHEMISTRY METHOD 12/20/2024 6:52 PM EST [facility] Blood Venous blood specimen / Unknown Venipuncture / Unknown 12/20/2024 6:08 PM EST 12/20/2024 6:21 PM EST Johan Gaona DO LAB BLOOD ORDERABLES Final Res ult Performing Organization Address [facility]/ZIP Co de Phone Number [facility] [address] [place] [address], [place] [phone] * B-type natriuretic peptide (12/20/2024 6:07 PM EST) BNP 10 <=100 pcg/mL LAB CHEMISTRY METHOD 12/20/2024 6:58 PM EST [facility] Blood Venous blood specimen / Unknown Venipuncture / Unknown 12/20/2024 6:07 PM EST 12/20/2024 6:21 PM EST Johan Gaona DO LAB BLOOD ORDERABLES Final Res ult Performing Organization Address [facility] Co de Phone Number [facility] [address] [place] [address], [place] [phone] from Last 3 Months Insurance #[id number] [place] [address] MEDICARE [facility] Advance Directives * Full Code - Default (Latest Code Status on File) Date Activated Date Inactivated Comments 12/20/2024 11:02 PM 12/23/2024 8:08 PM This is ord er is used when code status has not been discussed with the patient, or code status is otherwise unknown/unconfirmed To update the patient's code status, place a code status order. Do not modify or discontinue any currently active code status orders. Care Teams [employer] Relationship Specialty Start Date End Date Physician, No Pcp PCP - General 12/20/24
--- OUTSIDE RECORDS SUMMARY | 2025-01-10 15:46 | XMS_ITS | Encounter Summary ---
Author Organization [facility] Address [address] [place] [address] Care Team Providers Care Automobile Upholsterer Name Role Phone Physician, No Pcp Primary Care Provider Unavaila ble Reason for Visit * Reason Comments Chest Pain Suicidal * Auth/Cert (Routine) Specialty Diagnoses / Procedures Referred By Contac t Referred To Contact Diagnoses Alcohol withdrawal (CMS/HCC) Precordial pain Alcohol abuse with withdrawal (CMS/HCC) Procedures . Jeffrey Hopkins MD [address] [place] [id number] Phone: tel: fax: [facility] Intermediate Care Unit [address] [place] [phone] Phone: tel: Referral ID Status Reason Start Date Expiration Date Visits Re quested Visits Authorized [id number] 1 1 Encounter Details Date Type Department Care Team (Latest Contact Info) Description 12/20/2024 5:20 PM EST - 12/23/2024 6:02 PM EST Hospital Encounter [facility] [address] [place] [phone] Johan Gaona, DO [address] [place] [phone] Jeffrey Hopkins MD [address] [place] [phone] oYbany Black MD [address] [place] [phone] Thalia Singh MD [address] [place] [phone] Precordial pain (Primary Dx); Alcohol abuse with [...] care for your loved ones. For example, director of early childhood or elderly care for an older adult? [...] from the original note were not included. [place] DISCHARGE SUMMARY Patient Information Manny Hopkins : [...] deaths in his family, including his , toghuzz-jh-cwh, and sgfojd-an-poh, and all of their funerals are tomorrow. [...] Patient was also seen by dietitian and social welfare clerk at the hospital. 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 -Patient has history of combined heart failure, likely alcohol-related and has seen paying teller inthe past in 2019. Patient's weight was about 310 pounds at that time and was prescribed valsartan 320 mg once daily and oral Lasix 80 mg once daily. Patient has been noncompliant with his medicationsat home given the current situation. Recommend patient that he follows up with his previous paying teller at [facility]. For now we will restart valsartan [...] following to make arrangements to follow up. [facility] Schedule an appointment as [...] Your Medications These medications were sent to [id number] - [place] - [address] [facility] [address] [place] [phone] carvediloL 25 mg tablet folic acid 1 [...] Discharge: 12/23/24 1412 Transportation Transportation at discharge [facility] providing transportation LYFT Compliments [facility] What day [...] deaths in his family, including his , ovgyyzr-uu-lss, and clpija-jw-qrq, and all of their funerals are tomorrow. [...] Patient was also seen by dietitian and social welfare clerk at the hospital. 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 -Patient has history of combined heart failure, likely alcohol-related and has seen paying teller inthe past in 2019. Patient's weight was about 310 pounds at that time and was prescribed valsartan 320 mg once daily and oral Lasix 80 mg once daily. Patient has been noncompliant with his medicationsat home given the current situation. Recommend patient that he follows up with his previous paying teller at [facility]. For now we will restart valsartan [...] Anaya, PT - 12/23/2024 1:15 PM EST [facility] Physical Therapy Evaluation & Treatment PT Discharge [...] is a 59 y.o. male admitted to [facility] on 12/20/2024. 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 Right [...] is a 59 y.o. male admitted to [facility] on 12/20/2024 for Alcohol withdrawal (CMS/[facility]) [F10.939] Precordial pain [R07.2] Alcohol abuse with [...] Singh MD - 12/23/2024 12:52 PM EST [facility] Provider Response Note PATIENT: MANNY HOPKINS : 1965 ADMIT DATE: 12/20/2024 10:29 PM DISCH DATE: RESPONDING PROVIDER #: [id number] PROVIDER RESPONSE TEXT: The patient has hypomagnesemia. [...] note were not included. Manny Hopkins 1965 [id number] Author: Ernestina Borja DO DOS: 12/23/2024 Requesting [...] mi Hypertension Mother Hypertension Father Other (Other: Austin's disease ) Sister Other (Other: Alzheimer's ) [...] Signed Date: 12/21/2024 08:07 ET Workstation ID: [id number] Transcribed By: Self Edit Transcribed Date: 12/21/2024 [...] prescription Pt has been referred to the [facility] pizza hut assistant program Encouraged patient to engage in program of recovery as outpatient including groups, counseling and meetings. Refer to bottle caser for assistance with discharge plans/transportation. Thank you for the interesting consultation. Please reach out with any questions or concerns. Principal Problem: Alcohol withdrawal ([facility]) Provider Attestation Electronically signed by Ernestina Borja DO * Jennifre Delgado - 12/23/2024 10:25 AM EST SPIRITUAL CARE Date/Time:12/23/24 at 10:25 AM EST Type of Visit: Initial Visit, Professor Of Sociology Rounding , and Crisis Visit Reason for Visit: Spiritual/Emotional Support and Spiritual Assessment Time Spent: 35 Minutes Location: [address] [place] [address] Sacramental Encounters: Spiritual Distress Assessment: Spiritual Distress [...] Holy Mass intention for them. Manny's avinash restorationism listed as none but raised Caodaism but prefer Christianity. Voiced appreciation for the visit and the peace and comfort speaking with chief warden brought to him. Intervention: NE Spiritual Care [...] usually? Transcendence Do you have a particular restorationism, avinash, or spirituality? Is your restorationism/spirituality/avinash challenged by what is happening to you [...] 384 ms QTc 497 ms P Wave [place] 39 degrees R [place] 15 degrees T [place] 54 degrees ECG Interpretation Sinus tachycardia Minimal voltage criteria for LVH, may be normal variant Borderline ECG No previous ECGs available Confirmed by Juaquin SEWELL JOHN ([id number]) on 12/21/2024 7:47:23 AM Troponin I high sensitivity Collection Time: 12/20/24 7:21 PM Result Value Ref Range High Sensitivity Troponin I 31 <=79 ng/L ECG 12 lead Collection Time: 12/20/24 7:29 PM Result Value Ref Range Ventricular Rate ECG 100 BPM Atrial Rate 100 BPM P-R Interval 180 ms QRS Duration 100 ms Q-T Interval 394 ms QTc 508 ms P Wave [place] 47 degrees R [place] 19 degrees T [place] 56 degrees ECG Interpretation Normal sinus rhythm Possible Left atrial enlargement Prolonged QT Abnormal ECG When compared with ECG of 20-DEC-2024 18:50, (unconfirmed) No significant change was found Confirmed by Juaquin SEWELL JOHN ([id number]) on 12/21/2024 7:49:16 AM Drug abuse screen [...] graduate 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 pertinent history: 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, 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 [...] drink or used drugs as an eye hoop bender tank first thing in the morning to steady [...] 384 ms QTc 497 ms P Wave [place] 39 degrees R [place] 15 degrees T [place] 54 degrees ECG Interpretation Sinus tachycardia Minimal [...] 394 ms QTc 508 ms P Wave [place] 47 degrees R [place] 19 degrees T [place] 56 degrees ECG Interpretation Normal sinus rhythm [...] PRN ERNESTO Stahl 0.1 mg at 12/20/24 5349 enoxaparin (LOVENOX) injection 40 mg 40 mg subcutaneous q12h COUNTS INCLUDE 234 BEDS AT THE [facility] Jeffrey Hopkins MD 40 mg at 12/21/24 0831 folic acid (FOLVITE) tablet 1 mg 1 mg oral Daily Jeffrey Hopkins MD 1 mg at 12/21/24 0831 nicotine (NICODERM CQ) 21 mg/24 hr patch 1 patch 1 patch transdermal Daily ERNESTO Stahl 1 patch at 12/20/24 4859 PHENobarbitaL tablet 64.8 mg 64.8 mg oral [...] a 59 y.o. male : 1965 MR#: [id number] SUBJECTIVE Subjective Patient seen by the bedside [...] Signed Date: 12/21/2024 08:07 ET Workstation ID: [id number] Transcribed By: Self Edit Transcribed Date: 12/21/2024 [...] from the original note were not included. Medical Assistant Instructor Note Manny Hopkins 1965 [id number] Author: Lance Gallardo DOS: 12/22/2024 Manny Hopkins is a 59 y.o. male with a history of EtOH misuse. With his consent, I sent Mr. Hopkins referral to the following C.S.S. programs: [facility], [facility] Program I also brought a packet of [facility] Pamphlets to Mr. Hopkins so can go through them, contact them himself and see which program is the best for himself. Referrals: [facility] Harm Reduction: None required at this time SIGNATURES: Lance Gallardo - Certified Medical Assistant Instructor * Ernestina Borja DO - 12/22/2024 10:45 AM EST Images from the original note were not included. Manny Hopkins 1965 [id number] Author: Ernestina Borja DO DOS: 12/22/2024 Requesting Service: Hospitalist Service Chief Complaint: Alcohol withdrawal (CMS/[facility]) Reason for Consultation: Alcohol use disorder Source [...] mi Hypertension Mother Hypertension Father Other (Other: Austin's disease ) Sister Other (Other: Alzheimer's ) [...] Signed Date: 12/21/2024 08:07 ET Workstation ID: [id number] Transcribed By: Self Edit Transcribed Date: 12/21/2024 [...] side effects. MIN obtained and referral to [facility] pizza hut assistant's program made Reviewed other options for treatment and offered support. nutritional health coach and team will continue to follow and engage with patient. Thank you for the interesting consultation. Please reach out with any questions or concerns. Principal Problem: Alcohol withdrawal ([facility]) Provider Attestation Electronically signed by Ernestina Borja DO * Lance Gallardo - 12/22/2024 9:57 AM EST Images from the original note were not included. Medical Assistant Instructor Note Manny Hopkins 1965 [id number] Author: Lance Gallardo DOS: 12/22/2024 Manny Hopkins [...] Mr. Hopkins that will include multiple different [employer] [facility] programs, their contact information and outlines of what each program offers. With Mr. Hopkins consent, I am also sendinghis referral to a few of these programs spo that he can get on their waitlists. Referrals: CSS and IOP Harm Reduction: Support information for alcohol use disorder was given to patient. SIGNATURES: Lance Gallardo - Certified Medical Assistant Instructor * Thalia Singh MD - 12/21/2024 5:32 PM EST Images from the original note were not included. [facility]ISON PROGRESS NOTE Date: 12/21/2024 Author: Thalia Singh MD Patient ID: Manny Hopkins is a 59 y.o. male : 1965 MR#: [id number] SUBJECTIVE Subjective Patient seen by the bedside [...] Signed Date: 12/21/2024 08:07 ET Workstation ID: [id number] Transcribed By: Self Edit Transcribed Date: 12/21/2024 [...] infectious concerns): [] Yes / [x] No Morgue Attendant: [x] Yes / [] No If YES, Cardiac Rhythm: [] NSR, [] SB, [x] ST, [] A-FIB, [] A-Flutter, [] Pacemaker, [] 1st Degree HB, [] 2nd Degree HB, [] 3rd Degree HB Reason for Morgue Attendant: Pheno/ alcohol withdrawal/ chest pain VS: Visit [...] Submitted by and Phone Extension: Ml MARTINEZ [id number] * Ledy Marino - 12/20/2024 6:08 PM [...] mi Hypertension Mother Hypertension Father Other (Other: Austin's disease ) Sister Other (Other: Alzheimer's ) [...] does appear to be mildly anxious. HEENT: [place] and moist mucosa neck: Soft and supple [...] Procedure Abnormality Status --------- ------ CBC auto differential[[id number]] Abnormal Final result Please view results for [...] will continue bevery closely observed on a manager ct while in the ED. [KN] ED Course [...] PHYSICAL Please contact author [ERNESTO Stahl] via Bevvy/DecoSnap. Patient: Manny Hopkins Admission Date/Time: 12/20/2024 5:20 [...] deaths in his family, including his , dhotsvt-mu-cqi, and iqfgnz-jr-huu, and all of their funerals are tomorrow. [...] Hypertension in his father and mother; Other: Carlos's disease in his sister; Other: Alzheimer's in [...] No focal deficit. CN II-XII grossly intact. Shirt Folder strength equal 5/5 bilateral upper extremities. 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, 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 [...] drink or used drugs as an 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 hoop 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 tank first thing in the morning to steady [...] 384 ms QTc 497 ms P Wave [place] 39 degrees R [place] 15 degrees T [place] 54 degrees ECG Interpretation Sinus tachycardia Minimal [...] 394 ms QTc 508 ms P Wave [place] 47 degrees R [place] 19 degrees T [place] 56 degrees ECG Interpretation Normal sinus rhythm Possible Left atrial enlargement Prolonged QT Abnormal ECG When compared with ECG of 20-DEC-2024 18:50, (unconfirmed) No significant change was found Confirmed by Juaquni SEWELL JOHN ([id number]) on 12/21/2024 7:49:16 AM [...] injection 40 mg 40 mg subcutaneous q12h COUNTS INCLUDE 234 BEDS AT THE [facility] Jeffrey Hopkins MD 40 mg at 12/21/24 0831 folic acid (FOLVITE) tablet 1 mg 1 mg oral Daily Jeffrey Hopkins MD 1 mg at 12/21/24 0831 nicotine (NICODERM CQ) 21 mg/24 hr patch 1 patch 1 patch transdermal Daily ERNESTO Stahl 1 patch at 12/20/24 2339 PHENobarbitaL tablet 64.8 mg 64.8 mg oral BID Jeffrey Hopkisn MD 64.8 mg at 12/21/24 0831 Followed [...] note were not included. Manny Hopkins 1965 [id number] Author: Ernestina Borja DO DOS: 12/21/2024 Requesting Service: Hospitalist Service Chief Complaint: Alcohol withdrawal ([facility]) Reason for Consultation: Alcohol use disorder Source of History: Patient and chart Subjective History of Present Illness: Manny Hopkins is a 59 y.o. male with a history of heart failure with reduced ejection fraction admitted for management of alcohol withdrawal and suicidal ideation. Patient attributes his drinking to recent multiple recent deaths in his family including his partner, hpbxei-gg-dyj and gvazocr-zl-sdw. He states he was planning for his [...] interested in treatment. 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 cares for his 84-year-old father [...] 384 ms QTc 497 ms P Wave [place] 39 degrees R [place] 15 degrees T [place] 54 degrees ECG Interpretation Sinus tachycardia Minimal voltage criteria for LVH, may be normal variant Borderline ECG No previous ECGs available Confirmed by Juaquin SEWELL JOHN ([id number]) on 12/21/2024 7:47:23 AM Troponin I high sensitivity Collection Time: 12/20/24 7:21 PM Result Value Ref Range High Sensitivity Troponin I 31 <=79 ng/L ECG 12 lead Collection Time: 12/20/24 7:29 PM Result Value Ref Range Ventricular Rate ECG 100 BPM Atrial Rate 100 BPM P-R Interval 180 ms QRS Duration 100 ms Q-T Interval 394 ms QTc 508 ms P Wave [place] 47 degrees R [place] 19 degrees T [place] 56 degrees ECG Interpretation Normal sinus rhythm Possible Left atrial enlargement Prolonged QT Abnormal ECG When compared with ECG of 20-DEC-2024 18:50, (unconfirmed) No significant change was found Confirmed by Juaquin SEWELL JOHN ([id number]) on 12/21/2024 7:49:16 AM Drug abuse screen [...] Signed Date: 12/21/2024 08:07 ET Workstation ID: [id number] Transcribed By: Self Edit Transcribed Date: 12/21/2024 [...] other options for treatment and offered support. nutritional health coach and team will continue to follow and engage with patient. Thank you for the interesting consultation. Please reach out with any questions or concerns. Principal Problem: Alcohol withdrawal ([facility]) Provider Attestation Electronically signed by Ernestina Borja [...] LAB CHEMISTRY METHOD 12/23/2024 7:19 AM EST [facility] Potassium 3.1(L) 3.5 - 5.5 mmol/L LAB CHEMISTRY METHOD 12/23/2024 7:19 AM EST [facility] Chloride 100 96 - 110 mmol/L LAB CHEMISTRY METHOD 12/23/2024 7:19 AM EST [facility] CO2 33(H) 21 - 32 mmol/L LAB CHEMISTRY METHOD 12/23/2024 7:19 AM [facility] Anion Gap 3 3 - 11 LAB CHEMISTRY METHOD 12/23/2024 7:19 AM [facility] Glucose 87 70 - 100 mg/dL LAB CHEMISTRY METHOD 12/23/2024 7:19 AM [facility] BUN 15 5 - 25 mg/dL LAB CHEMISTRY METHOD 12/23/2024 7:19 AM [facility] Creatinine 0.93 0.70 - 1.30 mg/dL LAB CHEMISTRY METHOD 12/23/2024 7:19 AM [facility] eGFR 94 >=60 mL/min/1. 73m2 LAB CHEMISTRY METHOD 12/23/2024 7:19 AM [facility] Comment:Calculation based on the??Chronic Kidney Disease Epidemiology Collaboration (CKD-EPI) equation refit??without adjustment for race. BUN/Creatinine Ratio 16.1 LAB CHEMISTRY METHOD 12/23/2024 7:19 AM [facility] Calcium 8.1(L) 8.5 - 10.5 mg/dL LAB CHEMISTRY METHOD 12/23/2024 7:19 AM [facility] Blood Venous blood specimen / Unknown Venipuncture / Unknown 12/23/2024 5:39 AM EST 12/23/2024 6:43 AM EST Thalia Singh MD LAB BLOOD ORDERABLES Fi nal Result [facility] [address] [place] [address], * (ABNORMAL) Magnesium (12/23/2024 5:39 AM EST) Magnesium 1.7(L) 1.9 - 2.6 mg/dL LAB CHEMISTRY METHOD 12/23/2024 7:19 AM [facility] Blood Venous blood specimen / Unknown Venipuncture / Unknown 12/23/2024 5:39 AM EST 12/23/2024 6:43 AM EST us Thalia Singh MD LAB BLOOD ORDERABLES Fi nal Result Performing Organization Address [facility]/ZIP Co de Phone Number [facility] [address] [place] [address], [place] [phone] * Phosphorus (12/23/2024 5:39 AM EST) Phosphorus 3.3 2.5 - 4.5 mg/dL LAB CHEMISTRY METHOD 12/23/2024 7:19 AM EST [facility] Blood Venous blood specimen / Unknown Venipuncture / Unknown 12/23/2024 5:39 AM EST 12/23/2024 6:43 AM EST Thalia Singh MD LAB BLOOD ORDERABLES Fi nal Result Performing Organization Address [facility] de Phone Number [facility] [address] [place] [address], [place] [phone] * Lavender tube (12/23/2024 5:34 AM EST) Pathologist [facility] Extra Tube Hold for add-ons. 12/23/2024 8:01 AM EST [facility] Comment:Auto resulted. Blood Venous blood specimen / Unknown Venipuncture / Unknown 12/23/2024 5:34 AM EST 12/23/2024 6:46 AM EST us Thalia Singh MD LAB BLOOD ORDERABLES Fi nal Result Performing Organization Address City/[facility]/ZIP Co de Phone Number [facility] [address] [place] [address], [place] [phone] * ECG 12 lead (12/22/2024 5:56 PM EST) Ventricular Rate ECG 87 BPM GEMUSE Atrial Rate 87 BPM GEMUSE P-R Interval 176 ms GEMUSE QRS Duration 102 ms GEMUSE Q-T Interval 422 ms GEMUSE QTc 507 ms GEMUSE P Wave [place] -11 degrees GEMUSE R [place] 15 degrees GEMUSE T [place] 51 degrees GEMUSE ECG Interpretation Sinus rhythm [...] Hemoglobin A1c (12/22/2024 8:18 AM EST) Pathologist [facility] Hemoglobin A1C 5.7 <6.5 % LAB CHEMISTRY METHOD 12/22/2024 1:57 PM EST [facility] Mean Bld Glu Estim. 117 mg/dL LAB CHEMISTRY METHOD 12/22/2024 1:57 PM EST [facility] Blood Venous blood specimen / Unknown 12/22/2024 8:18 AM EST 12/22/2024 8:25 AM EST Thalia Singh MD LAB BLOOD ORDERABLES Fi nal Result [facility] [address] [place] [address], [place] [phone] * Lavender tube (12/22/2024 8:18 AM EST) Pathologist [facility] Extra Tube Hold for add-ons. 12/22/2024 10:01 AM EST [facility] Comment:Auto resulted. Blood Venous blood specimen / Unknown 12/22/2024 8:18 AM EST 12/22/2024 8:25 AM EST Thalia Singh MD LAB BLOOD ORDERABLES Fi nal Result [facility] [address] [place] [address], * (ABNORMAL) Comprehensive metabolic panel (12/22/2024 8:18 AM EST) Sodium 134 133 - 145 mmol/L LAB CHEMISTRY METHOD 12/22/2024 9:02 AM [facility] Potassium 3.3(L) 3.5 - 5.5 mmol/L LAB CHEMISTRY METHOD 12/22/2024 9:02 AM [facility] Chloride 97 96 - 110 mmol/L LAB CHEMISTRY METHOD 12/22/2024 9:02 AM [facility] CO2 31 21 - 32 mmol/L LAB CHEMISTRY METHOD 12/22/2024 9:02 AM [facility] Anion Gap 6 3 - 11 LAB CHEMISTRY METHOD 12/22/2024 9:02 AM [facility] Glucose 104(H) 70 - 100 mg/dL LAB CHEMISTRY METHOD 12/22/2024 9:02 AM [facility] BUN 14 5 - 25 mg/dL LAB CHEMISTRY METHOD 12/22/2024 9:02 AM [facility] Creatinine 0.94 0.70 - 1.30 mg/dL LAB CHEMISTRY METHOD 12/22/2024 9:02 AM [facility] eGFR 93 >=60 mL/min/1. 73m2 LAB CHEMISTRY METHOD 12/22/2024 9:02 AM [facility] Comment:Calculation based on the??Chronic Kidney Disease Epidemiology Collaboration (CKD-EPI) equation refit??without adjustment for race. BUN/Creatinine Ratio 14.9 LAB CHEMISTRY METHOD 12/22/2024 9:02 AM [facility] Calcium 8.3(L) 8.5 - 10.5 mg/dL LAB CHEMISTRY METHOD 12/22/2024 9:02 AM [facility] AST (SGOT) 53(H) 10 - 42 unit/L LAB CHEMISTRY METHOD 12/22/2024 9:02 AM [facility] ALT (SGPT) 49 10 - 60 unit/L LAB CHEMISTRY METHOD 12/22/2024 9:02 AM [facility] Alkaline Phosphatase 79 42 - 121 unit/L LAB CHEMISTRY METHOD 12/22/2024 9:02 AM [facility] Total Protein 6.0 6.0 - 8.0 g/dL LAB CHEMISTRY METHOD 12/22/2024 9:02 AM [facility] Albumin 3.2 3.2 - 5.0 g/dL LAB CHEMISTRY METHOD 12/22/2024 9:02 AM [facility] Total Bilirubin 1.7(H) 0.0 - 1.4 mg/dL LAB CHEMISTRY METHOD 12/22/2024 9:02 AM [facility] Blood Venous blood specimen / Unknown Venipuncture / Unknown 12/22/2024 8:18 AM EST 12/22/2024 8:24 AM EST Thalia Singh MD LAB BLOOD ORDERABLES Fi nal Result [facility] [address] [place] [address], * CBC auto differential (12/21/2024 5:52 AM EST) WBC 6.3 4.8 - 10.8 K/mcL LAB HEMETOLOGY METHOD 12/21/2024 6:53 AM [facility] RBC 4.80 4.50 - 5.50 M/mcL LAB HEMETOLOGY METHOD 12/21/2024 6:53 AM [facility] Hemoglobin 13.9 13.5 - 17.5 g/dL LAB HEMETOLOGY METHOD 12/21/2024 6:53 AM [facility] Hematocrit 42.0 42.0 - 54.0 % LAB HEMETOLOGY METHOD 12/21/2024 6:53 AM [facility] MCV 87.9 79.0 - 98.0 FL LAB HEMETOLOGY METHOD 12/21/2024 6:53 AM [facility] MCH 29.1 27.0 - 32.0 pcg LAB HEMETOLOGY METHOD 12/21/2024 6:53 AM [facility] MCHC 33.1 32.0 - 37.0 g/dL LAB HEMETOLOGY METHOD 12/21/2024 6:53 AM [facility] RDW 13.2 11.0 - 15.0 % LAB HEMETOLOGY METHOD 12/21/2024 6:53 AM [facility] Platelets 145 130 - 400 K/mcL LAB HEMETOLOGY METHOD 12/21/2024 6:53 AM [facility] MPV 10.0 7.0 - 11.0 FL LAB HEMETOLOGY METHOD 12/21/2024 6:53 AM [facility] NRBC 0.0 <1.0 % LAB HEMETOLOGY METHOD 12/21/2024 6:53 AM [facility] NRBC Absolute 0.00 <0.10 K/mcL LAB HEMETOLOGY METHOD 12/21/2024 6:53 AM [facility] Neutrophils Relative 62.9 % LAB HEMETOLOGY METHOD 12/21/2024 6:53 AM [facility] Lymphocytes Relative 26.3 % LAB HEMETOLOGY METHOD 12/21/2024 6:53 AM [facility] Monocytes Relative 7.5 % LAB HEMETOLOGY METHOD 12/21/2024 6:53 AM EST [facility] Eosinophils Relative 2.2 % LAB HEMETOLOGY METHOD 12/21/2024 6:53 AM [facility] Basophils Relative 0.8 % LAB HEMETOLOGY METHOD 12/21/2024 6:53 AM [facility] Immature Granulocytes Relative 0.3 % LAB HEMETOLOGY METHOD 12/21/2024 6:53 AM EST [facility] Neutrophils Absolute 3.95 1.50 - 7.00 K/mcL LAB HEMETOLOGY METHOD 12/21/2024 6:53 AM [facility] Lymphocytes Absolute 1.65 1.00 - 5.00 K/mcL LAB HEMETOLOGY METHOD 12/21/2024 6:53 AM [facility] Monocytes Absolute 0.47 0.20 - 1.00 K/mcL LAB HEMETOLOGY METHOD 12/21/2024 6:53 AM EST [facility] Eosinophils Absolute 0.14 0.00 - 0.50 K/mcL LAB HEMETOLOGY METHOD 12/21/2024 6:53 AM EST [facility] Basophils Absolute 0.05 0.00 - 0.20 K/mcL LAB HEMETOLOGY METHOD 12/21/2024 6:53 AM [facility] Immature Granulocytes Absolute 0.02 0.00 - 0.03 K/mcL LAB HEMETOLOGY METHOD 12/21/2024 6:53 AM [facility] Blood Venous blood specimen / Unknown Venipuncture / Unknown 12/21/2024 5:52 AM EST 12/21/2024 6:34 AM EST us Jeffrey Hopkins MD LAB BLOOD ORDERABLES Final Result [facility] [address] [place] [address], * (ABNORMAL) Hepatic function panel (12/21/2024 5:52 AM EST) [facility] Total Protein 6.5 6.0 - 8.0 g/dL LAB CHEMISTRY METHOD 12/21/2024 7:24 AM EST [facility] Albumin 3.3 3.2 - 5.0 g/dL LAB CHEMISTRY METHOD 12/21/2024 7:24 AM EST [facility] Total Bilirubin 1.1 0.0 - 1.4 mg/dL LAB CHEMISTRY METHOD 12/21/2024 7:24 AM [facility] Bilirubin, Direct 0.3 0.0 - 0.3 mg/dL LAB CHEMISTRY METHOD 12/21/2024 7:24 AM [facility] Bilirubin, Indirect 0.8 0.0 - 1.1 mg/dL LAB CHEMISTRY METHOD 12/21/2024 7:24 AM [facility] ALT (SGPT) 51 10 - 60 unit/L LAB CHEMISTRY METHOD 12/21/2024 7:24 AM [facility] AST (SGOT) 52(H) 10 - 42 unit/L LAB CHEMISTRY METHOD 12/21/2024 7:24 AM [facility] Alkaline Phosphatase 84 42 - 121 unit/L LAB CHEMISTRY METHOD 12/21/2024 7:24 AM [facility] Blood Venous blood specimen / Unknown Venipuncture / Unknown 12/21/2024 5:52 AM EST 12/21/2024 6:34 AM EST us Polly OROZCO LAB BLOOD ORDERABLES Final R esult [facility] [address] [place] [address], [place] [phone] * (ABNORMAL) Magnesium (12/21/2024 5:52 AM EST) [facility] Magnesium 1.6(L) 1.9 - 2.6 mg/dL LAB CHEMISTRY METHOD 12/21/2024 7:24 AM [facility] Blood Venous blood specimen / Unknown Venipuncture / Unknown 12/21/2024 5:52 AM EST 12/21/2024 6:34 AM EST us Jeffrey Hopkins MD LAB BLOOD ORDERABLES Final Result [facility] [address] [place] [address], [place] [phone] * (ABNORMAL) Basic metabolic panel (12/21/2024 5:52 AM EST) [facility] Sodium 135 133 - 145 mmol/L LAB CHEMISTRY METHOD 12/21/2024 7:24 AM [facility] Potassium 3.5 3.5 - 5.5 mmol/L LAB CHEMISTRY METHOD 12/21/2024 7:24 AM [facility] Chloride 97 96 - 110 mmol/L LAB CHEMISTRY METHOD 12/21/2024 7:24 AM [facility] CO2 30 21 - 32 mmol/L LAB CHEMISTRY METHOD 12/21/2024 7:24 AM [facility] Anion Gap 8 3 - 11 LAB CHEMISTRY METHOD 12/21/2024 7:24 AM [facility] Glucose 107(H) 70 - 100 mg/dL LAB CHEMISTRY METHOD 12/21/2024 7:24 AM [facility] BUN 19 5 - 25 mg/dL LAB CHEMISTRY METHOD 12/21/2024 7:24 AM [facility] Creatinine 0.99 0.70 - 1.30 mg/dL LAB CHEMISTRY METHOD 12/21/2024 7:24 AM [facility] eGFR 87 >=60 mL/min/1. 73m2 LAB CHEMISTRY METHOD 12/21/2024 7:24 AM [facility] Comment:Calculation based on the??Chronic Kidney Disease Epidemiology Collaboration (CKD-EPI) equation refit??without adjustment for race. BUN/Creatinine Ratio 19.2 LAB CHEMISTRY METHOD 12/21/2024 7:24 AM EST [facility] Calcium 7.8(L) 8.5 - 10.5 mg/dL LAB CHEMISTRY METHOD 12/21/2024 7:24 AM [facility] Blood Venous blood specimen / Unknown Venipuncture / Unknown 12/21/2024 5:52 AM EST 12/21/2024 6:34 AM EST us Jeffrey Hopkins MD LAB BLOOD ORDERABLES Final Result [facility] [address] [place] [address], * Respiratory virus panel molecular study (12/21/2024 12:24 AM EST) Adenovirus Detection by PCR Not Detected Not Detected LAB MICROBIOLOGY METHOD 12/21/2024 1:46 AM [facility] Influenza A PCR Not Detected Not Detected LAB MICROBIOLOGY METHOD 12/21/2024 1:46 AM [facility] Influenza B PCR Not Detected Not Detected LAB MICROBIOLOGY METHOD 12/21/2024 1:46 AM [facility] Coronavirus 229E Not Detected Not Detected LAB MICROBIOLOGY METHOD 12/21/2024 1:46 AM [facility] Coronavirus HKU1 Not Detected Not Detected LAB MICROBIOLOGY METHOD 12/21/2024 1:46 AM [facility] Coronavirus OC43 Not Detected Not Detected LAB MICROBIOLOGY METHOD 12/21/2024 1:46 AM [facility] Coronavirus NL63 Not Detected Not Detected LAB MICROBIOLOGY METHOD 12/21/2024 1:46 AM [facility] Parainfluenza Virus 1 Not Detected Not Detected LAB MICROBIOLOGY METHOD 12/21/2024 1:46 AM [facility] Parainfluenza Virus 2 Not Detected Not Detected LAB MICROBIOLOGY METHOD 12/21/2024 1:46 AM [facility] Parainfluenza Virus 3 Not Detected Not Detected LAB MICROBIOLOGY METHOD 12/21/2024 1:46 AM [facility] Parainfluenza Virus 4 Not Detected Not Detected LAB MICROBIOLOGY METHOD 12/21/2024 1:46 AM [facility] RSV PCR Not Detected Not Detected LAB MICROBIOLOGY METHOD 12/21/2024 1:46 AM [facility] Human Metapneumovirus A and B Not Detected Not Detected LAB MICROBIOLOGY METHOD 12/21/2024 1:46 AM [facility] Rhinovirus/Entero virus Not Detected Not Detected LAB MICROBIOLOGY METHOD 12/21/2024 1:46 AM [facility] Bordetella pertussis Not Detected Not Detected LAB MICROBIOLOGY METHOD 12/21/2024 1:46 AM [facility] Bordetella parapertussis Not Detected Not Detected LAB MICROBIOLOGY METHOD 12/21/2024 1:46 AM [facility] Mycoplasma pneumo by PCR Not Detected Not Detected LAB MICROBIOLOGY METHOD 12/21/2024 1:46 AM [facility] Chlamydia pneumoniae Not Detected Not Detected LAB MICROBIOLOGY METHOD 12/21/2024 1:46 AM [facility] SARS COV-2 Not Detected Not Detected LAB MICROBIOLOGY METHOD 12/21/2024 1:46 AM [facility] Swab Both anterior nares / Unknown Non-blood Collection / Unknown 12/21/2024 12:24 AM EST 12/21/2024 12:48 AM [facility] - 12/21/2024 1:46 AM EST Testing was performed using the [employer] Respiratory Pathogen PCR Assay. All results must [...] O RDERABLES Final Result Performing Organization Address [facility]/ZIP Co de Phone Number [facility] [address] [place] [address], * Procalcitonin (12/21/2024 12:20 AM EST) Procalcitonin 0.06 <=0.16 ng/mL LAB CHEMISTRY METHOD 12/21/2024 8:52 AM EST [facility] Blood Venous blood specimen / Unknown Venipuncture / Unknown 12/21/2024 12:20 AM EST 12/21/2024 12:26 AM EST Narrative [facility] - 12/21/2024 8:52 AM EST [...] ORDERABLES Final R esult Performing Organization Address [facility]/ZIP Co de Phone Number [facility] [address] [place] [address], [place] [phone] * (ABNORMAL) Drug abuse screen 8a panel, urine (12/20/2024 9:34 PM EST) Amphetamine Screen, Ur Negative Negative LAB CHEMISTRY METHOD 5 10:10 PM [facility] Comment:Certain OTC medicati ons containing ephedrine, phenylephrine, pseudoephedrine and phenylpropanolamine can cause false positive results. Barbiturate Screen, Ur Negative Negative LAB CHEMISTRY METHOD 5 10:10 PM [facility] Benzodiazepine Screen, Ur Negative Negative LAB CHEMISTRY METHOD 5 10:10 PM [facility] Cocaine Screen, Ur Negative Negative LAB CHEMISTRY METHOD 5 10:10 PM [facility] Opiate Screen, Ur Negative Negative LAB CHEMISTRY METHOD 5 10:10 PM [facility] Cannabinoid (THC) Screen, Ur Positive(A ) Negative LAB CHEMISTRY METHOD 5 10:10 PM [facility] Comment:Specimens from patie nts taking pantoprazole sodium (Protonix) have been shown to produce false positive results. Oxycodone Screen, Ur Negative Negative LAB CHEMISTRY METHOD 5 10:10 PM [facility] Fentanyl, Ur Negative Negative LAB CHEMISTRY METHOD 5 10:10 PM [facility] Urine Urine specimen obtained by clean [...] ORDERABLES Final Res ult Performing Organization Address City/[facility]/ZIP Co de Phone Number [facility] [address] [place] [address], [place] [phone] * ECG 12 lead (12/20/2024 7:29 PM EST) [facility] Ventricular Rate ECG 100 BPM GEMUSE Atrial Rate 100 BPM GEMUSE P-R Interval 180 ms GEMUSE QRS Duration 100 ms GEMUSE Q-T Interval 394 ms GEMUSE QTc 508 ms GEMUSE P Wave [place] 47 degrees GEMUSE R [place] 19 degrees GEMUSE T [place] 56 degrees GEMUSE ECG Interpretation Normal sinus rhythm Possible Left atrial enlargement Prolonged QT Abnormal ECG When compared with ECG of 20-DEC-2024 18:50, (unconfirmed) No significant change was found Confirmed by Juaquin SEWELL JOHN ([id number]) on 12/21/2024 7:49:16 AM GEMUSE 12/20/2024 7:29 PM EST 12/21/2024 7:49 AM EST Johan Gaona DO ECG ORDERABLES Final Result Performing Organization Address [facility] Co de Phone Number GEMUSE * Troponin I high sensitivity (12/20/2024 7:21 PM EST) [facility] High Sensitivity Troponin I 31 <=79 ng/L LAB CHEMISTRY METHOD 12/20/2024 8:09 PM EST [facility] Blood Venous blood specimen / Unknown Venipuncture / Unknown 12/20/2024 7:21 PM EST 12/20/2024 7:42 PM EST Narrative DICK DINERO ND ([facility]) [facility] - 12/20/2024 8:09 PM EST High levels of biotin in samples may falsely decrease hsTroponin values. ??Use caution when interpreting hsTroponin results in patients taking biotin who exhibit renal impairment (eGFR <60) or in patients taking more than 20 mg/day of biotin. us Johan Gaona DO LAB BLOOD ORDERABLES Final Res ult [facility]Osbaldo SANDOVALROSETTE [place] ([facility]) [facility] [address] [place] [address], [place] [phone] * XR Chest 2 Views (12/20/2024 7:00 PM EST) Anatomical Region Laterality Modality Body Radiographic Amena ging 12/21/2024 8:04 AM EST Impressions 12/21/2024 8:07 AM EST No acute findings. -------- FINAL REPORT -------- Dictated By: Sabino Oviedo Dictated Date: 12/21/2024 08:04 ET Assigned Physician: Sabino Oviedo Reviewed and Electronically Signed By: Sabino Oviedo Signed Date: 12/21/2024 08:07 ET Workstation ID: [id number] Transcribed By: Self Edit Transcribed Date: 12/21/2024 [...] Signed Date: 12/21/2024 08:07 ET Workstation ID: [id number] Transcribed By: Self Edit Transcribed Date: 12/21/2024 08:04 ET us Jeffrey Hopkins MD IMG XR PROCEDURES Final Res ult * ECG 12 lead (12/20/2024 6:50 PM EST) Pathologist [facility] Ventricular Rate ECG 101 BPM GEMUSE Atrial Rate 101 BPM GEMUSE P-R Interval 164 ms GEMUSE QRS Duration 106 ms GEMUSE Q-T Interval 384 ms GEMUSE QTc 497 ms GEMUSE P Wave [place] 39 degrees GEMUSE R [place] 15 degrees GEMUSE T [place] 54 degrees GEMUSE ECG Interpretation Sinus tachycardia Minimal voltage criteria for LVH, may be normal variant Borderline ECG No previous ECGs available Confirmed by Juaquin SEWELL JOHN ([id number]) on 12/21/2024 7:47:23 AM GEMUSE 12/20/2024 6:50 PM EST 12/21/2024 7:47 AM EST us Johan Gaona DO ECG ORDERABLES Final Result [facility] * Vitamin B12 and folate (12/20/2024 6:08 PM EST) Pathologist [facility] Vitamin B-12 586 250 - 900 pcg/mL LAB CHEMISTRY METHOD 12/21/2024 12:45 AM EST [facility] Folate 8.3 2.8 - 17.0 ng/ml LAB CHEMISTRY METHOD 12/21/2024 12:45 AM EST [facility] Blood Venous blood specimen / Unknown Venipuncture / Unknown 12/20/2024 6:08 PM EST 12/20/2024 6:21 PM EST Polly Cast PA LAB BLOOD ORDERABLES Final R esult Performing Organization Address [facility]/ZIP Co de Phone Number [facility] [address] [place] [address], [place] [phone] * Magnesium (12/20/2024 6:08 PM EST) Pathologist [facility] Magnesium 1.9 1.9 - 2.6 mg/dL LAB CHEMISTRY METHOD 12/20/2024 6:52 PM EST [facility] Blood Venous blood specimen / Unknown Venipuncture / Unknown 12/20/2024 6:08 PM EST 12/20/2024 6:21 PM EST Johan Gaona DO LAB BLOOD ORDERABLES Final Res ult Performing Organization Address [facility] Co de Phone Number [facility] [address] [place] [address], [place] [phone] * (ABNORMAL) Lipase (12/20/2024 6:08 PM EST) Pathologist [facility] Lipase 85(H) 13 - 75 unit/L LAB CHEMISTRY METHOD 12/20/2024 6:52 PM EST [facility] Blood Venous blood specimen / Unknown Venipuncture / Unknown 12/20/2024 6:08 PM EST 12/20/2024 6:21 PM EST Johan Gaona DO LAB BLOOD ORDERABLES Final Res ult Performing Organization Address City/[facility]/ZIP Co de Phone Number [facility] [address] [place] [address], [place] [phone] * (ABNORMAL) Comprehensive metabolic panel (12/20/2024 6:08 PM EST) Sodium 141 133 - 145 mmol/L LAB CHEMISTRY METHOD 12/20/2024 7:18 PM EST [facility] Potassium 4.0 3.5 - 5.5 mmol/L LAB CHEMISTRY METHOD 12/20/2024 7:18 PM [facility] Chloride 101 96 - 110 mmol/L LAB CHEMISTRY METHOD 12/20/2024 7:18 PM [facility] CO2 21 21 - 32 mmol/L LAB CHEMISTRY METHOD 12/20/2024 7:18 PM [facility] Anion Gap 19(H) 3 - 11 LAB CHEMISTRY METHOD 12/20/2024 7:18 PM [facility] Glucose 68(L) 70 - 100 mg/dL LAB CHEMISTRY METHOD 12/20/2024 7:18 PM [facility] BUN 18 5 - 25 mg/dL LAB CHEMISTRY METHOD 12/20/2024 7:18 PM [facility] Creatinine 1.00 0.70 - 1.30 mg/dL LAB CHEMISTRY METHOD 12/20/2024 7:18 PM [facility] eGFR 86 >=60 mL/min/1. 73m2 LAB CHEMISTRY METHOD 12/20/2024 7:18 PM [facility] Comment:Calculation based on the??Chronic Kidney Disease Epidemiology Collaboration (CKD-EPI) equation refit??without adjustment for race. BUN/Creatinine Ratio 18.0 LAB CHEMISTRY METHOD 12/20/2024 7:18 PM [facility] Calcium 8.3(L) 8.5 - 10.5 mg/dL LAB CHEMISTRY METHOD 12/20/2024 7:18 PM [facility] AST (SGOT) 77(H) 10 - 42 unit/L LAB CHEMISTRY METHOD 12/20/2024 7:18 PM [facility] ALT (SGPT) 61(H) 10 - 60 unit/L LAB CHEMISTRY METHOD 12/20/2024 7:18 PM [facility] Alkaline Phosphatase 94 42 - 121 unit/L LAB CHEMISTRY METHOD 12/20/2024 7:18 PM [facility] Total Protein 7.3 6.0 - 8.0 g/dL LAB CHEMISTRY METHOD 12/20/2024 7:18 PM EST [facility] Albumin 3.8 3.2 - 5.0 g/dL LAB CHEMISTRY METHOD 12/20/2024 7:18 PM [facility] Total Bilirubin 0.8 0.0 - 1.4 mg/dL LAB CHEMISTRY METHOD 12/20/2024 7:18 PM EST [facility] Blood Venous blood specimen / Unknown Venipuncture / Unknown 12/20/2024 6:08 PM EST 12/20/2024 6:21 PM EST us Johan Gaona DO LAB BLOOD ORDERABLES Final Res ult [facility] [address] [place] [address], * (ABNORMAL) CBC auto differential (12/20/2024 6:07 PM EST) WBC 6.9 4.8 - 10.8 K/mcL LAB HEMETOLOGY METHOD 12/20/2024 6:35 PM [facility] RBC 5.60(H) 4.50 - 5.50 M/mcL LAB HEMETOLOGY METHOD 12/20/2024 6:35 PM [facility] Hemoglobin 16.1 13.5 - 17.5 g/dL LAB HEMETOLOGY METHOD 12/20/2024 6:35 PM [facility] Hematocrit 49.6 42.0 - 54.0 % LAB HEMETOLOGY METHOD 12/20/2024 6:35 PM [facility] MCV 88.4 79.0 - 98.0 FL LAB HEMETOLOGY METHOD 12/20/2024 6:35 PM [facility] MCH 28.7 27.0 - 32.0 pcg LAB HEMETOLOGY METHOD 12/20/2024 6:35 PM [facility] MCHC 32.5 32.0 - 37.0 g/dL LAB HEMETOLOGY METHOD 12/20/2024 6:35 PM [facility] RDW 13.5 11.0 - 15.0 % LAB HEMETOLOGY METHOD 12/20/2024 6:35 PM [facility] Platelets 168 130 - 400 K/mcL LAB HEMETOLOGY METHOD 12/20/2024 6:35 PM [facility] MPV 10.1 7.0 - 11.0 FL LAB HEMETOLOGY METHOD 12/20/2024 6:35 PM [facility] NRBC 0.0 <1.0 % LAB HEMETOLOGY METHOD 12/20/2024 6:35 PM [facility] NRBC Absolute 0.00 <0.10 K/mcL LAB HEMETOLOGY METHOD 12/20/2024 6:35 PM [facility] Neutrophils Relative 74.0 % LAB HEMETOLOGY METHOD 12/20/2024 6:35 PM [facility] Lymphocytes Relative 21.2 % LAB HEMETOLOGY METHOD 12/20/2024 6:35 PM [facility] Monocytes Relative 3.3 % LAB HEMETOLOGY METHOD 12/20/2024 6:35 PM [facility] Eosinophils Relative 0.3 % LAB HEMETOLOGY METHOD 12/20/2024 6:35 PM [facility] Basophils Relative 0.9 % LAB HEMETOLOGY METHOD 12/20/2024 6:35 PM [facility] Immature Granulocytes Relative 0.3 % LAB HEMETOLOGY METHOD 12/20/2024 6:35 PM [facility] Neutrophils Absolute 5.13 1.50 - 7.00 K/mcL LAB HEMETOLOGY METHOD 12/20/2024 6:35 PM [facility] Lymphocytes Absolute 1.47 1.00 - 5.00 K/[facility] LAB HEMETOLOGY METHOD 12/20/2024 6:35 PM EST [facility] Monocytes Absolute 0.23 0.20 - 1.00 K/[facility] LAB HEMETOLOGY METHOD 12/20/2024 6:35 PM EST [facility] Eosinophils Absolute 0.02 0.00 - 0.50 K/[facility] LAB HEMETOLOGY METHOD 12/20/2024 6:35 PM EST [facility] Basophils Absolute 0.06 0.00 - 0.20 K/[facility] LAB HEMETOLOGY METHOD 12/20/2024 6:35 PM EST [facility] Immature Granulocytes Absolute 0.02 0.00 - 0.03 K/[facility] LAB HEMETOLOGY METHOD 12/20/2024 6:35 PM EST [facility] Blood Venous blood specimen / Unknown Venipuncture / Unknown 12/20/2024 6:07 PM EST 12/20/2024 6:21 PM EST us Johan Gaona DO LAB BLOOD ORDERABLES Final Res ult [facility] [address] [place] [address], [place] [phone] * B-type natriuretic peptide (12/20/2024 6:07 PM EST) BNP 10 <=100 pcg/mL LAB CHEMISTRY METHOD 12/20/2024 6:58 PM EST [facility] Blood Venous blood specimen / Unknown Venipuncture / Unknown 12/20/2024 6:07 PM EST 12/20/2024 6:21 PM EST us Johan Gaona DO LAB BLOOD ORDERABLES Final Res ult [facility] [address] [place] [address], [place] [phone] * Troponin I high sensitivity (12/20/2024 6:07 PM EST) High Sensitivity Troponin I 32 <=79 ng/L LAB CHEMISTRY METHOD 12/20/2024 6:51 PM EST [facility] Blood Venous blood specimen / Unknown Venipuncture / Unknown 12/20/2024 6:07 PM EST 12/20/2024 6:21 PM EST Narrative [facility] - 12/20/2024 6:51 PM EST High levels of biotin in samples may falsely decrease hsTroponin values. ??Use caution when interpreting hsTroponin results in patients taking biotin who exhibit renal impairment (eGFR <60) or in patients taking more than 20 mg/day of biotin. us Johan Gaona DO LAB BLOOD ORDERABLES Final Res ult [facility] [address] [place] [address], documented in this encounter Visit Diagnoses Diagnosis [...] 20 mEq 20 mEq, oral, Once, On [facility] 12/23/24 at 1030, For 1 dose, Tablet may be swallowed whole (do not crush/chew/suck on) OR broken in half and each half swallowed separately OR dissolved (whole tablet) in ~4 ounces of water (allow ~2 minutes to dissolve, stir well and administer immediately). Given 12/23/2024 9:59 AM EST 20 mEq potassium chloride (KLOR-CON M20) CR tablet 40 mEq 40 mEq, oral, Once, On [facility] 12/23/24 at 0830, For 1 dose, Tablet [...] at 2302, 2nd Line Option: -ONLY give WA if patient is unable to take orally [...] at 2302, 2nd Line Option: -ONLY give WA if patient is unable to take orally [...] at 2302, 2nd Line Option: -ONLY give WA if patient is unable to take orally [...] documented as of this encounter Care Teams [employer] Relationship Specialty Start Date End Date Physician, No Pcp PCP - General 12/20/24 documented as of this encounter
[2025-01-10] MEDS: LORazepam 1 MG TABLET PO (16:46)
[2025-01-10 16:51] VITALS: BP 194/112; PULSE 79
[2025-01-10] MEDS: Valsartan 40 MG TABLET PO (17:24)
--- NOTE | 2025-01-10 17:46 | PC.ADMIT ---
Alfred Lewis is a 59 year old male admitted to ? from the [facility] afternoon. He initially came in through the ED? for reportedly attempting suicide by hanging and alcohol withdrawal. 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 He admits to drinking 1-2 pints of vodka per day since 01/07, BAL 423, and denies any additional substance abuse though toxicology screen was positive for cocaine and marijuana. CIWA scores on [facility] 0 and completed? phenobarbital taper. Upon arrival at Alfred signed a CV with Dr. Cary. He was compliant with the admission process, signed MIN, and consents. Safety and skin check unremarkable and wearing a bariatric size gown. His BP was elevated initially in the 190's/100's and upon repeat still hypertensive 190's/110's. Provider Jerman Paris was informed and ordered?a?one time dose of Valsartan. Repeat BP 1 hr after dose 178/87, pulse 79. He was tearful at several points during admission while?sharing what brought him into [facility]. He reports he had 1 psychiatric admission to in 1994 after the sudden of his fiance. Then recently on 01/07 he came home to find his long time girlfriend . He reports that her mother (whom they had been caring for), while in home hospice. When discussing suicide attempt he reports that he did not actually try to hang himself, he told his friend he needed to go to the hospital for help with his mental health and while there reported a suicide attempt, it was a cry for help. He also reports not having a support system but is in touch with a arabic linguist from a [place] he visits. He agreed to a reclaimer consult and Trevor saw him this afternoon. He was open to receiving the Flu vaccine and NRT. He denies SI/HI/AVH and reports feeling overwhelmed with grief and anxiety but? 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 He shared that his employer is extremely supportive and has been calling daily to check on him. He was oriented to the unit, completed menu selections, and placed on q 15 min checks.?Sitting in kitchen watching TV and eating meals with peers.
[2025-01-10 20:00] VITALS: BP 157/90; PULSE 86; TEMP 36.9; O2SAT 96
[2025-01-10 20:53] VITALS: BP 187/114; PULSE 86
[2025-01-10] MEDS: carvediloL 25 MG TABLET PO (20:53)
[2025-01-10] MEDS: traZODone HCL 50 MG TABLET PO (22:07)
--- NOTE | 2025-01-11 08:29 | MHC.RECOVRN ---
Received Addiction Medicine consult for positive AUDIT C. Pt was seen while on medical floor for AUDIT C and a voice coach referral was placed. RN aware.
[2025-01-11 08:58] LABS: Cholesterol 189 mg/dL (<200); HDL Cholesterol 80 mg/dL (>40); LDL Cholesterol Calculated 92 mg/dL (<100); Triglycerides 87 mg/dL (<150)
[2025-01-11 09:05] VITALS: BP 170/92; PULSE 70
[2025-01-11] MEDS: carvediloL 25 MG TABLET PO ×2 (09:05→21:02)
[2025-01-11 09:06] VITALS: BP 170/92; PULSE 70; RESP 18; TEMP 36.7; O2SAT 96
[2025-01-11] MEDS: Thiamine HCL 100 MG TABLET PO (09:06)
[2025-01-11] MEDS: Furosemide 40 MG TABLET PO (09:06)
[2025-01-11] MEDS: Valsartan 40 MG TABLET PO (09:06)
[2025-01-11] MEDS: Folic Acid 1 MG TABLET PO (09:07)
[2025-01-11] MEDS: LORazepam 1 MG TABLET PO ×2 (09:11→17:12)
[2025-01-11 09:13] LABS: TSH reflex Free T4 2.63 uIU/mL (0.32-4.0)
[2025-01-11 09:19] LABS: Estimated Average Glucose 105 mg/dL; Hemoglobin A1C 123.8726 umol/L; Hemoglobin A1c % 5.3 % (<6.0)
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
[2025-01-11 13:05] VITALS: BP 165/90; PULSE 81
[2025-01-11 20:00] VITALS: BP 164/90; PULSE 75; TEMP 36.4; O2SAT 95
[2025-01-11 21:02] VITALS: BP 169/90; PULSE 75
[2025-01-11] MEDS: traZODone HCL 50 MG TABLET PO (21:03)
[2025-01-12 08:00] VITALS: BP 155/97; PULSE 74; RESP 16; TEMP 36.6; O2SAT 95
[2025-01-12] MEDS: Nicotine 14 MG PATCH.TD24 TRANSDERMA (08:29)
[2025-01-12] MEDS: Valsartan 40 MG TABLET PO ×2 (08:30→22:26)
[2025-01-12] MEDS: carvediloL 25 MG TABLET PO ×2 (08:30→22:27)
[2025-01-12] MEDS: Thiamine HCL 100 MG TABLET PO (08:30)
[2025-01-12] MEDS: Sertraline HCL 25 MG TABLET PO (08:30)
[2025-01-12] MEDS: Folic Acid 1 MG TABLET PO (08:30)
[2025-01-12] MEDS: Furosemide 40 MG TABLET PO (08:32)
[2025-01-12] MEDS: LORazepam 1 MG TABLET PO ×3 (08:43→22:27)
--- NOTE | 2025-01-12 09:58 | HO.PSYCHPN ---
Subjective Subjective Date of Service: 01/12/25 Reason For Visit: Depression/SI Subjective Notes: Conditional Voluntary Healthcare Proxy: No Guardianship: No Medical Problems Affecting Mental Status: No Interim History: Discussed discharge date for 01/14. Pt agrees. 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 Pt plans AA and asks for meeting recommendations along with therapy/psychiatry. BP's remain high. Hospitalist consult ordered to review his regime. Tearful in our meeting today. Reviewed losses, changes, however states his tears are ones of relief as well as he feels a much stronger sense of community support. No adverse effects from initiation of Sertraline. Medication Compliance: Yes Side effects from medications: No Attending Groups: Yes Review of Systems HTN Review of Systems Review of Systems HTN Mental Status Exam Mental Status Exam Patient Appearance: Appropriate Patient Orientation: Person, Place, Time and Situation Level of Consciousness: Alert Patient Behavior: Talkative, Cooperative, Good Eye Contact and Crying Mood Description: Depressed Affect Description: Flat Patient Cognition Impaired: No Ability to Follow Directions: Good Speech Pattern: Spontaneous Speech Memory Description: Intact Hallucinations: None Delusions: Not Present Perceptual Disturbances: Depersonalization Thought Process: Rumination Thought Content: positive for Perseveration and positive for Suicidal Ideation (denies) Depressive Symptoms: Hopelessness Judgement: Fair Diagnostics Vital Signs (24Hr): Vital Signs - 24 hr 01/11/25 13:05 01/11/25 20:00 01/11/25 21:02 Temperature 97.6 F Pulse Rate 81 75 75 Respiratory Rate Blood Pressure 165/90 H 164/90 H 169/90 H Pulse Oximetry 95 Oxygen Delivery Method Room Air 01/12/25 08:00 Temperature 97.8 F Pulse Rate 74 Respiratory Rate 16 Blood Pressure 155/97 H Pulse Oximetry 95 Oxygen Delivery Method Room Air BMI result Body Mass Index 43.7 Labs 01/10/25 14:03 Labs: Laboratory Results - last 48 hr 01/10/25 01/10/25 01/11/25 14:03 17:13 07:45 Sodium 140 Potassium 3.7 Chloride 101 Carbon Dioxide 30 H Anion Gap 13 BUN 22 H Creatinine 1.06 Estim Creat Clear Calc TNP Estimated GFR > 60 Fasting Glucose 122 H Estimat Average Glucose 105 Hemoglobin A1c % 5.3 Calcium 8.7 Total Bilirubin 0.5 AST 74 H ALT 69 H Alkaline Phosphatase 89 Total Protein 7.7 Albumin 4.0 Triglycerides 87 Cholesterol 189 LDL Cholesterol, Calc 92 HDL Cholesterol 80 Folate 16.0 TSH 2.63 Medications Medications Current Medications Acetaminophen (Acetaminophen 325 Mg Tablet) 650 mg PO Q6H PRN PRN Reason: Headache/Pain, Scale 1-10 Al Hydroxide/Mg Hydroxide (Magnesium Hydrox/Alum Hydrox 30 Ml Oral.Susp) 30 ml PO Q6H PRN PRN Reason: Heartburn/Nausea Carvedilol (Carvedilol 25 Mg Tablet) 25 mg PO BID [facility]; Protocol Last Admin: 01/12/25 08:30 Dose: 25 mg Folic Acid (Folic Acid 1 Mg Tablet) 1 mg PO DAILY [facility] Last Admin: 01/12/25 08:30 Dose: 1 mg Furosemide (Furosemide 40 Mg Tablet) 40 mg PO DAILY [facility]; Protocol Last Admin: 01/12/25 08:32 Dose: 40 mg Hydroxyzine HCl (Hydroxyzine Hcl 25 Mg Tablet) 25 mg PO Q6H PRN PRN Reason: mild anxiety Last Admin: 01/10/25 15:46 Dose: 25 mg Lorazepam (Lorazepam 1 Mg Tablet) 1 mg PO Q6H PRN PRN Reason: Anxiety Last Admin: 01/12/25 08:43 Dose: 1 mg Magnesium Hydroxide (Milk Of Magnesia 30 Ml Oral.Susp) 30 ml PO DAILY PRN PRN Reason: Constipation Nicotine (Nicotine 14 Mg Patch.Td24) 14 mg TRANSDERMA DAILY [facility] Last Admin: 01/12/25 08:29 Dose: 14 mg Sertraline HCl (Sertraline Hcl 25 Mg Tablet) 25 mg PO DAILY [facility] Last Admin: 01/12/25 08:30 Dose: 25 mg Thiamine HCl (Thiamine Hcl 100 Mg Tablet) 100 mg PO DAILY [facility] Last Admin: 01/12/25 08:30 Dose: 100 mg Trazodone HCl (Trazodone Hcl 50 Mg Tablet) 50 mg PO BEDTIME MRX1 PRN PRN Reason: Insomnia Last Admin: 01/11/25 21:03 Dose: 50 mg Valsartan (Valsartan 40 Mg Tablet) 40 mg PO DAILY [facility]; Protocol Last Admin: 01/12/25 08:30 Dose: 40 mg Allergies Allergies Allergy/AdvReac Type Severity Reaction Status Date / Time No Known Allergies Allergy Verified 03/05/25 19:58 [No Known Allergies*] Assessment & Plan Assessment & Plan (1) PTSD (post-traumatic stress disorder): Status: Acute Code(s): F43.10 - Post-traumatic stress disorder, unspecified (2) Acute stress disorder: Status: Acute Code(s): F43.0 - Acute stress reaction (3) Alcohol use disorder: Status: Acute Code(s): F10.90 - Alcohol use, unspecified, uncomplicated Plan Admit, CV, 15 minute checks Collateral Contact Encourage milieu participation Sertraline 25 mg a.m Diagnostics as needed Discharge planning. 01/12: Continue Sertraline Hospitalist consult-HTN med review DC 01/14. Reason for continued inpatient stay Substantial Risk for: rapid decompensation and med/psych decompensation Time Spent With Patient Time: Total time managing care of this patient today ____ minutes.
--- NOTE | 2025-01-12 16:20 | PM.EVENT ---
Event Note Date of Service: 01/12/25 Event Note: 59-year-old male with history of hypertension, heart failure with reduced ejection fraction, alcohol use disorder not in active withdrawal, PTSD, who is morbidly obese is admitted to Geriatric Psychiatry with consult placed hospitalist service due to uncontrolled hypertension. The patient is currently taking Coreg 25 mg twice daily as well as valsartan 40 mg daily and patient has been accepting these medications as prescribed. Despite this blood pressure is have been persistently elevated ranging from 155/97 to 194/112. On average, SBP has been around 170. Most recent blood pressure 155/97. Recommend increasing valsartan to 40 mg by daily, continuing Coreg 25 mg by daily, and add amlodipine 5 mg daily. Thank you for allowing me to participate in this consult. Signing off at this time. Please do not hesitate to call for further questions or if blood pressures remain elevated >140/90 despite the recommended changes. Time Spent With Patient Time: Total time managing care of this patient today ____ minutes.
[2025-01-12 16:40] VITALS: BP 175/100
[2025-01-12] MEDS: amLODIPine Besylate 5 MG TABLET PO (16:40)
[2025-01-12 20:00] VITALS: BP 161/94; PULSE 89; RESP 18; TEMP 37; O2SAT 97
[2025-01-12] MEDS: traZODone HCL 50 MG TABLET PO (22:27)
[2025-01-13 07:00] VITALS: BMI 44.0
[2025-01-13 08:00] VITALS: BP 153/80; PULSE 69; RESP 18; TEMP 36.7; O2SAT 98
[2025-01-13] MEDS: Valsartan 40 MG TABLET PO ×2 (08:55→21:11)
[2025-01-13] MEDS: Furosemide 40 MG TABLET PO (08:55)
[2025-01-13] MEDS: Nicotine 14 MG PATCH.TD24 TRANSDERMA (08:55)
[2025-01-13] MEDS: carvediloL 25 MG TABLET PO ×2 (08:56→21:13)
[2025-01-13] MEDS: Folic Acid 1 MG TABLET PO (08:56)
[2025-01-13] MEDS: Thiamine HCL 100 MG TABLET PO (08:56)
[2025-01-13] MEDS: hydrOXYzine HCL 25 MG TABLET PO ×3 (08:56→21:22)
[2025-01-13] MEDS: amLODIPine Besylate 5 MG TABLET PO (08:56)
[2025-01-13] MEDS: Sertraline HCL 25 MG TABLET PO (08:57)
--- NOTE | 2025-01-13 10:09 | MHC.RECOVRN ---
Received Addiction Medicine consult for AA resources for pt. Met with pt on [facility], provided pt with AA when and where booklet as well as [facility] [place]. Encouraged pt to connect with [facility] as well for continued peer support. Pt denies other questions or concerns at this time.
--- NOTE | 2025-01-13 10:16 | P.PNPSI_ITS ---
Subjective Subjective Date of Service: 01/13/25 Reason For Visit: Depression/SI Subjective Notes: Conditional Voluntary Healthcare Proxy: No Guardianship: No Medical Problems Affecting Mental Status: No Interim History: Prepared for discharge 01/14. Denies SI, HI, AH. VH No sx of acute brock, psychosis Has a good support system identified. Medication Compliance: Yes Side effects from medications: No Attending Groups: Yes Review of Systems Acute medical concerns: No Review of Systems Review of Systems Denies Mental Status Exam Mental Status Exam Patient Appearance: Appropriate Patient Orientation: Person, Place, Time and Situation Level of Consciousness: Alert Patient Behavior: Talkative, Cooperative and Good Eye Contact Mood Description: Constricted Affect Description: Flat Patient Cognition Impaired: No Ability to Follow Directions: Good Speech Pattern: Spontaneous Speech Memory Description: Intact Hallucinations: None Delusions: Not Present Thought Process: Intact Thought Content: positive for Intact and positive for Suicidal Ideation (denies) Judgement: Good Diagnostics Vital Signs (24Hr): Vital Signs - 24 hr 01/12/25 16:40 01/12/25 20:00 01/13/25 08:00 Temperature 98.6 F 98.1 F Pulse Rate 89 69 Respiratory Rate 18 18 Blood Pressure 175/100 H 161/94 H 153/80 H Pulse Oximetry 97 98 Oxygen Delivery Method Room Air Room Air BMI result Body Mass Index 43.7 Labs 01/10/25 14:03 Medications Medications Current Medications Acetaminophen (Acetaminophen 325 Mg Tablet) 650 mg PO Q6H PRN PRN Reason: Headache/Pain, Scale 1-10 Al Hydroxide/Mg Hydroxide (Magnesium Hydrox/Alum Hydrox 30 Ml Oral.Susp) 30 ml PO Q6H PRN PRN Reason: Heartburn/Nausea Amlodipine Besylate (Amlodipine Besylate 5 Mg Tablet) 5 mg PO DAILY [facility]; Protocol Last Admin: 01/13/25 08:56 Dose: 5 mg Carvedilol (Carvedilol 25 Mg Tablet) 25 mg PO BID [facility]; Protocol Last Admin: 01/13/25 08:56 Dose: 25 mg Folic Acid (Folic Acid 1 Mg Tablet) 1 mg PO DAILY [facility] Last Admin: 01/13/25 08:56 Dose: 1 mg Furosemide (Furosemide 40 Mg Tablet) 40 mg PO DAILY [facility]; Protocol Last Admin: 01/13/25 08:55 Dose: 40 mg Hydroxyzine HCl (Hydroxyzine Hcl 25 Mg Tablet) 25 mg PO Q6H PRN PRN Reason: mild anxiety Last Admin: 01/13/25 08:56 Dose: 25 mg Lorazepam (Lorazepam 1 Mg Tablet) 1 mg PO Q6H PRN PRN Reason: Anxiety Last Admin: 01/12/25 22:27 Dose: 1 mg Magnesium Hydroxide (Milk Of Magnesia 30 Ml Oral.Susp) 30 ml PO DAILY PRN PRN Reason: Constipation Nicotine (Nicotine 14 Mg Patch.Td24) 14 mg TRANSDERMA DAILY [facility] Last Admin: 01/13/25 08:55 Dose: 14 mg Sertraline HCl (Sertraline Hcl 25 Mg Tablet) 25 mg PO DAILY [facility] Last Admin: 01/13/25 08:57 Dose: 25 mg Thiamine HCl (Thiamine Hcl 100 Mg Tablet) 100 mg PO DAILY [facility] Last Admin: 01/13/25 08:56 Dose: 100 mg Trazodone HCl (Trazodone Hcl 50 Mg Tablet) 50 mg PO BEDTIME MRX1 PRN PRN Reason: Insomnia Last Admin: 01/12/25 22:27 Dose: 50 mg Valsartan (Valsartan 40 Mg Tablet) 40 mg PO BID [facility]; Protocol Last Admin: 01/13/25 08:55 Dose: 40 mg Allergies Allergies Allergy/AdvReac Type Severity Reaction Status Date / Time No Known Allergies Allergy Verified 01/05/25 19:58 [No Known Allergies*] Assessment & Plan Assessment & Plan (1) PTSD (post-traumatic stress disorder): Status: Acute Code(s): F43.10 - Post-traumatic stress disorder, unspecified (2) Acute stress disorder: Status: Acute Code(s): F43.0 - Acute stress reaction (3) Alcohol use disorder: Status: Acute Code(s): F10.90 - Alcohol use, unspecified, uncomplicated Plan Admit, CV, 15 minute checks Collateral Contact Encourage milieu participation Sertraline 25 mg a.m Diagnostics as needed Discharge planning. 01/12: Continue Sertraline Hospitalist consult-HTN med review DC 01/14. 01/13: DC 01/14. Hospitalist consult much appreciated for HTN review. Reason for continued inpatient stay Substantial Risk for: stable for discharge Time Spent With Patient Time: Total time managing care of this patient today ____ minutes.
[2025-01-13] MEDS: Nicotine Polacrilex 2 MG GUM 4 MG BUCCAL ×3 (12:41→18:26)
[2025-01-13 20:00] VITALS: BP 155/73; PULSE 89; TEMP 36.9; O2SAT 96
[2025-01-13 21:11] VITALS: BP 155/73
[2025-01-13 21:13] VITALS: BP 155/73; PULSE 89
[2025-01-13] MEDS: traZODone HCL 50 MG TABLET PO (21:15)
[2025-01-14] VITALS (7 sets, daily range): BP systolic 170–193; BP diastolic 83–114; PULSE 72–92; RESP 18; TEMP 36.2–36.6; O2SAT 94–98
--- NOTE | 2025-01-14 | ECG_ITS ---
Test Reason : HIGH BLOOD PRESSURE Blood Pressure : */* mmHG Vent. Rate : 73 BPM Atrial Rate : 73 BPM P-R Int : 200 ms QRS Dur : 106 ms QT Int : 416 ms P-R-T Axes : -13 28 26 degrees QTcB Int : 458 ms Normal sinus rhythm Minimal voltage criteria for LVH, may be normal variant ( R in aVL ) Borderline ECG When compared with ECG of 05-Jan-2025 21:02, Criteria for Septal infarct are no longer Present No significant change was found Referred By: Sapna Hopkins Electronically Signed By: MERY SAMPSON
[2025-01-14] MEDS: carvediloL 25 MG TABLET PO ×2 (08:26→22:59)
[2025-01-14] MEDS: Thiamine HCL 100 MG TABLET PO (08:26)
[2025-01-14] MEDS: Sertraline HCL 25 MG TABLET PO (08:27)
[2025-01-14] MEDS: Valsartan 40 MG TABLET PO ×2 (08:27→22:58)
[2025-01-14] MEDS: amLODIPine Besylate 5 MG TABLET PO ×2 (08:28→16:04)
[2025-01-14] MEDS: Folic Acid 1 MG TABLET PO (08:28)
[2025-01-14] MEDS: Furosemide 40 MG TABLET PO (08:28)
[2025-01-14] MEDS: Nicotine 14 MG PATCH.TD24 TRANSDERMA (08:29)
[2025-01-14] MEDS: LORazepam 1 MG TABLET PO ×2 (09:16→14:32)
--- NOTE | 2025-01-14 09:34 | PC.NURSE ---
Addendum entered by Kylie Mitchell RN 01/14/25 10:32: 12 lead EKG performed with the assistance of med surg staff. Pt is currently having his blood drawn for further testing. Addendum entered by Kylie Mitchell RN 01/14/25 09:42: Per JOANNE Alejo: Pt's discharge will be held for now due to high BPs. Hospitalist to see pt again regarding this matter. Original Note: Pt's BP high this morning 189/114 (HR 92). Cardiac and all other morning scheduled meds administered per NICANOR Alejo NP made aware. Retook pt's BP and found to be still high at 193/108 (HR 72). provider made aware and awaiting further orders.
[2025-01-14 10:44] LABS: MANUAL DIFF FLAG NO
[2025-01-14 10:48] LABS: Basophils Percent Auto 0.4 % (0-2); Eosinophils Absolute Auto 0.2 X10*3/uL (0.0-0.4); Eosinophils Percent Auto 2.5 % (0-4); Hematocrit 39.5 % (42.0-52.0); Hemoglobin 13.6 g/dl (14.0-18.0); Imm Gran Abs Auto 0.01 X10*3/uL (0.00-0.03); Imm Gran Pct Auto 0.1 % (0.0-0.4); Lymphocytes Absolute Auto 1.6 X10*3/uL (1.2-4.9); Lymphocytes Percent Auto 22.7 % (20-40); Mean Corpuscular HGB Conc 34.4 g/dl (31.0-36.0); Mean Corpuscular Hemoglobin 30.6 pg (27.0-33.0); Mean Platelet Volume 10.3 fL (9.4-12.4); Monocytes Absolute Auto 0.9 X10*3/uL (0.1-1.2); Monocytes Percent Auto 12.5 % (2-11); Neutrophils Absolute Auto 4.5 x10*3/uL (2.0-8.3); Neutrophils Percent Auto 61.8 % (45-73); Platelet Count 155 X10*3/uL (160-400); Red Blood Count 4.44 X10*6/uL (4.60-5.80); Red Cell Distribution Width 15.6 % (11.0-16.0); White Blood Count 7.2 X10*3/uL (4.8-10.8)
[2025-01-14 11:04] LABS: Alanine Aminotransferase 59 U/L (0-40); Alkaline Phosphatase 85 U/L (39-117); Anion Gap 12 (12-20); Aspartate Amino Transferase 43 U/L (5-37); Bilirubin Total 0.5 mg/dL (0.0-1.0); Blood Urea Nitrogen 20 mg/dL (9-16); Calcium 9.2 mg/dL (8.4-10.2); Carbon Dioxide 31 mmol/L (22-29); Chloride 103 mmol/L (96-108); Creatinine Clr Calc Pharmacy 130.8; Estimated Glomerular Filt Rate > 60; Glucose Random 101 mg/dL (60-115); Potassium 4.5 mmol/L (3.3-5.1); Sodium 141 mmol/L (135-145); Total Protein 7.8 g/dL (6.5-8.0)
[2025-01-14 11:12] LABS: Troponin-I High Sensitivity 26.3 ng/L (<3.5-35.0)
[2025-01-14] MEDS: Nicotine Polacrilex 2 MG GUM 4 MG BUCCAL ×3 (12:13→17:53)
--- NOTE | 2025-01-14 15:09 | PM.EVENT ---
Event Note Date of Service: 01/14/25 Event Note: Pt is a 59-year-old male with a PMH significant for HTN, unspecified CHF, alcohol use disorder with hx of withdrawal, depression, and anxiety who was admitted to [facility] with hospitalist consult for uncontrolled hypertension. Pt seen and evaluated 3 days prior on 01/12 for similar complaint. At that time pt is valsartan increased to 40 mg b.i.d., added amlodipine 5 mg daily, and continued Coreg 25 mg b.i.d., as well as Lasix 40 mg daily. Despite these changes patient's BP has continued to be elevated uncontrolled. BP today was initially 189/114 at 08:00 and then 193/108 after receiving antihypertensives. Plan: Increase amlodipine to 10 mg daily Check renal duplex U/S for renal artery stenosis Consider inpatient sleep study to evaluate for untreated ROSE MARY as may be contribuing to HTN Thank you for allowing us to participate in the care of this pt. Will continue to follow along to monitor BP and imaging/study results. Time Spent With Patient Time: Total time managing care of this patient today ____ minutes.
--- NOTE | 2025-01-14 15:13 | HO.PSYCHPN ---
Subjective Subjective Date of Service: 01/14/25 Reason For Visit: Depression/SI Subjective Notes: Conditional Voluntary Healthcare Proxy: No Guardianship: No Medical Problems Affecting Mental Status: No Interim History: Discharge was postponed as pt's blood pressure, with a few days of medication changes, continues to be high 189/114, 193/108 with EKG Borderline NSR Qtc 458. Hospitalist consult requested. Pt agreed to remain in patient, my just of this, I have cardiac issues, I appreciate [facility] taking care of me. Pt has continued in groups, met in individual session and is moving forward in early recovery post relapse and in grief mgt. He has a supportive community around him and feels their support. Medication Compliance: Yes Side effects from medications: No Attending Groups: Yes Review of Systems HTN Review of Systems Review of Systems HTN Mental Status Exam Mental Status Exam Patient Appearance: Appropriate Patient Orientation: Person, Place, Time and Situation Level of Consciousness: Alert Patient Behavior: Talkative, Cooperative and Good Eye Contact Mood Description: Constricted Affect Description: Flat Patient Cognition Impaired: No Ability to Follow Directions: Good Speech Pattern: Spontaneous Speech Memory Description: Intact Hallucinations: None Delusions: Not Present Thought Process: Intact Thought Content: positive for Intact and positive for Suicidal Ideation (denies) Judgement: Good Diagnostics Vital Signs (24Hr): Vital Signs - 24 hr 01/13/25 20:00 01/13/25 21:11 01/13/25 21:13 Temperature 98.4 F Pulse Rate 89 89 Respiratory Rate Blood Pressure 155/73 H 155/73 H 155/73 H Pulse Oximetry 96 Oxygen Delivery Method Room Air 01/14/25 08:00 01/14/25 08:26 01/14/25 09:40 Temperature 97.1 F Pulse Rate 92 92 72 Respiratory Rate 18 Blood Pressure 189/114 H 189/114 H 193/108 H Pulse Oximetry 94 Oxygen Delivery Method Room Air BMI result Body Mass Index 44.0 Labs 01/14/25 10:35 01/14/25 10:35 Labs: Laboratory Results - last 48 hr 01/14/25 10:35 WBC 7.2 RBC 4.44 L Hgb 13.6 L Hct 39.5 L MCV 89.0 MCH 30.6 MCHC 34.4 RDW 15.6 Plt Count 155 L MPV 10.3 Immature Gran % (Auto) 0.1 Neut % (Auto) 61.8 Lymph % (Auto) 22.7 [place] % (Auto) 12.5 H Eos % (Auto) 2.5 Baso % (Auto) 0.4 Lymph # (Auto) 1.6 [place]ke # (Auto) 0.9 Eos # (Auto) 0.2 Baso # (Auto) 0.0 Abs Immat Gran (auto) 0.01 Absolute Neuts (auto) 4.5 Absolute Nucleated RBC 0.000 Nucleated RBC % (auto) 0.0 Sodium 141 Potassium 4.5 D Chloride 103 Carbon Dioxide 31 H Anion Gap 12 BUN 20 H Creatinine 0.87 Estim Creat Clear Calc 130.8 Estimated GFR > 60 Random Glucose 101 Calcium 9.2 Total Bilirubin 0.5 AST 43 H ALT 59 H Alkaline Phosphatase 85 Troponin I High Sens 26.3 Total Protein 7.8 Albumin 4.0 Medications Medications Current Medications Acetaminophen (Acetaminophen 325 Mg Tablet) 650 mg PO Q6H PRN PRN Reason: Headache/Pain, Scale 1-10 Al Hydroxide/Mg Hydroxide (Magnesium Hydrox/Alum Hydrox 30 Ml Oral.Susp) 30 ml PO Q6H PRN PRN Reason: Heartburn/Nausea Amlodipine Besylate (Amlodipine Besylate 10 Mg Tablet) 10 mg PO DAILY [facility]; Protocol Carvedilol (Carvedilol 25 Mg Tablet) 25 mg PO BID [facility]; Protocol Last Admin: 01/14/25 08:26 Dose: 25 mg Folic Acid (Folic Acid 1 Mg Tablet) 1 mg PO DAILY [facility] Last Admin: 01/14/25 08:28 Dose: 1 mg Furosemide (Furosemide 40 Mg Tablet) 40 mg PO DAILY [facility]; Protocol Last Admin: 01/14/25 08:28 Dose: 40 mg Hydroxyzine HCl (Hydroxyzine Hcl 25 Mg Tablet) 25 mg PO Q6H PRN PRN Reason: mild anxiety Last Admin: 01/13/25 21:22 Dose: 25 mg Lorazepam (Lorazepam 1 Mg Tablet) 1 mg PO Q6H PRN PRN Reason: Anxiety Last Admin: 01/14/25 14:32 Dose: 1 mg Magnesium Hydroxide (Milk Of Magnesia 30 Ml Oral.Susp) 30 ml PO DAILY PRN PRN Reason: Constipation Nicotine (Nicotine 14 Mg Patch.Td24) 14 mg TRANSDERMA DAILY [facility] Last Admin: 01/14/25 08:29 Dose: 14 mg Nicotine Polacrilex (Nicotine Polacrilex 2 Mg Gum) 4 mg BUCCAL Q2H PRN PRN Reason: Nicotine Cravings Last Admin: 01/14/25 14:35 Dose: 4 mg Sertraline HCl (Sertraline Hcl 25 Mg Tablet) 25 mg PO DAILY [facility] Last Admin: 01/14/25 08:27 Dose: 25 mg Thiamine HCl (Thiamine Hcl 100 Mg Tablet) 100 mg PO DAILY [facility] Last Admin: 01/14/25 08:26 Dose: 100 mg Trazodone HCl (Trazodone Hcl 50 Mg Tablet) 50 mg PO BEDTIME MRX1 PRN PRN Reason: Insomnia Last Admin: 01/13/25 21:15 Dose: 50 mg Valsartan (Valsartan 40 Mg Tablet) 40 mg PO BID [facility]; Protocol Last Admin: 01/14/25 08:27 Dose: 40 mg Allergies Allergies Allergy/AdvReac Type Severity Reaction Status Date / Time No Known Allergies Allergy Verified 01/05/25 19:58 [No Known Allergies*] Assessment & Plan Assessment & Plan (1) PTSD (post-traumatic stress disorder): Status: Acute Code(s): F43.10 - Post-traumatic stress disorder, unspecified (2) Acute stress disorder: Status: Acute Code(s): F43.0 - Acute stress reaction (3) Alcohol use disorder: Status: Acute Code(s): F10.90 - Alcohol use, unspecified, uncomplicated Plan Admit, CV, 15 minute checks Collateral Contact Encourage milieu participation Sertraline 25 mg a.m Diagnostics as needed Discharge planning. 01/12: Continue Sertraline Hospitalist consult-HTN med review DC 01/14. 01/13: DC 01/14. Hospitalist consult much appreciated for HTN review. 01/14: Discharge postponed due to increasing BP 189/114, 193/108 Hospitalist consult for increased HTN Reason for continued inpatient stay Substantial Risk for: med/psych decompensation Time Spent With Patient Time: Total time managing care of this patient today ____ minutes.
[2025-01-14] MEDS: traZODone HCL 50 MG TABLET PO (22:59)
[2025-01-15] VITALS (9 sets, daily range): BP systolic 145–202; BP diastolic 83–109; PULSE 74–82; RESP 18; TEMP 36.8–36.9; O2SAT 97–99
[2025-01-15] MEDS: Nicotine 14 MG PATCH.TD24 TRANSDERMA (08:04)
[2025-01-15] MEDS: Sertraline HCL 25 MG TABLET PO (08:05)
[2025-01-15] MEDS: amLODIPine Besylate 10 MG TABLET PO (08:06)
[2025-01-15] MEDS: Thiamine HCL 100 MG TABLET PO (08:06)
[2025-01-15] MEDS: carvediloL 25 MG TABLET PO ×2 (08:06→21:39)
[2025-01-15] MEDS: Valsartan 40 MG TABLET PO (08:06)
[2025-01-15] MEDS: Furosemide 40 MG TABLET PO (08:06)
[2025-01-15] MEDS: Folic Acid 1 MG TABLET PO (08:06)
[2025-01-15] MEDS: LORazepam 1 MG TABLET PO ×2 (08:28→14:47)
--- NOTE | 2025-01-15 08:29 | P.PNPSI_ITS ---
Subjective Subjective Date of Service: 01/15/25 Reason For Visit: Depression/SI Subjective Notes: Conditional Voluntary Healthcare Proxy: No Guardianship: No Medical Problems Affecting Mental Status: Yes (uncontrolled htn) Interim History: 59 yo who lost mother in law and then his in same week - managing emotionally at this time with lots of support planned on dc- from friends/family- work - however bp has remained xs high today- working with hospitalist to manage before dc- Medication Compliance: Yes Side effects from medications: No Attending Groups: Yes Mental Status Exam Mental Status Exam Patient Appearance: Appropriate Patient Orientation: Person, Place, Time and Situation Level of Consciousness: Awake Patient Behavior: Appropriate Mood Description: Calm Affect Description: Appropriate Patient Cognition Impaired: No Ability to Follow Directions: Good Speech Pattern: Clear Hallucinations: None Delusions: Not Present Thought Process: Intact and Goal Oriented Thought Content: positive for Intact Judgement: Good Diagnostics Vital Signs (24Hr): Vital Signs - 24 hr 01/14/25 09:40 01/14/25 16:04 01/14/25 20:00 Temperature 97.9 F Pulse Rate 72 77 Respiratory Rate Blood Pressure 193/108 H 170/100 H 173/85 H Pulse Oximetry 98 Oxygen Delivery Method Room Air 01/14/25 22:58 01/14/25 22:59 01/15/25 08:00 Temperature 98.2 F Pulse Rate 77 77 Respiratory Rate 18 Blood Pressure 173/83 H 173/85 H 174/91 H Pulse Oximetry 98 Oxygen Delivery Method Room Air BMI result Body Mass Index 44.0 Labs 01/14/25 10:35 01/14/25 10:35 Labs: Laboratory Results - last 48 hr 01/14/25 10:35 WBC 7.2 RBC 4.44 L Hgb 13.6 L Hct 39.5 L MCV 89.0 MCH 30.6 MCHC 34.4 RDW 15.6 Plt Count 155 L MPV 10.3 Immature Gran % (Auto) 0.1 Neut % (Auto) 61.8 Lymph % (Auto) 22.7 [place] % (Auto) 12.5 H Eos % (Auto) 2.5 Baso % (Auto) 0.4 Lymph # (Auto) 1.6 [place] # (Auto) 0.9 Eos # (Auto) 0.2 Baso # (Auto) 0.0 Abs Immat Gran (auto) 0.01 Absolute Neuts (auto) 4.5 Absolute Nucleated RBC 0.000 Nucleated RBC % (auto) 0.0 Sodium 141 Potassium 4.5 D Chloride 103 Carbon Dioxide 31 H Anion Gap 12 BUN 20 H Creatinine 0.87 Estim Creat Clear Calc 130.8 Estimated GFR > 60 Random Glucose 101 Calcium 9.2 Total Bilirubin 0.5 AST 43 H ALT 59 H Alkaline Phosphatase 85 Troponin I High Sens 26.3 Total Protein 7.8 Albumin 4.0 Medications Medications Current Medications Acetaminophen (Acetaminophen 325 Mg Tablet) 650 mg PO Q6H PRN PRN Reason: Headache/Pain, Scale 1-10 Al Hydroxide/Mg Hydroxide (Magnesium Hydrox/Alum Hydrox 30 Ml Oral.Susp) 30 ml PO Q6H PRN PRN Reason: Heartburn/Nausea Amlodipine Besylate (Amlodipine Besylate 10 Mg Tablet) 10 mg PO DAILY [facility]; Protocol Last Admin: 01/15/25 08:06 Dose: 10 mg Carvedilol (Carvedilol 25 Mg Tablet) 25 mg PO BID [facility]; Protocol Last Admin: 01/15/25 08:06 Dose: 25 mg Folic Acid (Folic Acid 1 Mg Tablet) 1 mg PO DAILY [facility] Last Admin: 01/15/25 08:06 Dose: 1 mg Furosemide (Furosemide 40 Mg Tablet) 40 mg PO DAILY [facility]; Protocol Last Admin: 01/15/25 08:06 Dose: 40 mg Hydroxyzine HCl (Hydroxyzine Hcl 25 Mg Tablet) 25 mg PO Q6H PRN PRN Reason: mild anxiety Last Admin: 01/13/25 21:22 Dose: 25 mg Lorazepam (Lorazepam 1 Mg Tablet) 1 mg PO Q6H PRN PRN Reason: Anxiety Last Admin: 01/15/25 08:28 Dose: 1 mg Magnesium Hydroxide (Milk Of Magnesia 30 Ml Oral.Susp) 30 ml PO DAILY PRN PRN Reason: Constipation Nicotine (Nicotine 14 Mg Patch.Td24) 14 mg TRANSDERMA DAILY [facility] Last Admin: 01/15/25 08:04 Dose: 14 mg Nicotine Polacrilex (Nicotine Polacrilex 2 Mg Gum) 4 mg BUCCAL Q2H PRN PRN Reason: Nicotine Cravings Last Admin: 01/14/25 17:53 Dose: 4 mg Sertraline HCl (Sertraline Hcl 25 Mg Tablet) 25 mg PO DAILY [facility] Last Admin: 01/15/25 08:05 Dose: 25 mg Thiamine HCl (Thiamine Hcl 100 Mg Tablet) 100 mg PO DAILY [facility] Last Admin: 01/15/25 08:06 Dose: 100 mg Trazodone HCl (Trazodone Hcl 50 Mg Tablet) 50 mg PO BEDTIME MRX1 PRN PRN Reason: Insomnia Last Admin: 01/14/25 22:59 Dose: 50 mg Valsartan (Valsartan 40 Mg Tablet) 40 mg PO BID [facility]; Protocol Last Admin: 01/15/25 08:06 Dose: 40 mg Allergies Allergies Allergy/AdvReac Type Severity Reaction Status Date / Time No Known Allergies Allergy Verified 01/05/25 19:58 [No Known Allergies*] Assessment & Plan Assessment & Plan (1) PTSD (post-traumatic stress disorder): Status: Acute Code(s): F43.10 - Post-traumatic stress disorder, unspecified (2) Acute stress disorder: Status: Acute Code(s): F43.0 - Acute stress reaction (3) Alcohol use disorder: Status: Acute Code(s): F10.90 - Alcohol use, unspecified, uncomplicated Plan Admit, CV, 15 minute checks Collateral Contact Encourage milieu participation Sertraline 25 mg a.m Diagnostics as needed Discharge planning. 01/12: Continue Sertraline Hospitalist consult-HTN med review DC 01/14. 01/13: DC 01/14. Hospitalist consult much appreciated for HTN review. 01/14: Discharge postponed due to increasing BP 189/114, 193/108 Hospitalist consult for increased HTN 01/15 managing bp and then will be dced tomorrow if bp improved with medication adjustments Patient educated on: medical condition Informed Consent: understands Reason for continued inpatient stay Substantial Risk for: med/psych decompensation Time Spent With Patient Time: Total time managing care of this patient today ____ minutes.
[2025-01-15] MEDS: Nicotine Polacrilex 2 MG GUM 4 MG BUCCAL ×2 (09:48→13:53)
[2025-01-15] MEDS: hydroCHLOROthiazide 25 MG TABLET PO (14:45)
[2025-01-15] MEDS: cloNIDine HCL 0.1 MG TABLET PO (17:09)
--- NOTE | 2025-01-15 17:11 | PC.NURSE ---
Patient remains hypertensive, hospitalist PA aware. Patient denies chest pain, shortness of breath, or palpitations. Complains of mild headache but states it isn't that bad. Manual BP obtained, medications ordered per provider order, patient aware of the plan of care. Will recheck BP in 1 hour from Clonidine administration and notify hospitalist ERNESTO
--- NOTE | 2025-01-15 17:24 | PM.EVENT ---
Event Note Date of Service: 01/15/25 Event Note: 59 year old male with known history of HFrEF, compliant with lasix, and htn admitted to adult psych with follow up on uncontrolled BP. Pt came in on valsartan 40mg, lasix 40mg, and coreg 25mg bid. Blood pressures have been elevated since arrival with an occassional normotentive bp. Over the last few days has significantly up to 200/109. He came to the hospital in alcohol withdrawal but has not had anything to drink since 01/05. He reports snoring but does not think he has sleep apnea given he doesnt recall apneic episodes. However, based on neck circumference and body habitus in general it does seem ROSE MARY is a very likely diagnosis could be causing his htn as well. Amlodipine was increased to 10mg yesterday. Today, HCTZ was added with limited effect, bp remains 182/98. Will give one time dose 0.1mg clonidine and add entresta 49/51 BID starting this evening. He is asymptomatic except for a mild headache. Time Spent With Patient Time: Total time managing care of this patient today ____ minutes.
[2025-01-15] MEDS: Sacubitril/Valsartan 49/51 1 TAB TABLET PO (21:38)
[2025-01-15] MEDS: traZODone HCL 50 MG TABLET PO (21:38)
[2025-01-16 07:58] VITALS: BP 160/84; PULSE 74; RESP 18; TEMP 36.3; O2SAT 97
[2025-01-16] MEDS: Nicotine 14 MG PATCH.TD24 TRANSDERMA (07:59)
[2025-01-16] MEDS: Furosemide 40 MG TABLET PO (08:00)
[2025-01-16] MEDS: Sacubitril/Valsartan 49/51 1 TAB TABLET PO ×2 (08:00→20:07)
[2025-01-16] MEDS: Thiamine HCL 100 MG TABLET PO (08:01)
[2025-01-16] MEDS: carvediloL 25 MG TABLET PO ×2 (08:01→20:08)
[2025-01-16] MEDS: Folic Acid 1 MG TABLET PO (08:01)
[2025-01-16] MEDS: hydroCHLOROthiazide 25 MG TABLET PO (08:01)
[2025-01-16] MEDS: amLODIPine Besylate 10 MG TABLET PO (08:01)
[2025-01-16] MEDS: Sertraline HCL 25 MG TABLET PO (08:02)
[2025-01-16] MEDS: LORazepam 1 MG TABLET PO ×2 (08:14→18:54)
[2025-01-16 10:45] VITALS: BP 164/92
--- NOTE | 2025-01-16 11:36 | P.DS_ITS ---
DS: Providers Provider Date of admission: 01/10/25 13:53 Primary care physician: Unknown Physician Consults: 01/10/25 15:08 Addiction Medicine Provider Routine Consulting Provider: Addiction Covering Reason for consultation: sober from alcohol for 8 mos and relapsed after partner 01/0701/12/25 16:06 Consult to Hospitalist Routine Comment: Consulting Provider: [facility] [facility] Hospitalists Reason For Exam: Persistent HTN, medicines not effective currently 01/12/25 16:12 Addiction Medicine Provider Routine Consulting Provider: Addiction Covering Reason for consultation: DC recommendations for appropriate AA meetings for pt Has provider been notified: No 01/14/25 09:41 Consult to Hospitalist Stat Comment: Consulting Provider: [facility] [place] [facility] Hospitalists Reason For Exam: HTN 193/108, 189/114. Medicine eval. DS: Diagnosis Discharge Diagnosis (1) PTSD (post-traumatic stress disorder): Status: Acute (2) Acute stress disorder: Status: Acute (3) Alcohol use disorder: Status: Acute Physical Exam Vital Signs: Vital Signs: Last Vital Signs Temp 97.4 F 01/16/25 07:58 Pulse 74 01/16/25 07:58 Resp 18 01/16/25 07:58 BP 164/92 H 01/16/25 10:45 Pulse Ox 97 01/16/25 07:58 O2 Del Method Room Air 01/16/25 07:58 BMI result Body Mass Index 44.0 DS: Data Data Completed and Pending Completed studies during hospitalization [Text1]: Procedures Detoxification Services for Substance Abuse Treatment (12/23/23) Discharge Plan Discharge Anticipated Discharge Date/Time: 01/14/25 12:00 Patient Disposition: Home, Self-Care Discharge Diagnosis: Acute Stress Disorder Post Traumatic Stress Disorder Alcohol Use Disorder Referrals: Camelia Jimenez: [facility] (therapy) [Other] - 01/20/25 11:00 am (Initial diagnostic evaluation for therapy. Appointment in person at [facility] in [place].) Radha Whittaker (psychiatry): [facility] [Other] - 02/09/25 2:30 pm (Initial psychiatric evaluation for medication management Appointment is by tele-health. Please check your email for a link to the appointment.) Radha Whittaker (psychiatry): [facility] [Other] - 03/09/25 2:10 pm (medication management appointment Appointment is by tele-health. Please check your email for a link to the appointment.) Mike Loyd MD [Physician] - 01/21/25 2:00 pm (In office appointment. ) Discharge Medications: New trazodone 50 mg Tablet 50 mg PO BEDTIME MRX1 PRN (Reason: Insomnia) Qty: 60 0RF amlodipine 5 mg Tablet 5 mg PO DAILY Qty: 30 0RF Protocol: Hold for SBP< HOLD for SBP < : 90 sertraline 25 mg Tablet 25 mg PO DAILY Qty: 30 0RF folic acid 1 mg Tablet 1 mg PO DAILY Qty: 30 0RF lorazepam 1 mg Tablet 1 mg PO Q6H PRN (Reason: Anxiety) Qty: 7 0RF valsartan 40 mg Tablet 40 mg PO BID Qty: 60 0RF Protocol: Hold for SBP< HOLD for SBP < : 90 thiamine mononitrate (vit B1) 100 mg Tablet 100 mg PO DAILY Qty: 30 0RF Continued furosemide 40 mg tablet 40 mg PO DAILY Qty: 30 0RF carvedilol 25 mg tablet 25 mg PO BID Qty: 60 0RF Discontinued thiamine HCl (vitamin B1) [Vitamin B-1] 100 mg tablet 100 mg PO DAILY folic acid 1 mg tablet 1 mg PO DAILY valsartan 40 mg tablet 40 mg PO DAILY Diet: Advance to usual diet Activity on Discharge: As tolerated Stand Alone Forms: Patient Portal Discharge page Print Language: Danish Care Plan Goals: Mood and Behavioral Stabilization Health Concerns: Mood and Behavioral Stabilization Plan of Treatment: Attend scheduled appointments Take medications as directed Call/Return if needed Assessment: No SI,HI,AH,VH No sx of acute illness Pt is in agreement with plan of care
[2025-01-16] MEDS: Nicotine Polacrilex 2 MG GUM 4 MG BUCCAL ×2 (11:42→18:54)
[2025-01-16 12:07] VITALS: BP 150/90
[2025-01-16 19:42] VITALS: BP 146/87; PULSE 81; TEMP 37.1; O2SAT 96
[2025-01-16] MEDS: hydrOXYzine HCL 25 MG TABLET PO (20:07)
[2025-01-16] MEDS: traZODone HCL 50 MG TABLET PO (22:08)
[2025-01-17 07:54] VITALS: BP 177/97; PULSE 85; RESP 18; TEMP 36.5; O2SAT 96
[2025-01-17] MEDS: LORazepam 1 MG TABLET PO (07:56)
[2025-01-17] MEDS: Folic Acid 1 MG TABLET PO (07:59)
[2025-01-17] MEDS: Furosemide 40 MG TABLET PO (08:00)
[2025-01-17] MEDS: carvediloL 25 MG TABLET PO (08:00)
[2025-01-17] MEDS: Thiamine HCL 100 MG TABLET PO (08:00)
[2025-01-17] MEDS: Sacubitril/Valsartan 49/51 1 TAB TABLET PO (08:01)
[2025-01-17] MEDS: amLODIPine Besylate 10 MG TABLET PO (08:01)
[2025-01-17] MEDS: hydroCHLOROthiazide 25 MG TABLET PO (08:01)
[2025-01-17] MEDS: Sertraline HCL 25 MG TABLET PO (08:01)
[2025-01-17] MEDS: Nicotine 14 MG PATCH.TD24 TRANSDERMA (08:02)
--- NOTE | 2025-01-17 08:49 | P.PNPSI_ITS ---
Subjective Subjective Date of Service: 01/16/25 Reason For Visit: Depression/SI Subjective Notes: Conditional Voluntary Healthcare Proxy: No Guardianship: No Medical Problems Affecting Mental Status: Yes (recent high bp) Interim History: 59 yo patient changed his mind about wanting dc today anxious about how high bp had been and med changes needed- given recent circumstances it seems reasonable to keep him over night and ensure bp stability with new medication changes- Medication Compliance: Yes Side effects from medications: No Attending Groups: Yes Review of Systems Acute medical concerns: Yes bp being better managed with changes but still high Medical Review of Systems: unchanged Mental Status Exam Mental Status Exam Patient Appearance: Appropriate Patient Orientation: Person, Place, Time and Situation Level of Consciousness: Awake Patient Behavior: Appropriate Mood Description: Apprehensive Affect Description: Appropriate Patient Cognition Impaired: No Ability to Follow Directions: Good Speech Pattern: Clear Hallucinations: None Delusions: Not Present Thought Process: Intact and Goal Oriented Thought Content: positive for Intact Judgement: Good Diagnostics Vital Signs (24Hr): Vital Signs - 24 hr 01/16/25 10:45 01/16/25 12:07 01/16/25 19:42 Temperature 98.7 F Pulse Rate 81 Respiratory Rate Blood Pressure 164/92 H 150/90 H 146/87 H Pulse Oximetry 96 Oxygen Delivery Method Room Air 01/17/25 07:54 Temperature 97.7 F Pulse Rate 85 Respiratory Rate 18 Blood Pressure 177/97 H Pulse Oximetry 96 Oxygen Delivery Method Room Air BMI result Body Mass Index 44.0 Labs 01/14/25 10:35 01/14/25 10:35 Medications Medications Current Medications Acetaminophen (Acetaminophen 325 Mg Tablet) 650 mg PO Q6H PRN PRN Reason: Headache/Pain, Scale 1-10 Al Hydroxide/Mg Hydroxide (Magnesium Hydrox/Alum Hydrox 30 Ml Oral.Susp) 30 ml PO Q6H PRN PRN Reason: Heartburn/Nausea Amlodipine Besylate (Amlodipine Besylate 10 Mg Tablet) 10 mg PO DAILY [facility]; Protocol Last Admin: 01/17/25 08:01 Dose: 10 mg Carvedilol (Carvedilol 25 Mg Tablet) 25 mg PO BID [facility]; Protocol Last Admin: 01/17/25 08:00 Dose: 25 mg Folic Acid (Folic Acid 1 Mg Tablet) 1 mg PO DAILY [facility] Last Admin: 01/17/25 07:59 Dose: 1 mg Furosemide (Furosemide 40 Mg Tablet) 40 mg PO DAILY [facility]; Protocol Last Admin: 01/17/25 08:00 Dose: 40 mg Hydrochlorothiazide (Hydrochlorothiazide 25 Mg Tablet) 25 mg PO DAILY [facility]; Protocol Last Admin: 01/17/25 08:01 Dose: 25 mg Hydroxyzine HCl (Hydroxyzine Hcl 25 Mg Tablet) 25 mg PO Q6H PRN PRN Reason: mild anxiety Last Admin: 01/16/25 20:07 Dose: 25 mg Lorazepam (Lorazepam 1 Mg Tablet) 1 mg PO Q6H PRN PRN Reason: Anxiety Last Admin: 01/17/25 07:56 Dose: 1 mg Magnesium Hydroxide (Milk Of Magnesia 30 Ml Oral.Susp) 30 ml PO DAILY PRN PRN Reason: Constipation Nicotine (Nicotine 14 Mg Patch.Td24) 14 mg TRANSDERMA DAILY [facility] Last Admin: 01/17/25 08:02 Dose: 14 mg Nicotine Polacrilex (Nicotine Polacrilex 2 Mg Gum) 4 mg BUCCAL Q2H PRN PRN Reason: Nicotine Cravings Last Admin: 01/16/25 18:54 Dose: 4 mg Sacubitril/Valsartan (Sacubitril/Valsartan 49/51 1 Tab Tablet) 1 tab PO BID [facility]; Protocol Last Admin: 01/17/25 08:01 Dose: 1 tab Sertraline HCl (Sertraline Hcl 25 Mg Tablet) 25 mg PO DAILY [facility] Last Admin: 01/17/25 08:01 Dose: 25 mg Thiamine HCl (Thiamine Hcl 100 Mg Tablet) 100 mg PO DAILY [facility] Last Admin: 01/17/25 08:00 Dose: 100 mg Trazodone HCl (Trazodone Hcl 50 Mg Tablet) 50 mg PO BEDTIME MRX1 PRN PRN Reason: Insomnia Last Admin: 01/16/25 22:08 Dose: 50 mg Allergies Allergies Allergy/AdvReac Type Severity Reaction Status Date / Time No Known Allergies Allergy Verified 01/05/25 19:58 [No Known Allergies*] Assessment & Plan Assessment & Plan (1) PTSD (post-traumatic stress disorder): Status: Acute Code(s): F43.10 - Post-traumatic stress disorder, unspecified (2) Acute stress disorder: Status: Acute Code(s): F43.0 - Acute stress reaction (3) Alcohol use disorder: Status: Acute Code(s): F10.90 - Alcohol use, unspecified, uncomplicated Plan Admit, CV, 15 minute checks Collateral Contact Encourage milieu participation Sertraline 25 mg a.m Diagnostics as needed Discharge planning. 01/12: Continue Sertraline Hospitalist consult-HTN med review DC 01/14. 01/13: DC 01/14. Hospitalist consult much appreciated for HTN review. 01/14: Discharge postponed due to increasing BP 189/114, 193/108 Hospitalist consult for increased HTN 01/15 managing bp and then will be dced tomorrow if bp improved with medication adjustments 01/16 anxiety and inc bp continue to have observation overnight here and work on dc friday Patient educated on: therapeutic strategies and medical condition Informed Consent: understands Reason for continued inpatient stay Substantial Risk for: rapid decompensation and med/psych decompensation Time Spent With Patient Time: Total time managing care of this patient today ____ minutes.
[2025-01-17 09:43] VITALS: BP 137/74
[2025-01-17] MEDS: Nicotine Polacrilex 2 MG GUM 4 MG BUCCAL (10:45)
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
== END 2025-01-17 10:55 | disposition home or self-care (01) | DRG 756 ==
PROVIDERS: Admitting Provider Psychiatry & Neurology Psychiatry; Visit Provider Clinical Nurse Specialist Psychiatric/Mental Health, Adult
DX: F43.0 Acute stress reaction (principal); I11.0 Hypertensive heart disease with heart failure; I50.22 Chronic systolic (congestive) heart failure; R45.851 Suicidal ideations; F43.10 Post-traumatic stress disorder, unspecified; F17.210 Nicotine dependence, cigarettes, uncomplicated; Z23 Encounter for immunization; Z71.6 Tobacco abuse counseling; F10.90 Alcohol use, unspecified, uncomplicated; G47.33 Obstructive sleep apnea (adult) (pediatric); Z79.899 Other long term (current) drug therapy
CPT/HCPCS: 36415; 76775; 80053; 80061; 82746; 83036; 84443; 84484; 85025; 90656; 93005; 93975

== ENCOUNTER 2025-01-10 13:53 | Outpatient (BNV) | payer OTHER, SELFPAY | END 2025-01-14 10:10 | PROVIDERS: Admitting Provider Psychiatry & Neurology Psychiatry; Visit Provider Internal Medicine | DX: I10 Essential (primary) hypertension (principal) | CPT/HCPCS: 93010 ==

== ENCOUNTER → 2025-01-10 13:53 | Outpatient (BNV) | payer OTHER, SELFPAY | PROVIDERS: Admitting Provider Psychiatry & Neurology Psychiatry; Visit Provider Clinical Nurse Specialist Psychiatric/Mental Health, Adult | DX: F43.11 Post-traumatic stress disorder, acute (principal); F43.0 Acute stress reaction; F10.90 Alcohol use, unspecified, uncomplicated | CPT/HCPCS: 99231; 99232 ==

== ENCOUNTER 2025-01-24 13:10 | Emergency (ER) | payer MEDICARE, MEDICAID, SELFPAY ==
[2025-01-24 13:21] VITALS: BP 204/120; PULSE 97; O2SAT 96
[2025-01-24 13:29] VITALS: BP 153/98; PULSE 96; RESP 20; TEMP 37.1; O2SAT 98; BMI 47.4
[2025-01-24 13:32] VITALS: BP 153/98; PULSE 96; RESP 20; TEMP 37.1; O2SAT 98
--- NOTE | 2025-01-24 13:43 | ED.PSYCH ---
HPI - Psych General Chief Complaint: Psychiatric Symptoms Stated Complaint: SI w/ no plan. Recent of Time Seen by Provider: 01/24/25 13:24 History of Present Illness HPI Narrative: Patient is a 59-year-old male recently lost his . Were sober for the last 7 month. Decided to go back to drinking in the last week. Patient does not have any guns in his house he does have suicidal ideation he has no specific plan came to the ED for help Related Data Previous Rx's ?Medication ?Instructions ?Recorded carvedilol 25 mg tablet 25 mg PO BID #60 tabs 01/14/25 folic acid 1 mg tablet 1 mg PO DAILY #30 tabs 01/14/25 furosemide 40 mg tablet 40 mg PO DAILY #30 tabs 01/14/25 lorazepam 1 mg tablet 1 mg PO Q6H PRN Anxiety #7 tabs 01/14/25 sertraline 25 mg tablet 25 mg PO DAILY #30 tabs 01/14/25 thiamine mononitrate (vit B1) 100 100 mg PO DAILY #30 tabs 01/14/25 mg tablet trazodone 50 mg tablet 50 mg PO BEDTIME MRX1 PRN Insomnia 01/14/25 #60 tabs amlodipine 10 mg tablet 10 mg PO DAILY #90 tabs 01/16/25 hydrochlorothiazide 25 mg tablet 25 mg PO DAILY #90 tabs 01/16/25 sacubitril 49 mg-valsartan 51 mg 1 tab PO BID #180 tabs 01/16/25 tablet (Entresto) Allergies Allergy/AdvReac Type Severity Reaction Status Date / Time No Known Allergies Allergy Verified 01/24/25 13:32 [No Known Allergies*] Review of Systems Review of Systems: Positive EtOH positive suicidal ideation Yes all other systems are reviewed and are negative COUNTS INCLUDE 234 BEDS AT THE [facility] Past Medical History Attestation statement: The following information was validated with the patient. Medical History Alcohol use disorder PTSD (post-traumatic stress disorder) Morbid obesity CHF (congestive heart failure) HTN (hypertension) Social History Social History Household Members: None Housing: Condominium Do you presently have visiting nurse or other home services: No Alcohol intake: current Alcohol intake frequency: 3 or more drinks per day Alcohol type: hard liquor Comment: 1:1 sitter Patient Tobacco Use Status: Current everyday Tobacco user Tobacco use type: Cigarette Cigarette Packs Per Day: 1 Cigarettes Per Day: 20.0 Years Smoked: 45 Smoked in Last 30 Days: No e-Cigarette/Vaping Use: Never Used Second Hand Smoke Exposure: No Use of substances other than those prescribed or required for medical reasons: No Substance Use Type: Marijuana Advance Directives: Yes Advance Directives Information Provided: Yes Advance Directives on File: No Do you have a plan to hurt others: No Plan service: Yes ([employer] (1989)) Sexual orientation: Straight/Heterosexual Physical Exam Vital Signs: Vital Signs: Last Vital Signs Temp 98.8 F 01/24/25 13:32 Pulse 96 01/24/25 13:32 Resp 20 01/24/25 13:32 BP 153/98 H 01/24/25 13:32 Pulse Ox 98 01/24/25 13:32 O2 Del Method Room Air 01/24/25 13:32 BMI result Body Mass Index 47.4 Appearance: Alert. Oriented X3. No acute distress. Eyes: Pupils equal, round and reactive to light. ENT: Pharynx normal. Neck: Normal inspection. Neck supple. No lymph nodes noted. No crepitus CVS: Normal heart rate and rhythm. Pulses normal. Normal S1 and S2 Respiratory: No respiratory distress. Breath sounds normal. No Wheezing. No rales Abdomen: Soft and nontender. No rigidity. No distention. good BS x4 Skin: Skin warm and dry. Normal skin color. Normal skin turgor. Extremities: No lower extremity edema. Neurovascular intact to all extremities. No Lacerations. No Rash Neuro: Oriented X 3. No motor deficit. No sensory deficit. Moving all extermities. No slurred speech Medications Administered Discontinued Medications Generic Name Dose Route Start Last Admin Trade Name Freq PRN Reason Stop Dose Admin Lorazepam 1 mg 01/24/25 15:32 01/24/25 15:46 Lorazepam 1 Mg Tablet PO 01/24/25 15:33 1 mg ONCE ONE Administration Medical Decision Making Medical Decision Making MDM Narrative: Patient is well-appearing no acute distress. Labs ordered. Will get crisis evaluate patient. Appears intoxicated will wait sobering. Patient's alcohol level was over 370. Currently awaiting clinical sobriety. Crisis team was consulted. Currently in stable condition a dose of Ativan was given to patient as he felt extremely anxious. Food was provided. Patient is electrolytes showed no anion gap. Currently in stable condition. Differential Diagnosis Differential Diagnoses: The differential diagnosis associated with the presentation includes EtOH, grieving, depression, suicidal ideation Admission/Observation Consideration of admission/observation: Escalation of care including admission/observation considered Lab Data 01/24/25 15:05 01/24/25 15:05 Labs: Lab Results 01/24/25 01/24/25 Range/Units 14:34 15:05 WBC 9.0 (4.8-10.8) X10*3/uL RBC 4.49 L (4.60-5.80) X10*6/uL Hgb 13.5 L (14.0-18.0) g/dl Hct 39.4 L (42.0-52.0) % MCV 87.8 (80.0-98.0) fL MCH 30.1 (27.0-33.0) pg MCHC 34.3 (31.0-36.0) g/dl RDW 15.9 (11.0-16.0) % Plt Count 278 D (160-400) X10*3/uL MPV 9.2 L (9.4-12.4) fL Immature Gran % (Auto) 0.3 (0.0-0.4) % Neut % (Auto) 57.0 (45-73) % Lymph % (Auto) 35.1 (20-40) % [place] % (Auto) 4.5 (2-11) % Eos % (Auto) 2.2 (0-4) % Baso % (Auto) 0.9 (0-2) % Lymph # (Auto) 3.2 (1.2-4.9) X10*3/uL [place] # (Auto) 0.4 (0.1-1.2) X10*3/uL Eos # (Auto) 0.2 (0.0-0.4) X10*3/uL Baso # (Auto) 0.1 (0.0-0.2) X10*3/uL Abs Immat Gran (auto) 0.03 (0.00-0.03) X10*3/uL Absolute Neuts (auto) 5.2 (2.0-8.3) x10*3/uL Absolute Nucleated RBC 0.000 (0.0-0.012) X10*3/uL Nucleated RBC % (auto) 0.0 (0.0-0.2) /100WBC Sodium 144 (135-145) mmol/L Potassium 3.5 D (3.3-5.1) mmol/L Chloride 106 (96-108) mmol/L Carbon Dioxide 26 (22-29) mmol/L Anion Gap 16 (12-20) BUN 11 (9-16) mg/dL Creatinine 0.72 (0.5-1.4) mg/dL Estim Creat Clear Calc 164.9 Estimated GFR > 60 Random Glucose 72 (60-115) mg/dL Calcium 8.3 L D (8.4-10.2) mg/dL Total Bilirubin 0.3 (0.0-1.0) mg/dL ALT 27 (0-40) U/L Total Protein 6.7 (6.5-8.0) g/dL Albumin 3.6 (3.5-5.0) g/dL Urine Opiates Screen Not Detected (Not Detect) Ur Buprenorphine Scrn Not Detected (Not Detect) ng/mL Ur Oxycodone Screen Not Detected (Not Detect) ng/mL Urine Methadone Screen Not Detected (Not Detect) ng/mL Urine Fentanyl Screen Not Detected (Not Detect) Ur Barbiturates Screen POSITIVE H (Not Detect) Ur Phencyclidine Scrn Not Detected (Not Detect) Ur Amphetamines Screen Not Detected (Not Detect) U Benzodiazepines Scrn Not Detected (Not Detect) Urine Cocaine Screen Not Detected (Not Detect) U Marijuana (THC) Screen Not Detected (Not Detect) Ethyl Alcohol 371 H* mg/dL COVID-19 (JOLIE) Negative (Negative) COVID-19 Clin Com See Note Discharge Plan Discharge Clinical Impression: Suicidal ideation, Alcohol use disorder, Acute anxiety, Alcohol intoxication Patient Disposition: Still a Patient Prescriptions: No Action trazodone 50 mg Tablet 50 mg PO BEDTIME MRX1 PRN (Reason: Insomnia) Qty: 60 0RF sertraline 25 mg Tablet 25 mg PO DAILY Qty: 30 0RF folic acid 1 mg Tablet 1 mg PO DAILY Qty: 30 0RF lorazepam 1 mg Tablet 1 mg PO Q6H PRN (Reason: Anxiety) Qty: 7 0RF thiamine mononitrate (vit B1) 100 mg Tablet 100 mg PO DAILY Qty: 30 0RF furosemide 40 mg tablet 40 mg PO DAILY Qty: 30 0RF carvedilol 25 mg tablet 25 mg PO BID Qty: 60 0RF amlodipine 10 mg Tablet 10 mg PO DAILY Qty: 90 0RF Protocol: Hold for SBP< HOLD for SBP < : 90 Entresto 49-51 mg Tablet 1 tab PO BID Qty: 180 0RF Protocol: Hold for SBP< HOLD for SBP < : 90 hydrochlorothiazide 25 mg Tablet 25 mg PO DAILY Qty: 90 0RF Protocol: Hold for SBP< HOLD for SBP < : 90 Interventions: Mellott-Suicide Risk Severity Scale Last Done: 01/24/25 13:32 Print Language: Korean
[2025-01-24 14:54] LABS: Amphetamine Screen Urine Not Detected (Not Detect); Barbiturates, Urine POSITIVE (Not Detect); Benzodiazepines Screen Urine Not Detected (Not Detect); Buprenorphine Scr Not Detected (Not Detect); Cannabinoid Screen Urine Not Detected (Not Detect); Cocaine Screen Urine Not Detected (Not Detect); Fentanyl, urine Not Detected (Not Detect); Methadone Screen, Urine Not Detected (Not Detect); Opiate Screen Urine Not Detected (Not Detect); Oxycodone Screen Urine Not Detected (Not Detect); Phencyclidine Screen Urine Not Detected (Not Detect)
[2025-01-24 15:10] LABS: MANUAL DIFF FLAG NO
[2025-01-24 15:13] LABS: Basophils Absolute Auto 0.1 X10*3/uL (0.0-0.2); Basophils Percent Auto 0.9 % (0-2); Eosinophils Absolute Auto 0.2 X10*3/uL (0.0-0.4); Eosinophils Percent Auto 2.2 % (0-4); Hematocrit 39.4 % (42.0-52.0); Hemoglobin 13.5 g/dl (14.0-18.0); Imm Gran Abs Auto 0.03 X10*3/uL (0.00-0.03); Imm Gran Pct Auto 0.3 % (0.0-0.4); Lymphocytes Absolute Auto 3.2 X10*3/uL (1.2-4.9); Lymphocytes Percent Auto 35.1 % (20-40); Mean Corpuscular HGB Conc 34.3 g/dl (31.0-36.0); Mean Corpuscular Hemoglobin 30.1 pg (27.0-33.0); Mean Corpuscular Volume 87.8 fL (80.0-98.0); Mean Platelet Volume 9.2 fL (9.4-12.4); Monocytes Absolute Auto 0.4 X10*3/uL (0.1-1.2); Monocytes Percent Auto 4.5 % (2-11); Neutrophils Absolute Auto 5.2 x10*3/uL (2.0-8.3); Platelet Count 278 X10*3/uL (160-400); Red Blood Count 4.49 X10*6/uL (4.60-5.80); Red Cell Distribution Width 15.9 % (11.0-16.0)
[2025-01-24 15:25] LABS: COVID-19 Test Negative (Negative); IDNOW Serial# 55D5AD1C
[2025-01-24 15:30] LABS: Alanine Aminotransferase 27 U/L (0-40); Albumin Level 3.6 g/dL (3.5-5.0); Anion Gap 16 (12-20); Bilirubin Total 0.3 mg/dL (0.0-1.0); Blood Urea Nitrogen 11 mg/dL (9-16); Calcium 8.3 mg/dL (8.4-10.2); Carbon Dioxide 26 mmol/L (22-29); Chloride 106 mmol/L (96-108); Creatinine Clr Calc Pharmacy 164.9; Estimated Glomerular Filt Rate > 60; Ethanol 371 mg/dL; Glucose Random 72 mg/dL (60-115); Potassium 3.5 mmol/L (3.3-5.1); Sodium 144 mmol/L (135-145); Total Protein 6.7 g/dL (6.5-8.0)
[2025-01-24] MEDS: LORazepam 1 MG TABLET PO (15:46)
--- NOTE | 2025-01-24 15:48 | PC.NURSE ---
patent medicated per MAR for anxiety. patient is awake and alert, ambulatory
[2025-01-24 16:06] LABS: Alkaline Phosphatase 102 U/L (39-117); Aspartate Amino Transferase 30 U/L (5-37)
--- NOTE | 2025-01-24 17:57 | PC.NURSE ---
Pt comes to ED BH pod from main ED area. Pt resting comfortably with eyes closed for some time after arrival. Upon waking Pt is tearful and report increased anxiety. robotics specialist spends time with Pt talking and giving support. Pt is awaiting Care Team eval.
--- NOTE | 2025-01-24 20:04 | PC.NURSE ---
pt feeling anxiouse and is tearful. Pt requesting medication to help him, Provider made aware.
[2025-01-24] MEDS: LORazepam 1 MG TABLET 2 MG PO (20:20)
--- NOTE | 2025-01-24 20:24 | PC.NURSE ---
pt states he has a headache. 06/12
--- NOTE | 2025-01-24 20:28 | PC.NURSE ---
provider Radha made aware of pt headache and that he just received his ativan for anxiety.
--- NOTE | 2025-01-24 20:38 | PC.NURSE ---
provider is aware of the pain scale and due to the pt had ativan and requested tylenol.
[2025-01-24] MEDS: Acetaminophen 325 MG TABLET 975 MG PO (20:40)
[2025-01-24 22:57] VITALS: RESP 16
[2025-01-25] VITALS (8 sets, daily range): BP systolic 146–203; BP diastolic 88–117; PULSE 93–108; RESP 16–20; TEMP 36.8–37.2; O2SAT 91–99
--- NOTE | 2025-01-25 03:13 | PC.NURSE ---
pt has a elevated bp, hr 98 and tremors. pt states he drinks 2 pints of vodka daily. pt is experiencing withdrawls. recharger made aware and primary to be informed by charge nurse.
[2025-01-25] MEDS: traZODone HCL 50 MG TABLET PO ×2 (03:24→20:41)
[2025-01-25] MEDS: LORazepam 1 MG TABLET 2 MG PO ×4 (03:25→19:38)
--- NOTE | 2025-01-25 03:27 | PC.NURSE ---
pt has been educated on the s/s of etoh withdrawl.
--- NOTE | 2025-01-25 03:55 | PC.NURSE ---
pt is now sleeping.
--- NOTE | 2025-01-25 07:40 | PC.NURSE ---
Assumed care of patient at 0645, patient appears to be in no apparent distress this am, clam and cooperative, alert and oriented x4. Continue plan of care for CARE team claudy
--- NOTE | 2025-01-25 07:55 | PC.NURSE ---
Pt reporting withdrawal symptoms CIWA of 14, vital signs showing tachycardia and htn. Patient reports he has not taken his medications in about 5 days . aware. PRN Ativan being administered
[2025-01-25] MEDS: Folic Acid 1 MG TABLET PO (09:31)
[2025-01-25] MEDS: Furosemide 40 MG TABLET PO (09:31)
[2025-01-25] MEDS: carvediloL 25 MG TABLET PO ×2 (09:32→19:40)
[2025-01-25] MEDS: Thiamine HCL 100 MG TABLET PO (09:32)
--- NOTE | 2025-01-25 09:44 | PHA.MEDREC ---
Pharmacy Consult ? Medication Reconciliation Pharmacy has reviewed the medication reconciliation done by RN.
[2025-01-25] MEDS: Valsartan 40 MG TABLET PO (10:28)
--- NOTE | 2025-01-25 19:48 | PC.NURSE ---
patient appears to remain at rest presently, elevated BP reported to ED provider,
[2025-01-26 06:20] VITALS: BP 165/93; PULSE 75; RESP 18; TEMP 36.7; O2SAT 96
--- NOTE | 2025-01-26 07:01 | PC.NURSE ---
Assumed care of patient at 0645, patient appears to be in no apparent distress this am, calm and cooperative, requesting medication for anxiety. PRN Ativan offered. Patient now sitting in room watching TV. Continue plan of care for CARE team follow up today
[2025-01-26] MEDS: LORazepam 1 MG TABLET 2 MG PO ×2 (07:06→10:26)
[2025-01-26] MEDS: carvediloL 25 MG TABLET PO (08:15)
[2025-01-26] MEDS: Furosemide 40 MG TABLET PO (08:15)
[2025-01-26] MEDS: Thiamine HCL 100 MG TABLET PO (08:15)
[2025-01-26] MEDS: Folic Acid 1 MG TABLET PO (08:15)
[2025-01-26] MEDS: Valsartan 40 MG TABLET PO (10:02)
[2025-01-26 10:55] VITALS: BP 142/92; PULSE 86; RESP 16; TEMP 37.2; O2SAT 99
== END 2025-01-26 11:10 | disposition home or self-care (01) ==
PROVIDERS: Emergency Provider Emergency Medicine Emergency Medical Services
DX: R45.851 Suicidal ideations (principal); F10.129 Alcohol abuse with intoxication, unspecified; F17.210 Nicotine dependence, cigarettes, uncomplicated; F41.9 Anxiety disorder, unspecified; Y90.8 Blood alcohol level of 240 mg/100 ml or more; Z51.81 Encounter for therapeutic drug level monitoring; Z11.52 Encounter for screening for COVID-19; Z79.899 Other long term (current) drug therapy
CPT/HCPCS: 36415; 80053; 80307; 85025; 87635; 99285; S9485

== ENCOUNTER 2025-02-01 14:11 | Inpatient (IN) | payer MEDICARE, MEDICAID, SELFPAY ==
[2025-02-01] VITALS (8 sets, daily range): BP systolic 138–199; BP diastolic 71–105; PULSE 75–109; RESP 14–18; TEMP 36.3–36.9; O2SAT 93–100; BMI 45.2
--- NOTE | ~2025-02-01 | US_ITS ---
CLINICAL HISTORY: elevated bili, abd pain US abdomen limited Comparison: US/SR - US ABDOMEN LIMITED - 12/23/23 16:01 EST Findings: Examination limited by patient body habitus. The pancreas obscured by gas. The liver suboptimally visualized and appears enlarged measuring 19 cm. The common duct was not visualized. No definite cholelithiasis or sludge in the gallbladder. Gallbladder wall measures 3 mm in thickness. Patient was tender in area of gallbladder. The main portal vein is antegrade. The right kidney was not visualized. No significant ascites. IMPRESSION: 1. Significantly limited examination by patient body habitus and bowel gas. 2. No definite cholelithiasis. Gallbladder wall within normal limits. 3. Liver is enlarged. This document has been electronically signed by: Hannah Saleh MD on 02/01/2025 18:04:55
--- NOTE | ~2025-02-01 | CT_ITS ---
CLINICAL HISTORY: ?seizure this morning, headstrike CT cervical spine without contrast Comparison: None Findings: Reversal of the cervical lordosis could be positional or due to muscle spasm. Otherwise alignment is maintained. Vertebral body height is maintained. No acute fracture in the cervical spine. Craniocervical junction is intact. Multilevel degenerative disc disease and spondylosis most significantly involving C4-5 and C5-6 with [id number] bilateral foraminal stenosis at C4-5 and mild foraminal stenosis at C5-6. Multilevel facet arthropathy. Prevertebral soft tissues within normal limits. Lung apices are clear. IMPRESSION: 1. No acute findings. 2. Reversal of the cervical lordosis and degenerative changes as described. This document has been electronically signed by: Hannah Saleh MD on 02/01/2025 17:29:40
--- NOTE | ~2025-02-01 | CT_ITS ---
CLINICAL HISTORY: ?seizure this morning, head strike CT head without contrast Comparison: None Findings: No intra-axial mass, midline shift, hydrocephalus, or acute hemorrhage. Mild atrophy. Mild nonspecific bilateral supratentorial periventricular white matter hypodensities most suggestive of chronic small-vessel ischemic changes. Mild atherosclerotic vascular disease. Mild bilateral maxillary sinus inflammatory disease. The visualized paranasal sinuses and mastoid air cells are otherwise clear. The orbits are unremarkable. No acute skull fracture. IMPRESSION: 1. No acute intracranial findings. This document has been electronically signed by: Hannah Saleh MD on 02/01/2025 17:43:27
--- NOTE | 2025-02-01 15:03 | ED_ITS ---
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 Per patient, his abruptly approximately 1 month ago. He reports walking into his home and finding her on the floor. He has been attempting to cope with her loss however needs to be committed . He reports drinking to excess daily since this time, primarily vodka. He last drank around 1100 today. Prior to this past month, his alcohol use had been in remission for years. He states he was hospitalized at our facility a few weeks ago and discharged home. Shortly after, he was let go from his job. He often thinks about hanging himself in an attempt to end his life however states I am a coward and could never . He denies any previous attempts at ending his life. Denies any access to guns. Denies HI. Denies illicit substance use. He complains of a headache x days. He attributes this insomnia over the last few days. States his head is racing . He has not trialed any OTC medications for this at home. He reports seizure this morning. This was unwitnessed. He reports waking up on his floor and is unsure how he got there. He does not have a history of epileptic or withdrawal seizures. He denies tongue bite. No bowel or bladder incontinence. He has a history of HTN and CHF - he admits he has not been compliant with his home medications. He reports increased swelling to his LEs. Denies vision changes, dizziness, chest pain, palpitations, sob, LACKEY. Related Data Home Medications ?Medication ?Instructions ?Recorded ?Confirmed valsartan 40 mg tablet 40 mg PO DAILY 01/25/25 02/01/25 Previous Rx's ?Medication ?Instructions ?Recorded carvedilol 25 mg tablet 25 mg PO BID #60 tabs 01/14/25 furosemide 40 mg tablet 40 mg PO DAILY #30 tabs 01/14/25 trazodone 50 mg tablet 50 mg PO BEDTIME MRX1 PRN Insomnia 01/14/25 #60 tabs Allergies Allergy/AdvReac Type Severity Reaction Status Date / Time No Known Allergies Allergy Verified 02/01/25 14:23 [No Known Allergies*] Review of Systems 2 Review of Systems: Yes all other systems are reviewed and are negative COUNT INCLUDES THE [facility] Past Medical History Attestation statement: The following information was validated with the patient. Source: old records reviewed and nursing notes reviewed Medical History Alcohol use disorder PTSD (post-traumatic stress disorder) Morbid obesity CHF (congestive heart failure) HTN (hypertension) Social History Social History Household Members: Family [facility] Do you presently have visiting nurse or other home services: No Alcohol intake: current Alcohol intake frequency: 3 or more drinks per day Alcohol type: hard liquor Comment: 1:1 sitter Patient Tobacco Use Status: Current everyday Tobacco user Tobacco use type: Cigarette Cigarette Packs Per Day: 1 Cigarettes Per Day: 20.0 Years Smoked: 45 Smoked in Last 30 Days: Yes e-Cigarette/Vaping Use: Never Used Patient Interested in Nicotine Replacement: Yes Patient Given Instructions on How to Stop Smoking: No Second Hand Smoke Exposure: No Use of substances other than those prescribed or required for medical reasons: No Substance Use Type: Marijuana Currently Displaying Signs/Symptoms of Drug Intoxication Withdrawal: No Have you been hit, kicked, punched, or otherwise hurt by someone within the past year? If so, by whom?: No Do you feel safe in your current relationship?: No Current Relationship Is there a partner from a previous relationship who is making you feel unsafe now?: No Are you made to feel afraid or neglected: No Advance Directives: No Advance Directives Information Provided: Yes Do you have thoughts of harming others: None Do you have a plan to hurt others: No Plan Recently lost weight without trying: No Nutrition Risks: No Nutritional Risk Poor oral hygiene: No service: Yes ([employer] (1989)) Sexual orientation: Straight/Heterosexual Physical Exam ED Vital Signs: Vital Signs - 24 hr 02/01/25 15:27 02/01/25 16:58 02/01/25 19:19 Temperature 97.3 F 98.1 F 98.3 F Pulse Rate 75 94 100 Respiratory Rate 14 18 16 Blood Pressure 138/71 155/85 H 150/75 H Pulse Oximetry 100 97 93 Oxygen Delivery Method Room Air Room Air 02/01/25 20:25 Temperature 97.9 F Pulse Rate 109 H Respiratory Rate 18 Blood Pressure 199/105 H Pulse Oximetry 95 Oxygen Delivery Method Room Air BMI result Body Mass Index 45.2 Vital signs stable, afebrile. General: intermittently tearful Skin: Warm, dry, intact. No rashes or lesions. Head: Normocephalic, atraumatic. no palpable skull fx or hematoma. no battles sign, no raccoon eyes. EENT: Hearing is intact b/l. Conjunctiva clear. PERRLA. EOM intact. Moist mucous membranes.?no tongue laceration. Cardiac: Chest wall symmetric. RRR. no jvd. Lungs: Normal respiratory effort without accessory muscle use. CTA bilaterally. No crackles. ? Abdomen: Soft, non-tender, non-distended. No rebound tenderness or guarding. Positive BS x4. Back: No midline spinous or paraspinal tenderness. No step off deformity. FROM intact to c spine. Ext: 1+ pitting edema to b/l LEs Neuro: AOx3. Normal speech. NIH 0. mildly tremulous. no asterixis or tongue fasiculations. Strength 5/5 intact throughout. No saddle anesthesia. Sensation intact to light touch. NV intact distally. Ambulating with steady gait. Psych: Appropriate mood and affect. Responds appropriately to questions. Course Course Course Narrative: 162 --CBC without leukocytosis or left shift. No anemia. H&H stable. Hypomagnesemic to 1.4. No other acute electrolyte abnormalities requiring intervention. BUN slightly elevated to 21, normal creatinine. Total bilirubin indirect bilirubin slightly elevated when compared to priors. he endorses mild epigastric pain, negative bowen sign. abd US ordered for further evaluation. bnp wnl at 57. cpk wnl. no rhabdo. > reports no relief with 1 mg Ativan. will try atarax to help with anxiety. tylenol given for headache. I do not feel he is in acute etoh withdrawal. > IV mag ordered for repletion > ct head/c spine pending 1750 -- CT head without bleed or mass. no skull fracture. ct cervical spine without fracture or subluxation. > patient mildly tremulous although well appearing. laughing and talking to sitter. will order IV and PO ativan for expected withdrawals. 180 -- RUQ ultrasound unremarkable. UA without infection. Urine toxicology positive for barbiturates, otherwise negative. Acetaminophen undetectable. at this time, patient is medically cleared for CARE team evaluation. physician observation initiated. Reevaluation(s) Reevaluation #1: 02/01/25 6222 observation ended he was admitted inpatient [facility] Medications Administered Generic Name Dose Route Start Last Admin Trade Name Freq PRN Reason Stop Dose Admin Acetaminophen 650 mg 02/01/25 20:49 02/02/25 04:41 Acetaminophen 325 Mg Tablet PO 650 mg Q6H PRN Administration Headache/Pain, Scale 1-10 Carvedilol 25 mg 02/01/25 21:00 02/02/25 09:09 Carvedilol 25 Mg Tablet PO 25 mg BID IVAN Administration Protocol Folic Acid 1 mg 02/02/25 09:00 02/02/25 09:10 Folic Acid 1 Mg Tablet PO 1 mg DAILY IVAN Administration Furosemide 40 mg 02/01/25 20:45 02/02/25 09:10 Furosemide 40 Mg Tablet PO 40 mg DAILY IVAN Administration Protocol Lorazepam 1 mg 02/01/25 20:52 02/02/25 09:09 Lorazepam 1 Mg Tablet PO 1 mg Q2H PRN Administration ciwa 6-10 Lorazepam 2 mg 02/01/25 20:52 02/02/25 12:32 Lorazepam 1 Mg Tablet PO 2 mg Q2H PRN Administration ciwa 11+ Multivitamins/Vitamin C 1 tab 02/02/25 09:00 02/02/25 09:10 Multivitamin Tablet PO 1 tab DAILY IVAN Administration Nicotine Polacrilex 4 mg 02/01/25 20:49 02/02/25 12:38 Nicotine Polacrilex 2 Mg Gum BUCCAL 4 mg Q2H PRN Administration Nicotine Cravings Thiamine HCl 100 mg 02/02/25 09:00 02/02/25 09:09 Thiamine Hcl 100 Mg Tablet PO 100 mg DAILY IVAN Administration Trazodone HCl 50 mg 02/01/25 20:33 02/01/25 23:29 Trazodone Hcl 50 Mg Tablet PO 50 mg BEDTIME MRX1 PRN Administration Insomnia Valsartan 40 mg 02/01/25 20:45 02/02/25 09:08 Valsartan 40 Mg Tablet PO 40 mg DAILY IVAN Administration Protocol Discontinued Medications Generic Name Dose Route Start Last Admin Trade Name Veronica WILCOX Reason Stop Dose Admin Acetaminophen 975 mg 02/01/25 15:13 02/01/25 15:37 Acetaminophen 325 Mg Tablet PO 02/01/25 15:14 975 mg ONCE ONE Administration Hydroxyzine HCl 25 mg 02/01/25 16:17 02/01/25 16:52 Hydroxyzine Hcl 25 Mg Tablet PO 02/01/25 16:18 25 mg ONCE ONE Administration Magnesium Sulfate 2 gm in 50 mls @ 150 mls/hr 02/01/25 16:26 02/01/25 18:43 Magnesium Sulfate/H2o IV 02/01/25 16:45 Infused ONCE ONE Infusion Magnesium Sulfate 2 gm in 50 mls @ 25 mls/hr 02/02/25 09:48 02/02/25 11:15 Magnesium Sulfate/H2o IV 02/02/25 11:47 Not Given ONCE ONE Lorazepam 1 mg 02/01/25 15:16 02/01/25 15:37 Lorazepam 1 Mg Tablet PO 02/01/25 15:17 1 mg ONCE ONE Administration Lorazepam 2 mg 02/01/25 17:33 02/01/25 17:40 Lorazepam 2 Mg/Ml Vial IVPUSH 02/01/25 17:34 2 mg ONCE ONE Administration Magnesium Oxide 800 mg 02/02/25 10:49 02/02/25 12:55 Magnesium Oxide 400 Mg Tablet PO 02/02/25 10:50 Not Given ONCE ONE Magnesium Oxide 800 mg 02/02/25 10:51 02/02/25 11:12 Magnesium Oxide 400 Mg Tablet PO 02/02/25 10:52 800 mg ONCE ONE Administration Medical Decision Making Medical Decision Making MDM Narrative: 59-year-old male with pmhx significant for HTN, CHF, PTSD and alcohol use disorder presents to the ED today for evaluation of a psychotic break . Differential diagnosis includes anemia, electrolyte abnormality, mood disorder, anxiety, depression, SI, polysubstance abuse, etoh use disorder, etoh intoxication, etoh withdrawal. less likely seizure, syncopal episode. Presentation not consistent with acute organic causes to include delirium, dementia or drug induced disorders (acute ingestions or withdrawal; no evidence of toxidrome).? Given the H&P, I suspect this patient is suicidal and will require observation. Will consult care team to evaluate the patient. Will also obtain labs for medical clearance. Plan: labs, EKG, ASA/APAP levels, ETOH level, UDS, care team consultation, reassessment Head/ c spine imaging ordered. Differential Diagnosis Differential Diagnoses: The differential diagnosis associated with the presentation includes as above. Admission/Observation Consideration of admission/observation: Escalation of care including admission/observation considered Lab Data MDM Lab Attestation statement: I reviewed the patient's lab results. as above. 02/01/25 15:34 02/01/25 15:34 Labs: Lab Results 02/01/25 02/01/25 02/01/25 Range/Units 15:33 15:34 15:34 WBC 8.4 (4.8-10.8) X10*3/uL RBC 4.61 (4.60-5.80) X10*6/uL Hgb 14.0 (14.0-18.0) g/dl Hct 40.2 L (42.0-52.0) % MCV 87.2 (80.0-98.0) fL MCH 30.4 (27.0-33.0) pg MCHC 34.8 (31.0-36.0) g/dl RDW 16.3 H (11.0-16.0) % Plt Count 118 L D (160-400) X10*3/uL MPV 10.1 (9.4-12.4) fL Immature Gran % (Auto) 0.1 (0.0-0.4) % Neut % (Auto) 56.8 (45-73) % Lymph % (Auto) 33.8 (20-40) % [place] % (Auto) 7.5 (2-11) % Eos % (Auto) 1.1 (0-4) % Baso % (Auto) 0.7 (0-2) % Lymph # (Auto) 2.8 (1.2-4.9) X10*3/uL [place] # (Auto) 0.6 (0.1-1.2) X10*3/uL Eos # (Auto) 0.1 (0.0-0.4) X10*3/uL Baso # (Auto) 0.1 (0.0-0.2) X10*3/uL Abs Immat Gran (auto) 0.01 (0.00-0.03) X10*3/uL Absolute Neuts (auto) 4.8 (2.0-8.3) x10*3/uL Absolute Nucleated RBC 0.000 (0.0-0.012) X10*3/uL Nucleated RBC % (auto) 0.0 (0.0-0.2) /100WBC Sodium 139 (135-145) mmol/L Potassium 3.4 (3.3-5.1) mmol/L Chloride 99 (96-108) mmol/L Carbon Dioxide 23 (22-29) mmol/L Anion Gap 20 (12-20) BUN 21 H (9-16) mg/dL Creatinine 0.95 (0.5-1.4) mg/dL Estim Creat Clear Calc 118.0 Estimated GFR > 60 Random Glucose 68 (60-115) mg/dL Calcium 8.9 D (8.4-10.2) mg/dL Magnesium 1.4 L* (1.6-2.6) mg/dL Total Bilirubin 1.2 H (0.0-1.0) mg/dL Direct Bilirubin 0.6 H (0.0-0.5) mg/dL AST 72 H (5-37) U/L ALT 31 (0-40) U/L Alkaline Phosphatase 95 (39-117) U/L Total Creatine Kinase 54 (38-174) U/L B-Natriuretic Peptide 57 57 (<100) pg/mL Total Protein 7.4 (6.5-8.0) g/dL Albumin 4.3 (3.5-5.0) g/dL Lipase 55 (8-78) U/L Urine Color Yellow Urine Appearance Clear Urine pH 6.0 (5.0-9.0) Ur Specific [place] <= 1.005 (1.005-1.025) Urine Protein Trace (Neg-Trace) mg/dL Urine Glucose (UA) Negative (Negative) mg/dL Urine Ketones 15 (Negative) mg/dL Urine Blood Small (1+) H (Negative) Urine Nitrite Negative (Negative) Ur Leukocyte Esterase Negative (Negative) Urine RBC 0-2 (0-2) /HPF Urine WBC 0-5 (0-5) /HPF Ur Squamous Epith Cells 0-2 (0-2) /HPF Urine Bacteria None Seen (None Seen) Hyaline Casts 0-2 (0-2) /LPF Urine Opiates Screen Not Detected (Not Detect) Ur Buprenorphine Scrn Not Detected (Not Detect) ng/mL Ur Oxycodone Screen Not Detected (Not Detect) ng/mL Urine Methadone Screen Not Detected (Not Detect) ng/mL Urine Fentanyl Screen Not Detected (Not Detect) Acetaminophen < 3 (<30) mcg/mL Ur Barbiturates Screen POSITIVE H (Not Detect) Ur Phencyclidine Scrn Not Detected (Not Detect) Ur Amphetamines Screen Not Detected (Not Detect) U Benzodiazepines Scrn Not Detected (Not Detect) Urine Cocaine Screen Not Detected (Not Detect) U Marijuana (THC) Screen Not Detected (Not Detect) Ethyl Alcohol 244 mg/dL Independent Interpretation I performed an independent interpretation of an: CT Scan Interpretation: CT head/brain without bleed or mass, no skull fracture CT c spine without acute fracture Radiology Impression Discussion of test interpretation with radiology: I have reviewed the radiologist's reading. Radiologist Impression: Procedure(s): CT head/brain wo IV con Accession Number(s): [id number] cc: Physician,Unknown ; Carol Kahn~ Report Number: [id number]: Total DLP = 1544.00 mGy-cm CLINICAL HISTORY: ?seizure this morning, head strike CT head without contrast Comparison: None Findings: No intra-axial mass, midline shift, hydrocephalus, or acute hemorrhage. Mild atrophy. Mild nonspecific bilateral supratentorial periventricular white matter hypodensities most suggestive of chronic small-vessel ischemic changes. Mild atherosclerotic vascular disease. Mild bilateral maxillary sinus inflammatory disease. The visualized paranasal sinuses and mastoid air cells are otherwise clear. The orbits are unremarkable. No acute skull fracture. IMPRESSION: 1. No acute intracranial findings. Procedure(s): CT cervical spine wo IV con Accession Number(s): [id number] cc: Physician,Unknown ; Carol Kahn~ Report Number: [id number]: Total DLP = 0.00 mGy-cm CLINICAL HISTORY: ?seizure this morning, headstrike CT cervical spine without contrast Comparison: None Findings: Reversal of the cervical lordosis could be positional or due to muscle spasm. Otherwise alignment is maintained. Vertebral body height is maintained. No acute fracture in the cervical spine. Craniocervical junction is intact. Multilevel degenerative disc disease and spondylosis most significantly involving C4-5 and C5-6 with [id number] bilateral foraminal stenosis at C4-5 and mild foraminal stenosis at C5-6. Multilevel facet arthropathy. Prevertebral soft tissues within normal limits. Lung apices are clear. IMPRESSION: 1. No acute findings. 2. Reversal of the cervical lordosis and degenerative changes as described. This document has been electronically signed by: Hannah Saleh MD on 02/01/2025 17:29:40 Independent Historian Clinical information obtained from an independent historian. History obtained from or confirmed by: EMS External Record Review External record reviewed: Inpatient record Prescription Management I considered prescription management with: Pain Medication Chronic Conditions Patient?s care impacted by: Hypertension Social Determinants Patient?s care significantly limited by Social Determinants of Health including: Alcoholism and drug addiction in family, Problems related to primary support group, Problems related to employment and Other Social Determinant of Health Critical Care Time Critical Care Time Critical Care Time: No Discharge Plan Discharge Clinical Impression: Suicidal ideation, Anxiety, Hypomagnesemia Patient Disposition: Admitted As Inpatient Interventions: Admission Worksheet (ED) Last Done: 02/01/25 22:53 Discharge Date/Time: 02/01/25 22:54
--- NOTE | 2025-02-01 15:14 | ECG_ITS ---
Test Reason : withdrawal Blood Pressure : */* mmHG Vent. Rate : 94 BPM Atrial Rate : 94 BPM P-R Int : 198 ms QRS Dur : 88 ms QT Int : 390 ms P-R-T Axes : 34 21 104 degrees QTcB Int : 487 ms Normal sinus rhythm Inferior infarct , age undetermined ST & T wave abnormality, consider lateral ischemia Abnormal ECG When compared with ECG of 14-Jan-2025 10:10, T wave inversion now evident in Lateral leads Referred By: Carol Kahn Electronically Signed By: MERY SAMPSON
[2025-02-01] MEDS: LORazepam 1 MG TABLET PO (15:37)
[2025-02-01] MEDS: Acetaminophen 325 MG TABLET 975 MG PO (15:37)
[2025-02-01 15:39] LABS: MANUAL DIFF FLAG NO
[2025-02-01 15:45] LABS: Appearance Urine Clear; Color Urine Yellow; Glucose Urine UA Negative (Negative); Leukocyte Esterase Urine Negative (Negative); Nitrite Urine Negative (Negative); Specific Gravity - Urine <= 1.005 (1.005-1.025); UMIC TRIGGER UACC YES; Urine Blood Small (1+) (Negative); Urine Ketones 15 mg/dL (Negative); Urine Protein Trace mg/dL (Neg-Trace)
[2025-02-01 15:53] LABS: Basophils Absolute Auto 0.1 X10*3/uL (0.0-0.2); Basophils Percent Auto 0.7 % (0-2); Eosinophils Absolute Auto 0.1 X10*3/uL (0.0-0.4); Eosinophils Percent Auto 1.1 % (0-4); Hematocrit 40.2 % (42.0-52.0); Imm Gran Abs Auto 0.01 X10*3/uL (0.00-0.03); Imm Gran Pct Auto 0.1 % (0.0-0.4); Lymphocytes Absolute Auto 2.8 X10*3/uL (1.2-4.9); Lymphocytes Percent Auto 33.8 % (20-40); Mean Corpuscular HGB Conc 34.8 g/dl (31.0-36.0); Mean Corpuscular Hemoglobin 30.4 pg (27.0-33.0); Mean Corpuscular Volume 87.2 fL (80.0-98.0); Mean Platelet Volume 10.1 fL (9.4-12.4); Monocytes Absolute Auto 0.6 X10*3/uL (0.1-1.2); Monocytes Percent Auto 7.5 % (2-11); Neutrophils Absolute Auto 4.8 x10*3/uL (2.0-8.3); Neutrophils Percent Auto 56.8 % (45-73); Platelet Count 118 X10*3/uL (160-400); Red Blood Count 4.61 X10*6/uL (4.60-5.80); Red Cell Distribution Width 16.3 % (11.0-16.0); White Blood Count 8.4 X10*3/uL (4.8-10.8)
[2025-02-01 16:01] LABS: Bacteria Urine None Seen (None Seen); Hyaline Casts Urine 0-2 /LPF (0-2); RBC Urine 0-2 /HPF (0-2); Squamous Epithelial Cell Urine 0-2 /HPF (0-2); WBC Urine 0-5 /HPF (0-5)
[2025-02-01 16:02] LABS: B Type Natriuretic Peptide 57 pg/mL (<100)
[2025-02-01 16:03] LABS: B Type Natriuretic Peptide 57 pg/mL (<100)
[2025-02-01 16:19] LABS: Acetaminophen LAB < 3 mcg/mL (<30); Alanine Aminotransferase 31 U/L (0-40); Albumin Level 4.3 g/dL (3.5-5.0); Alkaline Phosphatase 95 U/L (39-117); Anion Gap 20 (12-20); Aspartate Amino Transferase 72 U/L (5-37); Bilirubin Direct 0.6 mg/dL (0.0-0.5); Bilirubin Total 1.2 mg/dL (0.0-1.0); Blood Urea Nitrogen 21 mg/dL (9-16); Calcium 8.9 mg/dL (8.4-10.2); Carbon Dioxide 23 mmol/L (22-29); Chloride 99 mmol/L (96-108); Estimated Glomerular Filt Rate > 60; Ethanol 244 mg/dL; Glucose Random 68 mg/dL (60-115); Potassium 3.4 mmol/L (3.3-5.1); Sodium 139 mmol/L (135-145); Total Protein 7.4 g/dL (6.5-8.0)
[2025-02-01 16:25] LABS: Amphetamine Screen Urine Not Detected (Not Detect); Barbiturates, Urine POSITIVE (Not Detect); Benzodiazepines Screen Urine Not Detected (Not Detect); Buprenorphine Scr Not Detected (Not Detect); Cannabinoid Screen Urine Not Detected (Not Detect); Cocaine Screen Urine Not Detected (Not Detect); Fentanyl, urine Not Detected (Not Detect); Methadone Screen, Urine Not Detected (Not Detect); Opiate Screen Urine Not Detected (Not Detect); Oxycodone Screen Urine Not Detected (Not Detect); Phencyclidine Screen Urine Not Detected (Not Detect)
[2025-02-01 16:27] LABS: Lipase 55 U/L (8-78); Magnesium 1.4 mg/dL (1.6-2.6)
[2025-02-01] MEDS: hydrOXYzine HCL 25 MG TABLET PO (16:52)
[2025-02-01] MEDS: Magnesium Sulfate/H2O 2 GM/50 ML PIGGYBACK IV (16:52)
--- OUTSIDE RECORDS SUMMARY | 2025-02-01 17:31 | XMS_ITS | Clinical Summary ---
Author Organization [facility] Address [address] [place] [address] Phone Care Team Providers Care Paving Contractor Name Role Phone Physician, No Pcp Primary Care Provider Unavaila ble Allergies Active Allergy Reactions Criticality Noted Date Comments Fish Containing Products Swelling Medium 12/23/2024 Shellfish Derived Swelling Medium 12/23/2024 Medications carvediloL (COREG) 25 mg tablet Take 1 tablet (25 mg total) by mouth 2 (two) times a day with meals. 60 each 12/23/2024 Active furosemide (LASIX) 40 mg tablet Take 1 tablet (40 mg total) by mouth 1 (one) time each day. 30 each 12/24/2024 Active valsartan (DIOVAN) 40 mg tablet Take 1 tablet (40 mg total) by mouth 1 (one) time each day. 30 tablet 12/24/2024 Active folic acid (FOLVITE) 1 mg tablet [...] time each day. 30 tablet 12/24/2024 5 Active Problems Problem Noted Date Diagnosed Date Chronic combined systolic an d diastolic congestive heart failure 12/23/2024 Resolved Problems Problem Noted Date Diagnosed Date Resolved Date Alcohol withdrawal 12/20/2024 5 Encounters Date Type Department Care Team Description 12/20/2024 5:20 PM EST - 12/23/2024 6:02 PM EST Hospital Encounter [facility] [address] [place] [id number] Johan Gaona DO Jones, Christopher, MD Nasser, Nada S, MD Seralathan, Manikandan, [...] aneurysm Paternal Gra ndfather Age 60 Other: Carlos's disease Sister 1 Relation Name Status Comments [...] care for your loved ones. For example, childcare center director or elderly care for an older adult? [...] Health Maintenance Due Date Last Done Comments Pneumococcal Vaccine: 50+ Years (1 of 2 - PCV) 1983 Pneumococcal Vaccine: Pediatrics (0 to 5 Years) and At-Risk Patients (6 to 64 Years) (1 of 2 - PCV) 1983 Zoster Vaccines (1 of 2) 2014 DTaP,Tdap,and Td Vaccines (2 - Td or Tdap) 12/05/2018 12/05/2008 COVID-19 Vaccine (1 - season) 2024 Influenza Vaccine (#1) 2024 [...] patient's age to complete this topic Hepatitis A Vaccines Aged Out No long er eligible [...] Last 3 Months Results * ECG-Annotated (12/24/2024) us Provider Onbase ECG ORDERABLES Final Result * Phosphorus (12/23/2024 5:39 AM EST) Pathologist [facility] Phosphorus 3.3 2.5 - 4.5 mg/dL LAB CHEMISTRY METHOD 12/23/2024 7:19 AM EST [facility] Blood Venous blood specimen / Unknown Venipuncture / Unknown 12/23/2024 5:39 AM EST 12/23/2024 6:43 AM EST Gene Singh MD LAB BLOOD ORDERABLES Fi nal Result [facility] [address] [place] [address], [place] [phone] * (ABNORMAL) Magnesium (12/23/2024 5:39 AM EST) Only the most recent of3 resultswithin the time period is included. Pathologist [facility] Magnesium 1.7(L) 1.9 - 2.6 mg/dL LAB CHEMISTRY METHOD 12/23/2024 7:19 AM [facility] Blood Venous blood specimen / Unknown Venipuncture / Unknown 12/23/2024 5:39 AM EST 12/23/2024 6:43 AM EST Gene Singh MD LAB BLOOD ORDERABLES Fi nal Result [facility] [address] [place] [address], [place] [phone] * (ABNORMAL) Basic metabolic panel (12/23/2024 5:39 AM EST) Only the most recent of2 resultswithin the time period is included. [facility] Sodium 136 133 - 145 mmol/L LAB CHEMISTRY METHOD 12/23/2024 7:19 AM [facility] Potassium 3.1(L) 3.5 - 5.5 mmol/L [...] LAB CHEMISTRY METHOD 12/23/2024 7:19 AM EST [facility] eGFR 94 >=60 mL/min/1. 73m2 LAB CHEMISTRY METHOD 12/23/2024 7:19 AM [facility] Comment:Calculation based on the??Chronic Kidney Disease Epidemiology Collaboration (CKD-EPI) equation refit??without adjustment for race. BUN/Creatinine Ratio 16.1 LAB CHEMISTRY METHOD 12/23/2024 7:19 AM EST [facility] Calcium 8.1(L) 8.5 - 10.5 mg/dL LAB CHEMISTRY METHOD 12/23/2024 7:19 AM [facility] Blood Venous blood specimen / Unknown Venipuncture / Unknown 12/23/2024 5:39 AM EST 12/23/2024 6:43 AM EST Gene Singh MD LAB BLOOD ORDERABLES Fi nal Result Performing Organization Address City/[facility]/ZIP Co de Phone Number [facility] [address] [place] [address], [place] [phone] * Lavender tube (12/23/2024 5:34 AM EST) Only the most recent of2 resultswithin the time period is included. Extra Tube Hold for add-ons. 12/23/2024 8:01 AM EST [facility] Comment:Auto resulted. Blood Venous blood specimen / Unknown Venipuncture / Unknown 12/23/2024 5:34 AM EST 12/23/2024 6:46 AM EST us Gene Singh MD LAB BLOOD ORDERABLES Fi nal Result Performing Organization Address City/[facility]/ZIP Co de Phone Number [facility] [address] [place] [address], [place] [phone] * ECG 12 lead (12/22/2024 5:56 PM EST) Only the most recent of3 resultswithin the time period is included. Ventricular Rate ECG 87 BPM GEMUSE Atrial Rate 87 BPM GEMUSE P-R Interval 176 ms GEMUSE QRS Duration 102 ms GEMUSE Q-T Interval 422 ms GEMUSE QTc 507 ms GEMUSE P Wave [place] -11 degrees GEMUSE R [place] 15 degrees GEMUSE T [place] 51 degrees GEMUSE ECG Interpretation Sinus rhythm [...] * Hemoglobin A1c (12/22/2024 8:18 AM EST) Hemoglobin A1C 5.7 <6.5 % LAB CHEMISTRY METHOD 12/22/2024 1:57 PM EST [facility] Mean Bld Glu Estim. 117 mg/dL LAB CHEMISTRY METHOD 12/22/2024 1:57 PM EST [facility] Blood Venous blood specimen / Unknown 12/22/2024 8:18 AM EST 12/22/2024 8:25 AM EST us Gene Singh MD LAB BLOOD ORDERABLES Fi nal Result [facility] [address] [place] [address], [place] [phone] * (ABNORMAL) Comprehensive metabolic panel (12/22/2024 8:18 [...] 8:18 AM EST 12/22/2024 8:24 AM EST Gene Singh MD LAB BLOOD ORDERABLES Fi nal Result [facility] [address] [place] [address], [place] [phone] * CBC auto differential (12/21/2024 5:52 AM EST) Only the most recent of2 resultswithin the time period is included. WBC 6.3 4.8 - 10.8 K/mcL LAB [...] LAB HEMETOLOGY METHOD 12/21/2024 6:53 AM EST [facility] Neutrophils Absolute 3.95 1.50 - 7.00 K/mcL LAB HEMETOLOGY METHOD 12/21/2024 6:53 AM EST [facility] Lymphocytes Absolute 1.65 1.00 - 5.00 K/mcL LAB HEMETOLOGY METHOD 12/21/2024 6:53 AM EST [facility] Monocytes Absolute 0.47 0.20 - 1.00 K/[facility] LAB HEMETOLOGY METHOD 12/21/2024 6:53 AM EST [facility] Eosinophils Absolute 0.14 0.00 - 0.50 K/[facility] LAB HEMETOLOGY METHOD 12/21/2024 6:53 AM [facility] Basophils Absolute 0.05 0.00 - 0.20 K/mcL LAB HEMETOLOGY METHOD 12/21/2024 6:53 AM EST [facility] Immature Granulocytes Absolute 0.02 0.00 - 0.03 K/[facility] LAB HEMETOLOGY METHOD 12/21/2024 6:53 AM EST [facility] Blood Venous blood specimen / Unknown Venipuncture / Unknown 12/21/2024 5:52 AM EST 12/21/2024 6:34 AM EST us Jeffrey Dougherty MD LAB BLOOD ORDERABLES Final Result [facility] [address] [place] [address], * (ABNORMAL) Hepatic function panel (12/21/2024 5:52 AM EST) Total Protein 6.5 6.0 - 8.0 g/dL LAB CHEMISTRY METHOD 12/21/2024 7:24 AM EST [facility] Albumin 3.3 3.2 - 5.0 g/dL LAB CHEMISTRY METHOD 12/21/2024 7:24 AM EST [facility] Total Bilirubin 1.1 0.0 - [...] OROZCO LAB BLOOD ORDERABLES Final R esult [facility] [address] [place] [address], * Respiratory virus panel molecular study (12/21/2024 12:24 AM EST) Adenovirus Detection by PCR Not Detected Not Detected LAB MICROBIOLOGY METHOD 12/21/2024 1:46 AM EST [facility] Influenza A PCR Not Detected Not Detected LAB MICROBIOLOGY METHOD 12/21/2024 1:46 AM [facility] Influenza B PCR Not Detected Not Detected LAB MICROBIOLOGY METHOD 12/21/2024 1:46 AM EST [facility] Coronavirus 229E Not Detected Not Detected LAB MICROBIOLOGY METHOD 12/21/2024 1:46 AM [facility] Coronavirus HKU1 Not Detected Not Detected LAB MICROBIOLOGY METHOD 12/21/2024 1:46 AM [facility] Coronavirus OC43 Not Detected Not Detected LAB MICROBIOLOGY METHOD 12/21/2024 1:46 AM [facility] Coronavirus NL63 Not Detected Not Detected LAB MICROBIOLOGY METHOD 12/21/2024 1:46 AM [facility] Parainfluenza Virus 1 Not Detected Not Detected LAB MICROBIOLOGY METHOD 12/21/2024 1:46 AM [facility] Parainfluenza Virus 2 Not Detected Not Detected LAB MICROBIOLOGY METHOD 12/21/2024 1:46 AM [facility] Parainfluenza Virus 3 Not Detected Not Detected LAB MICROBIOLOGY METHOD 12/21/2024 1:46 AM [facility] Parainfluenza Virus 4 Not Detected Not Detected LAB MICROBIOLOGY METHOD 12/21/2024 1:46 AM [facility] RSV PCR Not Detected Not Detected LAB MICROBIOLOGY METHOD 12/21/2024 1:46 AM [facility] Human Metapneumovirus A and B Not Detected Not Detected LAB MICROBIOLOGY METHOD 12/21/2024 1:46 AM [facility] Rhinovirus/Entero virus Not Detected Not Detected LAB MICROBIOLOGY METHOD 12/21/2024 1:46 AM [facility] Bordetella pertussis Not Detected Not Detected LAB MICROBIOLOGY METHOD 12/21/2024 1:46 AM [facility] Bordetella parapertussis Not Detected Not Detected LAB MICROBIOLOGY METHOD 12/21/2024 1:46 AM [facility] Mycoplasma pneumo by PCR Not Detected Not Detected LAB MICROBIOLOGY METHOD 12/21/2024 1:46 AM [facility] Chlamydia pneumoniae Not Detected Not Detected LAB MICROBIOLOGY METHOD 12/21/2024 1:46 AM [facility] SARS COV-2 Not Detected Not Detected LAB MICROBIOLOGY METHOD 12/21/2024 1:46 AM EST [facility] Swab Both anterior nares / Unknown Non-blood Collection / Unknown 12/21/2024 12:24 AM EST 12/21/2024 12:48 AM EST [facility] - 12/21/2024 1:46 AM EST Testing was performed using the [employer] Respiratory Pathogen PCR Assay. All results must [...] MICROBIOLOGY - GENERAL O RDERABLES Final Result [facility] [address] [place] [address], * Procalcitonin (12/21/2024 12:20 AM EST) Procalcitonin 0.06 <=0.16 ng/mL LAB CHEMISTRY METHOD 12/21/2024 8:52 AM EST [facility] Blood Venous blood specimen / Unknown Venipuncture / Unknown 12/21/2024 12:20 AM EST 12/21/2024 12:26 AM EST [facility] - 12/21/2024 8:52 AM EST Procalcitonin [...] if any concentrations <2.0 ng/mL are obtained. us Polly OROZCO LAB BLOOD ORDERABLES Final R esult [facility] [address] [place] [address], [place] [phone] * (ABNORMAL) Drug abuse screen 8a panel, urine (12/20/2024 9:34 PM EST) [facility] Amphetamine Screen, Ur Negative Negative LAB CHEMISTRY METHOD 5 10:10 PM EST [facility] Comment:Certain OTC medicati ons containing ephedrine, phenylephrine, pseudoephedrine and phenylpropanolamine can cause false positive results. Barbiturate Screen, Ur Negative Negative LAB CHEMISTRY METHOD 5 10:10 PM EST [facility] Benzodiazepine Screen, Ur Negative Negative LAB CHEMISTRY METHOD 5 10:10 PM EST [facility] Cocaine Screen, Ur Negative Negative LAB CHEMISTRY METHOD 5 10:10 PM EST [facility] Opiate Screen, Ur Negative Negative LAB CHEMISTRY METHOD 5 10:10 PM EST [facility] Cannabinoid (THC) Screen, Ur Positive(A ) Negative LAB CHEMISTRY METHOD 5 10:10 PM EST [facility] Comment:Specimens from patie nts taking pantoprazole sodium (Protonix) have been shown to produce false positive results. Oxycodone Screen, Ur Negative Negative LAB CHEMISTRY METHOD 5 10:10 PM EST [facility] Fentanyl, Ur Negative Negative LAB CHEMISTRY METHOD 5 10:10 PM EST [facility] Urine Urine specimen obtained by clean catch procedure / Unknown Non-blood Collection / Unknown 12/20/2024 9:34 PM EST 12/20/2024 9:41 PM EST Narrative [facility] - 12/20/2024 10:10 PM EST [...] DO LAB URINE ORDERABLES Final Res ult [facility] [address] [place] [address], * Troponin I high sensitivity (12/20/2024 7:21 PM EST) Only the most recent of2 resultswithin the time period is included. High Sensitivity Troponin I 31 <=79 ng/L LAB CHEMISTRY METHOD 12/20/2024 8:09 PM EST [facility] Blood Venous blood specimen / Unknown Venipuncture / Unknown 12/20/2024 7:21 PM EST 12/20/2024 7:42 PM EST Narrative [facility] - 12/20/2024 8:09 PM EST High levels of biotin in samples may falsely decrease hsTroponin values. ??Use caution when interpreting hsTroponin results in patients taking biotin who exhibit renal impairment (eGFR <60) or in patients taking more than 20 mg/day of biotin. us Johan Gaona DO LAB BLOOD ORDERABLES Final Res ult [facility] [address] [place] [address], [place] [phone] * XR Chest 2 Views (12/20/2024 7:00 PM EST) Anatomical Region Laterality Modality Body Radiographic Amena ging 12/21/2024 8:04 AM EST Impressions 12/21/2024 8:07 AM EST No acute findings. -------- FINAL REPORT -------- Dictated By: Sabino Oviedo Dictated Date: 12/21/2024 08:04 ET Assigned Physician: Sabino Oviedo Reviewed and Electronically Signed By: Sabino Oviedo Signed Date: 12/21/2024 08:07 ET Workstation ID: [id number] Transcribed By: Self Edit Transcribed Date: 12/21/2024 08:04 ET Narrative 12/21/2024 8:07 AM EST PROCEDURE: PA and lateral radiographs of the chest. HISTORY: chest pain. COMPARISON: None. FINDINGS: Lungs, pleural spaces, and pulmonary vasculature are normal. ??The heart is mildly enlarged. ??Mild degenerative changes of the finding. Procedure Note aSbino Oviedo MD - 12/21/2024 PROCEDURE: PA and [...] Signed Date: 12/21/2024 08:07 ET Workstation ID: [id number] Transcribed By: Self Edit Transcribed Date: 12/21/2024 08:04 ET us Jeffrey Dougherty MD IMG XR PROCEDURES Final Res ult * Vitamin B12 and folate (12/20/2024 6:08 PM EST) [facility] Vitamin B-12 586 250 - 900 pcg/mL LAB CHEMISTRY METHOD 12/21/2024 12:45 AM EST [facility] Folate 8.3 2.8 - 17.0 ng/ml LAB CHEMISTRY METHOD 12/21/2024 12:45 AM EST [facility] Blood Venous blood specimen / Unknown Venipuncture / Unknown 12/20/2024 6:08 PM EST 12/20/2024 6:21 PM EST Polly Cast PA LAB BLOOD ORDERABLES Final R esult Performing Organization Address City/[facility]/ZIP Co de Phone Number [facility] [address] [place] [address], [place] [phone] * (ABNORMAL) Lipase (12/20/2024 6:08 PM EST) [facility] Lipase 85(H) 13 - 75 unit/L LAB CHEMISTRY METHOD 12/20/2024 6:52 PM EST [facility] Blood Venous blood specimen / Unknown Venipuncture / Unknown 12/20/2024 6:08 PM EST 12/20/2024 6:21 PM EST us Johan Gaona DO LAB BLOOD ORDERABLES Final Res ult Performing Organization Address City/[facility]/ZIP Co de Phone Number [facility] [address] [place] [address], [place] [phone] * B-type natriuretic peptide (12/20/2024 6:07 PM EST) [facility] BNP 10 <=100 pcg/mL LAB CHEMISTRY METHOD 12/20/2024 6:58 PM EST [facility] Blood Venous blood specimen / Unknown Venipuncture / Unknown 12/20/2024 6:07 PM EST 12/20/2024 6:21 PM EST us Johan Gaona DO LAB BLOOD ORDERABLES Final Res ult [facility] [address] [place] [address], from Last 3 Months Insurance #[id number] [place] [address] MEDICARE [facility] Advance Directives * Full Code - [...] currently active code status orders. Care Teams Paving Contractor Relationship Specialty Start Date End Date Physician, No Pcp PCP - General 12/20/24
[2025-02-01] MEDS: LORazepam 2 MG/ML VIAL IVPUSH (17:40)
--- NOTE | 2025-02-01 19:41 | PC.NURSE ---
Nurse to nurse report give to MICHLELE Hernandez. Security to assist with transfer.
--- NOTE | 2025-02-01 19:47 | MHC.EDTECH ---
Patient belongings removed from [facility] patient transferred to POD
[2025-02-01] MEDS: Furosemide 40 MG TABLET PO (20:57)
[2025-02-01] MEDS: Valsartan 40 MG TABLET PO (20:58)
[2025-02-01] MEDS: carvediloL 25 MG TABLET PO (20:58)
[2025-02-01] MEDS: Acetaminophen 325 MG TABLET 650 MG PO (23:25)
[2025-02-01] MEDS: LORazepam 1 MG TABLET 2 MG PO (23:29)
[2025-02-01] MEDS: traZODone HCL 50 MG TABLET PO (23:29)
[2025-02-02] VITALS (7 sets, daily range): BP systolic 121–162; BP diastolic 63–101; PULSE 64–102; RESP 18; TEMP 36.3–37.1; O2SAT 93–97; BMI 45.2
--- NOTE | 2025-02-02 02:01 | PC.ADMIT ---
Patient admitted to [facility] from [facility] ED via at 2256 as CV. Pleasant, calm and cooperative patient reports fatigue, headache, anxiety and depression 10/10. Also reports thinking about hanging himself but states he would never go through with it. PMH significant for HTN, CHF, PTSD and Alcohol use disorder. Joshua is known to [facility] having been inpatient several weeks ago. Prior to previous admission patients meterman partner and partners mother had . Upon discharge patient states he lost his job and has been drinking to excess daily since this time. Reports drinking 1-2 pints of vodka daily. Patient has been non compliant with medications since last admission. PMH includes HTN, CHF, PTSD and ETOH abuse. Patient reports having had an unwitnessed seizure prior to presenting to ED. He reports waking up on floor and is unsure how he got there. No history of epileptic or withdrawal seizures noted. Skin check unremarkable, vital signs and height and weight obtained. BP elevated at 184/97 however prior to leaving ED patient had been medicated with Carvedilol,Valsartan and Furosemide. CIWA score on arrival to unit was 11. Lorazepam administered per protocol. Tylenol requested and administered for 08/12 headache. Patient participated in admission process prior to going to bed. Joshua reports being a 1 pack per day smoker and is interested in NRT. Flu vaccine given on last admission. [facility] [place] [facility] [place] [place]. Housing is uncertain at this time as the condo was in name of partner who did not have will. Patient states, I probably won't be able to stay there. Patient was tearful at times during admission process stating he feels embarrassed to be back here but is open to getting help. Placed on 15 minute checks for safety. Appears to be sleeping soundly at this time.
[2025-02-02] MEDS: Acetaminophen 325 MG TABLET 650 MG PO (04:41)
[2025-02-02] MEDS: LORazepam 1 MG TABLET PO ×3 (04:41→21:03)
[2025-02-02 08:56] LABS: Estimated Average Glucose 105 mg/dL; Hemoglobin A1C 119.1449 umol/L; Hemoglobin A1c % 5.3 % (<6.0); Total Hemoglobin (HGBA1C) 3427.6384 umol/L
[2025-02-02] MEDS: Valsartan 40 MG TABLET PO (09:08)
[2025-02-02] MEDS: Thiamine HCL 100 MG TABLET PO (09:09)
[2025-02-02] MEDS: carvediloL 25 MG TABLET PO ×2 (09:09→21:02)
[2025-02-02] MEDS: Folic Acid 1 MG TABLET PO (09:10)
[2025-02-02] MEDS: Furosemide 40 MG TABLET PO (09:10)
[2025-02-02] MEDS: Multivitamin TABLET 1 TAB PO (09:10)
[2025-02-02 09:16] LABS: Cholesterol 205 mg/dL (<200); HDL Cholesterol 96 mg/dL (>40); LDL Cholesterol Calculated 95 mg/dL (<100); Magnesium 1.4 mg/dL (1.6-2.6); Triglycerides 71 mg/dL (<150)
[2025-02-02 09:52] LABS: Free T4 (Free Thyroxine) 1.06 ng/dL (0.71-1.85); Thyroid Stimulating Hormone 2.35 uIU/mL (0.32-4.0)
--- NOTE | 2025-02-02 09:52 | PM.EVENT ---
Event Note Date of Service: 02/02/25 Event Note: Pt is a 59-year-old male admitted to [facility] Psychiatric unit with hospitalist consult for hypomagnesemia. Pt has a hx of alcohol use disorder with recent admission to the hospital 1 month prior for acute alcohol withdrawal. Pt presented yesterday to our ED with magnesium of 1.4. With supplemented with Mag sulfate2 g IV with repeat labs today continued to be low at 1.4. Will supplement pt with additional Mag sulfate 2 g IV on the unit, and start on magnesium oxide 400 mg p.o. b.i.d. with meals. Will repeat labs tomorrow. Time Spent With Patient Time: Total time managing care of this patient today ____ minutes.
[2025-02-02 09:57] LABS: Folate 10.7 ng/mL (> or = 4.0); Vitamin B12 668 pg/mL (200-900)
[2025-02-02] MEDS: Magnesium Oxide 400 MG TABLET 800 MG PO ×2 (11:12→17:04)
[2025-02-02] MEDS: LORazepam 1 MG TABLET 2 MG PO ×2 (12:32→17:03)
[2025-02-02] MEDS: Nicotine Polacrilex 2 MG GUM 4 MG BUCCAL ×3 (12:38→21:02)
--- NOTE | 2025-02-02 20:47 | P.HPPS_ITS ---
HPI Date of Service: 02/02/25 Chief Complaint: Recurrent Major Depression, Alcohol Use Disorder Sources of Information: patient interviewed, chart reviewed and crisis/core team assessment reviewed HPI Subjective Notes: Conditional Voluntary Narrative: pt seen at 3pm on 02/02/25 Past Psychiatric History: IP: [facility] several years ago after the of his partner in their home OP: none, states he is making alliances now for ongoing support Meds: Effexor trial with agitation PMFSH Medical History Alcohol use disorder PTSD (post-traumatic stress disorder) Morbid obesity CHF (congestive heart failure) HTN (hypertension) Social History: 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 One son, in college, focusing on documentary film production One cat Trauma History: Losses Diagnostics Vital Signs (24Hr): Vital Signs - 24 hr 02/01/25 20:57 02/01/25 20:58 02/01/25 20:58 Temperature Pulse Rate 109 H Respiratory Rate Blood Pressure 199/105 H 199/105 H 199/105 H Pulse Oximetry Oxygen Delivery Method 02/01/25 23:15 02/02/25 00:15 02/02/25 04:34 Temperature 98.5 F 98.7 F 97.7 F Pulse Rate 104 H 102 H 71 Respiratory Rate Blood Pressure 184/97 H 162/74 H 141/63 H Pulse Oximetry 95 94 97 Oxygen Delivery Method Room Air Room Air Room Air 02/02/25 08:24 02/02/25 09:08 02/02/25 09:09 Temperature 97.3 F Pulse Rate 64 Respiratory Rate Blood Pressure 158/75 H 158/75 H 158/75 H Pulse Oximetry 96 Oxygen Delivery Method Room Air 02/02/25 16:45 02/02/25 19:57 Temperature 97.5 F 98 F Pulse Rate 84 Respiratory Rate 18 Blood Pressure 157/101 H 121/74 Pulse Oximetry 93 Oxygen Delivery Method Room Air BMI result Body Mass Index 45.2 Labs 02/01/25 15:34 02/01/25 15:34 Labs: Laboratory Results - last 48 hr 02/01/25 02/01/25 02/01/25 15:33 15:34 15:34 WBC 8.4 RBC 4.61 Hgb 14.0 Hct 40.2 L MCV 87.2 MCH 30.4 MCHC 34.8 RDW 16.3 H Plt Count 118 L D MPV 10.1 Immature Gran % (Auto) 0.1 Neut % (Auto) 56.8 Lymph % (Auto) 33.8 [place] % (Auto) 7.5 Eos % (Auto) 1.1 Baso % (Auto) 0.7 Lymph # (Auto) 2.8 [place] # (Auto) 0.6 Eos # (Auto) 0.1 Baso # (Auto) 0.1 Abs Immat Gran (auto) 0.01 Absolute Neuts (auto) 4.8 Absolute Nucleated RBC 0.000 Nucleated RBC % (auto) 0.0 Sodium 139 Potassium 3.4 Chloride 99 Carbon Dioxide 23 Anion Gap 20 BUN 21 H Creatinine 0.95 Estim Creat Clear Calc 118.0 Estimated GFR > 60 Random Glucose 68 Estimat Average Glucose Hemoglobin A1c % Calcium 8.9 D Magnesium 1.4 L* Total Bilirubin 1.2 H Direct Bilirubin 0.6 H AST 72 H ALT 31 Alkaline Phosphatase 95 Total Creatine Kinase 54 B-Natriuretic Peptide 57 57 Total Protein 7.4 Albumin 4.3 Triglycerides Cholesterol LDL Cholesterol, Calc HDL Cholesterol Lipase 55 Vitamin B12 Folate TSH Free T4 Urine Color Yellow Urine Appearance Clear Urine pH 6.0 Ur Specific [place] <= 1.005 Urine Protein Trace Urine Glucose (UA) Negative Urine Ketones 15 Urine Blood Small (1+) H Urine Nitrite Negative Ur Leukocyte Esterase Negative Urine RBC 0-2 Urine WBC 0-5 Ur Squamous Epith Cells 0-2 Urine Bacteria None Seen Hyaline Casts 0-2 Urine Opiates Screen Not Detected Ur Buprenorphine Scrn Not Detected Ur Oxycodone Screen Not Detected Urine Methadone Screen Not Detected Urine Fentanyl Screen Not Detected Acetaminophen < 3 Ur Barbiturates Screen POSITIVE H Ur Phencyclidine Scrn Not Detected Ur Amphetamines Screen Not Detected U Benzodiazepines Scrn Not Detected Urine Cocaine Screen Not Detected U Marijuana (THC) Screen Not Detected Ethyl Alcohol 244 02/02/25 08:17 WBC RBC Hgb Hct MCV MCH MCHC RDW Plt Count MPV Immature Gran % (Auto) Neut % (Auto) Lymph % (Auto) [place] % (Auto) Eos % (Auto) Baso % (Auto) Lymph # (Auto) [place] # (Auto) Eos # (Auto) Baso # (Auto) Abs Immat Gran (auto) Absolute Neuts (auto) Absolute Nucleated RBC Nucleated RBC % (auto) Sodium Potassium Chloride Carbon Dioxide Anion Gap BUN Creatinine Estim Creat Clear Calc Estimated GFR Random Glucose Estimat Average Glucose 105 Hemoglobin A1c % 5.3 Calcium Magnesium 1.4 L* Total Bilirubin Direct Bilirubin AST ALT Alkaline Phosphatase Total Creatine Kinase B-Natriuretic Peptide Total Protein Albumin Triglycerides 71 Cholesterol 205 H LDL Cholesterol, Calc 95 HDL Cholesterol 96 Lipase Vitamin B12 668 Folate 10.7 TSH 2.35 Free T4 1.06 Urine Color Urine Appearance Urine pH Ur Specific [place] Urine Protein Urine Glucose (UA) Urine Ketones Urine Blood Urine Nitrite Ur Leukocyte Esterase Urine RBC Urine WBC Ur Squamous Epith Cells Urine Bacteria Hyaline Casts Urine Opiates Screen Ur Buprenorphine Scrn Ur Oxycodone Screen Urine Methadone Screen Urine Fentanyl Screen Acetaminophen Ur Barbiturates Screen Ur Phencyclidine Scrn Ur Amphetamines Screen U Benzodiazepines Scrn Urine Cocaine Screen U Marijuana (THC) Screen Ethyl Alcohol Meds/Allergies Meds Home Medications ?Medication ?Instructions ?Recorded ?Confirmed ?Type valsartan 40 mg tablet 40 mg PO DAILY 01/25/25 02/01/25 History Allergies Allergies Allergy/AdvReac Type Severity Reaction Status Date / Time No Known Allergies Allergy Verified 02/01/25 14:23 [No Known Allergies*] Assessment & Plan Statement Statement: I have reviewed the history and physical and performed a pertinent examination on my patient. No changes have occurred unless specified. If the History and Physical was not performed prior to admission, the Hospitalist's service will be consulted for completing the admission physical. Time Spent With Patient Time: Total time managing care of this patient today ____ minutes.
[2025-02-02] MEDS: traZODone HCL 50 MG TABLET PO (21:02)
[2025-02-03 07:00] VITALS: BMI 44.0
[2025-02-03 08:25] LABS: Magnesium 1.5 mg/dL (1.6-2.6)
[2025-02-03 08:30] VITALS: BP 189/112; PULSE 76; RESP 16; TEMP 36.8; O2SAT 95
[2025-02-03] MEDS: Magnesium Oxide 400 MG TABLET PO (09:05)
[2025-02-03] MEDS: carvediloL 25 MG TABLET PO ×2 (09:05→21:25)
[2025-02-03] MEDS: Valsartan 40 MG TABLET PO (09:05)
[2025-02-03] MEDS: Multivitamin TABLET 1 TAB PO (09:05)
[2025-02-03] MEDS: Thiamine HCL 100 MG TABLET PO (09:05)
[2025-02-03] MEDS: Folic Acid 1 MG TABLET PO (09:05)
[2025-02-03 09:42] VITALS: BP 118/112
[2025-02-03] MEDS: Furosemide 40 MG TABLET PO (09:42)
[2025-02-03] MEDS: hydrOXYzine HCL 25 MG TABLET PO ×2 (09:42→21:25)
[2025-02-03 10:14] VITALS: BP 174/92
[2025-02-03] MEDS: LORazepam 1 MG TABLET PO ×2 (11:19→17:36)
--- NOTE | 2025-02-03 11:51 | HO.PSYCHPN ---
Subjective Subjective Date of Service: 02/03/25 Reason For Visit: Recurrent Major Depression, Alcohol Use Disorder Subjective Notes: Conditional Voluntary Healthcare Proxy: No Guardianship: No Medical Problems Affecting Mental Status: No Interim History: Pt discussed issues since previous discharge, precipitous firing, does not believe he will be approved for unemployment, fears loss of housing, inability to access [employer] funds to help with household expenses as they had been doing, relapse, increase in hopelessness, apathy. Physically, my legs just do not work . Reports abdominal pain 04/12, discussed in team, will order hospitalist consult. Denies SI,HI,AH,VH. I just don't know what to do. Medication Compliance: Yes Side effects from medications: No Review of Systems Acute medical concerns: Yes Refer to HPI Pt did not follow up post recent discharge with PCP/Cardiology due to finances Review of Systems Review of Systems Abdominal pain Leg weakness and pain Mental Status Exam Mental Status Exam Patient Appearance: Appropriate Patient Orientation: Person, Place, Time and Situation Level of Consciousness: Alert Patient Behavior: Talkative Mood Description: Depressed Affect Description: Flat Patient Cognition Impaired: No Ability to Follow Directions: Good Speech Pattern: Spontaneous Speech Memory Description: Intact Hallucinations: None Delusions: Not Present Thought Process: Rumination Thought Content: positive for Perseveration and positive for Suicidal Ideation (denies) Depressive Symptoms: Increased Fatigue Judgement: Fair Diagnostics Vital Signs (24Hr): Vital Signs - 24 hr 02/02/25 16:45 02/02/25 19:57 02/03/25 08:30 Temperature 97.5 F 98 F 98.3 F Pulse Rate 84 76 Respiratory Rate 18 16 Blood Pressure 157/101 H 121/74 189/112 H Pulse Oximetry 93 95 Oxygen Delivery Method Room Air Room Air 02/03/25 09:42 02/03/25 10:14 Temperature Pulse Rate Respiratory Rate Blood Pressure 118/112 H 174/92 H Pulse Oximetry Oxygen Delivery Method BMI result Body Mass Index 44.0 Labs 02/01/25 15:34 02/01/25 15:34 Labs: Laboratory Results - last 48 hr 02/01/25 02/01/25 02/01/25 15:33 15:34 15:34 WBC 8.4 RBC 4.61 Hgb 14.0 Hct 40.2 L MCV 87.2 MCH 30.4 MCHC 34.8 RDW 16.3 H Plt Count 118 L D MPV 10.1 Immature Gran % (Auto) 0.1 Neut % (Auto) 56.8 Lymph % (Auto) 33.8 [place] % (Auto) 7.5 Eos % (Auto) 1.1 Baso % (Auto) 0.7 Lymph # (Auto) 2.8 [place] # (Auto) 0.6 Eos # (Auto) 0.1 Baso # (Auto) 0.1 Abs Immat Gran (auto) 0.01 Absolute Neuts (auto) 4.8 Absolute Nucleated RBC 0.000 Nucleated RBC % (auto) 0.0 Sodium 139 Potassium 3.4 Chloride 99 Carbon Dioxide 23 Anion Gap 20 BUN 21 H Creatinine 0.95 Estim Creat Clear Calc 118.0 Estimated GFR > 60 Random Glucose 68 Estimat Average Glucose Hemoglobin A1c % Calcium 8.9 D Magnesium 1.4 L* Total Bilirubin 1.2 H Direct Bilirubin 0.6 H AST 72 H ALT 31 Alkaline Phosphatase 95 Total Creatine Kinase 54 B-Natriuretic Peptide 57 57 Total Protein 7.4 Albumin 4.3 Triglycerides Cholesterol LDL Cholesterol, Calc HDL Cholesterol Lipase 55 Vitamin B12 Folate TSH Free T4 Urine Color Yellow Urine Appearance Clear Urine pH 6.0 Ur Specific [place] <= 1.005 Urine Protein Trace Urine Glucose (UA) Negative Urine Ketones 15 Urine Blood Small (1+) H Urine Nitrite Negative Ur Leukocyte Esterase Negative Urine RBC 0-2 Urine WBC 0-5 Ur Squamous Epith Cells 0-2 Urine Bacteria None Seen Hyaline Casts 0-2 Urine Opiates Screen Not Detected Ur Buprenorphine Scrn Not Detected Ur Oxycodone Screen Not Detected Urine Methadone Screen Not Detected Urine Fentanyl Screen Not Detected Acetaminophen < 3 Ur Barbiturates Screen POSITIVE H Ur Phencyclidine Scrn Not Detected Ur Amphetamines Screen Not Detected U Benzodiazepines Scrn Not Detected Urine Cocaine Screen Not Detected U Marijuana (THC) Screen Not Detected Ethyl Alcohol 244 02/02/25 02/03/25 08:17 07:58 WBC RBC Hgb Hct MCV MCH MCHC RDW Plt Count MPV Immature Gran % (Auto) Neut % (Auto) Lymph % (Auto) [place] % (Auto) Eos % (Auto) Baso % (Auto) Lymph # (Auto) [place] # (Auto) Eos # (Auto) Baso # (Auto) Abs Immat Gran (auto) Absolute Neuts (auto) Absolute Nucleated RBC Nucleated RBC % (auto) Sodium Potassium Chloride Carbon Dioxide Anion Gap BUN Creatinine Estim Creat Clear Calc Estimated GFR Random Glucose Estimat Average Glucose 105 Hemoglobin A1c % 5.3 Calcium Magnesium 1.4 L* 1.5 L Total Bilirubin Direct Bilirubin AST ALT Alkaline Phosphatase Total Creatine Kinase B-Natriuretic Peptide Total Protein Albumin Triglycerides 71 Cholesterol 205 H LDL Cholesterol, Calc 95 HDL Cholesterol 96 Lipase Vitamin B12 668 Folate 10.7 TSH 2.35 Free T4 1.06 Urine Color Urine Appearance Urine pH Ur Specific [place] Urine Protein Urine Glucose (UA) Urine Ketones Urine Blood Urine Nitrite Ur Leukocyte Esterase Urine RBC Urine WBC Ur Squamous Epith Cells Urine Bacteria Hyaline Casts Urine Opiates Screen Ur Buprenorphine Scrn Ur Oxycodone Screen Urine Methadone Screen Urine Fentanyl Screen Acetaminophen Ur Barbiturates Screen Ur Phencyclidine Scrn Ur Amphetamines Screen U Benzodiazepines Scrn Urine Cocaine Screen U Marijuana (THC) Screen Ethyl Alcohol Medications Medications Current Medications Acetaminophen (Acetaminophen 325 Mg Tablet) 650 mg PO Q6H PRN PRN Reason: Headache/Pain, Scale 1-10 Last Admin: 02/02/25 04:41 Dose: 650 mg Al Hydroxide/Mg Hydroxide (Magnesium Hydrox/Alum Hydrox 30 Ml Oral.Susp) 30 ml PO Q6H PRN PRN Reason: Heartburn/Nausea Carvedilol (Carvedilol 25 Mg Tablet) 25 mg PO BID [facility]; Protocol Last Admin: 02/03/25 09:05 Dose: 25 mg Folic Acid (Folic Acid 1 Mg Tablet) 1 mg PO DAILY [facility] Last Admin: 02/03/25 09:05 Dose: 1 mg Furosemide (Furosemide 40 Mg Tablet) 40 mg PO DAILY [facility]; Protocol Last Admin: 02/03/25 09:42 Dose: 40 mg Hydroxyzine HCl (Hydroxyzine Hcl 25 Mg Tablet) 25 mg PO Q6H PRN PRN Reason: mild anxiety Last Admin: 02/03/25 09:42 Dose: 25 mg Lorazepam (Lorazepam 1 Mg Tablet) 1 mg PO Q2H PRN PRN Reason: ciwa 6-10 Last Admin: 02/03/25 11:19 Dose: 1 mg Lorazepam (Lorazepam 1 Mg Tablet) 2 mg PO Q2H PRN PRN Reason: ciwa 11+ Last Admin: 02/02/25 17:03 Dose: 2 mg Magnesium Hydroxide (Milk Of Magnesia 30 Ml Oral.Susp) 30 ml PO DAILY PRN PRN Reason: Constipation Magnesium Oxide (Magnesium Oxide 400 Mg Tablet) 800 mg PO TID [facility] Stop: 02/04/25 21:01 Multivitamins/Vitamin C (Multivitamin Tablet) 1 tab PO DAILY [facility] Last Admin: 02/03/25 09:05 Dose: 1 tab Nicotine Polacrilex (Nicotine Polacrilex 2 Mg Gum) 4 mg [place]AL Q2H PRN PRN Reason: Nicotine Cravings Last Admin: 02/02/25 21:02 Dose: 4 mg Thiamine HCl (Thiamine Hcl 100 Mg Tablet) 100 mg PO DAILY [facility] Last Admin: 02/03/25 09:05 Dose: 100 mg Trazodone HCl (Trazodone Hcl 50 Mg Tablet) 50 mg PO BEDTIME MRX1 PRN PRN Reason: Insomnia Last Admin: 02/02/25 21:02 Dose: 50 mg Valsartan (Valsartan 40 Mg Tablet) 40 mg PO DAILY [facility]; Protocol Last Admin: 02/03/25 09:05 Dose: 40 mg Allergies Allergies Allergy/AdvReac Type Severity Reaction Status Date / Time No Known Allergies Allergy Verified 02/01/25 14:23 [No Known Allergies*] Assessment & Plan Assessment & Plan (1) Acute stress disorder: Status: Acute Code(s): F43.0 - Acute stress reaction (2) PTSD (post-traumatic stress disorder): Status: Acute Code(s): F43.10 - Post-traumatic stress disorder, unspecified (3) Alcohol use disorder: Status: Acute Code(s): F10.90 - Alcohol use, unspecified, uncomplicated Plan 02/03-Continue tx Re-start Sertraline Mg repeat 02/05/25. Reason for continued inpatient stay Substantial Risk for: rapid decompensation Time Spent With Patient Time: Total time managing care of this patient today ____ minutes.
[2025-02-03] MEDS: Magnesium Oxide 400 MG TABLET 800 MG PO (15:11)
[2025-02-03] MEDS: Nicotine Polacrilex 2 MG GUM 4 MG BUCCAL ×4 (15:11→21:25)
[2025-02-03 20:00] VITALS: BP 137/89; PULSE 71; RESP 18; TEMP 36.7; O2SAT 98
--- NOTE | 2025-02-03 20:56 | P.EN_ITS ---
Event Note Date of Service: 02/03/25 Event Note: Pt is a 59-year-old male admitted to [facility] with hospitalist consult for nausea, vomiting, and severe abdominal pain. Pt seen and evaluated on the unit where he is sitting comfortably in the common area watching TV. Pt reports that he had a few episodes of diarrhea early this morning that have occurred in the past when he is ?stressed out?. Denies any nausea, vomiting or abdominal pain. Reports it all of his dinner without incident. Reports cu rrently feeling anxious and stressed about going home and his financial situation, but otherwise has no acute medical complaints. Of note, pt receiving high dose magnesium oxide p.o. due to magnesium level of 1.4, which could be contributing to diarrhea. We will continue two more days of magnesium 400 b.i.d. otherwise no indication for additional workup or treatment at this time. Will sign off for now. Thank you for allowing us to participate in the care of this pt. Time Spent With Patient Time: Total time managing care of this patient today ____ minutes.
[2025-02-03] MEDS: LORazepam 1 MG TABLET 2 MG PO (21:24)
[2025-02-03] MEDS: traZODone HCL 50 MG TABLET PO (21:25)
[2025-02-04 08:00] VITALS: BP 176/96; PULSE 73; RESP 16; TEMP 36.3; O2SAT 96
[2025-02-04 09:07] VITALS: BP 176/96
[2025-02-04] MEDS: Magnesium Oxide 400 MG TABLET PO ×2 (09:07→17:46)
[2025-02-04] MEDS: Thiamine HCL 100 MG TABLET PO (09:07)
[2025-02-04] MEDS: Valsartan 40 MG TABLET PO (09:07)
[2025-02-04 09:08] VITALS: BP 176/96; PULSE 84
[2025-02-04] MEDS: Furosemide 40 MG TABLET PO (09:08)
[2025-02-04] MEDS: Multivitamin TABLET 1 TAB PO (09:08)
[2025-02-04] MEDS: Folic Acid 1 MG TABLET PO (09:08)
[2025-02-04] MEDS: carvediloL 25 MG TABLET PO ×2 (09:08→20:49)
[2025-02-04] MEDS: Sertraline HCL 25 MG TABLET PO (09:13)
--- NOTE | 2025-02-04 09:37 | P.PNPSI_ITS ---
Subjective Subjective Date of Service: 02/04/25 Reason For Visit: Recurrent Major Depression, Alcohol Use Disorder Subjective Notes: Conditional Voluntary Healthcare Proxy: No Guardianship: No Medical Problems Affecting Mental Status: No Interim History: Discussed ongoing tx with pt. He learned today that he is approved for unemployment. He asks for discharge to look for a job, secure finances, housing and work to get back on track. States he has resumes in his car and will present himself to companies to present his resume and apply for work in person- this is how I have always done it and it has never failed me. States he is more focused and hopeful with approval of unemployment, I can still live now. Declines CSS referral at this time- I need to work again to survive . Medication Compliance: Yes Side effects from medications: No Attending Groups: Intermittent Review of Systems Acute medical concerns: Yes follow up cardiology Medical Review of Systems: unchanged Review of Systems Review of Systems Reports GI sx persist. Maybe anxiety Seen by hospitalist team 02/03. Mental Status Exam Mental Status Exam Patient Appearance: Appropriate Patient Orientation: Person, Place, Time and Situation Level of Consciousness: Alert Patient Behavior: Talkative Mood Description: Depressed Affect Description: Flat Patient Cognition Impaired: No Ability to Follow Directions: Good Speech Pattern: Spontaneous Speech Memory Description: Intact Hallucinations: None Delusions: Not Present Thought Process: Rumination Thought Content: positive for Perseveration and positive for Suicidal Ideation (denies) Depressive Symptoms: Increased Fatigue Judgement: Fair Diagnostics Vital Signs (24Hr): Vital Signs - 24 hr 02/03/25 09:42 02/03/25 10:14 02/03/25 20:00 Temperature 98.1 F Pulse Rate 71 Respiratory Rate 18 Blood Pressure 118/112 H 174/92 H 137/89 Pulse Oximetry 98 Oxygen Delivery Method Room Air 02/04/25 08:00 02/04/25 09:07 02/04/25 09:08 Temperature 97.3 F Pulse Rate 73 84 Respiratory Rate 16 Blood Pressure 176/96 H 176/96 H 176/96 H Pulse Oximetry 96 Oxygen Delivery Method Room Air 02/04/25 09:08 Temperature Pulse Rate Respiratory Rate Blood Pressure 176/96 H Pulse Oximetry Oxygen Delivery Method BMI result Body Mass Index 44.0 Labs 02/01/25 15:34 02/01/25 15:34 Labs: Laboratory Results - last 48 hr 02/02/25 02/03/25 08:17 07:58 Magnesium 1.5 L Vitamin B12 668 Folate 10.7 TSH 2.35 Free T4 1.06 Medications Medications Current Medications Acetaminophen (Acetaminophen 325 Mg Tablet) 650 mg PO Q6H PRN PRN Reason: Headache/Pain, Scale 1-10 Last Admin: 02/02/25 04:41 Dose: 650 mg Al Hydroxide/Mg Hydroxide (Magnesium Hydrox/Alum Hydrox 30 Ml Oral.Susp) 30 ml PO Q6H PRN PRN Reason: Heartburn/Nausea Carvedilol (Carvedilol 25 Mg Tablet) 25 mg PO BID [facility]; Protocol Last Admin: 02/04/25 09:08 Dose: 25 mg Folic Acid (Folic Acid 1 Mg Tablet) 1 mg PO DAILY [facility] Last Admin: 02/04/25 09:08 Dose: 1 mg Furosemide (Furosemide 40 Mg Tablet) 40 mg PO DAILY [facility]; Protocol Last Admin: 02/04/25 09:08 Dose: 40 mg Hydroxyzine HCl (Hydroxyzine Hcl 25 Mg Tablet) 25 mg PO Q6H PRN PRN Reason: mild anxiety Last Admin: 02/03/25 21:25 Dose: 25 mg Lorazepam (Lorazepam 1 Mg Tablet) 1 mg PO Q2H PRN PRN Reason: ciwa 6-10 Last Admin: 02/03/25 17:36 Dose: 1 mg Lorazepam (Lorazepam 1 Mg Tablet) 2 mg PO Q2H PRN PRN Reason: ciwa 11+ Last Admin: 02/03/25 21:24 Dose: 2 mg Magnesium Hydroxide (Milk Of Magnesia 30 Ml Oral.Susp) 30 ml PO DAILY PRN PRN Reason: Constipation Magnesium Oxide (Magnesium Oxide 400 Mg Tablet) 400 mg PO BIDPC [facility] Stop: 02/06/25 08:29 Last Admin: 02/04/25 09:07 Dose: 400 mg Multivitamins/Vitamin C (Multivitamin Tablet) 1 tab PO DAILY [facility] Last Admin: 02/04/25 09:08 Dose: 1 tab Nicotine Polacrilex (Nicotine Polacrilex 2 Mg Gum) 4 mg [place] Q2H PRN PRN Reason: Nicotine Cravings Last Admin: 02/03/25 21:25 Dose: 4 mg Sertraline HCl (Sertraline Hcl 25 Mg Tablet) 25 mg PO DAILY [facility] Last Admin: 02/04/25 09:13 Dose: 25 mg Thiamine HCl (Thiamine Hcl 100 Mg Tablet) 100 mg PO DAILY [facility] Last Admin: 02/04/25 09:07 Dose: 100 mg Trazodone HCl (Trazodone Hcl 50 Mg Tablet) 50 mg PO BEDTIME MRX1 PRN PRN Reason: Insomnia Last Admin: 02/03/25 21:25 Dose: 50 mg Valsartan (Valsartan 40 Mg Tablet) 40 mg PO DAILY [facility]; Protocol Last Admin: 02/04/25 09:07 Dose: 40 mg Allergies Allergies Allergy/AdvReac Type Severity Reaction Status Date / Time No Known Allergies Allergy Verified 02/01/25 14:23 [No Known Allergies*] Assessment & Plan Assessment & Plan (1) Acute stress disorder: Status: Acute Code(s): F43.0 - Acute stress reaction (2) PTSD (post-traumatic stress disorder): Status: Acute Code(s): F43.10 - Post-traumatic stress disorder, unspecified (3) Alcohol use disorder: Status: Acute Code(s): F10.90 - Alcohol use, unspecified, uncomplicated Plan 02/04/25: Mg level /5 DC 02/06 Patient educated on: therapeutic strategies Reason for continued inpatient stay Substantial Risk for: rapid decompensation and med/psych decompensation Time Spent With Patient Time: Total time managing care of this patient today ____ minutes.
[2025-02-04] MEDS: hydrOXYzine HCL 25 MG TABLET PO ×2 (11:11→20:47)
[2025-02-04] MEDS: Nicotine Polacrilex 2 MG GUM 4 MG BUCCAL ×2 (11:12→20:49)
[2025-02-04 20:00] VITALS: BP 157/95; PULSE 95; O2SAT 99
[2025-02-04] MEDS: traZODone HCL 50 MG TABLET PO (20:47)
[2025-02-04] MEDS: OXcarbazepine 300 MG TABLET PO (20:48)
[2025-02-04] MEDS: LORazepam 1 MG TABLET PO (20:48)
[2025-02-05 08:00] VITALS: BP 183/99; PULSE 79; RESP 16; TEMP 36.4; O2SAT 98
[2025-02-05] MEDS: Sertraline HCL 25 MG TABLET PO (08:15)
[2025-02-05] MEDS: Furosemide 40 MG TABLET PO (08:15)
[2025-02-05] MEDS: Folic Acid 1 MG TABLET PO (08:15)
[2025-02-05] MEDS: OXcarbazepine 300 MG TABLET PO ×2 (08:15→21:52)
[2025-02-05] MEDS: Multivitamin TABLET 1 TAB PO (08:15)
[2025-02-05] MEDS: Magnesium Oxide 400 MG TABLET PO ×2 (08:15→16:51)
[2025-02-05] MEDS: Thiamine HCL 100 MG TABLET PO (08:15)
[2025-02-05] MEDS: carvediloL 25 MG TABLET PO ×2 (08:16→21:52)
[2025-02-05] MEDS: Valsartan 40 MG TABLET PO (08:16)
[2025-02-05 09:19] LABS: Magnesium 1.4 mg/dL (1.6-2.6)
[2025-02-05] MEDS: Magnesium Oxide 400 MG TABLET 800 MG PO (09:32)
[2025-02-05] MEDS: hydrOXYzine HCL 25 MG TABLET PO ×2 (09:35→21:52)
[2025-02-05 09:37] VITALS: BP 126/71
--- NOTE | 2025-02-05 09:37 | HO.PSYCHPN ---
Subjective Subjective Date of Service: 02/05/25 Reason For Visit: Recurrent Major Depression, Alcohol Use Disorder Subjective Notes: Conditional Voluntary Healthcare Proxy: No Guardianship: No Medical Problems Affecting Mental Status: No Interim History: Alfred reports he feels prepared to discharge. I need to get going and look for a job. He denies SI,HI,AH,VH. There are no sx of acute brock or psychosis. He does report anxiety and has used Lorazepam, which he is aware we will not be prescribing on DC. He is aware he needs to follow up with PCP, Cardiology, and [facility] sleep center for a sleep study. He is aware of low Mg, need for supplementation and PCP monitoring He reports he will follow up. He is aware that he may call/return if needed. Medication Compliance: Yes Side effects from medications: No Attending Groups: Intermittent Review of Systems as noted Medical Review of Systems: unchanged Review of Systems Review of Systems anxiety Mental Status Exam Mental Status Exam Patient Appearance: Appropriate Patient Orientation: Person, Place, Time and Situation Level of Consciousness: Alert Patient Behavior: Talkative Mood Description: Depressed and Anxious Affect Description: Flat Patient Cognition Impaired: No Ability to Follow Directions: Good Speech Pattern: Spontaneous Speech Memory Description: Intact Hallucinations: None Delusions: Not Present Thought Process: Rumination Thought Content: positive for Perseveration and positive for Suicidal Ideation (denies) Depressive Symptoms: Increased Fatigue Judgement: Fair Diagnostics Vital Signs (24Hr): Vital Signs - 24 hr 02/04/25 20:00 02/05/25 08:00 Temperature 97.5 F Pulse Rate 95 79 Respiratory Rate 16 Blood Pressure 157/95 H 183/99 H Pulse Oximetry 99 98 Oxygen Delivery Method Room Air Room Air BMI result Body Mass Index 44.0 Labs 02/01/25 15:34 02/01/25 15:34 Labs: Laboratory Results - last 48 hr 02/05/25 08:22 Magnesium 1.4 L* Medications Medications Current Medications Acetaminophen (Acetaminophen 325 Mg Tablet) 650 mg PO Q6H PRN PRN Reason: Headache/Pain, Scale 1-10 Last Admin: 02/02/25 04:41 Dose: 650 mg Al Hydroxide/Mg Hydroxide (Magnesium Hydrox/Alum Hydrox 30 Ml Oral.Susp) 30 ml PO Q6H PRN PRN Reason: Heartburn/Nausea Carvedilol (Carvedilol 25 Mg Tablet) 25 mg PO BID [facility]; Protocol Last Admin: 02/05/25 08:16 Dose: 25 mg Folic Acid (Folic Acid 1 Mg Tablet) 1 mg PO DAILY IVAN Last Admin: 02/05/25 08:15 Dose: 1 mg Furosemide (Furosemide 40 Mg Tablet) 40 mg PO DAILY IVAN; Protocol Last Admin: 02/05/25 08:15 Dose: 40 mg Hydroxyzine HCl (Hydroxyzine Hcl 25 Mg Tablet) 25 mg PO Q6H PRN PRN Reason: mild anxiety Last Admin: 02/05/25 09:35 Dose: 25 mg Lorazepam (Lorazepam 1 Mg Tablet) 1 mg PO Q2H PRN PRN Reason: ciwa 6-10 Last Admin: 02/04/25 20:48 Dose: 1 mg Lorazepam (Lorazepam 1 Mg Tablet) 2 mg PO Q2H PRN PRN Reason: ciwa 11+ Last Admin: 02/03/25 21:24 Dose: 2 mg Magnesium Hydroxide (Milk Of Magnesia 30 Ml Oral.Susp) 30 ml PO DAILY PRN PRN Reason: Constipation Magnesium Oxide (Magnesium Oxide 400 Mg Tablet) 400 mg PO BIDPC IVAN Stop: 02/06/25 08:29 Last Admin: 02/05/25 08:15 Dose: 400 mg Multivitamins/Vitamin C (Multivitamin Tablet) 1 tab PO DAILY IVAN Last Admin: 02/05/25 08:15 Dose: 1 tab Nicotine Polacrilex (Nicotine Polacrilex 2 Mg Gum) 4 mg BUCCAL Q2H PRN PRN Reason: Nicotine Cravings Last Admin: 02/04/25 20:49 Dose: 4 mg Oxcarbazepine (Oxcarbazepine 300 Mg Tablet) 300 mg PO BID IVAN Last Admin: 02/05/25 08:15 Dose: 300 mg Sertraline HCl (Sertraline Hcl 25 Mg Tablet) 25 mg PO DAILY IVAN Last Admin: 02/05/25 08:15 Dose: 25 mg Thiamine HCl (Thiamine Hcl 100 Mg Tablet) 100 mg PO DAILY IVAN Last Admin: 02/05/25 08:15 Dose: 100 mg Trazodone HCl (Trazodone Hcl 50 Mg Tablet) 50 mg PO BEDTIME MRX1 PRN PRN Reason: Insomnia Last Admin: 02/04/25 20:47 Dose: 50 mg Valsartan (Valsartan 40 Mg Tablet) 40 mg PO DAILY IVAN; Protocol Last Admin: 02/05/25 08:16 Dose: 40 mg Allergies Allergies Allergy/AdvReac Type Severity Reaction Status Date / Time No Known Allergies Allergy Verified 02/01/25 14:23 [No Known Allergies*] Assessment & Plan Assessment & Plan (1) Acute stress disorder: Status: Acute Code(s): F43.0 - Acute stress reaction (2) PTSD (post-traumatic stress disorder): Status: Acute Code(s): F43.10 - Post-traumatic stress disorder, unspecified (3) Alcohol use disorder: Status: Acute Code(s): F10.90 - Alcohol use, unspecified, uncomplicated Plan 02/04/25: Mg level 4/5 DC 4/6 02/05: Continue Mg DC 02/06. Reason for continued inpatient stay Substantial Risk for: rapid decompensation and med/psych decompensation Time Spent With Patient Time: Total time managing care of this patient today ____ minutes.
[2025-02-05] MEDS: Nicotine Polacrilex 2 MG GUM 4 MG BUCCAL ×2 (14:26→16:51)
[2025-02-05] MEDS: LORazepam 1 MG TABLET PO ×2 (16:51→21:53)
[2025-02-05 19:37] VITALS: BP 119/68; PULSE 86; TEMP 36.7; O2SAT 97
[2025-02-05] MEDS: traZODone HCL 50 MG TABLET PO (21:52)
[2025-02-06 08:00] VITALS: BP 138/88; PULSE 84; TEMP 36.6; O2SAT 97
--- NOTE | 2025-02-06 08:15 | HO.PSYCHPN ---
Subjective Subjective Date of Service: 02/06/25 Reason For Visit: Recurrent Major Depression, Alcohol Use Disorder Interim History: Today: Friday: Alfred reports he feels prepared to discharge. I need to get going and look for a job. He denies SI,HI,AH,VH. There are no sx of acute brock or psychosis. He does report anxiety and has used Lorazepam, which he is aware we will not be prescribing on DC. He is aware he needs to follow up with PCP, Cardiology, and [facility] sleep center for a sleep study. He is aware of low Mg, need for supplementation and PCP monitoring He reports he will follow up. He is aware that he may call/return if needed. Review of Systems Review of Systems anxiety Yes all other systems are reviewed and are negative Mental Status Exam Mental Status Exam Patient Appearance: Appropriate Patient Orientation: Person, Place, Time and Situation Level of Consciousness: Alert Patient Behavior: Talkative Mood Description: Depressed and Anxious Affect Description: Flat Patient Cognition Impaired: No Ability to Follow Directions: Good Speech Pattern: Spontaneous Speech Memory Description: Intact Diagnostics Vital Signs (24Hr): Vital Signs - 24 hr 02/05/25 09:37 02/05/25 19:37 02/06/25 08:00 Temperature 98.1 F 98 F Pulse Rate 86 84 Blood Pressure 126/71 119/68 138/88 Pulse Oximetry 97 97 Oxygen Delivery Method Room Air Room Air BMI result Body Mass Index 44.0 Labs 02/01/25 15:34 02/01/25 15:34 Labs: Laboratory Results - last 48 hr 02/05/25 08:22 Magnesium 1.4 L* Medications Medications Current Medications Acetaminophen (Acetaminophen 325 Mg Tablet) 650 mg PO Q6H PRN PRN Reason: Headache/Pain, Scale 1-10 Last Admin: 02/02/25 04:41 Dose: 650 mg Al Hydroxide/Mg Hydroxide (Magnesium Hydrox/Alum Hydrox 30 Ml Oral.Susp) 30 ml PO Q6H PRN PRN Reason: Heartburn/Nausea Carvedilol (Carvedilol 25 Mg Tablet) 25 mg PO BID IVAN; Protocol Last Admin: 02/05/25 21:52 Dose: 25 mg Folic Acid (Folic Acid 1 Mg Tablet) 1 mg PO DAILY IVAN Last Admin: 02/05/25 08:15 Dose: 1 mg Furosemide (Furosemide 40 Mg Tablet) 40 mg PO DAILY IVAN; Protocol Last Admin: 02/05/25 08:15 Dose: 40 mg Hydroxyzine HCl (Hydroxyzine Hcl 25 Mg Tablet) 25 mg PO Q6H PRN PRN Reason: mild anxiety Last Admin: 02/05/25 21:52 Dose: 25 mg Lorazepam (Lorazepam 1 Mg Tablet) 1 mg PO BID PRN PRN Reason: Anxiety Last Admin: 02/05/25 21:53 Dose: 1 mg Magnesium Hydroxide (Milk Of Magnesia 30 Ml Oral.Susp) 30 ml PO DAILY PRN PRN Reason: Constipation Magnesium Oxide (Magnesium Oxide 400 Mg Tablet) 400 mg PO BIDPC [facility] Stop: 02/06/25 08:29 Last Admin: 02/05/25 16:51 Dose: 400 mg Multivitamins/Vitamin C (Multivitamin Tablet) 1 tab PO DAILY [facility] Last Admin: 02/05/25 08:15 Dose: 1 tab Nicotine Polacrilex (Nicotine Polacrilex 2 Mg Gum) 4 mg BUCCAL Q2H PRN PRN Reason: Nicotine Cravings Last Admin: 02/05/25 16:51 Dose: 4 mg Oxcarbazepine (Oxcarbazepine 300 Mg Tablet) 300 mg PO BID [facility] Last Admin: 02/05/25 21:52 Dose: 300 mg Sertraline HCl (Sertraline Hcl 25 Mg Tablet) 25 mg PO DAILY [facility] Last Admin: 02/05/25 08:15 Dose: 25 mg Thiamine HCl (Thiamine Hcl 100 Mg Tablet) 100 mg PO DAILY [facility] Last Admin: 02/05/25 08:15 Dose: 100 mg Trazodone HCl (Trazodone Hcl 50 Mg Tablet) 50 mg PO BEDTIME MRX1 PRN PRN Reason: Insomnia Last Admin: 02/05/25 21:52 Dose: 50 mg Valsartan (Valsartan 40 Mg Tablet) 40 mg PO DAILY [facility]; Protocol Last Admin: 02/05/25 08:16 Dose: 40 mg Allergies Allergies Allergy/AdvReac Type Severity Reaction Status Date / Time No Known Allergies Allergy Verified 02/01/25 14:23 [No Known Allergies*] Assessment & Plan Assessment & Plan (1) Acute stress disorder: Status: Acute Code(s): F43.0 - Acute stress reaction (2) PTSD (post-traumatic stress disorder): Status: Acute Code(s): F43.10 - Post-traumatic stress disorder, unspecified (3) Alcohol use disorder: Status: Acute Code(s): F10.90 - Alcohol use, unspecified, uncomplicated Plan 02/04/25: Mg level 02/05 DC 02/06 02/05: Continue Mg DC 02/06. Time Spent With Patient Time: Total time managing care of this patient today ____ minutes.
[2025-02-06] MEDS: OXcarbazepine 300 MG TABLET PO (08:31)
[2025-02-06] MEDS: Thiamine HCL 100 MG TABLET PO (08:31)
[2025-02-06] MEDS: Valsartan 40 MG TABLET PO (08:31)
[2025-02-06] MEDS: carvediloL 25 MG TABLET PO (08:31)
[2025-02-06] MEDS: Sertraline HCL 25 MG TABLET PO (08:31)
[2025-02-06] MEDS: Multivitamin TABLET 1 TAB PO (08:31)
[2025-02-06] MEDS: Folic Acid 1 MG TABLET PO (08:31)
[2025-02-06] MEDS: Furosemide 40 MG TABLET PO (08:31)
[2025-02-06] MEDS: LORazepam 1 MG TABLET PO (08:44)
[2025-02-06] MEDS: Nicotine Polacrilex 2 MG GUM 4 MG BUCCAL (09:29)
--- NOTE | 2025-02-09 16:07 | P.HPPS_ITS ---
HPI Date of Service: 02/02/25 Chief Complaint: Recurrent Major Depression, Alcohol Use Disorder Sources of Information: patient interviewed, chart reviewed and crisis/core team assessment reviewed HPI Subjective Notes: [place]omas Warning and Conditional Voluntary Narrative: late entry note for patient seen 02/02/25 Patient 59-year-old male with history of PTSD, hypertension, CHF, recently discharged from , who presents for anxiety and passive SI in the face of relapse with alcohol. Patient reports that prior to recent discharge, he was overall feeling pretty good.. And anticipating that he be able to return to his job. That next day when he went to work he was told that he was being let go.. Patient felt kicked in the teeth and said he threw up his hands , said screw it and started drinking alcohol, about a pt a day. Patient did not take any medications, continue drinking and feeling depressed odd thoughts that life was not worth living though denies any active SI. He thought it best to present before his mood worsened. 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 One son, in college, focusing on documentary film production One cat Substance History: Alcohol abuse Trauma History: Losses Diagnostics Vital Signs (24Hr): BMI result Body Mass Index 44.0 Labs 02/01/25 15:34 02/01/25 15:34 Meds/Allergies Allergies Allergies Allergy/AdvReac Type Severity Reaction Status Date / Time No Known Allergies Allergy Verified 02/01/25 14:23 [No Known Allergies*] Mental Status Exam Mental Status Exam Narrative: Pt is alert and oriented; behavior is cooperative, friendly and calm; patient is not in distress; dressed in casual attire with unkempt; mood is described as depressed and affect congruent, downcast; eye contact appropriate; Speech is normal rate, volume and prosody and not pressured; some psychomotor retardation present; thought process is organized and goal directed; Thought content is on missing his , psychosocial stressors, tx; otherwise pertinent to relevant topics and without any delusional content, paranoid ideations or grandiosity; intermittent passive SI but no active; no HI. Denies AVH and there is no evidence of perceptual disturbance. Patients insight and judgment impaired Assessment & Plan Assessment & Plan (1) PTSD (post-traumatic stress disorder): Status: Acute Code(s): F43.10 - Post-traumatic stress disorder, unspecified (2) Depression: Status: Acute Code(s): F32.A - Depression, unspecified (3) Alcohol withdrawal: Status: Acute Code(s): F10.939 - Alcohol use, unspecified with withdrawal, unspecified (4) Alcohol use disorder: Status: Acute Code(s): F10.90 - Alcohol use, unspecified, uncomplicated (5) HTN (hypertension): Status: Acute Code(s): I10 - Essential (primary) hypertension Plan HPI: Patient 59-year-old male with history of PTSD, hypertension, CHF, recently discharged from , who presents for anxiety and passive SI in the face of relapse with alcohol. Patient reports that prior to recent discharge, he was overall feeling pretty good.. And anticipating that he be able to return to his job. That next day when he went to work he was told that he was being let go.. Patient felt kicked in the teeth and said he threw up his hands , said screw it and started drinking alcohol, about a pt a day. Patient did not take any medications, continued drinking and feeling depressed odd thoughts that life was not worth living though denies any active SI. He thought it best to present before his mood worsened. Formulation/clinical reasoning: Patient depressed due to a combination of situations and being off medications and having relapse. Will restart medications from last admission; will start patient on CIWA. Patient says withdrawals are not too bad Plan: CV Q 15 minute checks Restart home medications CIWA with p.r.n. Ativan Patient educated on: diagnosis, medication risk/benefits and substance abuse Informed Consent: understands Reason for continued inpatient stay Substantial Risk for: rapid decompensation Statement Statement: I have reviewed the history and physical and performed a pertinent examination on my patient. No changes have occurred unless specified. If the History and Physical was not performed prior to admission, the Hospitalist's service will be consulted for completing the admission physical. Time Spent With Patient Time: Total time managing care of this patient today ____ minutes.
--- NOTE | 2025-02-16 17:17 | P.DS_ITS ---
DS: Providers Provider Date of Service: 02/06/25 Date of admission: 02/01/25 20:49 Date of discharge: 02/06/25 Primary care physician: Unknown Physician Admitting clinician: Nadir Cary Attending physician on admission: Nadir Cary Consults: 02/02/25 09:40 Consult to Hospitalist Routine Comment: Consulting Provider: [facility] Hospitalists Reason For Exam: replace Mg?? 02/03/25 09:18 Consult to Hospitalist Routine Comment: Consulting Provider: [facility] Hospitalists Reason For Exam: vomiting, reports severe abdominal pain Attending physician on discharge: Wong Monge Discharging clinician: Sapna Hopkins DS: Diagnosis Discharge Diagnosis (1) PTSD (post-traumatic stress disorder): Status: Acute (2) Depression: Status: Acute (3) Alcohol withdrawal: Status: Acute (4) Alcohol use disorder: Status: Acute (5) HTN (hypertension): Status: Acute DS: Medications Discharge Medications Home Medications: Previous Rx's ?Medication ?Instructions ?Recorded acetaminophen 325 mg tablet 650 mg (2 x 325 mg) PO Q6H PRN 02/06/25 Headache/Pain, Scale 1-10 #0 tabs carvedilol 25 mg tablet 25 mg PO BID #60 tabs 02/06/25 folic acid 1 mg tablet 1 mg PO DAILY #90 tabs 02/06/25 furosemide 40 mg tablet 40 mg PO DAILY #30 tabs 02/06/25 magnesium oxide 400 mg (241.3 mg 400 mg PO BIDPC #60 tabs 02/06/25 magnesium) tablet multivitamin (Daily-Justa tablet) 1 tab PO DAILY #90 tabs 02/06/25 nicotine (polacrilex) 2 mg gum 4 mg buccal Q2H PRN Nicotine 02/06/25 Cravings #100 ea oxcarbazepine 300 mg tablet 300 mg PO BID #60 tabs 02/06/25 sertraline 25 mg tablet 25 mg PO DAILY #30 tabs 02/06/25 thiamine mononitrate (vit B1) 100 100 mg PO DAILY #90 tabs 02/06/25 mg tablet trazodone 50 mg tablet 50 mg PO BEDTIME MRX1 PRN Insomnia 02/06/25 #60 tabs valsartan 40 mg tablet 40 mg PO DAILY #30 tabs 02/06/25 Mental Status Exam Mental Status Exam Patient Appearance: Appropriate Patient Orientation: Person, Place, Time and Situation Level of Consciousness: Alert Patient Behavior: Talkative Mood Description: Depressed and Anxious Affect Description: Flat Patient Cognition Impaired: No Ability to Follow Directions: Good Speech Pattern: Spontaneous Speech Memory Description: Intact Hallucinations: None Delusions: Not Present Thought Process: Rumination Thought Content: positive for Perseveration and positive for Suicidal Ideation (denies) Depressive Symptoms: Increased Fatigue Judgement: Fair DS: Summary Hospital Course Hospital Course: Admission to adult psychiatry for exacerbation of acute stress disorder, PTSD a nd alcohol use disorder. Recent admit to 01/10-01/17 s/p sudden of his partner (found her in their home) which exacerbated previous loss (found another partner several years before had in their home). Pt relapsed on alcohol. Upon discharge on 01/17 pt returned to his work and was terminated. He reported being denied unemployment, however, this was clarified during his admission and he will receive unemployment. As a result he relapsed and became suicidal. Medications were evaluated and adjusted. Medical issues were addressed and pt was instructed to follow up with primary care team. Pt was offered full milieu to strengthen coping skills. Pt leaves with a plan to follow up with out pt providers and is prepared to begin looking for work. Status at Discharge Functional status at discharge: independent ambulation Overall status at discharge: patient is progressing back to baseline Time Spent with Patient Time attestation: Total time managing care of this patient today ____ minutes. Time spent: Less than 30 minutes Discharge Plan Discharge Anticipated Discharge Date/Time: 02/06/25 12:00 Patient Disposition: Home, Self-Care Discharge Diagnosis: Acute Stress Disorder Post Traumatic Stress Disorder Anxiety Alcohol Use Disorder HTN Hypomagnesemia Referrals: Physician,Unknown J [Primary Care Provider] - 1 Week Discharge Medications: New multivitamin [Daily-Justa] Tablet 1 tab PO DAILY Qty: 90 0RF furosemide 40 mg Tablet 40 mg PO DAILY Qty: 30 0RF Protocol: Hold for SBP< HOLD for SBP < : 90 carvedilol 25 mg Tablet 25 mg PO BID Qty: 60 0RF Protocol: Hold for SBP/HR < HOLD for SBP < : 90 HOLD for HR < : 60 acetaminophen 325 mg Tablet 650 mg PO Q6H PRN (Reason: Headache/Pain, Scale 1-10) Qty: 0 0RF trazodone 50 mg Tablet 50 mg PO BEDTIME MRX1 PRN (Reason: Insomnia) Qty: 60 0RF nicotine (polacrilex) 2 mg Gum 4 mg buccal Q2H PRN (Reason: Nicotine Cravings) Qty: 100 0RF oxcarbazepine 300 mg Tablet 300 mg PO BID Qty: 60 0RF magnesium oxide 400 mg (241.3 mg magnesium) Tablet 400 mg PO BIDPC Qty: 60 0RF sertraline 25 mg Tablet 25 mg PO DAILY Qty: 30 0RF folic acid 1 mg Tablet 1 mg PO DAILY Qty: 90 0RF valsartan 40 mg Tablet 40 mg PO DAILY Qty: 30 0RF Protocol: Hold for SBP< HOLD for SBP < : 90 thiamine mononitrate (vit B1) 100 mg Tablet 100 mg PO DAILY Qty: 90 0RF Discontinued trazodone 50 mg Tablet 50 mg PO BEDTIME MRX1 PRN (Reason: Insomnia) Qty: 60 0RF furosemide 40 mg tablet 40 mg PO DAILY Qty: 30 0RF carvedilol 25 mg tablet 25 mg PO BID Qty: 60 0RF valsartan 40 mg tablet 40 mg PO DAILY Discharge Orders: Discharge Order (Routine); Ordered 02/06/25 Ordered By: Sapna Hopkins Diet: Advance to usual diet Activity on Discharge: As tolerated Stand Alone Forms: Patient Portal Discharge page, Community Support Print Language: Greenlandic Care Plan Goals: Abstain from alcohol Mood and Behavioral Stabilization Health Concerns: Abstain from alcohol Mood and Behavioral Stabilization Plan of Treatment: Attend scheduled appointments Take medications as directed Make appointments with your PCP, Cardiology and for a sleep study Assessment: Denies SI,HI,AH, VH No sx of acute brock, psychosis Pt wanting to DC to search for work and re-establish his home He is aware he may call/return if needed. Discharge Date/Time: 02/06/25 11:05
== END 2025-02-06 11:05 | disposition home or self-care (01) | DRG 880 ==
LOC: HO.ED 19:42 → HO.PM5 21:32
PROVIDERS: Physician Assistant Medical; Student in an Organized Health Care Education/Training Program; Admitting Provider Clinical Nurse Specialist Psychiatric/Mental Health, Adult; Emergency Provider Emergency Medicine; Visit Provider Clinical Nurse Specialist Psychiatric/Mental Health, Adult
DX: F43.0 Acute stress reaction (principal); F10.939 Alcohol use, unspecified with withdrawal, unspecified; R45.851 Suicidal ideations; Y90.8 Blood alcohol level of 240 mg/100 ml or more; F43.10 Post-traumatic stress disorder, unspecified; F17.210 Nicotine dependence, cigarettes, uncomplicated; Z63.4 Disappearance and death of family member; Z71.6 Tobacco abuse counseling; Z79.899 Other long term (current) drug therapy
CPT/HCPCS: 36415; 70450; 72125; 76705; 80048; 80061; 80076; 80143; 80307; 81001; 82550; 82607; 82746; 83036; 83690; 83735; 83880; 84439; 84443; 85025; 93005; 99285; J2060; J3475; S9485

== ENCOUNTER → 2025-02-01 15:14 | Outpatient (BNV) | payer MEDICAID, SELFPAY | PROVIDERS: Emergency Provider Emergency Medicine; Visit Provider Specialist | DX: M40.50 Lordosis, unspecified, site unspecified (principal); G40.89 Other seizures; R10.9 Unspecified abdominal pain; R14.0 Abdominal distension (gaseous) | CPT/HCPCS: 70450; 72125; 76705 ==

== ENCOUNTER → 2025-02-01 15:14 | Outpatient (BNV) | payer MEDICAID, SELFPAY | PROVIDERS: Admitting Provider Clinical Nurse Specialist Psychiatric/Mental Health, Adult; Emergency Provider Emergency Medicine; Visit Provider Internal Medicine | DX: R94.31 Abnormal electrocardiogram [ECG] [EKG] (principal); F19.139 Other psychoactive substance abuse with withdrawal, unspecified | CPT/HCPCS: 93010 ==

== ENCOUNTER → 2025-02-01 20:49 | Outpatient (BNV) | payer OTHER, SELFPAY | PROVIDERS: Admitting Provider Clinical Nurse Specialist Psychiatric/Mental Health, Adult; Emergency Provider Emergency Medicine; Visit Provider Clinical Nurse Specialist Psychiatric/Mental Health, Adult | DX: F43.0 Acute stress reaction (principal); F43.11 Post-traumatic stress disorder, acute; F10.90 Alcohol use, unspecified, uncomplicated | CPT/HCPCS: 99231; 99232 ==

== ENCOUNTER 2025-02-22 13:02 | Emergency (ER) | payer MEDICAID, SELFPAY ==
--- NOTE | ~2025-02-22 | CT_ITS ---
CLINICAL HISTORY: intoxicated, found on ground CT head without contrast Comparison: CT/SR - CT HEAD/BRAIN WO IV CON - 02/01/25 16:20 EDT Findings: No intra-axial mass, midline shift, hydrocephalus, or acute hemorrhage. No significant atrophy-like change or white matter disease. There is no sinus or mastoid fluid. The orbits are unremarkable. There is no acute fracture. IMPRESSION: 1. No acute intracranial findings. This document has been electronically signed by: Shamir Fu MD on 02/22/2025 19:39:28
--- NOTE | ~2025-02-22 | XR_ITS ---
EXAMINATION: XR CHEST CLINICAL INFORMATION: etoh intoxication r/o aspiration COMPARISON: None available. TECHNIQUE: 2 views of the chest were obtained. FINDINGS: Mildly elevated right hemidiaphragm. There is cardiac enlargement. Mediastinal and hilar contours are normal. The lungs are clear bilaterally. There is no pneumothorax or pleural effusion. There is no focal osseous or soft tissue abnormality. Mild spinal degenerative changes. XR/XR chest 2V IMPRESSION: No active pulmonary disease. Electronically signed by: Jason Hale MD 02/22/2025 04:24 PM EDT
--- NOTE | ~2025-02-22 | CT_ITS ---
CLINICAL HISTORY: intoxicated, found on ground unknown hs CT cervical spine without contrast Comparison: CT/SR - CT CERVICAL SPINE WO IV CON - 02/01/25 16:20 EDT Findings: Moderate multilevel spondylosis with moderate reversal and cervical kyphosis at C4-C5. No acute fractures or dislocations. No acute findings on limited view of the intracranial contents. Soft tissues of the neck are normal. No consolidation or effusion at the lung apices. IMPRESSION: No acute findings. Moderate multilevel spondylosis with reversal and moderate cervical kyphosis at C4-C5. This document has been electronically signed by: Shamir Fu MD on 02/22/2025 19:38:23
--- NOTE | 2025-02-22 07:27 | ECG_ITS ---
Test Reason : etoh Blood Pressure : */* mmHG Vent. Rate : 94 BPM Atrial Rate : 94 BPM P-R Int : 196 ms QRS Dur : 100 ms QT Int : 374 ms P-R-T Axes : 72 32 76 degrees QTcB Int : 467 ms Normal sinus rhythm Normal ECG When compared with ECG of 22-Feb-2025 15:28, AL interval has decreased QT has shortened Referred By: Carol Kahn Electronically Signed By: MERY SAMPSON
[2025-02-22 13:16] VITALS: BP 114/60; BP 160/100; PULSE 90; PULSE 94; RESP 20; TEMP 36.6; O2SAT 93; O2SAT 97; BMI 35.9
--- NOTE | 2025-02-22 13:45 | PC.NURSE ---
Patient presents from home via EMS after not responding to his sisters calls. Patient appears very intoxicated, and emotionally labile, crying intermittently, and sister states patient drinks approximately 4 pints per day. Patient expressed SI in which he states he would hang himself. Requesting to go to the the 5th floor Lungs essentially clear. Respirations even and non-labored. Abdomen large, soft, non-tender with positive bowel sounds. Positive pedal pulses. The process explained to patient at this time.
--- NOTE | 2025-02-22 15:12 | ECG_ITS ---
Test Reason : ETOH Blood Pressure : */* mmHG Vent. Rate : 93 BPM Atrial Rate : 93 BPM P-R Int : 236 ms QRS Dur : 96 ms QT Int : 418 ms P-R-T Axes : 43 40 78 degrees QTcB Int : 519 ms Sinus rhythm with 1st degree A-V block Nonspecific ST and T wave abnormality Borderline ECG When compared with ECG of 01-Feb-2025 16:00, No significant changes seen Referred By: Carol Kahn Electronically Signed By: MERY SAMPSON
--- NOTE | 2025-02-22 15:20 | ED_ITS ---
HPI - General Adult General Chief complaint: Psychiatric Symptoms Stated complaint: ETOH USE PER EMS Time Seen by Provider: 02/22/25 14:34 Source: patient and EMS Mode of arrival: EMS Limitations: no limitations History of Present Illness ED Provider: CAROL KAHN PA-C HPI narrative: 59-year-old male with past medical history significant for HTN, CHF, ETOH use disorder, ETOH withdrawal, anxiety, PTSD, MDD, acute stress disorder presents to the ED today via EMS for evaluation of etoh intoxication. He reports passing out on the floor of his home for 2-3 days. states he does not know what day it is. States he is confused. He reports drinking heavily daily secondary to recent life stressors (losing his job, of , etc.) Does not recall when he last consumed alcohol. He endorses SI with plan to hang himself. States I am just done . Does not want to elaborate. Denies HI. Denies AH/VH/TH. Denies illicit substance abuse. EMS reports patient's sister called them when she found patient at home. He was then transferred here. Related Data Previous Rx's ?Medication ?Instructions ?Recorded acetaminophen 325 mg tablet 650 mg (2 x 325 mg) PO Q6H PRN 02/06/25 Headache/Pain, Scale 1-10 #0 tabs carvedilol 25 mg tablet 25 mg PO BID #60 tabs 02/06/25 folic acid 1 mg tablet 1 mg PO DAILY #90 tabs 02/06/25 furosemide 40 mg tablet 40 mg PO DAILY #30 tabs 02/06/25 magnesium oxide 400 mg (241.3 mg 400 mg PO BIDPC #60 tabs 02/06/25 magnesium) tablet multivitamin (Daily-Justa tablet) 1 tab PO DAILY #90 tabs 02/06/25 nicotine (polacrilex) 2 mg gum 4 mg buccal Q2H PRN Nicotine 02/06/25 Cravings #100 ea oxcarbazepine 300 mg tablet 300 mg PO BID #60 tabs 02/06/25 sertraline 25 mg tablet 25 mg PO DAILY #30 tabs 02/06/25 thiamine mononitrate (vit B1) 100 100 mg PO DAILY #90 tabs 02/06/25 mg tablet trazodone 50 mg tablet 50 mg PO BEDTIME MRX1 PRN Insomnia 02/06/25 #60 tabs valsartan 40 mg tablet 40 mg PO DAILY #30 tabs 02/06/25 Allergies Allergy/AdvReac Type Severity Reaction Status Date / Time No Known Allergies Allergy Verified 02/22/25 13:18 [No Known Allergies*] Review of Systems 2 Review of Systems: Yes all other systems are reviewed and are negative [facility] Past Medical History Attestation statement: The following information was validated with the patient. Source: old records reviewed and nursing notes reviewed Medical History Alcohol use disorder PTSD (post-traumatic stress disorder) Morbid obesity CHF (congestive heart failure) HTN (hypertension) Social History Social History Household Members: Family Housing: Condominium Do you presently have visiting nurse or other home services: No Alcohol intake: current Alcohol intake frequency: 3 or more drinks per day Alcohol type: hard liquor Comment: 1:1 sitter Patient Tobacco Use Status: Current everyday Tobacco user Tobacco use type: Cigarette Cigarette Packs Per Day: 1 Cigarettes Per Day: 20.0 Years Smoked: 45 e-Cigarette/Vaping Use: Never Used Second Hand Smoke Exposure: No Substance Use Type: Marijuana Advance Directives: No Advance Directives Information Provided: No Do you have a plan to hurt others: No Plan service: Yes ([employer]) Sexual orientation: Straight/Heterosexual Physical Exam ED Vital Signs: Vital Signs - 24 hr 02/23/25 00:57 02/23/25 05:00 02/23/25 08:08 Temperature 97.8 F 98.7 F 98.5 F Pulse Rate 115 H 124 H 106 H Respiratory Rate 18 20 16 Blood Pressure 138/98 H 141/95 H 205/124 H Pulse Oximetry 94 94 93 Oxygen Delivery Method Room Air Room Air Room Air 02/23/25 09:54 02/23/25 15:19 Temperature 97.5 F Pulse Rate 82 93 Respiratory Rate 16 16 Blood Pressure 150/69 H 175/113 H Pulse Oximetry 97 95 Oxygen Delivery Method Room Air Room Air BMI result Body Mass Index 35.9 vital sign stable General: appears intoxicated, tearful, odor of alcohol noted to breath, disheveled appearing Skin: warm, dry, intact. No rashes or lesions. Head: Normocephalic, atraumatic EENT: Hearing is intact b/l. Conjunctiva clear. Sclera is anicteric. PERRLA. EOM intact. Moist mucous membranes.? Neck: Supple without LAD Cardiac: Chest wall symmetric. RRR. Lungs: Normal respiratory effort without accessory muscle use. CTA bilaterally Abdomen: Soft, non-tender, non-distended. No rebound tenderness or guarding. Positive BS x4. Back: No midline spinous or paraspinal tenderness. No step off deformity. Ext: Upper and lower extremities atraumatic, without tenderness, deformity, swelling or erythema Neuro: AOx3. Normal speech. NIH 0. CN 2-12 grossly intact. Strength 5/5 intact throughout. Sensation intact to light touch. NV intact distally. Course Course Course Narrative: 1724 -- CBC without leukocytosis or left shift. No anemia. H&H stable. ethanol 428 @1541. Salicylates, acetaminophen undetectable. Ammonia WNL. transaminitis likely secondary to etoh abuse. lipase mildly elevated to 79 -no concern for pancreatitis. abd soft, ND/NT. Total CK WNL. No rhabdo. Chest x-ray without pneumonia. > ct head/c spine pending > UA/ UDS pending > plan for re-evaluation when patient is more clinically sober. care team consultation placed d/t SI w/ plan Reevaluation(s) Reevaluation #1: Dr. Vega: The patient had some degree of tachycardia and hypertension this morning. He was given his usual blood pressure medications as well as oral lorazepam for some degree of alcohol withdrawal. His vital signs improved. He was seen by the care team. Arrangements has been made for the patient to be psychiatrically hospitalized at the [facility]. He will be transferred there by ambulance. The facility is aware of the symptoms of alcohol withdrawal. Time: 13:55 Medications Administered Discontinued Medications Generic Name Dose Route Start Last Admin Trade Name Freq PRN Reason Stop Dose Admin Carvedilol 25 mg 02/23/25 09:00 02/23/25 08:48 Carvedilol 25 Mg Tablet PO 25 mg BID IVAN Administration Protocol Folic Acid 1 mg 02/23/25 09:00 02/23/25 08:49 Folic Acid 1 Mg Tablet PO 1 mg DAILY IVAN Administration Furosemide 40 mg 02/23/25 09:00 02/23/25 08:48 Furosemide 40 Mg Tablet PO 40 mg DAILY IVAN Administration Protocol Lorazepam 2 mg 02/23/25 01:04 02/23/25 01:08 Lorazepam 1 Mg Tablet PO 02/23/25 01:05 2 mg ONCE ONE Administration Lorazepam 2 mg 02/23/25 05:03 02/23/25 05:10 Lorazepam 1 Mg Tablet PO 02/23/25 05:04 2 mg ONCE ONE Administration Lorazepam 2 mg 02/23/25 08:03 02/23/25 08:48 Lorazepam 1 Mg Tablet PO 02/23/25 08:04 2 mg ONCE ONE Administration Magnesium Oxide 400 mg 02/23/25 08:30 02/23/25 08:48 Magnesium Oxide 400 Mg Tablet PO 400 mg BIDPC IVAN Administration Multivitamins/Vitamin C 1 tab 02/23/25 09:00 02/23/25 08:48 Multivitamin Tablet PO 1 tab DAILY IVAN Administration Oxcarbazepine 300 mg 02/23/25 09:00 02/23/25 08:48 Oxcarbazepine 300 Mg Tablet PO 300 mg BID IVAN Administration Sertraline HCl 25 mg 02/23/25 09:00 02/23/25 08:48 Sertraline Hcl 25 Mg Tablet PO 25 mg DAILY IVAN Administration Thiamine HCl 100 mg 02/23/25 09:00 02/23/25 08:49 Thiamine Hcl 100 Mg Tablet PO 100 mg DAILY IVAN Administration Valsartan 40 mg 02/23/25 09:00 02/23/25 09:08 Valsartan 40 Mg Tablet PO 40 mg DAILY IVAN Administration Protocol Medical Decision Making Medical Decision Making MDM Narrative: 59-year-old male with past medical history significant for HTN, CHF, ETOH use disorder, ETOH withdrawal, anxiety, PTSD, MDD, acute stress disorder presents to the ED today via EMS for evaluation of etoh intoxication. Vital signs stable. Intermittently tearful on my exam, disheveled. Odor of alcohol noted to breath. NIH is 0. Differential diagnosis includes ETOH intoxication, ETOH withdrawal seizure, ETOH withdrawal, anemia, electrolyte abnormality, dehydration, anxiety, depression, SI, polysubstance abuse, rhabdomyolysis, urinary tract infection, aspiration pneumonia Plan for labs, UA, UDS, chest x-ray, imaging of head/C-spine, care team consultation, and re-evaluation Differential Diagnosis Differential Diagnoses: The differential diagnosis associated with the presentation includes as above. Admission/Observation Consideration of admission/observation: Escalation of care including admission/observation considered Lab Data MDM Lab Attestation statement: I reviewed the patient's lab results. as above. 02/22/25 15:41 02/22/25 15:41 Labs: Lab Results 02/22/25 02/22/25 02/22/25 Range/Units 15:41 15:42 20:01 WBC 5.9 (4.8-10.8) X10*3/uL RBC 4.78 (4.60-5.80) X10*6/uL Hgb 15.1 (14.0-18.0) g/dl Hct 42.9 (42.0-52.0) % MCV 89.7 (80.0-98.0) fL MCH 31.6 (27.0-33.0) pg MCHC 35.2 (31.0-36.0) g/dl RDW 17.7 H (11.0-16.0) % Plt Count 112 L (160-400) X10*3/uL MPV 10.0 (9.4-12.4) fL Immature Gran % (Auto) 0.5 H (0.0-0.4) % Neut % (Auto) 46.5 (45-73) % Lymph % (Auto) 45.3 H (20-40) % [place] % (Auto) 6.1 (2-11) % Eos % (Auto) 0.8 (0-4) % Baso % (Auto) 0.8 (0-2) % Lymph # (Auto) 2.7 (1.2-4.9) X10*3/uL [place] # (Auto) 0.4 (0.1-1.2) X10*3/uL Eos # (Auto) 0.1 (0.0-0.4) X10*3/uL Baso # (Auto) 0.1 (0.0-0.2) X10*3/uL Abs Immat Gran (auto) 0.03 (0.00-0.03) X10*3/uL Absolute Neuts (auto) 2.8 (2.0-8.3) x10*3/uL Absolute Nucleated RBC 0.000 (0.0-0.012) X10*3/uL Nucleated RBC % (auto) 0.0 (0.0-0.2) /100WBC Sodium 146 H (135-145) mmol/L Potassium 3.6 (3.3-5.1) mmol/L Chloride 100 (96-108) mmol/L Carbon Dioxide 30 H (22-29) mmol/L Anion Gap 20 (12-20) BUN 13 (9-16) mg/dL Creatinine 1.04 (0.5-1.4) mg/dL Estim Creat Clear Calc 95.2 Estimated GFR > 60 Random Glucose 84 (60-115) mg/dL Calcium 8.4 (8.4-10.2) mg/dL Magnesium 1.6 (1.6-2.6) mg/dL Total Bilirubin 0.6 (0.0-1.0) mg/dL AST 123 H (5-37) U/L ALT 74 H (0-40) U/L Alkaline Phosphatase 127 H (39-117) U/L Ammonia 37 (13-55) umol/L Total Creatine Kinase 24 L (38-174) U/L B-Natriuretic Peptide < 10 (<100) pg/mL Total Protein 7.2 (6.5-8.0) g/dL Albumin 3.9 (3.5-5.0) g/dL Lipase 79 H (8-78) U/L Urine Color Yellow Urine Appearance Clear Urine pH 5.5 (5.0-9.0) Ur Specific [place] 1.020 (1.005-1.025) Urine Protein 100 (2+) H (Neg-Trace) mg/dL Urine Glucose (UA) Negative (Negative) mg/dL Urine Ketones Trace (Negative) mg/dL Urine Blood Negative (Negative) Urine Nitrite Negative (Negative) Ur Leukocyte Esterase Negative (Negative) Urine RBC 0-2 (0-2) /HPF Urine WBC 0-5 (0-5) /HPF Ur Squamous Epith Cells 6-10 (0-2) /HPF Urine Bacteria None Seen (None Seen) Hyaline Casts 11-20 (0-2) /LPF Salicylates < 5.0 L (15-30) mg/dL Urine Opiates Screen Not Detected (Not Detect) Ur Buprenorphine Scrn Not Detected (Not Detect) ng/mL Ur Oxycodone Screen Not Detected (Not Detect) ng/mL Urine Methadone Screen Not Detected (Not Detect) ng/mL Urine Fentanyl Screen Not Detected (Not Detect) Acetaminophen < 3 (<30) mcg/mL Ur Barbiturates Screen POSITIVE H (Not Detect) Ur Phencyclidine Scrn Not Detected (Not Detect) Ur Amphetamines Screen Not Detected (Not Detect) U Benzodiazepines Scrn Not Detected (Not Detect) Urine Cocaine Screen Not Detected (Not Detect) U Marijuana (THC) Screen POSITIVE H (Not Detect) Ethyl Alcohol 428 H* mg/dL Independent Interpretation I performed an independent interpretation of an: EKG, Plain X-Ray and CT Scan Interpretation: ct head w/o bleed or skull fx ct c spine without fracture cxr without infiltrate or consolidation EKG showing normal sinus rhythm, rate 94 beats per minute, no acute ischemic changes or ST elevation Radiology Impression Discussion of test interpretation with radiology: I have reviewed the radiologist's reading. Radiologist Impression: Procedure(s): XR chest 2V Accession Number(s): [id number] cc: Carol Kahn~ EXAMINATION: XR CHEST CLINICAL INFORMATION: etoh intoxication r/o aspiration COMPARISON: None available. TECHNIQUE: 2 views of the chest were obtained. FINDINGS: Mildly elevated right hemidiaphragm. There is cardiac enlargement. Mediastinal and hilar contours are normal. The lungs are clear bilaterally. There is no pneumothorax or pleural effusion. There is no focal osseous or soft tissue abnormality. Mild spinal degenerative changes. XR/XR chest 2V IMPRESSION: No active pulmonary disease. Procedure(s): CT cervical spine wo IV con Accession Number(s): [id number] cc: Carol Kahn~ Report Number: [id number]: Total DLP = 1439.00 mGy-cm CLINICAL HISTORY: intoxicated, found on ground unknown hs CT cervical spine without contrast Comparison: CT/SR - CT CERVICAL SPINE WO IV CON - 02/01/25 16:20 EDT Findings: Moderate multilevel spondylosis with moderate reversal and cervical kyphosis at C4-C5. No acute fractures or dislocations. No acute findings on limited view of the intracranial contents. Soft tissues of the neck are normal. No consolidation or effusion at the lung apices. IMPRESSION: No acute findings. Moderate multilevel spondylosis with reversal and moderate cervical kyphosis at C4-C5. This document has been electronically signed by: Shamir uF MD on 02/22/2025 19:38:23 Procedure(s): CT head/brain wo IV con Accession Number(s): [id number] cc: Carol Kahn~ Report Number: [id number]: Total DLP = 0.00 mGy-cm CLINICAL HISTORY: intoxicated, found on ground CT head without contrast Comparison: CT/SR - CT HEAD/BRAIN WO IV CON - 02/01/25 16:20 EDT Findings: No intra-axial mass, midline shift, hydrocephalus, or acute hemorrhage. No significant atrophy-like change or white matter disease. There is no sinus or mastoid fluid. The orbits are unremarkable. There is no acute fracture. IMPRESSION: 1. No acute intracranial findings. Independent Historian Clinical information obtained from an independent historian. History obtained from or confirmed by: EMS External Record Review External record reviewed: Inpatient record Chronic Conditions Patient?s care impacted by: Other (etoh abuse, ptsd) Social Determinants Patient?s care significantly limited by Social Determinants of Health including: Other Social Determinant of Health Critical Care Time Critical Care Time Critical Care Time: No Discharge Plan Discharge Clinical Impression: Suicidal ideation, Alcohol use disorder, Depression Patient Disposition: Xfer Psychiatric Hosp Transfer Details: Britni Schmidt Prescriptions: No Action multivitamin [Daily-Justa] Tablet 1 tab PO DAILY Qty: 90 0RF furosemide 40 mg Tablet 40 mg PO DAILY Qty: 30 0RF Protocol: Hold for SBP< HOLD for SBP < : 90 carvedilol 25 mg Tablet 25 mg PO BID Qty: 60 0RF Protocol: Hold for SBP/HR < HOLD for SBP < : 90 HOLD for HR < : 60 acetaminophen 325 mg Tablet 650 mg PO Q6H PRN (Reason: Headache/Pain, Scale 1-10) Qty: 0 0RF trazodone 50 mg Tablet 50 mg PO BEDTIME MRX1 PRN (Reason: Insomnia) Qty: 60 0RF nicotine (polacrilex) 2 mg Gum 4 mg buccal Q2H PRN (Reason: Nicotine Cravings) Qty: 100 0RF oxcarbazepine 300 mg Tablet 300 mg PO BID Qty: 60 0RF magnesium oxide 400 mg (241.3 mg magnesium) Tablet 400 mg PO BIDPC Qty: 60 0RF sertraline 25 mg Tablet 25 mg PO DAILY Qty: 30 0RF folic acid 1 mg Tablet 1 mg PO DAILY Qty: 90 0RF valsartan 40 mg Tablet 40 mg PO DAILY Qty: 30 0RF Protocol: Hold for SBP< HOLD for SBP < : 90 thiamine mononitrate (vit B1) 100 mg Tablet 100 mg PO DAILY Qty: 90 0RF Referrals: Magda Menard PA [Primary Care Provider] - Interventions: [place]-Suicide Risk Severity Scale Last Done: 02/22/25 13:37 Acute Care Transfer Worksheet (ED) Last Done: 02/23/25 15:19 Discharge Date/Time: 02/23/25 15:29 Print Language: Danish
[2025-02-22 15:45] LABS: MANUAL DIFF FLAG NO
[2025-02-22 15:47] LABS: Basophils Absolute Auto 0.1 X10*3/uL (0.0-0.2); Basophils Percent Auto 0.8 % (0-2); Eosinophils Absolute Auto 0.1 X10*3/uL (0.0-0.4); Eosinophils Percent Auto 0.8 % (0-4); Hematocrit 42.9 % (42.0-52.0); Hemoglobin 15.1 g/dl (14.0-18.0); Imm Gran Abs Auto 0.03 X10*3/uL (0.00-0.03); Imm Gran Pct Auto 0.5 % (0.0-0.4); Lymphocytes Absolute Auto 2.7 X10*3/uL (1.2-4.9); Lymphocytes Percent Auto 45.3 % (20-40); Mean Corpuscular HGB Conc 35.2 g/dl (31.0-36.0); Mean Corpuscular Hemoglobin 31.6 pg (27.0-33.0); Mean Corpuscular Volume 89.7 fL (80.0-98.0); Monocytes Absolute Auto 0.4 X10*3/uL (0.1-1.2); Monocytes Percent Auto 6.1 % (2-11); Neutrophils Absolute Auto 2.8 x10*3/uL (2.0-8.3); Neutrophils Percent Auto 46.5 % (45-73); Platelet Count 112 X10*3/uL (160-400); Red Blood Count 4.78 X10*6/uL (4.60-5.80); Red Cell Distribution Width 17.7 % (11.0-16.0); White Blood Count 5.9 X10*3/uL (4.8-10.8)
[2025-02-22 15:56] LABS: Ammonia 37 umol/L (13-55)
[2025-02-22 16:00] VITALS: BP 141/65; PULSE 88; RESP 20; TEMP 36.8; O2SAT 90
[2025-02-22 16:06] LABS: Ethanol 428 mg/dL
[2025-02-22 16:09] LABS: Acetaminophen LAB < 3 mcg/mL (<30); Salicylate < 5.0 mg/dL (15-30)
[2025-02-22 16:19] LABS: B Type Natriuretic Peptide < 10 pg/mL (<100)
[2025-02-22 17:46] LABS: Alanine Aminotransferase 74 U/L (0-40); Albumin Level 3.9 g/dL (3.5-5.0); Alkaline Phosphatase 127 U/L (39-117); Anion Gap 20 (12-20); Aspartate Amino Transferase 123 U/L (5-37); Bilirubin Total 0.6 mg/dL (0.0-1.0); Blood Urea Nitrogen 13 mg/dL (9-16); Calcium 8.4 mg/dL (8.4-10.2); Carbon Dioxide 30 mmol/L (22-29); Chloride 100 mmol/L (96-108); Creatinine Clr Calc Pharmacy 95.2; Estimated Glomerular Filt Rate > 60; Glucose Random 84 mg/dL (60-115); Lipase 79 U/L (8-78); Magnesium 1.6 mg/dL (1.6-2.6); Potassium 3.6 mmol/L (3.3-5.1); Sodium 146 mmol/L (135-145); Total Protein 7.2 g/dL (6.5-8.0)
[2025-02-22 18:00] VITALS: BP 202/97; PULSE 112; RESP 20; TEMP 36.8; O2SAT 97
--- OUTSIDE RECORDS SUMMARY | 2025-02-22 19:09 | XMS_ITS | Clinical Summary ---
Author Organization [facility] Address [address] [place] [address] Phone Care Team Providers Care Cash Office Worker Name Role Phone Physician, No Pcp Primary [...] systolic an d diastolic congestive heart failure (CMS/HCC V24, CMS/HCC V28) 12/23/2024 Resolved Problems Problem Noted Date Diagnosed Date Resolved Date Alcohol withdrawal (CMS/HCC V24, CMS/HCC V28) 12/20/19 25 12/23/2024 Encounters Date Type Department Care Team Description 12/20/2024 5:20 PM EST - 12/23/2024 6:02 PM EST Hospital Encounter [facility] Unit [address] [place] [address] Johan Gaona DO Jones, Christopher, MD Nasser, Nada S, MD Seralathan, Manikandan, MD Precordial pain (Primary Dx); Alcohol abuse with withdrawal (CMS/[facility] V24, CMS/[facility] V28); Hypokalemia Discharge Disposition: Home or Self Care from Last 3 Months Surgical History Surgery Date Site/Laterality Comments KNEE SURGERY PROCEDURE: HISTORICAL KNEE SURGERY FINGER SURGERY Left left ring finger Medical History Medical History Date Comments Hypertension Systolic and diastolic CHF, chronic (CMS/[facility] V24 , CMS/[facility] V28) Alcohol use Depression Family History Medical History [...] for your loved ones. For example, child therapist or elderly care for an older adult? [...] 12/05/2008 COVID-19 Vaccine ( - season) 2024 RSV Immunization Adult Patients (1 - Risk 60-74 years 1-dose series) 2024 Cholesterol Screening (Lipid Panel) 12/21/2024 09/22/2019 Colorectal Cancer Screening: Colonoscopy 12/21/2024 Depression Screening 12/21/2024 HIV Screening 12/21/2024 Hepatitis C Screening 12/21/2024 Lung Cancer Screening (Low Dose CT) 12/21/2024 Influenza Vaccine (Season Ended) 2025 09/24/2019 Social Influencers of Health Screening 12/21/2025 12/21/2024 [...] age to complete this topic Meningococcal B Vaccine Aged Out No l onger eligible based on patient's age to complete [...] Months Results * ECG-Annotated (12/24/2024) Provider Onbase ECG ORDERABLES Final Result * Phosphorus (12/23/2024 5:39 AM EST) [facility] Signature Phosphorus 3.3 2.5 - 4.5 mg/dL LAB CHEMISTRY METHOD 12/23/2024 7:19 AM EST [facility] Blood Venous blood specimen / Unknown Venipuncture / Unknown 12/23/2024 5:39 AM EST 12/23/2024 6:43 AM EST Gene Singh MD LAB BLOOD ORDERABLES Fi nal Result Performing Organization Address City/[facility]/ZIP Co de Phone Number [facility] [address] [place] [address], * (ABNORMAL) Magnesium (12/23/2024 5:39 AM EST) Only the most recent of3 resultswithin the time period is included. [facility] Magnesium 1.7(L) 1.9 - 2.6 mg/dL LAB CHEMISTRY METHOD 12/23/2024 7:19 AM [facility] Blood Venous blood specimen / Unknown Venipuncture / Unknown 12/23/2024 5:39 AM EST 12/23/2024 6:43 AM EST Gene Singh MD LAB BLOOD ORDERABLES Fi nal Result Performing Organization Address [facility]/ZIP Co de Phone Number [facility] [address] [place] [address], [place] [phone] * (ABNORMAL) Basic metabolic panel (12/23/2024 5:39 AM EST) Only the most recent of2 resultswithin the time period is included. [facility] Sodium 136 133 - 145 mmol/L LAB CHEMISTRY METHOD 12/23/2024 7:19 AM [facility] Potassium 3.1(L) 3.5 - 5.5 mmol/L LAB CHEMISTRY METHOD 12/23/2024 7:19 AM [facility] Chloride 100 96 - 110 mmol/L LAB CHEMISTRY METHOD 12/23/2024 7:19 AM [facility] CO2 33(H) 21 - 32 mmol/L LAB CHEMISTRY METHOD 12/23/2024 7:19 AM [facility] Anion Gap 3 3 - 11 LAB CHEMISTRY METHOD 12/23/2024 7:19 AM [facility] Glucose 87 70 - 100 mg/dL LAB CHEMISTRY METHOD 12/23/2024 7:19 AM EST [facility] BUN 15 5 - 25 mg/dL LAB CHEMISTRY METHOD 12/23/2024 7:19 AM [facility] Creatinine 0.93 0.70 - 1.30 mg/dL LAB CHEMISTRY METHOD 12/23/2024 7:19 AM [facility] eGFR 94 >=60 mL/min/1. 73m2 LAB CHEMISTRY METHOD 12/23/2024 7:19 AM [facility] Comment:Calculation based on the??Chronic Kidney Disease Epidemiology Collaboration (CKD-EPI) equation refit??without adjustment for race. BUN/Creatinine Ratio 16.1 LAB CHEMISTRY METHOD 12/23/2024 7:19 AM [facility] Calcium 8.1(L) 8.5 - 10.5 mg/dL LAB CHEMISTRY METHOD 12/23/2024 7:19 AM [facility] Blood Venous blood specimen / Unknown Venipuncture / Unknown 12/23/2024 5:39 AM EST 12/23/2024 6:43 AM EST us Gene Singh MD LAB BLOOD ORDERABLES Fi nal Result Performing Organization Address City/[facility]/ZIP Co de Phone Number [facility] [address] [place] [address], * Lavender tube (12/23/2024 5:34 AM EST) Only the most recent of2 resultswithin the time period is included. Extra Tube Hold for add-ons. 12/23/2024 8:01 AM EST [facility] Comment:Auto resulted. Blood Venous blood specimen / Unknown Venipuncture / Unknown 12/23/2024 5:34 AM EST 12/23/2024 6:46 AM EST us Gene Singh MD LAB BLOOD ORDERABLES Fi nal Result [facility] [address] [place] [address], [place] [phone] * ECG 12 lead (12/22/2024 5:56 PM EST) Only the most recent of3 resultswithin the time period is included. Ventricular Rate ECG 87 BPM GEMUSE Atrial Rate 87 BPM GEMUSE P-R Interval 176 ms GEMUSE QRS Duration 102 ms GEMUSE Q-T Interval 422 ms GEMUSE QTc 507 ms GEMUSE P Wave Errol -11 degrees GEMUSE R Errol 15 degrees GEMUSE T Errol 51 degrees GEMUSE ECG Interpretation Sinus rhythm with occasional Premature ventricular complexes Moderate voltage criteria for LVH, may be normal variant Prolonged QT When compared with ECG of 20-DEC-2024 19:29, Premature ventricular complexes are now Present Confirmed by BYRON DOSS ([id number]) on 12/22/2024 8:24:33 PM GEMUSE 12/22/2024 5:56 PM EST 12/22/2024 8:24 PM EST Gene Singh MD ECG ORDERABLES Final R esult Performing Organization Address [facility] Co de Phone Number GEMUSE * Hemoglobin A1c (12/22/2024 8:18 AM EST) [facility] Hemoglobin A1C 5.7 <6.5 % LAB CHEMISTRY METHOD 12/22/2024 1:57 PM EST [facility] Mean Bld Glu Estim. 117 mg/dL LAB CHEMISTRY METHOD 12/22/2024 1:57 PM EST [facility] Blood Venous blood specimen / Unknown 12/22/2024 8:18 AM EST 12/22/2024 8:25 AM EST us Gene Singh MD LAB BLOOD ORDERABLES Fi nal Result Performing Organization Address City/[facility]/ZIP Co de Phone Number [facility] [address] [place] [address], [place] [phone] * (ABNORMAL) Comprehensive metabolic panel (12/22/2024 8:18 AM EST) Only the most recent of2 resultswithin the time period is included. Sodium 134 133 - 145 mmol/L LAB CHEMISTRY METHOD 12/22/2024 9:02 AM [facility] Potassium 3.3(L) 3.5 - 5.5 mmol/L LAB CHEMISTRY METHOD 12/22/2024 9:02 AM [facility] Chloride 97 96 - 110 mmol/L LAB CHEMISTRY METHOD 12/22/2024 9:02 AM [facility] CO2 31 21 - 32 mmol/L LAB CHEMISTRY METHOD 12/22/2024 9:02 AM [facility] Anion Gap 6 3 - 11 LAB CHEMISTRY METHOD 12/22/2024 9:02 AM [facility] Glucose 104(H) 70 - 100 mg/dL LAB CHEMISTRY METHOD 12/22/2024 9:02 AM [facility] BUN 14 5 - 25 mg/dL LAB CHEMISTRY METHOD 12/22/2024 9:02 AM [facility] Creatinine 0.94 0.70 - 1.30 mg/dL LAB CHEMISTRY METHOD 12/22/2024 9:02 AM [facility] eGFR 93 >=60 mL/min/1. 73m2 LAB CHEMISTRY METHOD 12/22/2024 9:02 AM [facility] Comment:Calculation based on the??Chronic Kidney Disease Epidemiology Collaboration (CKD-EPI) equation refit??without adjustment for race. BUN/Creatinine Ratio 14.9 LAB CHEMISTRY METHOD 12/22/2024 9:02 AM [facility] Calcium 8.3(L) 8.5 - 10.5 mg/dL LAB CHEMISTRY METHOD 12/22/2024 9:02 AM [facility] AST (SGOT) 53(H) 10 - 42 unit/L LAB CHEMISTRY METHOD 12/22/2024 9:02 AM [facility] ALT (SGPT) 49 10 - 60 unit/L LAB CHEMISTRY METHOD 12/22/2024 9:02 AM [facility] Alkaline Phosphatase 79 42 - 121 unit/L LAB CHEMISTRY METHOD 12/22/2024 9:02 AM [facility] Total Protein 6.0 6.0 - 8.0 g/dL LAB CHEMISTRY METHOD 12/22/2024 9:02 AM [facility] Albumin 3.2 3.2 - 5.0 g/dL LAB CHEMISTRY METHOD 12/22/2024 9:02 AM [facility] Total Bilirubin 1.7(H) 0.0 - 1.4 mg/dL LAB CHEMISTRY METHOD 12/22/2024 9:02 AM [facility] Blood Venous blood specimen / Unknown Venipuncture / Unknown 12/22/2024 8:18 AM EST 12/22/2024 8:24 AM EST Gene Singh MD LAB BLOOD ORDERABLES Fi nal Result [facility] [address] [place] [address], * CBC auto differential (12/21/2024 5:52 AM EST) Only the most recent of2 resultswithin the time period is included. WBC 6.3 4.8 - 10.8 K/mcL LAB HEMETOLOGY METHOD 12/21/2024 6:53 AM [facility] RBC 4.80 4.50 - 5.50 M/mcL LAB HEMETOLOGY METHOD 12/21/2024 6:53 AM [facility] Hemoglobin 13.9 13.5 - 17.5 g/dL LAB HEMETOLOGY METHOD 12/21/2024 6:53 AM [facility] Hematocrit 42.0 42.0 - 54.0 % LAB HEMETOLOGY METHOD 12/21/2024 6:53 AM [facility] MCV 87.9 79.0 - 98.0 FL LAB HEMETOLOGY METHOD 12/21/2024 6:53 AM [facility] MCH 29.1 27.0 - 32.0 pcg LAB HEMETOLOGY METHOD 12/21/2024 6:53 AM [facility] MCHC 33.1 32.0 - 37.0 g/dL LAB HEMETOLOGY METHOD 12/21/2024 6:53 AM [facility] RDW 13.2 11.0 - 15.0 % LAB HEMETOLOGY METHOD 12/21/2024 6:53 AM [facility] Platelets 145 130 - 400 K/mcL LAB HEMETOLOGY METHOD 12/21/2024 6:53 AM [facility] MPV 10.0 7.0 - 11.0 FL LAB HEMETOLOGY METHOD 12/21/2024 6:53 AM [facility] NRBC 0.0 <1.0 % LAB HEMETOLOGY METHOD 12/21/2024 6:53 AM [facility] NRBC Absolute 0.00 <0.10 K/mcL LAB HEMETOLOGY METHOD 12/21/2024 6:53 AM [facility] Neutrophils Relative 62.9 % LAB HEMETOLOGY METHOD 12/21/2024 6:53 AM [facility] Lymphocytes Relative 26.3 % LAB HEMETOLOGY METHOD 12/21/2024 6:53 AM [facility] Monocytes Relative 7.5 % LAB HEMETOLOGY METHOD 12/21/2024 6:53 AM [facility] Eosinophils Relative 2.2 % LAB HEMETOLOGY METHOD 12/21/2024 6:53 AM [facility] Basophils Relative 0.8 % LAB HEMETOLOGY METHOD 12/21/2024 6:53 AM EST [facility] Immature Granulocytes Relative 0.3 % LAB HEMETOLOGY METHOD 12/21/2024 6:53 AM EST [facility] Neutrophils Absolute 3.95 1.50 - 7.00 K/mcL LAB HEMETOLOGY METHOD 12/21/2024 6:53 AM EST [facility] Lymphocytes Absolute 1.65 1.00 - 5.00 K/mcL LAB HEMETOLOGY METHOD 12/21/2024 6:53 AM EST [facility] Monocytes Absolute 0.47 0.20 - 1.00 K/mcL LAB HEMETOLOGY METHOD 12/21/2024 6:53 AM [facility] Eosinophils Absolute 0.14 0.00 - 0.50 K/mcL LAB HEMETOLOGY METHOD 12/21/2024 6:53 AM EST [facility] Basophils Absolute 0.05 0.00 - 0.20 K/mcL LAB HEMETOLOGY METHOD 12/21/2024 6:53 AM [facility] Immature Granulocytes Absolute 0.02 0.00 - 0.03 K/mcL LAB HEMETOLOGY METHOD 12/21/2024 6:53 AM [facility] Blood Venous blood specimen / Unknown Venipuncture / Unknown 12/21/2024 5:52 AM EST 12/21/2024 6:34 AM EST us Jeffrey Dougherty MD LAB BLOOD ORDERABLES Final Result [facility] [address] [place] [address], * (ABNORMAL) Hepatic function panel (12/21/2024 5:52 AM EST) Total Protein 6.5 6.0 - 8.0 g/dL LAB CHEMISTRY METHOD 12/21/2024 7:24 AM EST [facility] Albumin 3.3 3.2 - 5.0 g/dL LAB CHEMISTRY METHOD 12/21/2024 7:24 AM EST [facility] Total Bilirubin 1.1 0.0 - 1.4 mg/dL LAB CHEMISTRY METHOD 12/21/2024 7:24 AM [facility] Bilirubin, Direct 0.3 0.0 - 0.3 mg/dL LAB CHEMISTRY METHOD 12/21/2024 7:24 AM [facility] Bilirubin, Indirect 0.8 0.0 - 1.1 mg/dL LAB CHEMISTRY METHOD 12/21/2024 7:24 AM [facility] ALT (SGPT) 51 10 - 60 unit/L LAB CHEMISTRY METHOD 12/21/2024 7:24 AM [facility] AST (SGOT) 52(H) 10 - 42 unit/L LAB CHEMISTRY METHOD 12/21/2024 7:24 AM [facility] Alkaline Phosphatase 84 42 - 121 unit/L LAB CHEMISTRY METHOD 12/21/2024 7:24 AM [facility] Blood Venous blood specimen / Unknown Venipuncture / Unknown 12/21/2024 5:52 AM EST 12/21/2024 6:34 AM EST us Polly OROZCO LAB BLOOD ORDERABLES Final R esult [facility] [address] [place] [address], * Respiratory virus panel molecular study (12/21/2024 12:24 AM EST) Pathologist [facility] Adenovirus Detection by PCR Not Detected Not Detected LAB MICROBIOLOGY METHOD 12/21/2024 1:46 AM [facility] Influenza A PCR Not Detected Not Detected LAB MICROBIOLOGY METHOD 12/21/2024 1:46 AM [facility] Influenza B PCR Not Detected Not Detected LAB MICROBIOLOGY METHOD 12/21/2024 1:46 AM [facility] Coronavirus 229E Not Detected Not Detected LAB MICROBIOLOGY METHOD 12/21/2024 1:46 AM EST [facility] Coronavirus HKU1 Not Detected Not Detected LAB MICROBIOLOGY METHOD 12/21/2024 1:46 AM [facility] Coronavirus OC43 Not Detected Not Detected LAB MICROBIOLOGY METHOD 12/21/2024 1:46 AM [facility] Coronavirus NL63 Not Detected Not Detected LAB MICROBIOLOGY METHOD 12/21/2024 1:46 AM [facility] Parainfluenza Virus 1 Not Detected Not Detected LAB MICROBIOLOGY METHOD 12/21/2024 1:46 AM [facility] Parainfluenza Virus 2 Not Detected Not Detected LAB MICROBIOLOGY METHOD 12/21/2024 1:46 AM [facility] Parainfluenza Virus 3 Not Detected Not Detected LAB MICROBIOLOGY METHOD 12/21/2024 1:46 AM [facility] Parainfluenza Virus 4 Not Detected Not Detected LAB MICROBIOLOGY METHOD 12/21/2024 1:46 AM [facility] RSV PCR Not Detected Not Detected LAB MICROBIOLOGY METHOD 12/21/2024 1:46 AM [facility] Human Metapneumovirus A and B Not Detected Not Detected LAB MICROBIOLOGY METHOD 12/21/2024 1:46 AM [facility] Rhinovirus/Entero virus Not Detected Not Detected LAB MICROBIOLOGY METHOD 12/21/2024 1:46 AM [facility] Bordetella pertussis Not Detected Not Detected LAB MICROBIOLOGY METHOD 12/21/2024 1:46 AM [facility] Bordetella parapertussis Not Detected Not Detected LAB MICROBIOLOGY METHOD 12/21/2024 1:46 AM [facility] Mycoplasma pneumo by PCR Not Detected Not Detected LAB MICROBIOLOGY METHOD 12/21/2024 1:46 AM [facility] Chlamydia pneumoniae Not Detected Not Detected LAB MICROBIOLOGY METHOD 12/21/2024 1:46 AM EST [facility] SARS COV-2 Not Detected Not Detected LAB MICROBIOLOGY METHOD 12/21/2024 1:46 AM EST [facility] Swab Both anterior nares / Unknown Non-blood Collection / Unknown 12/21/2024 12:24 AM EST 12/21/2024 12:48 AM EST [facility] - 12/21/2024 1:46 AM EST Testing was performed using the [employer] Respiratory Pathogen PCR Assay. All results must [...] MICROBIOLOGY - GENERAL O RDERABLES Final Result [facility] [address] [place] [address], * Procalcitonin (12/21/2024 12:20 AM EST) Procalcitonin 0.06 <=0.16 ng/mL LAB CHEMISTRY METHOD 12/21/2024 8:52 AM EST [facility] Blood Venous blood specimen / Unknown Venipuncture / Unknown 12/21/2024 12:20 AM EST 12/21/2024 12:26 AM EST [facility] - 12/21/2024 8:52 AM EST [...] Final R esult [facility] [address] [place] [address], [place] [phone] * (ABNORMAL) Drug abuse screen 8a panel, urine (12/20/2024 9:34 PM EST) [facility] Amphetamine Screen, Ur Negative Negative LAB CHEMISTRY METHOD 5 10:10 PM EST [facility] Comment:Certain OTC medicati ons containing ephedrine, phenylephrine, pseudoephedrine and phenylpropanolamine can cause false positive results. Barbiturate Screen, Ur Negative Negative LAB CHEMISTRY METHOD 5 10:10 PM EST [facility] Benzodiazepine Screen, Ur Negative Negative LAB CHEMISTRY METHOD 5 10:10 PM EST [facility] Cocaine Screen, Ur Negative Negative LAB CHEMISTRY METHOD 5 10:10 PM EST [facility] Opiate Screen, Ur Negative Negative LAB CHEMISTRY METHOD 5 10:10 PM EST [facility] Cannabinoid (THC) Screen, Ur Positive(A ) Negative LAB CHEMISTRY METHOD 5 10:10 PM EST [facility] Comment:Specimens from patie nts taking pantoprazole sodium (Protonix) have been shown to produce false positive results. Oxycodone Screen, Ur Negative Negative LAB CHEMISTRY METHOD 10:10 PM EST [facility] Fentanyl, Ur Negative Negative LAB CHEMISTRY METHOD 10:10 PM EST [facility] Urine Urine specimen obtained by clean catch procedure / Unknown Non-blood Collection / Unknown 12/20/2024 9:34 PM EST 12/20/2024 9:41 PM EST Narrative [facility] - 12/20/2024 10:10 PM EST [...] DO LAB URINE ORDERABLES Final Res ult [facility] [address] [place] [address], * Troponin I high sensitivity (12/20/2024 7:21 PM EST) Only the most recent of2 resultswithin the time period is included. High Sensitivity Troponin I 31 <=79 ng/L LAB CHEMISTRY METHOD 12/20/2024 8:09 PM EST [facility] Blood Venous blood specimen / Unknown Venipuncture / Unknown 12/20/2024 7:21 PM EST 12/20/2024 7:42 PM EST Narrative [facility] - 12/20/2024 8:09 PM EST High levels of biotin in samples may falsely decrease hsTroponin values. ??Use caution when interpreting hsTroponin results in patients taking biotin who exhibit renal impairment (eGFR <60) or in patients taking more than 20 mg/day of biotin. us Johan Zuleima Gaona DO LAB BLOOD ORDERABLES Final Res ult [facility] [address] [place] [address], * XR Chest 2 Views (12/20/2024 7:00 PM EST) Anatomical Region Laterality Modality Body Radiographic Amena ging 12/21/2024 8:04 AM EST Impressions 12/21/2024 8:07 AM EST No acute findings. -------- FINAL REPORT -------- Dictated By: Sabino Oviedo Dictated Date: 12/21/2024 08:04 ET Assigned Physician: Sabino Oviedo Reviewed and Electronically Signed By: Sabino Oviedo Signed Date: 12/21/2024 08:07 ET Workstation ID: [id number] Transcribed By: Self Edit Transcribed Date: 12/21/2024 [...] Signed Date: 12/21/2024 08:07 ET Workstation ID: [id number] Transcribed By: Self Edit Transcribed Date: 12/21/2024 08:04 ET us Jeffrey Dougherty MD IMG XR PROCEDURES Final Res ult * Vitamin B12 and folate (12/20/2024 6:08 PM EST) [facility] Vitamin B-12 586 250 - 900 pcg/mL LAB CHEMISTRY METHOD 12/21/2024 12:45 AM EST [facility] Folate 8.3 2.8 - 17.0 ng/ml LAB CHEMISTRY METHOD 12/21/2024 12:45 AM EST [facility] Blood Venous blood specimen / Unknown Venipuncture / Unknown 12/20/2024 6:08 PM EST 12/20/2024 6:21 PM EST Polly Cast PA LAB BLOOD ORDERABLES Final R esult Performing Organization Address City/[facility]/ZIP Co de Phone Number [facility] [address] [place] [address], [place] [phone] * (ABNORMAL) Lipase (12/20/2024 6:08 PM EST) [facility] Lipase 85(H) 13 - 75 unit/L LAB CHEMISTRY METHOD 12/20/2024 6:52 PM EST [facility] Blood Venous blood specimen / Unknown Venipuncture / Unknown 12/20/2024 6:08 PM EST 12/20/2024 6:21 PM EST Johan Gaona DO LAB BLOOD ORDERABLES Final Res ult [facility] [address] [place] [address], [place] [phone] * B-type natriuretic peptide (12/20/2024 6:07 PM EST) BNP 10 <=100 pcg/mL LAB CHEMISTRY METHOD 12/20/2024 6:58 PM EST [facility] Blood Venous blood specimen / Unknown Venipuncture / Unknown 12/20/2024 6:07 PM EST 12/20/2024 6:21 PM EST us Johan Gaona DO LAB BLOOD ORDERABLES Final Res ult [facility] [address] [place] [address], [place] [phone] from Last 3 Months Insurance #[id number] [place] [address] MEDICARE [facility] Advance Directives * Full Code - Default [...] currently active code status orders. Care Teams Cash Office Worker Relationship Specialty Start Date End Date Physician, No Pcp PCP - General 12/20/24
--- NOTE | 2025-02-22 19:54 | PC.NURSE ---
Patient ambulated to the bathroom with a steady gait.
[2025-02-22 20:00] VITALS: BP 182/78; PULSE 85; RESP 20; O2SAT 90
[2025-02-22 20:15] LABS: Appearance Urine Clear; Color Urine Yellow; Glucose Urine UA Negative (Negative); Leukocyte Esterase Urine Negative (Negative); Nitrite Urine Negative (Negative); PH 5.5 (5.0-9.0); UMIC TRIGGER UACC YES; Urine Blood Negative (Negative); Urine Ketones Trace mg/dL (Negative); Urine Protein 100 (2+) mg/dL (Neg-Trace)
[2025-02-22 20:22] LABS: Bacteria Urine None Seen (None Seen); RBC Urine 0-2 /HPF (0-2); WBC Urine 0-5 /HPF (0-5)
[2025-02-22 20:24] LABS: Amphetamine Screen Urine Not Detected (Not Detect); Barbiturates, Urine POSITIVE (Not Detect); Benzodiazepines Screen Urine Not Detected (Not Detect); Buprenorphine Scr Not Detected (Not Detect); Cannabinoid Screen Urine POSITIVE (Not Detect); Cocaine Screen Urine Not Detected (Not Detect); Fentanyl, urine Not Detected (Not Detect); Methadone Screen, Urine Not Detected (Not Detect); Opiate Screen Urine Not Detected (Not Detect); Oxycodone Screen Urine Not Detected (Not Detect); Phencyclidine Screen Urine Not Detected (Not Detect)
[2025-02-23 00:57] VITALS: BP 138/98; PULSE 115; RESP 18; TEMP 36.6; O2SAT 94
[2025-02-23] MEDS: LORazepam 1 MG TABLET 2 MG PO ×3 (01:08→08:48)
[2025-02-23 05:00] VITALS: BP 141/95; PULSE 124; RESP 20; TEMP 37.1; O2SAT 94
--- NOTE | 2025-02-23 07:12 | PC.NURSE ---
Assumed care for pt at 0645. Pt appears to be resting in bed quietly. Will re-assess CIWA score as needed. Continue plan of care for CARE team eval.
[2025-02-23 08:08] VITALS: BP 205/124; PULSE 106; RESP 16; TEMP 36.9; O2SAT 93
--- NOTE | 2025-02-23 08:09 | PC.NURSE ---
Addendum entered by Yuliana Nolasco 02/23/25 09:56: pts blood pressure has come down now 150/69 and HR now 82, MD Vega aware Original Note: Pts BP elevated (205/124 RA and 223/131 LA), HR elevated (106). MD Vega aware, talked over plan. Current plan is to medicate with am medications as well as Ativan, re-check BP/HR and report back to
[2025-02-23] MEDS: OXcarbazepine 300 MG TABLET PO (08:48)
[2025-02-23] MEDS: carvediloL 25 MG TABLET PO (08:48)
[2025-02-23] MEDS: Multivitamin TABLET 1 TAB PO (08:48)
[2025-02-23] MEDS: Furosemide 40 MG TABLET PO (08:48)
[2025-02-23] MEDS: Sertraline HCL 25 MG TABLET PO (08:48)
[2025-02-23] MEDS: Magnesium Oxide 400 MG TABLET PO (08:48)
[2025-02-23] MEDS: Folic Acid 1 MG TABLET PO (08:49)
[2025-02-23] MEDS: Thiamine HCL 100 MG TABLET PO (08:49)
[2025-02-23] MEDS: Valsartan 40 MG TABLET PO (09:08)
[2025-02-23 09:54] VITALS: BP 150/69; PULSE 82; RESP 16; O2SAT 97
--- NOTE | 2025-02-23 10:06 | MHC.CARE ---
Pt will be a dual dx bedsearch
--- NOTE | 2025-02-23 13:22 | MHC.CARE ---
Pt was accepted to [facility] for today. The accepting doctor is Dr. Angeles and the ETA is 5pm. The accepting facility does not require a n2n. [place] [address]. Pod RN and CARE team have been notified.
[2025-02-23 15:19] VITALS: BP 175/113; PULSE 93; RESP 16; TEMP 36.4; O2SAT 95
== END 2025-02-23 15:29 ==
PROVIDERS: Physician Assistant Medical; Emergency Provider Emergency Medicine; PCP Physician Assistant
DX: R45.851 Suicidal ideations (principal); F33.1 Major depressive disorder, recurrent, moderate; F10.90 Alcohol use, unspecified, uncomplicated; I44.0 Atrioventricular block, first degree; M54.2 Cervicalgia; R06.02 Shortness of breath; R51.9 Headache, unspecified; F17.210 Nicotine dependence, cigarettes, uncomplicated; Y90.8 Blood alcohol level of 240 mg/100 ml or more; Z79.899 Other long term (current) drug therapy; Z51.81 Encounter for therapeutic drug level monitoring
CPT/HCPCS: 36415; 70450; 71046; 72125; 80053; 80143; 80179; 80307; 81001; 82140; 82550; 83690; 83735; 83880; 85025; 93005; 99285; S9485

== ENCOUNTER → 2025-02-22 15:11 | Outpatient (BNV) | payer MEDICAID, SELFPAY | PROVIDERS: Emergency Provider Emergency Medicine; Visit Provider Radiology Diagnostic Radiology | DX: M47.812 Spondylosis without myelopathy or radiculopathy, cervical region (principal); M40.292 Other kyphosis, cervical region; F10.129 Alcohol abuse with intoxication, unspecified | CPT/HCPCS: 70450; 71046; 72125 ==

== ENCOUNTER → 2025-02-22 15:12 | Outpatient (BNV) | payer MEDICAID, SELFPAY | PROVIDERS: Emergency Provider Emergency Medicine; PCP Physician Assistant; Visit Provider Internal Medicine | DX: I44.0 Atrioventricular block, first degree (principal); R94.31 Abnormal electrocardiogram [ECG] [EKG]; R41.82 Altered mental status, unspecified | CPT/HCPCS: 93010 ==

== ENCOUNTER 2025-05-26 12:54 | Inpatient (IN) | payer MEDICARE, MEDICAID, SELFPAY ==
[2025-05-26 12:59] VITALS: BP 137/94; PULSE 133; RESP 26; TEMP 36.6; O2SAT 97; BMI 38.2
--- NOTE | 2025-05-26 12:59 | ED.ALCOHOL ---
HPI - Alcohol General Chief Complaint: ETOH/Substance Use Stated Complaint: detox Time Seen by Provider: 05/26/25 13:07 Source: patient and family (Close friend) Mode of arrival: ambulatory Limitations: no limitations History of Present Illness ED Provider: DR. Hernandez HPI narrative: 59-year-old male with PMH significant for HTN, unspecified CHF, alcohol use disorder, history of seizure related to alcohol withdrawal, patient appeared to be anxious and very depressed, patient is tearful and emotional during the assessment, patient stated that he witnessed his significant other few months ago ever since he has been daily alcohol drinker at least 1 pt of heavy liquor daily, last time patient tried to stop drinking on his own cold turkey went through depression, seizure, and SI. Patient is here today seeking help for stopping alcohol drinking. 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 Patient stated that his last drink was before coming to the hospital today. Currently declined SI, HI, or hallucination. Related Data Previous Rx's ?Medication ?Instructions ?Recorded acetaminophen 325 mg tablet 650 mg (2 x 325 mg) PO Q6H PRN 02/06/25 Headache/Pain, Scale 1-10 #0 tabs carvedilol 25 mg tablet 25 mg PO BID #60 tabs 02/06/25 folic acid 1 mg tablet 1 mg PO DAILY #90 tabs 02/06/25 furosemide 40 mg tablet 40 mg PO DAILY #30 tabs 02/06/25 magnesium oxide 400 mg (241.3 mg 400 mg PO BIDPC #60 tabs 02/06/25 magnesium) tablet multivitamin (Daily-Justa tablet) 1 tab PO DAILY #90 tabs 02/06/25 nicotine (polacrilex) 2 mg gum 4 mg buccal Q2H PRN Nicotine 02/06/25 Cravings #100 ea oxcarbazepine 300 mg tablet 300 mg PO BID #60 tabs 02/06/25 sertraline 25 mg tablet 25 mg PO DAILY #30 tabs 02/06/25 thiamine mononitrate (vit B1) 100 100 mg PO DAILY #90 tabs 02/06/25 mg tablet trazodone 50 mg tablet 50 mg PO BEDTIME MRX1 PRN Insomnia 02/06/25 #60 tabs valsartan 40 mg tablet 40 mg PO DAILY #30 tabs 02/06/25 Allergies Allergy/AdvReac Type Severity Reaction Status Date / Time No Known Allergies (No Known Allergy Verified 05/26/25 13:02 Allergies*) Review of Systems Review of Systems: All other systems are reviewed and are negative Constitutional: Reports as per HPI and Reports no additional constitutional complaints Eyes: Reports as per HPI and Reports no additional eye complaints Reports system reviewed and no additional complaints, except as documented Cardiovascular: Reports as per HPI and Reports no additional cardiovascular complaints Respiratory: Reports as per HPI and Reports no additional respiratory complaints Gastrointestinal: Reports as per HPI and Reports no additional gastrointestinal complaints Genitourinary: Reports no additional female genitourinary complaints Musculoskeletal: Reports no additional musculoskeletal complaints Skin/Breast: Reports system reviewed and no additional complaints, except as docu Psychiatric: Reports no additional psychiatric complaints Endocrine: Reports no additional endocrine complaints Hematologic/Lymphatic: Reports no additional hematologic/lymphatic complaints Allergic/Immunologic: Reports no additional allergic/immunologic complaints Reports system reviewed and no additional complaints, except as documented and Reports Abnormal speech present [facility] Past Medical History Medical History Alcohol use disorder PTSD (post-traumatic stress disorder) Morbid obesity CHF (congestive heart failure) HTN (hypertension) Social History Social History Household Members: Family Housing: Condominium Do you presently have visiting nurse or other home services: No Alcohol intake: current Alcohol intake frequency: 3 or more drinks per day Alcohol type: hard liquor Comment: 1:1 sitter Patient Tobacco Use Status: Current everyday Tobacco user Tobacco use type: Cigarette Cigarette Packs Per Day: 1 Cigarettes Per Day: 20.0 Years Smoked: 45 Smoked in Last 30 Days: Yes e-Cigarette/Vaping Use: Never Used Second Hand Smoke Exposure: No Use of substances other than those prescribed or required for medical reasons: No Substance Use Type: Marijuana Advance Directives: No Advance Directives Information Provided: Yes Do you have a plan to hurt others: No Plan service: Yes ([employer]) Sexual orientation: Straight/Heterosexual Physical Exam ED Vital Signs: Vital Signs - 24 hr 05/26/25 12:59 05/26/25 14:08 Temperature 97.9 F 98.4 F Pulse Rate 133 H 100 Respiratory Rate 26 H 12 Blood Pressure 137/94 H 125/73 Pulse Oximetry 97 97 Oxygen Delivery Method Room Air Room Air BMI result Body Mass Index 38.2 Vital signs have been reviewed and appear to be correct. Blood pressure elevated. Heart rate normal. Respiratory rate normal. Temperature normal. Oxygen saturation normal. Appearance: Tearful, anxious, Alert. Oriented X3. No acute distress. Head: Normal external exam. Normocephalic. Atraumatic. No Blanco signs noted. No raccoon eyes noted Eyes: PERRLA. EOMI. Conjunctiva and sclera normal. Eyelids normal. ENT: TM's Normal. Pharynx normal. Uvula midline. Moist mucous membranes. No trismus noted. No drooling noted. No muffled voice noted. Neck: Normal inspection. Neck supple. FROM. No adenopathy. Thyroid Normal. No meningeal signs. No neck mass noted. CVS: Normal heart rate and rhythm. Heart sound normal. No murmurs noted. Pulses normal throughout. Respiratory: No respiratory distress. Painless inspiration. Breath sounds normal. No wheezes/rales/rhonchi noted. Chest nontender. No accessory muscle usage noted or decreased air movement noted. Abdomen: Soft and nontender. Bowel sounds normal in all 4 quadrants. No distention noted. No organomegaly noted. No visible injury noted. Back: No CVA tenderness. Full range of motion noted. Skin: Skin warm and dry. Normal skin color. Normal skin turgor. No rashes/lesions/lacerations noted. Extremities: No lower extremity edema. Extremities exhibit normal range of motion. Extremities nontender. Neuro: Oriented X 3. Cranial nerve exam: II-XII are grossly intact No motor deficit. No sensory deficit. Reflexes normal. Course Course Course Narrative: This is an RME: Additional HPI, ROS, PE not included below will be deferred to primary provider. RME assessment and note performed by: Jeanette Pimentel PA-C 59-year-old male with a PMH significant for?HTN, unspecified CHF, alcohol use disorder w/hx of withdrawal, depression, and anxiety who initially presented to the ED for etoh detox. Pt has been going through alot, he is very tearful in triage, tachycardic in the 130s. Plan: Labs, EKG, pt to be brought back for further ER eval. Reevaluation(s) Reevaluation #1: A 59-year-old male extensive alcohol history, presented with alcohol withdrawal, patient found to be with hypomagnesemia and hypokalemia. 1. Replete electrolyte 2. Start phenobarb. Time: 16:29 Medical Decision Making Differential Diagnosis Differential Diagnoses: The differential diagnosis associated with the presentation includes (Electrolyte derangement, anemia, alcohol withdrawal.) Admission/Observation Consideration of admission/observation: Escalation of care including admission/observation considered Lab Data MDM Lab Attestation statement: I reviewed the patient's lab results. 05/26/25 13:24 05/26/25 13:24 Labs: Lab Results 05/26/25 Range/Units 13:24 WBC 4.2 L (4.8-10.8) X10*3/uL RBC 4.32 L (4.60-5.80) X10*6/uL Hgb 15.1 (14.0-18.0) g/dl Hct 41.3 L (42.0-52.0) % MCV 95.6 (80.0-98.0) fL MCH 35.0 H (27.0-33.0) pg MCHC 36.6 H (31.0-36.0) g/dl RDW 16.6 H (11.0-16.0) % Plt Count 80 L D (160-400) X10*3/uL MPV 10.3 (9.4-12.4) fL Immature Gran % (Auto) 0.2 (0.0-0.4) % Neut % (Auto) 56.9 (45-73) % Lymph % (Auto) 33.6 (20-40) % [place] % (Auto) 8.3 (2-11) % Eos % (Auto) 0.5 (0-4) % Baso % (Auto) 0.5 (0-2) % Lymph # (Auto) 1.4 (1.2-4.9) X10*3/uL [place] # (Auto) 0.4 (0.1-1.2) X10*3/uL Eos # (Auto) 0.0 (0.0-0.4) X10*3/uL Baso # (Auto) 0.0 (0.0-0.2) X10*3/uL Abs Immat Gran (auto) 0.01 (0.00-0.03) X10*3/uL Absolute Neuts (auto) 2.4 (2.0-8.3) x10*3/uL Absolute Nucleated RBC 0.000 (0.0-0.012) X10*3/uL Nucleated RBC % (auto) 0.0 (0.0-0.2) /100WBC Sodium 141 (135-145) mmol/L Potassium 2.9 L* (3.3-5.1) mmol/L Chloride 100 (96-108) mmol/L Carbon Dioxide 22 (22-29) mmol/L Anion Gap 22 H (12-20) BUN 9 (9-16) mg/dL Creatinine 1.20 (0.5-1.4) mg/dL Estim Creat Clear Calc 90.4 Estimated GFR > 60 Random Glucose 160 H (60-115) mg/dL Calcium 8.2 L (8.4-10.2) mg/dL Magnesium 1.4 L* (1.6-2.6) mg/dL Total Bilirubin 1.1 H (0.0-1.0) mg/dL Direct Bilirubin 0.5 (0.0-0.5) mg/dL AST 92 H (5-37) U/L ALT 31 (0-40) U/L Alkaline Phosphatase 111 (39-117) U/L Troponin I High Sens 27.0 (<3.5-35.0) ng/L Total Protein 6.7 (6.5-8.0) g/dL Albumin 3.8 (3.5-5.0) g/dL Lipase 91 H (8-78) U/L Ethyl Alcohol 373 H* mg/dL Medications Administered Discontinued Medications Generic Name Dose Route Start Last Admin Trade Name Freq PRN Reason Stop Dose Admin Potassium Chloride 10 meq in 100 mls @ 100 mls/hr 05/26/25 13:57 05/26/25 15:54 Potassium Chloride/H20 IV 05/26/25 14:56 Infused ONCE ONE Infusion Magnesium Sulfate 2 gm in 50 mls @ 25 mls/hr 05/26/25 13:57 05/26/25 15:53 Magnesium Sulfate/H2o IV 05/26/25 15:56 Infused ONCE ONE Infusion Ondansetron HCl 4 mg 07/24/25 14:07 05/26/25 14:15 Ondansetron Hcl 4 Mg/2 Ml Vial IVPUSH 05/26/25 14:08 4 mg ONCE ONE Administration Phenobarbital Sodium 310 mg 05/26/25 14:00 05/26/25 13:56 Phenobarbital Sodium 130 Mg/Ml Im Once IM 05/26/25 14:01 310 mg ONCE ONE Administration Protocol Discharge Plan Discharge Clinical Impression: Alcohol withdrawal, Hypomagnesemia, Acute hypokalemia Patient Disposition: Admitted As Inpatient Print Language: Sami
--- NOTE | 2025-05-26 13:02 | ECG_ITS ---
Test Reason : ETOH Blood Pressure : */* mmHG Vent. Rate : 109 BPM Atrial Rate : 109 BPM P-R Int : 190 ms QRS Dur : 88 ms QT Int : 328 ms P-R-T Axes : 31 12 58 degrees QTcB Int : 441 ms Sinus tachycardia Minimal voltage criteria for LVH, may be normal variant ( R in aVL ) Inferior infarct , age undetermined Cannot rule out Anterior infarct , age undetermined Abnormal ECG When compared with ECG of 22-Feb-2025 15:43, No significant change was found Referred By: Jeanette Pimentel Electronically Signed By: Harley Hernández
--- OUTSIDE RECORDS SUMMARY | 2025-05-26 13:20 | XMS_ITS | Clinical Summary ---
Author Organization [facility] Address [address] [place] [address] Phone Care Team Providers Care Energy Conservation Director Name Role Phone Physician, No Pcp Primary [...] time each day. 30 tablet 12/24/2024 Active Active Problems Problem Noted Date Diagnosed Date Chronic combined systolic an d diastolic congestive heart failure (CMS/HCC V24, CMS/HCC V28) 12/23/2024 Resolved Problems Problem Noted Date Diagnosed Date Resolved Date Alcohol withdrawal (CMS/HCC V24, CMS/HCC V28) 12/20/19 25 12/23/2024 Surgical History Surgery Date Site/Laterality Comments KNEE SURGERY PROCEDURE: HISTORICAL KNEE SURGERY FINGER SURGERY Left left ring finger Medical History Medical History Date Comments Hypertension Systolic and diastolic CHF, chronic (CMS/HCC V24 , CMS/HCC V28) Alcohol use Depression Family History Medical History Relation Name Comments Hypertension Father Other: Alzheimer's Maternal Grandmother Heart attack Mother age 56, mi Hypertension Mother Other: ruptured abdominal aortic aneurysm Paternal Gra ndfather Age 60 Other: Covington's disease Sister 1 Relation Name Status Comments [...] care for your loved ones. For example, early childhood aide classroom or elderly care for an older adult? [...] 82 12/23/2024 12:17 PM EST Temperature 37.2 C (99 F) 12/23/2024 12:17 PM EST Respiratory Rate 18 [...] Years (1 of 2 - PCV) 1983 Zoster Vaccines (1 of 2) 2014 DTaP,Tdap,and Td Vaccines (2 - Td or Tdap) 12/05/2018 12/05/2008 COVID-19 Vaccine ( season) 2024 RSV Immunization Adult Patients (1 - Risk 60-74 years 1-dose series) 2024 Depression Screening 11/03/2024 Cholesterol Screening (Lipid Panel) 12/21/2024 09/22/2019 Colorectal Cancer Screening: Colonoscopy 12/21/2024 HIV Screening 12/21/2024 Hepatitis C Screening 12/21/2024 Lung Cancer Screening (Low Dose CT) 12/21/2024 Influenza Vaccine (#1) 2025 09/24/2019 Social Influencers of Health Screening [...] Procedure Name Priority Date/Time Associated Diagnosis Comments BASIC METABOLIC PANEL Routine 12/23/2024 5:39 AM EST from Last 3 Months or Most Recently Relevant to Health Maintenance Results * (ABNORMAL) Basic metabolic panel (12/23/2024 5:39 AM EST) Sodium 136 133 - 145 mmol/L LAB CHEMISTRY METHOD 12/23/2024 7:19 AM [facility] Potassium 3.1(L) 3.5 - 5.5 mmol/L LAB CHEMISTRY METHOD 12/23/2024 7:19 AM [facility] Chloride 100 96 - 110 mmol/L LAB CHEMISTRY METHOD 12/23/2024 7:19 AM [facility] CO2 33(H) 21 - 32 mmol/L LAB CHEMISTRY METHOD 12/23/2024 7:19 AM [facility] Anion Gap 3 3 - 11 LAB CHEMISTRY METHOD 12/23/2024 7:19 AM [facility] Glucose 87 70 - 100 mg/dL LAB CHEMISTRY METHOD 12/23/2024 7:19 AM [facility] BUN 15 5 - 25 mg/dL LAB CHEMISTRY METHOD 12/23/2024 7:19 AM [facility] Creatinine 0.93 0.70 - 1.30 mg/dL LAB CHEMISTRY METHOD 12/23/2024 7:19 AM EST [facility] eGFR 94 >=60 mL/min/1. 73m2 LAB CHEMISTRY METHOD 12/23/2024 7:19 AM EST [facility] Comment:Calculation based on the Chronic Kidney Disease Epidemiology Collaboration (CKD-EPI) equation refit without adjustment for race. BUN/Creatinine Ratio 16.1 LAB CHEMISTRY METHOD 12/23/2024 7:19 AM [facility] Calcium 8.1(L) 8.5 - 10.5 mg/dL LAB CHEMISTRY METHOD 12/23/2024 7:19 AM [facility] Blood Venous blood specimen / Unknown Venipuncture / Unknown 12/23/2024 5:39 AM EST 12/23/2024 6:43 AM EST Gene Singh MD LAB BLOOD ORDERABLES nal Result [facility] [address] [place] [address], from Last 3 Months or Most Recently Relevant to Health Maintenance Insurance MEDICARE [facility] Advance Directives * Full Code - Default [...] currently active code status orders. Care Teams Energy Conservation Director Relationship Specialty Start Date End Date Physician, No Pcp PCP - General 12/20/24
--- OUTSIDE RECORDS SUMMARY | 2025-05-26 13:21 | XMS_ITS | Clinical Summary ---
Author Organization [facility] Address [address] [place] [address] Phone Care Team Providers Care T[employer] Molder Name Role Phone German Bryson MD Primary Care Provider [phone] Allergies No known active allergies Medications carvedilol (COREG) 25 MG tablet Take 1 tablet (25 mg total) by mouth 2 (two) times a day with meals. 60 tablet 5 09/24/2019 Active nicotine (NICODERM CQ) 21 mg/[address] 1 patch onto the skin daily. 14 patch 5 09/25/2019 Active furosemide (LASIX) 40 MG tablet Take 1 tablet (40 mg total) by mouth daily. 30 tablet 5 09/24/2019 Active irbesartan (AVAPRO) 300 MG tabletIndications :Essential hypertension Take 1 tablet (300 mg total) by mouth daily. 90 tablet 3 04/25/2020 Active Active Problems Problem Noted Date Diagnosed Date Osteoarthritis of both knees 09/22/2019 Assessment & Plan (09/22/2019 5:09 PM EST): Will limit exertional capacity on a treadmill. Also become an issue if he is a candidate for knee replacement Acute combined systolic and diastolic (congestiv e) hrt fail 09/21/2019 Overview (10/15/2019): 09/2019 The study was technically difficult An echo contrast agent was administered IV The left ventricular cavity is mildly dilated. There is mild concentric left ventricular hypertrophy. Left ventricular systolic function is impaired The estimated ejection fraction is 40% Left ventricular diastolic function could not be adequately assessed The right ventricular cavity is mildly dilated. The right ventricular systolic function is normal There is mild mitral regurgitation Estimated RVSP is 18mmHg plus CVP. IVC not well visualized. No prior studies for comparison Assessment & Plan (10/15/2019 2:07 PM EST): I am hopeful that this is alcohol induced and will improved. For now I have pushed his valsartan to 320 single dose a day and change his furosemide to a single 80 mg dose in the morning to see if he could start to diurese a bit. I have also scheduled him for a pharmacologic nuclear stress test to exclude ischemic disease. He will return here in several weeks and I will have a metabolic profile and proBNP repeated. Assessment & Plan (09/23/2019 5:21 PM EST): ECHO with EF 40% and LVH, likely also has diastolic dysfunction although could not assess per report. Etiology of HF: ischemic (family hx), vs hypertensive -Lasix 40IV daily -Increase carvedilol to max dose 25 mg twice daily today, added amlodipine 5 mg daily with some improvement in his blood pressures to systolic 130s to 140s over diastolic 100s. -Continue Entresto -daily standing weights, I/Os -low sodium diet, nutrition consult -LDL less than 70, A1c normal 5.4% and TSH was normal -pt will need PCP going forward, has established with PCP Dr. Bryson Essential hypertension 09/21/2019 Assessment & Plan (10/15/2019 2:07 PM EST): Remains mildly elevated. I have pushed his valsartan to 320 a day. Assessment & Plan (09/23/2019 5:22 PM EST): -Entresto/carvedilol started per cardiology recommendations Continue with diuresis Continue with carvedilol 25 mg twice daily, amlodipine 5 mg added Continue monitor BPs, has had some significant improvement since admission Contingency to add hydralazine if still hypertensive Eventual pharm nuke as its probably would be difficult for him to do a conventional stress test Alcohol abuse 09/21/2019 Assessment & Plan (10/15/2019 2:07 PM EST): Claims no alcohol since discharge. Assessment & Plan (09/23/2019 5:21 PM EST): At risk for withdrawal, present hypertension may confuse diagnosis Seawell scores have been low, no PRN medications given today, continue to monitor Tobacco abuse 09/21/2019 Assessment & Plan (10/15/2019 2:07 PM EST): Has cut back using nicotine patches. Assessment & Plan (09/21/2019 2:28 PM EST): States he is ready to quit. -nicotine patch -he would like to start chantix on discharge Immunizations Immunization Administration Dates Next Due Influenza Quadrivalent Preservative Free IM 09/04 Family History Medical History Relation Comments Heart disease Father Heart disease Mother Hypertension Mother Thyroid disease Sister Relation Status Comments Father Mother of cardiac arrest at age 56 Sister Social History Tobacco Use Types Packs/Day Years Used Date Smoking Tobacco: Every Day Cigarettes 1 35 Smokeless Tobacco: Never Alcohol Use Standard Drinks/Week Comments Yes 0 (1 standard drink = 0.6 oz pur e alcohol) Education Answer Date Recorded Are you interested in more education? Not on babatunde e 02/28/2023 Are you concerned about learning? Not on file 02/28/2023 No 02/28/2023 No 02/28/2023 Digital Access Answer Date Recorded No 03/31/2023 No 03/31/2023 No 03/31/2023 Reliable internet access at home? Not on file 03/31/2023 Device with a working camera? Not on file Sex and Gender Information Value Date Recorded Sex Assigned at Male 09/21/2019 8:27 AM EST Legal Sex Male 9:42 PM EDT Gender Identity Male 09/21/2019 8:27 AM EST Sexual Orientation Straight 09/21/2019 8: 27 AM EST Last Filed Vital Signs Vital Sign Reading Time Taken Comments Blood Pressure 140/90 10/15/2019 1:39 PM EST Pulse 88 10/15/2019 1:39 PM EST Temperature 36.9 C (98.4 F) 09/24/2019 8:15 AM EST Respiratory Rate 16 09/24/2019 8:15 AM EST Oxygen Saturation 96% 09/24/2019 8:15 AM EST Inhaled Oxygen Concentration - - Weight 141 kg (310 lb 14.4 oz) 09/24/2019 5:10 A M EST Height 180.3 cm (5' 10.98 ) 09/23/2019 5:[address] Body Mass Index 43.38 09/23/2019 5:00 AM EST Plan of Treatment Health Maintenance Due Date Last Done Comments BLOOD PRESSURE 1964 DEPRESSION SCREENING 1976 SMOKING Hx and SMOKELESS TOBACCO SCREENING 1977 HEPATITIS C SCREENING 1982 HIV ONE-TIME SCREENING (18-65 YEARS) 1982 PNEUMOCOCCAL VACCINES (50+ years) (1 of 2 - PCV) 1983 COLOGUARD 2009 COLONOSCOPY 2009 COLORECTAL CANCER SCREENING 2009 FIT TEST 2009 FOBT 2009 SIGMOIDOSCOPY 2009 VIRTUAL COLONOSCOPY 2009 ZOSTER VACCINES (1 of 2) 2014 Adult Td,Tdap Booster 12/05/2018 12/05/2008 CREATININE LEVEL 09/24/2020 09/24/2019, , 09/22/2019, Additional history exists POTASSIUM LEVEL 09/24/2020 09/24/2019, 09/04, 09/22/2019, Additional history exists COVID-19 VACCINE ( season) 2024 03/26/2021, 02/25/2021 RSV VACCINE (1 - Risk 60-74 years 1-dose series) 2024 LIPID PANEL 09/22/2024 09/22/2019 HEPATITIS A VACCINES Aged Out No long er eligible based on patient's age to complete this topic HIB VACCINES Aged Out No longer eligi ble based on patient's age to complete this topic MENINGOCOCCAL VACCINES (ACWY) Aged Out No longer eligible based on patient's age to complete this topic MENINGOCOCCAL VACCINES (B) Aged Out N o longer eligible based on patient's age to complete this topic Medical Devices Not on file Procedures Procedure Name Priority Date/Time Associated Diagnosis Comments BASIC METABOLIC PANEL Routine 09/24/2019 5:28 AM EST LIPID PANEL Routine 09/22/2019 5:24 AM EST from Last 3 Months or Most Recently Relevant to Health Maintenance Results * (ABNORMAL) Basic metabolic panel (09/24/2019 5:28 AM EST) SODIUM 139 133 - 146 mmol/L [facility] CHLORIDE 99 96 - 108 mmol/L [facility] POTASSIUM 3.5 3.3 - 5.1 mmol/L [facility] CO2 30 21 - 35 mmol/L [facility] BUN 15 6 - 19 mg/dL [facility] CREATININE 0.90 0.5 - 1.5 mg/dL [facility] GLUCOSE 113(H) 70 - 99 mg/dL [facility] CALCIUM 8.8 8.4 - 10.3 mg/dL [facility] EGFR 96 >59 mL/min/1.7 3m2 [facility] Comment:If patient is black, multiply result by 1.159. Estimated glomerular filtration rate calculated using the CKD-EPI equation. ANION GAP 14 10 - 20 mmol/L [facility] Blood 09/24/2019 5:28 AM EST 09/24/2019 6:54 AM EST us Sloan Eid MD LAB BLOOD ORDERABLES Final Resul t Performing Organization Address City/State/[facility] Co de Phone Number [address] [phone] * (ABNORMAL) Lipid panel (09/22/2019 5:24 AM EST) HDL 72 mg/dL [facility] Comment: Interpretation <40 mg/dL: Low HDL cholesterol (major risk factor for CHD) Greater than or equal to 60 mg/dL: High HDL cholesterol ( negative risk factor for CHD) HDL - cholesterol is affected by a number of factors, e.g. smoking, excerise, hormones, sex and age. CHOLESTEROL 168 0 - 240 mg/dL [facility] TRIGLYCERIDES 139 30 - 160 mg/dL [facility] LDL 68 50 - 129 mg/dL [facility] Comment: LDL levels in terms of risk for coronary heart disease: <100 mg/dL: Optimal 100-129 mg/dL: Near or above optimal 130-159 mg/dL: Borderline high 160-189 mg/dL: High >190 mg/dL: Very High CARDIAC RISK RATIO 2.3(L) 3.4 - 5.0 C [facility] Blood 09/22/2019 5:24 AM EST 09/22/2019 6:26 AM EST us Stephanie Monroe DO LAB BLOOD ORDERABLES Final Res ult [address] [id number] from Last 3 Months or Most Recently Relevant to Health Maintenance Insurance [facility] MEDICARE A [facility]MO POS MEDICARE A [facility]MO POS MEDICARE A [facility] HMO POS MEDICARE A [facility] HMO POS MEDICARE A [facility] HMO POS MEDICARE A [facility] HMO POS MEDICARE A [facility] HMO POS Advance Directives For more information, please contact: [phone] (9AM - 5PM [facility], Friday-Friday) Documents on File Type Date Recorded Patient Boarding Mother Expl [facility] Proxy 09/27/2019 11:40 AM * Full Code (Confirmed) (Latest Code Status on File) Date Activated Date Inactivated Comments 09/21/2019 1:50 PM 09/24/2019 6:22 PM Question Answer Comments Code Status Confirmed With: Patient * Full Code (Presumed) Date Activated Date Inactivated Comments 09/21/2019 1:05 PM 09/21/2019 1:49 PM Care Teams Tire Molder Relationship Specialty Start Date End Date German Bryson MD [email or web address] PCP - General Family Medicine 09/21/19 Additional Source Comments The information contained in this document represents components of the legal health record. It is not the complete legal health record.[facility]
[2025-05-26 13:28] LABS: MANUAL DIFF FLAG NO
[2025-05-26 13:31] LABS: Hematocrit 41.3 % (42.0-52.0); Hemoglobin 15.1 g/dl (14.0-18.0); Imm Gran Abs Auto 0.01 X10*3/uL (0.00-0.03); Imm Gran Pct Auto 0.2 % (0.0-0.4); Lymphocytes Absolute Auto 1.4 X10*3/uL (1.2-4.9); Mean Corpuscular HGB Conc 36.6 g/dl (31.0-36.0); Mean Corpuscular Hemoglobin 35.0 pg (27.0-33.0); Mean Corpuscular Volume 95.6 fL (80.0-98.0); NRBC Abs Auto 0.000 X10*3/uL (0.0-0.012); NRBC Pct Auto 0.0 /100WBC (0.0-0.2); Platelet Count 80 X10*3/uL (160-400); Red Blood Count 4.32 X10*6/uL (4.60-5.80); White Blood Count 4.2 X10*3/uL (4.8-10.8)
[2025-05-26 13:47] LABS: Alanine Aminotransferase 31 U/L (0-40); Albumin Level 3.8 g/dL (3.5-5.0); Alkaline Phosphatase 111 U/L (39-117); Anion Gap 22 (12-20); Aspartate Amino Transferase 92 U/L (5-37); Blood Urea Nitrogen 9 mg/dL (9-16); Calcium 8.2 mg/dL (8.4-10.2); Carbon Dioxide 22 mmol/L (22-29); Chloride 100 mmol/L (96-108); Creatinine Clr Calc Pharmacy 90.4; Estimated Glomerular Filt Rate > 60; Lipase 91 U/L (8-78); Sodium 141 mmol/L (135-145); Total Protein 6.7 g/dL (6.5-8.0)
[2025-05-26 13:49] LABS: Troponin-I High Sensitivity 27.0 ng/L (<3.5-35.0)
[2025-05-26] MEDS: PHENobarbitaL sodium 130 MG/ML IM ONCE 310 MG IM (13:56)
[2025-05-26 13:58] LABS: Magnesium 1.4 mg/dL (1.6-2.6); Potassium 2.9 mmol/L (3.3-5.1)
[2025-05-26 14:08] VITALS: BP 125/73; PULSE 100; RESP 12; TEMP 36.9; O2SAT 97
[2025-05-26] MEDS: Potassium Chloride/H20 10 MEQ/100 ML PIGGYBACK 100 MEQ IV (14:16)
[2025-05-26] MEDS: Magnesium Sulfate/H2O 2 GM/50 ML PIGGYBACK IV (14:16)
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
[2025-05-26 17:29] LABS: Appearance Urine Clear; Glucose Urine UA Negative (Negative); PH 6.5 (5.0-9.0); Specific Gravity - Urine 1.015 (1.005-1.025); UMIC TRIGGER UACC YES
[2025-05-26 17:43] LABS: Anion Gap 19 (12-20); Blood Urea Nitrogen 9 mg/dL (9-16); Calcium 8.3 mg/dL (8.4-10.2); Carbon Dioxide 26 mmol/L (22-29); Chloride 99 mmol/L (96-108); Creatinine Clr Calc Pharmacy 92.8; Estimated Glomerular Filt Rate > 60; Magnesium 2.1 mg/dL (1.6-2.6); Potassium 2.9 mmol/L (3.3-5.1); Sodium 141 mmol/L (135-145)
[2025-05-26] MEDS: PHENobarbitaL sodium 130 MG/ML VIAL IM Q3Hx2 233 MG IM ×2 (17:56→21:51)
[2025-05-26] MEDS: Potassium Chloride Packet 20 MEQ PACKET 40 MEQ PO (17:58)
[2025-05-26 18:36] VITALS: BP 157/106; PULSE 106; RESP 17; TEMP 36.7; O2SAT 97
--- NOTE | 2025-05-26 18:56 | PHA.MEDREC ---
Addendum entered by Annetta Shankar RPh 05/26/25 19:03: MED REC REVIEWED BY [facility] Original Note: Pharmacy Consult ? Medication Reconciliation Pharmacy has completed the medication reconciliation. Spoke with pt and he confirmed he is not taking any medications (prescription or OTC) at this time.
--- NOTE | 2025-05-26 19:15 | PC.NURSE ---
Per tiger text, Dr. Dennis Parker states pt will be npo after midnight
--- NOTE | 2025-05-26 19:50 | PC.NURSE ---
this RN overheard pt cussing in room about to get oob. asked him what the issue was and stated frustration with beeping monitors and generally uncomfortable. states hes going to call someone to pick him up so he can leave. stated phenobarb isnt working for him and he needs something like Ativan. verbal reassurance provided and monitor placed in privacy mode. told him will reach out to provider and primary rn which he was agreeable to. MD Deluca states will order something to help with sc. primary rn oscar made aware.
[2025-05-26] MEDS: diazePAM 10 MG/2 ML CARTRIDGE 5 MG IVPUSH (19:58)
[2025-05-26] MEDS: Potassium Chloride ER 20 MEQ TAB.ER.PRT 40 MEQ PO (19:59)
[2025-05-26 20:00] VITALS: BP 156/96; PULSE 100; RESP 20; TEMP 36.6; O2SAT 93
[2025-05-26 21:30] LABS: Cannabinoid Screen Urine POSITIVE (Not Detect)
[2025-05-26 21:41] VITALS: BMI 38.9
[2025-05-26] MEDS: 0.9 % Sodium Chloride Flush 3 ML SYRINGE IVFLUSH (21:51)
[2025-05-27] VITALS (9 sets, daily range): BP systolic 154–190; BP diastolic 91–120; PULSE 87–126; RESP 17–20; TEMP 36.5–36.9; O2SAT 94–97
[2025-05-27] MEDS: 0.9 % Sodium Chloride Flush 3 ML SYRINGE IVFLUSH ×4 (04:38→21:58)
[2025-05-27 07:06] LABS: Anion Gap 14 (12-20); Blood Urea Nitrogen 9 mg/dL (9-16); Calcium 7.9 mg/dL (8.4-10.2); Carbon Dioxide 28 mmol/L (22-29); Chloride 99 mmol/L (96-108); Creatinine Clr Calc Pharmacy 111.8; Estimated Glomerular Filt Rate > 60; Potassium 3.4 mmol/L (3.3-5.1); Sodium 138 mmol/L (135-145)
[2025-05-27 07:16] LABS: Magnesium 1.4 mg/dL (1.6-2.6)
[2025-05-27] MEDS: Nicotine 21 MG PATCH.TD24 TRANSDERMA (08:17)
[2025-05-27] MEDS: Magnesium Sulfate/H2O 2 GM/50 ML PIGGYBACK IV (08:43)
[2025-05-27] MEDS: Potassium Chloride ER 20 MEQ TAB.ER.PRT PO (08:46)
--- NOTE | 2025-05-27 15:00 | PC.NURSE ---
Pt anxious, c/o nausea and headache, medicated with tylenol and zofran. Provider asked for something for anxiety. CIWA is 8.
--- NOTE | 2025-05-27 15:26 | MHC.CM.PN ---
IMM 05/27. Pt self-care, lives at home with a roommate. Education provided on HCP's, pt declines to complete one at this time. Pt will arrange his own transport home at discharge. Pt states he has not seen his PCP in a long time, but it was Dr. William in [place], [place].
[2025-05-27] MEDS: Milk of Magnesia 30 ML ORAL.SUSP PO (16:02)
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
--- NOTE | 2025-05-27 17:54 | HO.PM.IMPN ---
Subjective Subjective Date of Service: 05/27/25 Interval History: alcohol withdrawals Review of Systems Still feels anxious and tremulous Denies any other new complaints. Review of Systems: Yes all other systems are reviewed and are negative Physical Exam Exam: Exam: Appearance: Alert.? Oriented X3.? Has mild anxiety and tremors cvs: rrr, [id number] , no murmur res: clear to auscultation ,no rhonchii or wheezing abd: no rebound or guarding ,nt, bs present. ext pulses present , no cyanosis. neuro: axo3 , nonfocal. Vital Signs: Vital Signs: Last Vital Signs Temp 98.1 F 05/27/25 15:18 Pulse 97 05/27/25 15:18 Resp 18 05/27/25 15:18 BP 164/110 H 05/27/25 15:18 Pulse Ox 95 05/27/25 15:18 O2 Del Method Room Air 05/27/25 15:18 BMI result Body Mass Index 38.9 Objective Data Active Medications Acetaminophen (Acetaminophen 325 Mg Tablet) 650 mg PO Q6H PRN PRN Reason: Pain, Mild 1-3,fever,headache Last Admin: 05/27/25 14:52 Dose: 650 mg Documented By: KANE Calcium Carbonate (Calcium Carbonate 750 Mg Tab.Chew) 750 mg PO Q4H PRN PRN Reason: Heartburn Hydroxyzine HCl (Hydroxyzine Hcl 25 Mg Tablet) 25 mg PO ONCE PRN PRN Reason: Anxiety Last Admin: 05/27/25 16:02 Dose: 25 mg Documented By: KANE Hydroxyzine HCl (Hydroxyzine Hcl 50 Mg Tablet) 50 mg PO Q6H PRN PRN Reason: anxiety/restlessness Magnesium Hydroxide (Milk Of Magnesia 30 Ml Oral.Susp) 30 ml PO DAILY PRN PRN Reason: Constipation Last Admin: 05/27/25 16:02 Dose: 30 ml Documented By: KANE Melatonin (Melatonin 3 Mg Tablet) 9 mg PO BEDTIME [facility] Nicotine (Nicotine 21 Mg Patch.Td24) 21 mg TRANSDERMA DAILY [facility] Last Admin: 05/27/25 08:17 Dose: 21 mg Documented By: KANE Omeprazole (Omeprazole 20 Mg Capsule.Dr) 20 mg PO BID@0630,1630 [facility] Last Admin: 05/27/25 16:02 Dose: 20 mg Documented By: KANE Ondansetron HCl (Ondansetron Hcl 4 Mg/2 Ml Vial) 4 mg IVPUSH Q6H PRN PRN Reason: Nausea and Vomiting Last Admin: 05/27/25 14:53 Dose: 4 mg Documented By: KANE Oxcarbazepine (Oxcarbazepine 150 Mg Tablet) 150 mg PO BID [facility] Pharmacy Consult (Consult Rx Etoh Phenob Im/Po) 1 each MISCELLANE ONCE PRN; Protocol PRN Reason: Consult order Phenobarbital (Phenobarbital 30 Mg Tablet) 60 mg PO BID [facility]; Protocol Stop: 05/28/25 21:01 Last Admin: 05/27/25 08:17 Dose: 60 mg Documented By: KANE Phenobarbital (Phenobarbital 30 Mg Tablet) 30 mg PO BID [facility]; Protocol Stop: 05/30/25 21:01 Phenobarbital (Phenobarbital 30 Mg Tablet) 30 mg PO DAILY [facility]; Protocol Stop: 06/01/25 09:01 Sertraline HCl (Sertraline Hcl 25 Mg Tablet) 25 mg PO DAILY [facility] Sodium Chloride (0.9 % Sodium Chloride Flush 3 Ml Syringe) 3 ml IVFLUSH QSHIFT [facility] Last Admin: 05/27/25 17:14 Dose: 3 ml Documented By: KANE Trazodone HCl (Trazodone Hcl 50 Mg Tablet) 50 mg PO BEDTIME PRN PRN Reason: Insomnia Labs 05/26/25 13:24 05/27/25 06:11 Labs: Laboratory Results - last 24 hr 05/26/25 05/27/25 17:19 06:11 Anion Gap 14 Estim Creat Clear Calc 111.8 Estimated GFR > 60 Random Glucose 94 Calcium 7.9 L Magnesium 1.4 L* Urine RBC 0-2 Urine WBC 0-5 Ur Squamous Epith Cells 0-2 Urine Bacteria None Seen Hyaline Casts 6-10 Urine Opiates Screen Not Detected Ur Buprenorphine Scrn Not Detected Ur Oxycodone Screen Not Detected Urine Methadone Screen Not Detected Urine Fentanyl Screen Not Detected Ur Barbiturates Screen POSITIVE H Ur Phencyclidine Scrn Not Detected Ur Amphetamines Screen Not Detected U Benzodiazepines Scrn Not Detected Urine Cocaine Screen Not Detected U Marijuana (THC) Screen POSITIVE H Assessment and Plan (1) Hypomagnesemia: Status: Acute (2) Alcohol abuse with withdrawal: Status: Acute Assessment and Plan: 59-year-old male with a PMH significant for?HTN, unspecified CHF, alcohol use disorder w/hx of withdrawal, depression, and anxiety who initially presented to the ED yesterday on 01/05/2025 with increasing depression with SI with plan to hang himself. Pt will be admitted to the hospital for treatment and further evaluation of acute alcohol withdrawal. Once pt is medically stabilized and cleared, will likely need inpatient psychiatric stabilization. Acute alcohol withdrawal Hx of alcohol withdrawal CIWA sacle on phenobarb protocol, Daily multivitamin, folic acid, thiamine Being followed by Addiction Team. Continue Atarax for anxiety Monitor on telemetry, urine drug tox. Being followed by Addiction Team Acute hypokalemia repleted and improved added more po potassium. Acute hypo magnesemia likely due to poor nutrition and alcohol use repleted. added magnesium replcements Depression: anxious, no si HTN Continue valsartan Coreg and carvedilol CHF unspecified Not in acute exacerbation Continue home Lasix Tobacco use disorder continue nicotine patch, counseling done Class 3 obesity will recommend low-calorie diet Chronic thrombocytopenia stable Full Code DVT Prophylaxis: Lovenox full code Ongoing need for stay considering multiple electrolytic abnormalities, impending alcohol withdrawal on phenobarb protocol as per ED., monitor CIWA. Quality Stroke Does the patient have a stroke diagnosis?: No VTE Prior VTE?: No VTE Risk Level:: Medical - moderate - high VTE Device Contraindication: N/A - Device Ordered VTE Drug Contraindication: N/A - Med Ordered
[2025-05-28] VITALS (7 sets, daily range): BP systolic 135–164; BP diastolic 70–105; PULSE 76–96; RESP 16–18; TEMP 36.2–37.2; O2SAT 93–98
[2025-05-28] MEDS: Nicotine 21 MG PATCH.TD24 TRANSDERMA (08:15)
[2025-05-28] MEDS: 0.9 % Sodium Chloride Flush 3 ML SYRINGE IVFLUSH ×3 (08:15→23:55)
[2025-05-28 10:41] LABS: Anion Gap 12 (12-20); Blood Urea Nitrogen 12 mg/dL (9-16); Calcium 8.5 mg/dL (8.4-10.2); Carbon Dioxide 33 mmol/L (22-29); Chloride 97 mmol/L (96-108); Creatinine Clr Calc Pharmacy 96.9; Estimated Glomerular Filt Rate > 60; Magnesium 1.8 mg/dL (1.6-2.6); Potassium 3.4 mmol/L (3.3-5.1); Sodium 139 mmol/L (135-145)
--- NOTE | 2025-05-28 14:21 | MHC.RECOVRN ---
Addendum entered by Kylie Mitchell RN 05/29/25 11:28: Pt now declining aircraft launch and recovery technician referral, states he wants to do it on his own. Has informational pamphlet on recovery coaching at bedside. Original Note: Met w/ pt in follow up to discuss symptom management and plans following discharge. Pt reported he feels much improved and much clear headed , states he slept like baby and had good dreams . Pt now thinking about things he has to do at home and tasks he has been putting off ever since his passed. Pt stated he is interested in recovery coaching and agreed for aircraft launch and recovery technician referral to be made on his behalf. Pt encouraged to reach out to the ACS team if any new addiction/recovery needs arise. No questions or concerns offered at this time.
--- NOTE | 2025-05-28 14:26 | P.PNIM_ITS ---
Subjective Subjective Date of Service: 05/28/25 Interval History: alcohol withdrawals,htn Review of Systems feels anxiuos and tramulous no fevers Review of Systems: Yes all other systems are reviewed and are negative Physical Exam 2 Exam: Exam: Appearance: Alert.? Oriented X3.? Has mild anxiety and tremors cvs: rrr, [id number] . res: clear to auscultation ,no rhonchii or wheezing abd: no rebound or guarding ,nt, bs present. ext pulses present , no cyanosis. neuro: axo3 , nonfocal. Vital Signs: Vital Signs: Last Vital Signs Temp 97.9 F 05/28/25 10:56 Pulse 96 05/28/25 10:56 Resp 18 05/28/25 10:56 BP 139/101 H 05/28/25 10:56 Pulse Ox 98 05/28/25 10:56 O2 Del Method Room Air 05/28/25 10:56 BMI result Body Mass Index 38.9 Objective Data Active Medications Acetaminophen (Acetaminophen 325 Mg Tablet) 650 mg PO Q6H PRN PRN Reason: Pain, Mild 1-3,fever,headache Last Admin: 05/27/25 14:52 Dose: 650 mg Documented By: KANE Calcium Carbonate (Calcium Carbonate 750 Mg Tab.Chew) 750 mg PO Q4H PRN PRN Reason: Heartburn Hydroxyzine HCl (Hydroxyzine Hcl 25 Mg Tablet) 25 mg PO ONCE PRN PRN Reason: Anxiety Last Admin: 05/27/25 16:02 Dose: 25 mg Documented By: KANE Hydroxyzine HCl (Hydroxyzine Hcl 50 Mg Tablet) 50 mg PO Q6H PRN PRN Reason: anxiety/restlessness Magnesium Hydroxide (Milk Of Magnesia 30 Ml Oral.Susp) 30 ml PO DAILY PRN PRN Reason: Constipation Last Admin: 05/27/25 16:02 Dose: 30 ml Documented By: KANE Magnesium Oxide (Magnesium Oxide 400 Mg Tablet) 400 mg PO BIDPC [facility] Last Admin: 05/28/25 08:15 Dose: 400 mg Documented By: EDIE Melatonin (Melatonin 3 Mg Tablet) 9 mg PO BEDTIME [facility] Last Admin: 05/27/25 21:58 Dose: 9 mg Documented By: ONEAL Nicotine (Nicotine 21 Mg Patch.Td24) 21 mg TRANSDERMA DAILY [facility] Last Admin: 05/28/25 08:15 Dose: 21 mg Documented By: EDIE Omeprazole (Omeprazole 20 Mg Capsule.) 20 mg PO BID@0630,1630 [facility] Last Admin: 05/28/25 05:09 Dose: 20 mg Documented By: ONEAL Ondansetron HCl (Ondansetron Hcl 4 Mg/2 Ml Vial) 4 mg IVPUSH Q6H PRN PRN Reason: Nausea and Vomiting Last Admin: 05/27/25 14:53 Dose: 4 mg Documented By: KANE Oxcarbazepine (Oxcarbazepine 150 Mg Tablet) 150 mg PO BID [facility] Last Admin: 05/28/25 08:15 Dose: 150 mg Documented By: EDIE Pharmacy Consult (Consult Rx Etoh Phenob Im/Po) 1 each MISCELLANE ONCE PRN; Protocol PRN Reason: Consult order Phenobarbital (Phenobarbital 30 Mg Tablet) 60 mg PO BID [facility]; Protocol Stop: 05/28/25 21:01 Last Admin: 05/28/25 08:15 Dose: 60 mg Documented By: EDIE Phenobarbital (Phenobarbital 30 Mg Tablet) 30 mg PO BID [facility]; Protocol Stop: 05/30/25 21:01 Phenobarbital (Phenobarbital 30 Mg Tablet) 30 mg PO DAILY [facility]; Protocol Stop: 06/01/25 09:01 Sertraline HCl (Sertraline Hcl 25 Mg Tablet) 25 mg PO DAILY [facility] Last Admin: 05/28/25 08:15 Dose: 25 mg Documented By: EDIE Sodium Chloride (0.9 % Sodium Chloride Flush 3 Ml Syringe) 3 ml IVFLUSH QSHIFT [facility] Last Admin: 05/28/25 08:15 Dose: 3 ml Documented By: EDIE Trazodone HCl (Trazodone Hcl 50 Mg Tablet) 50 mg PO BEDTIME PRN PRN Reason: Insomnia Labs 05/26/25 13:24 05/28/25 09:23 Labs: Laboratory Results - last 24 hr 05/28/25 09:23 Hold Purple Top SEE NOTE Anion Gap 12 Estim Creat Clear Calc 96.9 Estimated GFR > 60 Random Glucose 102 Calcium 8.5 D Magnesium 1.8 Assessment and Plan (1) Hypomagnesemia: Status: Acute (2) Alcohol abuse with withdrawal: Status: Acute Assessment and Plan: 59-year-old male with a PMH significant for?HTN, unspecified CHF, alcohol use disorder w/hx of withdrawal, depression, and anxiety who initially presented to the ED yesterday on 01/05/2025 with increasing depression with SI with plan to hang himself. Pt will be admitted to the hospital for treatment and further evaluation of acute alcohol withdrawal. Once pt is medically stabilized and cleared, will likely need inpatient psychiatric stabilization. Acute alcohol withdrawal Hx of alcohol withdrawal CIWA sacle on phenobarb protocol, Daily multivitamin, folic acid, thiamine Being followed by Addiction Team. Continue Atarax for anxiety Monitor on telemetry, urine drug tox. Being followed by Addiction Team Acute hypokalemia repleted and improved added more po potassium. Acute hypo magnesemia likely due to poor nutrition and alcohol use repleted. added magnesium replcements Depression: anxious, no si HTN : added coreg , may need add back valsartan if still htn CHF unspecified Not in acute exacerbation he says not germaine Churchill( non complaint) Tobacco use disorder continue nicotine patch, counseling done Class 3 obesity will recommend low-calorie diet Chronic thrombocytopenia stable Full Code DVT Prophylaxis: Lovenox full code Ongoing need for stay considering multiple electrolytic abnormalities, impending alcohol withdrawal on phenobarb protocol as per ED., monitor CIWA. Quality Stroke Does the patient have a stroke diagnosis?: No VTE Prior VTE?: No VTE Risk Level:: Medical - moderate - high VTE Device Contraindication: N/A - Device Ordered VTE Drug Contraindication: N/A - Med Ordered
[2025-05-28 16:17] LABS: CDiff Gene PCR POSITIVE (Negative)
[2025-05-28 17:04] LABS: CDiff Toxin Negative (Negative)
[2025-05-28 17:05] LABS: CDIFF Internal ctrl Dots and bkg OK (V)
[2025-05-29] VITALS (7 sets, daily range): BP systolic 115–157; BP diastolic 68–98; PULSE 75–91; RESP 16–20; TEMP 36.2–36.9; O2SAT 93–97
[2025-05-29] MEDS: 0.9 % Sodium Chloride Flush 3 ML SYRINGE IVFLUSH ×3 (09:03→22:11)
[2025-05-29] MEDS: Nicotine 21 MG PATCH.TD24 TRANSDERMA (09:03)
[2025-05-29 09:05] LABS: E. coli EAEC Not Detected (Not Detect.); E. coli EPEC Not Detected (Not Detect.); E. coli ETEC Not Detected (Not Detect.); E. coli STEC Not Detected (Not Detect.); Shigella sp./EIEC Not Detected (Not Detect.)
--- NOTE | 2025-05-29 18:42 | P.PNIM_ITS ---
Subjective Subjective Date of Service: 05/29/25 Interval History: Alcohol withdrawal, C diff Review of Systems Still somewhat anxious, diarrhea improving Review of Systems: Yes all other systems are reviewed and are negative Physical Exam 2 Exam: Exam: Appearance: Alert.? Oriented X3.? Has mild anxiety and tremors cvs: rrr, [id number] . res: clear to auscultation ,no rhonchii or wheezing abd: no rebound or guarding ,nt, bs present. ext pulses present , no cyanosis. neuro: axo3 , nonfocal. Vital Signs: Vital Signs: Last Vital Signs Temp 97.4 F 05/29/25 14:55 Pulse 86 05/29/25 14:55 Resp 18 05/29/25 14:55 BP 140/79 H 05/29/25 14:55 Pulse Ox 96 05/29/25 14:55 O2 Del Method Room Air 05/29/25 14:55 BMI result Body Mass Index 38.9 Objective Data Active Medications Acetaminophen (Acetaminophen 325 Mg Tablet) 650 mg PO Q6H PRN PRN Reason: Pain, Mild 1-3,fever,headache Last Admin: 05/27/25 14:52 Dose: 650 mg Documented By: KANE Calcium Carbonate (Calcium Carbonate 750 Mg Tab.Chew) 750 mg PO Q4H PRN PRN Reason: Heartburn Carvedilol (Carvedilol 12.5 Mg Tablet) 12.5 mg PO BID [facility]; Protocol Last Admin: 05/29/25 09:04 Dose: 12.5 mg Documented By: EDIE Hydroxyzine HCl (Hydroxyzine Hcl 25 Mg Tablet) 25 mg PO ONCE PRN PRN Reason: Anxiety Last Admin: 05/27/25 16:02 Dose: 25 mg Documented By: KANE Hydroxyzine HCl (Hydroxyzine Hcl 50 Mg Tablet) 50 mg PO Q6H PRN PRN Reason: anxiety/restlessness Magnesium Hydroxide (Milk Of Magnesia 30 Ml Oral.Susp) 30 ml PO DAILY PRN PRN Reason: Constipation Last Admin: 05/27/25 16:02 Dose: 30 ml Documented By: KANE Magnesium Oxide (Magnesium [facility]ide 400 Mg Tablet) [facility] Last Admin: 05/29/25 16:04 Dose: 400 mg Documented By: EDIE Melatonin (Melatonin 3 Mg Tablet) 9 mg PO BEDTIME [facility] Last Admin: 05/28/25 20:48 Dose: 9 mg Documented By: ARSENIO Nicotine (Nicotine 21 Mg Patch.Td24) 21 mg TRANSDERMA DAILY [facility] Last Admin: 05/29/25 09:03 Dose: 21 mg Documented By: EDIE Omeprazole (Omeprazole 20 Mg Capsule.Dr) 20 mg PO BID@0630,1630 [facility] Last Admin: 05/29/25 16:03 Dose: 20 mg Documented By: EDIE Ondansetron HCl (Ondansetron Hcl 4 Mg/2 Ml Vial) 4 mg IVPUSH Q6H PRN PRN Reason: Nausea and Vomiting Last Admin: 05/27/25 14:53 Dose: 4 mg Documented By: KANE Oxcarbazepine (Oxcarbazepine 150 Mg Tablet) 150 mg PO BID [facility] Last Admin: 05/29/25 09:04 Dose: 150 mg Documented By: EDIE Pharmacy Consult (Consult Rx Etoh Phenob Im/Po) 1 each MISCELLANE ONCE PRN; Protocol PRN Reason: Consult order Phenobarbital (Phenobarbital 30 Mg Tablet) 30 mg PO BID [facility]; Protocol Stop: 05/30/25 21:01 Last Admin: 05/29/25 09:04 Dose: 30 mg Documented By: EDIE Phenobarbital (Phenobarbital 30 Mg Tablet) 30 mg PO DAILY [facility]; Protocol Stop: 06/01/25 09:01 Sertraline HCl (Sertraline Hcl 25 Mg Tablet) 25 mg PO DAILY [facility] Last Admin: 05/29/25 09:04 Dose: 25 mg Documented By: EDIE Sodium Chloride (0.9 % Sodium Chloride Flush 3 Ml Syringe) 3 ml IVFLUSH QSHIFT [facility] Last Admin: 05/29/25 16:04 Dose: 3 ml Documented By: EDIE Trazodone HCl (Trazodone Hcl 50 Mg Tablet) 50 mg PO BEDTIME PRN PRN Reason: Insomnia Vancomycin HCl (Vancomycin Hcl 125 Mg Capsule) 125 mg PO Q6H [facility] Last Admin: 05/29/25 16:03 Dose: 125 mg Documented By: EDIE Labs 05/26/25 13:24 05/28/25 09:23 Labs: Laboratory Results - last 24 hr 05/28/25 14:56 Stl C. cayetanensis PCR Not Detected Stool Rotavirus A PCR Not Detected Stl Adenov F 40/41 PCR Not Detected Stool Astrovirus (PCR) Not Detected Stool Campylobacter PCR Not Detected Stool Cryptosporidium PCR Not Detected Stl Sh Tox Pr E STEC PCR Not Detected Stool E coli O157 PCR Not applicable Stl Enterotoxigenic E PCR Not Detected Stool EPEC (PCR) Not Detected Stool EAEC (PCR) Not Detected Stl E. histolytica PCR Not Detected Stool Giardia Lamblia PCR Not Detected Stl P. shigelloides PCR Not Detected Stool Salmonella PCR Not Detected Stool Sapovirus (PCR) Not Detected Stl Shigella/EIEC PCR Not Detected St Y.enterocolitica PCR Not Detected Stool Vibrio (PCR) Not Detected Stl Vibrio cholerae PCR Not Detected Stl Norovirus GI/GII PCR Not Detected Assessment and Plan (1) Hypomagnesemia: Status: Acute (2) Alcohol abuse with withdrawal: Status: Acute Assessment and Plan: 59-year-old male with a PMH significant for?HTN, unspecified CHF, alcohol use disorder w/hx of withdrawal, depression, and anxiety who initially presented to the ED yesterday on 01/05/2025 with increasing depression with SI with plan to hang himself. Pt will be admitted to the hospital for treatment and further evaluation of acute alcohol withdrawal. Once pt is medically stabilized and cleared, will likely need inpatient psychiatric stabilization. c diff diarrahe: On p.o. vanco, we will consider ID evaluation. Acute alcohol withdrawal Hx of alcohol withdrawal LISETH greene on phenobarb protocol, Daily multivitamin, folic acid, thiamine Being followed by Addiction Team. Continue Atarax for anxiety Monitor on telemetry, urine drug tox. Being followed by Addiction Team Acute hypokalemia repleted and improved added more po potassium. Acute hypo magnesemia likely due to poor nutrition and alcohol use repleted. added magnesium replcements Depression: anxious, no si HTN : added coreg , may need add back valsartan if still htn CHF unspecified Not in acute exacerbation he says not germaine Churchill( non complaint) Tobacco use disorder continue nicotine patch, counseling done Class 3 obesity will recommend low-calorie diet Chronic thrombocytopenia stable Full Code DVT Prophylaxis: Lovenox full code Ongoing need for stay considering multiple electrolytic abnormalities, impending alcohol withdrawal on phenobarb protocol as per ED., monitor CIWA. Quality Stroke Does the patient have a stroke diagnosis?: No VTE Prior VTE?: No VTE Risk Level:: Medical - moderate - high VTE Device Contraindication: N/A - Device Ordered VTE Drug Contraindication: N/A - Med Ordered
[2025-05-30] VITALS: BP 127/77; PULSE 81; RESP 20; TEMP 36.1; O2SAT 92
[2025-05-30 04:00] VITALS: BP 144/90; PULSE 74; RESP 20; TEMP 36.7; O2SAT 95
[2025-05-30 07:30] VITALS: BP 147/78; PULSE 72; RESP 19; TEMP 36.6; O2SAT 97
[2025-05-30] MEDS: Nicotine 21 MG PATCH.TD24 TRANSDERMA (09:36)
[2025-05-30] MEDS: 0.9 % Sodium Chloride Flush 3 ML SYRINGE IVFLUSH (09:36)
[2025-05-30 11:17] VITALS: BP 158/92; PULSE 81; RESP 17; TEMP 36.3; O2SAT 95
--- NOTE | 2025-05-30 12:38 | HO.ADDICTPRO ---
Subjective Subjective Date of Service: 05/30/25 Reason For Visit: Alcohol Withdrawal Interim History: Patient seen in follow up for AUD/acute alcohol withdrawal--since resolved. Chart reviewed. Patient seen by Recovery Support RN and discussed various recovery supports, including SONIA Medications discussed with patient today. Provided some clarification around how medications do and do not work. He is still unsure of who to proceed with regards to medications He requested release of information be completed so that referral could be sent to [facility] health coach He is eager to discharge. Future oriented, thinking about how to move forward. Review of Systems Acute medical concerns: Yes Review of Systems Constitutional: Reports as per HPI and Reports no additional constitutional complaints Mental Status Exam Mental Status Exam Patient Orientation: Person, Place, Time and Situation Level of Consciousness: Awake, Appropriate and Alert Patient Behavior: Appropriate Affect Description: Calm Speech Pattern: Clear Hallucinations: None Delusions: Not Present Judgement: Good Diagnostics Vital Signs (24Hr): Vital Signs - 24 hr 05/29/25 14:55 05/29/25 20:00 05/29/25 22:11 Temperature 97.4 F 97.2 F Pulse Rate 86 82 77 Respiratory Rate 18 20 Blood Pressure 140/79 H 148/92 H 143/98 H Pulse Oximetry 96 97 Oxygen Delivery Method Room Air Room Air 05/30/25 00:00 05/30/25 04:00 05/30/25 07:30 Temperature 97.0 F 98.0 F 97.8 F Pulse Rate 81 74 72 Respiratory Rate 20 20 19 Blood Pressure 127/77 144/90 H 147/78 H Pulse Oximetry 92 95 97 Oxygen Delivery Method Room Air Room Air Room Air 05/30/25 11:17 Temperature 97.3 F Pulse Rate 81 Respiratory Rate 17 Blood Pressure 158/92 H Pulse Oximetry 95 Oxygen Delivery Method Room Air BMI result Body Mass Index 38.9 Labs 05/26/25 13:24 05/28/25 09:23 Labs: Laboratory Results - last 48 hr 05/28/25 14:56 Stl C. cayetanensis PCR Not Detected Stool Rotavirus A PCR Not Detected Stl Adenov F 40/41 PCR Not Detected Stool Astrovirus (PCR) Not Detected Stool Campylobacter PCR Not Detected Stool Cryptosporidium PCR Not Detected Stl Sh Tox Pr E STEC PCR Not Detected Stool E coli O157 PCR Not applicable Stl Enterotoxigenic E PCR Not Detected Stool EPEC (PCR) Not Detected Stool EAEC (PCR) Not Detected Stl E. histolytica PCR Not Detected Stool Giardia Lamblia PCR Not Detected Stl P. shigelloides PCR Not Detected Stool Salmonella PCR Not Detected Stool Sapovirus (PCR) Not Detected Stl Shigella/EIEC PCR Not Detected St Y.enterocolitica PCR Not Detected Stool Vibrio (PCR) Not Detected Stl Vibrio cholerae PCR Not Detected Stl Norovirus GI/GII PCR Not Detected C. difficile Tox B Gene POSITIVE A* C. difficile Toxin A&B Negative C. difficile Interpret SEE NOTE Medications Medications Current Medications Acetaminophen (Acetaminophen 325 Mg Tablet) 650 mg PO Q6H PRN PRN Reason: Pain, Mild 1-3,fever,headache Last Admin: 05/27/25 14:52 Dose: 650 mg Calcium Carbonate (Calcium Carbonate 750 Mg Tab.Chew) 750 mg PO Q4H PRN PRN Reason: Heartburn Carvedilol (Carvedilol 12.5 Mg Tablet) 12.5 mg PO BID [facility]; Protocol Last Admin: 05/30/25 09:36 Dose: 12.5 mg Hydroxyzine HCl (Hydroxyzine Hcl 25 Mg Tablet) 25 mg PO ONCE PRN PRN Reason: Anxiety Last Admin: 05/27/25 16:02 Dose: 25 mg Hydroxyzine HCl (Hydroxyzine Hcl 50 Mg Tablet) 50 mg PO Q6H PRN PRN Reason: anxiety/restlessness Magnesium Hydroxide (Milk Of Magnesia 30 Ml Oral.Susp) 30 ml PO DAILY PRN PRN Reason: Constipation Last Admin: 05/27/25 16:02 Dose: 30 ml Magnesium Oxide (Magnesium Oxide 400 Mg Tablet) 400 mg PO BIDPC [facility] Last Admin: 05/30/25 09:36 Dose: 400 mg Melatonin (Melatonin 3 Mg Tablet) 9 mg PO BEDTIME [facility] Last Admin: 05/29/25 22:10 Dose: 9 mg Nicotine (Nicotine 21 Mg Patch.Td24) 21 mg TRANSDERMA DAILY [facility] Last Admin: 05/30/25 09:36 Dose: 21 mg Omeprazole (Omeprazole 20 Mg Capsule.Dr) 20 mg PO BID@0630,1630 [facility] Last Admin: 05/30/25 05:37 Dose: 20 mg Ondansetron HCl (Ondansetron Hcl 4 Mg/2 Ml Vial) 4 mg IVPUSH Q6H PRN PRN Reason: Nausea and Vomiting Last Admin: 05/27/25 14:53 Dose: 4 mg Oxcarbazepine (Oxcarbazepine 150 Mg Tablet) 150 mg PO BID [facility] Last Admin: 05/30/25 09:35 Dose: 150 mg Pharmacy Consult (Consult Rx Etoh Phenob Im/Po) 1 each MISCELLANE ONCE PRN; Protocol PRN Reason: Consult order Phenobarbital (Phenobarbital 30 Mg Tablet) 30 mg PO BID [facility]; Protocol Stop: 05/30/25 21:01 Last Admin: 05/30/25 09:36 Dose: 30 mg Phenobarbital (Phenobarbital 30 Mg Tablet) 30 mg PO DAILY [facility]; Protocol Stop: 06/01/25 09:01 Sertraline HCl (Sertraline Hcl 25 Mg Tablet) 25 mg PO DAILY [facility] Last Admin: 05/30/25 09:35 Dose: 25 mg Sodium Chloride (0.9 % Sodium Chloride Flush 3 Ml Syringe) 3 ml IVFLUSH QSHIFT [facility] Last Admin: 05/30/25 09:36 Dose: 3 ml Trazodone HCl (Trazodone Hcl 50 Mg Tablet) 50 mg PO BEDTIME PRN PRN Reason: Insomnia Valsartan (Valsartan 40 Mg Tablet) 20 mg PO DAILY [facility]; Protocol Vancomycin HCl (Vancomycin Hcl 125 Mg Capsule) 125 mg PO Q6H [facility] Last Admin: 05/30/25 09:36 Dose: 125 mg Allergies Allergies Allergy/AdvReac Type Severity Reaction Status Date / Time No Known Allergies (No Known Allergy Verified 05/26/25 13:02 Allergies*) Assessment & Plan Assessment & Plan (1) Alcohol use disorder: Status: Acute Code(s): F10.90 - Alcohol use, unspecified, uncomplicated Assessment and Plan: declines SONIA or appt with provider for SONIA referral sent to [facility] -- encouraged to follow up with Lisa should he not hear from them soon no additional follow up needed at this time Total time managing care of this patient today _20___ minutes.
--- NOTE | 2025-05-30 13:58 | P.DS_ITS ---
DS: Providers Provider Date of Service: 05/30/25 Date of admission: 05/26/25 15:04 Date of discharge: 05/30/25 Primary care physician: Paco William MD Consults: 05/26/25 18:02 Addiction Medicine Provider Routine Consulting Provider: Addiction Covering Reason for consultation: alcohol withdrawals Has provider been notified: No 05/27/25 11:18 Consult to Psychiatry Routine Consulting Provider: [facility] Psych Covering Reason for consultation: depression/anxiety Has provider been notified: No 05/29/25 18:42 Consult to Infectious Diseases Routine Consulting Provider: [facility] Infectious Disease [facility] Reason for consultation: cdiff Has provider been notified: No Attending physician on discharge: Jenna Mejia Discharging clinician: Jenna Mejia DS: Diagnosis Discharge Diagnosis (1) Hypomagnesemia: Status: Acute (2) Acute hypokalemia: Status: Acute DS: Summary Hospital Course Hospital Course: HPI: 59-year-old male with a PMH significant for?HTN, unspecified CHF, alcohol use disorder w/hx of withdrawal, depression, and anxiety-anxious , patient is tearful and emotional during the assessment, patient stated that he witnessed his significant other few months ago ever since he has been daily alcohol drinker at least 1 pt of heavy liquor daily, last time patient tried to stop drinking on his own cold turkey went through depression, seizure, and SI. Patient is here today seeking help for stopping alcohol drinking. 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 Patient stated that his last drink was before coming to the hospital today. Currently declined SI, HI, or hallucination. Labs montejo: Has acute hypokalemia, hypomagnesemia, mild lipase elevation Patient denies any abdominal pain nausea vomiting diarrhea or fever or chest p ain or shortness of breath. Hospital course: Started back on Coreg, valsartan-monitor BMP outpatient. Consider outpatient adjustment of these medications for blood pressure. Patient was also told to closely monitor his blood pressure at home. Currently euvolemic patient was on Lasix also before but stopped all his medications at home, if needed Lasix can be reintroduced out patiently. CHF education given-if gains weight 2 lb or more in a week-will need outpatient Lasix per PCP. Consider outpatient cardiology outpatient . Depression/anxiety: Patient is medications added per psych: Sertraline, Trileptal, p.r.n. trazodone . Follow-up with the the psych outpatient. Hypomagnesemia and hypokalemia improved: Patient was strongly advised to abstain from alcohol. Limited supply for magnesium is given. Monitor BMP. Possible C diff diarrhea: Complete p.o. vanco 125 mg q.i.d. for 10 days. Patient was strongly advised to abstain from alcohol, continue thiamine, folic acid, addiction Team discussed with the patient and information given to patient. plan: vanco 125 mg q.i.d. for 10 days. thiamine ,folic acid Continue sertraline, tramadol, trazodone p.r.n., also melatonin added. Coreg 12.5 b.i.d., valsartan 20 mg daily. Adjust as needed for blood pressure. Limited supply of magnesium also added. Mild thrombocytopenia: Possible related to alcohol use, monitor CBC outpatient. Monitor BMP, magnesium level outpatient. Patient was strongly advised to follow-up with PCP. Above management discussed with the patient in detail length he understand and in agreement with the plan, time spent 45 minute. All questions answered. Nursing and case management Staff was present during conversation. Time Attestation Total time managing care of this patient today: 45 mintues. Discharge Coordination Time (in mins): 45 min Quality: Safe Use of Opioids Does Pt have an Active Cancer Diagnosis on the Problem List?: No Quality: Stroke Does the patient have a stroke diagnosis?: No Physical Exam Exam: Exam: Appearance: Alert.? Oriented X3. cvs: rrr, [id number] . res: clear to auscultation ,no rhonchii or wheezing abd: no rebound or guarding ,nt, bs present. ext pulses present , no cyanosis. neuro: axo3 , nonfocal. Vital Signs: Vital Signs: Last Vital Signs Temp 97.3 F 05/30/25 11:17 Pulse 81 05/30/25 11:17 Resp 17 05/30/25 11:17 BP 158/92 H 05/30/25 11:17 Pulse Ox 95 05/30/25 11:17 O2 Del Method Room Air 05/30/25 11:17 BMI result Body Mass Index 38.9 DS: Data Data Completed and Pending Completed studies during hospitalization [Text1]: Procedures Detoxification Services for Substance Abuse Treatment (01/06/25) Discharge Plan Discharge Anticipated Discharge Date/Time: 05/30/25 11:46 Patient Disposition: Home, Self-Care Discharge Diagnosis: C diff, alcohol withdrawal,hypomagnesemia Referrals: Physician,Unknown J [Physician, Medical] - 1 Week Discharge Medications: New carvedilol 12.5 mg Tablet 12.5 mg PO BID Qty: 60 0RF Protocol: Hold for SBP/HR < HOLD for SBP < : 90 HOLD for HR < : 60 vancomycin 125 mg Capsule 125 mg PO Q6H Qty: 40 0RF nicotine 21 mg/24 hr Patch 24 Hour 21 mg transdermal DAILY Qty: 10 0RF oxcarbazepine 150 mg Tablet 150 mg PO BID Qty: 180 0RF sertraline 25 mg Tablet 25 mg PO DAILY Qty: 90 0RF valsartan 40 mg Tablet 20 mg PO DAILY Qty: 30 0RF Protocol: Hold for SBP< HOLD for SBP < : 90 magnesium oxide 400 mg (241.3 mg magnesium) Tablet 400 mg PO BIDPC Qty: 20 0RF trazodone 50 mg Tablet 50 mg PO BEDTIME PRN (Reason: Insomnia) Qty: 10 0RF (DME) blood pressure monitor [Blood Pressure Kit] Kit See Rx Instructions .Route Qty: 1 0RF Rx Instructions: As directed thiamine HCl (vitamin B1) 100 mg tablet 100 mg PO DAILY Qty: 30 0RF folic acid 1 mg tablet 1 mg PO DAILY Qty: 30 0RF melatonin 3 mg Tablet 9 mg PO BEDTIME Qty: 90 0RF Discharge Orders: Discharge Order (Routine); Ordered 05/30/25 Ordered By: Jenna Mejia Diet: Advance to usual diet Activity on Discharge: As tolerated Stand Alone Forms: Patient Portal Discharge page Print Language: Macedonian Other Ambulatory Orders: Basic Metabolic Panel (Routine) Timeframe: 1 Week Facility: [facility] - Location: Laboratory Ordered By: Jenna Mejia Complete Blood Count no Diff (Routine) Timeframe: 1 Week Facility: [facility] - Location: Laboratory Ordered By: Jenna Mejia Magnesium (Routine) Timeframe: 1 Week Facility: [facility] - Location: Laboratory Ordered By: Jenna Mejia Care Plan Goals: As below. Health Concerns: As below. Plan of Treatment: Started back on Coreg, valsartan-monitor BMP outpatient. Consider outpatient adjustment of these medications for blood pressure. Patient was also told to closely monitor his blood pressure at home. Currently euvolemic patient was on Lasix also before but stopped all his medications at home, if needed Lasix can be reintroduced out patiently. CHF education given-if gains weight 2 lb or more in a week-will need outpatient Lasix per PCP. Consider outpatient cardiology outpatient . Depression/anxiety: Patient is medications added per psych: Sertraline, Trileptal, p.r.n. trazodone . Follow-up with the the psych outpatient. Hypomagnesemia and hypokalemia improved: Patient was strongly advised to abstain from alcohol. Limited supply for magnesium is given. Monitor BMP. Possible C diff diarrhea: Complete p.o. vanco 125 mg q.i.d. for 10 days. Patient was strongly advised to abstain from alcohol, continue thiamine, folic acid, addiction Team discussed with the patient and information given to patient. Assessment: As above. Patient Instructions: Hypokalemia (DC), Acute Diarrhea (ED), Chronic Hypertension (DC), Hypomagnesemia (DC)
--- NOTE | 2025-05-30 14:17 | MHC.CM.PN ---
PT TO [place] HOME TODAY WITH NO SERVICES VIA PRIVATE TRANSPORT
[2025-05-30 15:25] VITALS: BP 140/96; PULSE 75; RESP 18; TEMP 36.9; O2SAT 98
--- NOTE | 2025-05-30 16:58 | W.PM.IDCN ---
History of Present Illness Data of Consult Service Date: 05/30/25 Requesting physician: Jenna Mejia Primary Care Provider: Paco William MD HPI Reason for consult: diarrhea He has diarrhea for a week. He has PCR positive and toxin negative for Cdiff. Diarrhea is improving on Vancomycin po. Review of Systems Review of Systems: Yes all other systems are reviewed and are negative [facility] Past Medical History Medical History (Updated 05/30/25 @ 17:00 by Arlet Bowen MD) Clostridium difficile colitis Alcohol use disorder PTSD (post-traumatic stress disorder) Morbid obesity CHF (congestive heart failure) HTN (hypertension) Family History Family history: reviewed and not pertinent Social History Social History Household Members: [facility] Do you presently have visiting nurse or other home services: No Alcohol intake: current Alcohol intake frequency: 3 or more drinks per day Alcohol type: hard liquor Comment: 1:1 sitter Patient Tobacco Use Status: Current everyday Tobacco user Tobacco use type: Cigarette Cigarette Packs Per Day: 1 Cigarettes Per Day: 20.0 Years Smoked: 45 e-Cigarette/Vaping Use: Never Used Second Hand Smoke Exposure: Yes Substance Use Type: Marijuana service: No Sexual orientation: Straight/Heterosexual Meds Allergies Allergy/AdvReac Type Severity Reaction Status Date / Time No Known Allergies (No Known Allergy Verified 05/26/25 13:02 Allergies*) Physical Exam Vital Signs: Vital Signs: Last Vital Signs Temp 98.4 F 05/30/25 15:25 Pulse 75 05/30/25 15:25 Resp 18 05/30/25 15:25 BP 140/96 H 05/30/25 15:25 Pulse Ox 98 05/30/25 15:25 O2 Del Method Room Air 05/30/25 15:25 BMI result Body Mass Index 38.9 Const: General: cooperative HEENT: Head: Yes normal to inspection Face and sinus: Yes normal facial exam Mouth: Normal oral and palatal mucosa present Teeth and gingiva: dentition normal Eyes: General: appearance normal, both eyes and all related structures Pupils: Equal, round and reactive pupils present Resp: Effort & Inspection: normal respiratory effort Cardio: Rate: regular rate Rhythm: regular rhythm GI: Palpation (GI): Soft to palpation and nontender : General: Yes no CVA tenderness Back/Spine/Pelvis: Back: no CVA tenderness Skin: General skin exam: no rashes or lesions noted Neuro: General: moves all extremities Cranial nerves: Yes Equal, round and reactive pupils present Extrem: General: Yes normal to inspection Psych: Appearance: grossly normal Results Labs 05/26/25 13:24 05/28/25 09:23 Assessment and Plan (1) Acute stress disorder: Status: Acute (2) Alcohol use disorder: Status: Acute (3) Clostridium difficile colitis: Status: Acute Plan He may be colonized but would be cautious and will give po Vancomycin 125 mg qid for 10 days. Po Vancomycin 125 mg qid also give if patient on antibiotics and for 48 hours after.
== END 2025-05-30 16:23 | disposition home or self-care (01) | DRG 897 ==
LOC: HO.ED 16:29 → HO.EDOVER 18:07 → HO.IMC 19:22
PROVIDERS: Physician Assistant Medical; Admitting Provider Internal Medicine; Emergency Provider Emergency Medicine; PCP Internal Medicine; Visit Provider Internal Medicine
DX: F10.139 Alcohol abuse with withdrawal, unspecified (principal); A04.72 Enterocolitis due to Clostridium difficile, not specified as recurrent; F17.210 Nicotine dependence, cigarettes, uncomplicated; Y90.8 Blood alcohol level of 240 mg/100 ml or more; I11.0 Hypertensive heart disease with heart failure; E83.42 Hypomagnesemia; E66.813 Obesity, class 3; Z71.3 Dietary counseling and surveillance; D69.6 Thrombocytopenia, unspecified; Z68.38 Body mass index [BMI] 38.0-38.9, adult; E87.6 Hypokalemia; Z71.6 Tobacco abuse counseling; F41.9 Anxiety disorder, unspecified; F32.A Depression, unspecified; I50.9 Heart failure, unspecified; Z79.899 Other long term (current) drug therapy
CPT/HCPCS: 36415; 80048; 80076; 80307; 81001; 83690; 83735; 84484; 85025; 87324; 87493; 87507; 93005; 99285; J1920; J2405; J2560; J3360; J3475; J3480; S9485

== ENCOUNTER → 2025-05-26 13:02 | Outpatient (BNV) | payer MEDICARE, MEDICAID, SELFPAY | PROVIDERS: Admitting Provider Internal Medicine; Emergency Provider Emergency Medicine; Visit Provider Internal Medicine Cardiovascular Disease | DX: R00.0 Tachycardia, unspecified (principal) | CPT/HCPCS: 93010 ==

== ENCOUNTER → 2025-05-26 15:04 | Outpatient (BNV) | payer MEDICARE, MEDICAID, SELFPAY | PROVIDERS: Admitting Provider Internal Medicine; Emergency Provider Emergency Medicine; Visit Provider Internal Medicine | DX: E83.42 Hypomagnesemia (principal); F10.139 Alcohol abuse with withdrawal, unspecified | CPT/HCPCS: 99222; 99231; 99232; 99239 ==

== ENCOUNTER → 2025-05-26 15:04 | Outpatient (BNV) | payer MEDICARE, MEDICAID, SELFPAY | PROVIDERS: Admitting Provider Internal Medicine; Emergency Provider Emergency Medicine; PCP Internal Medicine; Visit Provider Internal Medicine | DX: A04.72 Enterocolitis due to Clostridium difficile, not specified as recurrent (principal); F43.0 Acute stress reaction; F10.90 Alcohol use, unspecified, uncomplicated | CPT/HCPCS: 99232 ==

== ENCOUNTER → 2025-05-26 15:04 | Outpatient (BNV) | payer MEDICARE, MEDICAID, SELFPAY | PROVIDERS: Admitting Provider Internal Medicine; Emergency Provider Emergency Medicine; Visit Provider Nurse Practitioner Psychiatric/Mental Health | DX: F10.90 Alcohol use, unspecified, uncomplicated (principal) | CPT/HCPCS: 99231 ==

== ENCOUNTER 2025-10-14 15:28 | Emergency (ER) | payer MEDICARE, SELFPAY ==
--- NOTE | ~2025-10-14 | XR_ITS ---
EXAMINATION: XR WRIST, RIGHT CLINICAL INFORMATION: pain, injury COMPARISON: None available. TECHNIQUE: PA, lateral, oblique, and scaphoid views of the right wrist. FINDINGS: There is no fracture, dislocation, or suspicious bony lesion. There is normal alignment. There is a subchondral cyst in the radial aspect of the lunate bone. Mild degenerative changes in the first CMC joint. Mild negative ulnar variance. Joint spaces otherwise preserved. No soft tissue abnormality. XR/XR wrist RT min 3V IMPRESSION: 1. No acute bony or soft tissue abnormality. Electronically signed by: Jason Hale MD 10/14/2025 04:19 PM DONNY
--- NOTE | ~2025-10-14 | XR_ITS ---
EXAMINATION: XR HAND, RIGHT CLINICAL INFORMATION: pain, injury COMPARISON: None available. TECHNIQUE: PA, lateral, and oblique views of the right hand. FINDINGS: No fracture, dislocation, or suspicious bone lesion. Normal bone mineralization. Normal alignment. 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 There is subchondral cyst in the lunate bone radial aspect. There is mild dorsal soft tissue swelling of the hand. XR/XR hand RT min 3V IMPRESSION: 1. No acute bony abnormalities. Electronically signed by: Jason Hale MD 10/14/2025 04:20 PM DONNY
--- NOTE | 2025-10-14 15:46 | ED_ITS ---
HPI - General Adult General Chief complaint: ETOH/Substance Use Stated complaint: crisis Time Seen by Provider: 10/14/25 16:11 History of Present Illness HPI narrative: Patient is 60 years old with a history of ETOH. History of alcohol withdrawal seizure. Patient is signed out from [facility] about 9 days ago. Drinks alcohol on a daily basis. Patient has finished drinking a pt of alcohol this morning. Claims that he wants detox now. Patient denies any suicidal ideation. Claims that he has kike dive over 500 times and if he wants to kill himself it with a been very easy. Patient's significant other question if he is suicidal although there was no specific plan that was mentioned. [place] that he is depressed. 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 He claims there is no danger he has a seizure that time. Explained to patient if he had a seizure he should not work in an environment that if he had a seizure that time that would be dangerous. He should not drive. Related Data Previous Rx's ?Medication ?Instructions ?Recorded blood pressure monitor (Blood #1 ea 05/30/25 Pressure Kit) carvedilol 12.5 mg tablet 12.5 mg PO BID #60 tabs 05/04 06/27 folic acid 1 mg tablet 1 mg PO DAILY #30 tabs 05/30 magnesium oxide 400 mg (241.3 mg 400 mg PO BIDPC #20 t abs 05/30/25 magnesium) tablet melatonin 3 mg tablet 9 mg (3 x 3 mg) PO BEDTIME # 90 tabs 05/30/25 nicotine 21 mg/24 hr daily 21 mg transdermal DAILY #10 ea 05/30/25 transdermal patch oxcarbazepine 150 mg tablet 150 mg PO BID #180 tabs sertraline 25 mg tablet 25 mg PO DAILY #90 tabs 05/04 06/27 thiamine HCl (vitamin B1) 100 mg 100 mg PO DAILY #30 t abs 05/30/25 tablet trazodone 50 mg tablet 50 mg PO BEDTIME PRN Insomni a #10 05/30/25 tabs valsartan 40 mg tablet 20 mg PO DAILY #30 tabs 05/04 06/27 vancomycin 125 mg capsule 125 mg PO Q6H #40 caps 05/30 Allergies Allergy/AdvReac Type Severity Reaction Status Date / Time No Known Allergies (No Known Allergy Verified 10/14/25 15:50 Allergies*) Review of Systems 2 Review of Systems: Positive EtOH PMFSH Past Medical History Attestation statement: The following information was validated with the patient. Medical History Alcohol withdrawal Depression Hypomagnesemia Anxiety Clostridium difficile colitis Alcohol use disorder PTSD (post-traumatic stress disorder) Morbid obesity CHF (congestive heart failure) HTN (hypertension) Social History Social History Household Members: Spouse Housing: Condominium Do you presently have visiting nurse or other home services: No Alcohol intake: current Alcohol intake frequency: 3 or more drinks per day Alcohol type: hard liquor Comment: 1:1 sitter Patient Tobacco Use Status: Current everyday Tobacco user Tobacco use type: Cigarette Cigarette Packs Per Day: 1 Cigarettes Per Day: 20.0 Years Smoked: 45 e-Cigarette/Vaping Use: Never Used Second Hand Smoke Exposure: Yes Substance Use Type: Marijuana Advance Directives: No Advance Directives Information Provided: Yes service: No Sexual orientation: Straight/Heterosexual Physical Exam ED Exam Exam: Appearance: Alert. Oriented X3. No acute distress. Eyes: Pupils equal, round and reactive to light. ENT: Pharynx normal. Neck: Normal inspection. Neck supple. No lymph nodes noted. No crepitus CVS: Normal heart rate and rhythm. Pulses normal. Normal S1 and S2 Respiratory: No respiratory distress. Breath sounds normal. No Wheezing. No rales Abdomen: Soft and nontender. No rigidity. No distention. good BS x4 Skin: Skin warm and dry. Normal skin color. Normal skin turgor. Extremities: No lower extremity edema. Neurovascular intact to all extremities. No Lacerations. No Rash Neuro: Oriented X 3. No motor deficit. No sensory deficit. Moving all extermities. No slurred speech Vital Signs: Vital Signs - 24 hr 10/14/25 15:47 10/14/25 16:56 10/14/25 20:00 Temperature 98.4 F 98.2 F Pulse Rate 119 H 120 H 99 Respiratory Rate 18 18 16 Blood Pressure 141/85 H 151/100 H 148/88 H Pulse Oximetry 94 95 94 Oxygen Delivery Method Room Air Room Air Room Air 10/14/25 22:15 10/14/25 23:21 10/15/25 00:20 Temperature 98.2 F 98.3 F Pulse Rate 82 97 109 H Respiratory Rate 18 22 H 20 Blood Pressure 168/83 H 175/90 H 165/100 H Pulse Oximetry 94 94 92 Oxygen Delivery Method Room Air Room Air Room Air 10/15/25 02:00 10/15/25 04:14 10/15/25 06:00 Temperature 98.4 F 98.8 F 98.8 F Pulse Rate 93 96 93 Respiratory Rate 16 Blood Pressure 151/90 H 161/92 H 166/96 H Pulse Oximetry 95 93 95 Oxygen Delivery Method Room Air Room Air Room Air BMI result Body Mass Index 44.6 Course Course Course Narrative: Rapid medical examination performed in triage by Janice Johnson PA-C: Patient is a 60 year old assigned male at presenting to the emergency department concerns over his alcohol use, an alcohol withdrawal seizure, and right wrist pain. Patient states that he recently had an alcohol withdrawal seizure at work and it has scared him to get sober. Patient states that he injured his right wrist during the seizure. Detailed physical exam and review of systems are deferred to the respiratory clinician. Labs, imaging, swabs ordered. Patient placed back in the waiting room pending room availability and results. Reevaluation(s) Reevaluation #1: Time: 9:00 Date: 10/15/[address] Hernandez Patient in physician observation for psychiatric evaluation.? No acute events reported overnight. No current complaints. VS stable.? Patient is in bed search status Will continue to monitor. Reevaluation #2: Time: 10:00 Date: 10/15/[address] Hernandez Patient is AAO x3, no SI, no HI, no hallucination, patient otherwise feels okay to be discharged home, care team input is appreciated recommended to discharge home. Patient will be discharged home with his girlfriend. Will discontinue physician observation and discharge. Medications Administered Discontinued Medications Generic Name Dose Route Start Last Admin Trade Name Freq PRN Reason Stop Dose Admin Acetaminophen 650 mg 10/14/25 19:32 10/14/25 19:44 Acetaminophen 325 Mg Tablet PO 10/14/25 19:33 650 mg ONCE ONE Administration Sodium Chloride 1,000 mls @ 999 mls/hr 10/14/25 17:15 10/14/25 19:09 Ns IV 10/14/25 18:15 Infused .Q1H1M IVAN Infusion Sodium Chloride 1,000 mls @ 999 mls/hr 10/14/25 19:45 10/14/25 21:17 Ns IV 10/14/25 20:45 Infused .Q1H1M IVAN Infusion Sodium Chloride 1,000 mls @ 999 mls/hr 10/15/25 00:30 10/15/25 05:45 Ns IV 10/15/25 01:30 Infused .Q1H1M IVAN Infusion Lorazepam 2 mg 10/14/25 22:53 10/15/25 00:37 Lorazepam 1 Mg Tablet PO 10/14/25 22:54 2 mg ONCE ONE Administration Lorazepam 2 mg 10/15/25 08:25 10/15/25 08:32 Lorazepam 1 Mg Tablet PO 10/15/25 08:26 2 mg ONCE ONE Administration Midazolam HCl 2 mg 10/14/25 23:16 10/14/25 23:23 Midazolam Hcl 2 Mg/2 Ml Vial IVPUSH 10/14/25 23:17 2 mg ONCE ONE Administration Medical Decision Making Medical Decision Making MDM Narrative: Question thoughts of SI. Positive EtOH. Patient's alcohol came back at over 200. Currently awaiting clinical sobriety. Electrolytes was sent. Patient in no distress. Patient denies SI. Patient's spouse feels otherwise. There was no specific plan mentioned. Patient drinks on a daily basis for many many years. He claims the incident that happened at [facility]. Patient was drinking up to that day. Was intoxicated at that time. This makes withdrawal less likely. Patient claims he never had a seizure in the past. He has signed out against medical advice from [facility]. Will attempt to get the old records from [facility]. We obtained old records from [facility]. Patient was therefore possible withdrawal seizure versus seizure had a CAT scan done at that time the CT scan was read as negative. Patient then signed out against medical advice. He has been binge drinking since he left against medical advice. Patient's significant other stated that patient's house is a mess. There is cat feces all over the house. He is potentially burning holes in his bed. He is not safe. There is question suicidal ideation. Crisis team was involved. They evaluated patient. Recommend for patient to be monitor more. Patient initially after the psych evaluation had a high CIWA score of 16. We give additional benzos. We monitor patient in the emergency department see was down to 9. Patient was given additional benzos still. Additional fluids still. Currently calm no distress. Awaiting crisis evaluation in a.m.. Differential Diagnosis Differential Diagnoses: The differential diagnosis associated with the presentation includes Electrolyte disturbance, suicidal ideation, polysubstance abuse, ETOH Admission/Observation Consideration of admission/observation: Escalation of care including admission/observation considered Consult Healthcare Provider Management of the patient was discussed with: Plant Operations Coordinator (Care team) Lab Data 10/14/25 16:05 10/14/25 16:05 Labs: Lab Results 10/14/25 10/14/25 Range/Units 16:05 17:27 WBC 6.9 (4.8-10.8) X10*3/uL RBC 5.12 (4.60-5.80) X10*6/uL Hgb 16.4 (14.0-18.0) g/dl Hct 48.5 (42.0-52.0) % MCV 94.7 (80.0-98.0) fL MCH 32.0 (27.0-33.0) pg MCHC 33.8 (31.0-36.0) g/dl RDW 14.1 (11.0-16.0) % Plt Count TNP MPV Not Reportable Immature Gran % (Auto) 0.4 (0.0-0.4) % Neut % (Auto) 56.3 (45-73) % Lymph % (Auto) 32.1 (20-40) % Nye % (Auto) 7.7 (2-11) % Eos % (Auto) 2.6 (0-4) % Baso % (Auto) 0.9 (0-2) % Lymph # (Auto) 2.2 (1.2-4.9) X10*3/uL Nye # (Auto) 0.5 (0.1-1.2) X10*3/uL Eos # (Auto) 0.2 (0.0-0.4) X10*3/uL Baso # (Auto) 0.1 (0.0-0.2) X10*3/uL Abs Immat Gran (auto) 0.03 (0.00-0.03) X10*3/uL Absolute Neuts (auto) 3.9 (2.0-8.3) x10*3/uL Absolute Nucleated RBC 0.000 (0.0-0.012) X10*3/uL Nucleated RBC % (auto) 0.0 (0.0-0.2) /100WBC Sodium 143 (135-145) mmol/L Potassium 3.5 (3.3-5.1) mmol/L Chloride 103 (96-108) mmol/L Carbon Dioxide 26 (22-29) mmol/L Anion Gap 18 (12-20) BUN 12 (9-16) mg/dL Creatinine 1.16 (0.5-1.4) mg/dL Estim Creat Clear Calc 97.6 Estimated GFR > 60 Random Glucose 101 (60-115) mg/dL Calcium 9.3 D (8.4-10.2) mg/dL Magnesium 1.7 (1.6-2.6) mg/dL Total Bilirubin 0.7 (0.0-1.0) mg/dL AST 53 H (5-37) U/L ALT 24 (0-40) U/L Alkaline Phosphatase 82 (39-117) U/L Troponin I High Sens 32.4 (<3.5-35.0) ng/L Total Protein 7.4 (6.5-8.0) g/dL Albumin 4.2 (3.5-5.0) g/dL Urine Opiates Screen Not Detected (Not Detect) Ur Buprenorphine Scrn Not Detected (Not Detect) ng/mL Ur Oxycodone Screen Not Detected (Not Detect) ng/mL Urine Methadone Screen Not Detected (Not Detect) ng/mL Urine Fentanyl Screen Not Detected (Not Detect) Ur Barbiturates Screen POSITIVE H (Not Detect) Ur Phencyclidine Scrn Not Detected (Not Detect) Ur Amphetamines Screen Not Detected (Not Detect) U Benzodiazepines Scrn Not Detected (Not Detect) Urine Cocaine Screen Not Detected (Not Detect) U Marijuana (THC) Screen POSITIVE H (Not Detect) Ethyl Alcohol 263 mg/dL Influenza Type A (PCR) NEGATIVE (Negative) Influenza Type B (PCR) NEGATIVE (Negative) RSV RNA Qual (PCR) NEGATIVE (Negative) SARS-CoV-2 RNA (RT-PCR) NEGATIVE (Negative) Discharge Plan Discharge Clinical Impression: Alcohol intoxication, Alcohol withdrawal, Suicidal ideation Patient Disposition: Home, Self-Care Instructions: Abuse of Alcohol (ED) Additional Instructions: You were seen in our Emergency Department today for treatment of a behavioral health issue. It is important after your visit that you follow up with either your behavioral health provider or a primary care doctor within 7 days.? If you have trouble finding a therapist you can reach out to [address] [phone] The National Suicide and Crisis Lifeline can be reached 7 days a week 24 hours a day.? Call 988 to speak with someone.? Return for any worsening symptoms or concerns such as thoughts of self harm or harm to others. Please call 911 if you feel your mental health is worsening.? Prescriptions: No Action carvedilol 12.5 mg Tablet 12.5 mg PO BID Qty: 60 0RF Protocol: Hold for SBP/HR < HOLD for SBP < : 90 HOLD for HR < : 60 vancomycin 125 mg Capsule 125 mg PO Q6H Qty: 40 0RF nicotine 21 mg/24 hr Patch 24 Hour 21 mg transdermal DAILY Qty: 10 0RF oxcarbazepine 150 mg Tablet 150 mg PO BID Qty: 180 0RF sertraline 25 mg Tablet 25 mg PO DAILY Qty: 90 0RF valsartan 40 mg Tablet 20 mg PO DAILY Qty: 30 0RF Protocol: Hold for SBP< HOLD for SBP < : 90 magnesium oxide 400 mg (241.3 mg magnesium) Tablet 400 mg PO BIDPC Qty: 20 0RF trazodone 50 mg Tablet 50 mg PO BEDTIME PRN (Reason: Insomnia) Qty: 10 0RF (DME) blood pressure monitor [Blood Pressure Kit] Kit See Rx Instructions .Route Qty: 1 0RF Rx Instructions: As directed thiamine HCl (vitamin B1) 100 mg tablet 100 mg PO DAILY Qty: 30 0RF folic acid 1 mg tablet 1 mg PO DAILY Qty: 30 0RF melatonin 3 mg Tablet 9 mg PO BEDTIME Qty: 90 0RF Referrals: Paco William MD [Primary Care Provider, Pulmonology] Print Language: French
[2025-10-14 15:47] VITALS: BP 141/85; PULSE 119; RESP 18; TEMP 36.9; O2SAT 94; BMI 44.6
--- NOTE | 2025-10-14 15:48 | ECG_ITS ---
Test Reason : weakness Blood Pressure : */* mmHG Vent. Rate : 109 BPM Atrial Rate : 109 BPM P-R Int : 178 ms QRS Dur : 96 ms QT Int : 354 ms P-R-T Axes : 28 22 40 degrees QTcB Int : 476 ms Sinus tachycardia Possible Inferior infarct (cited on or before 26-May-2025) Abnormal ECG When compared with ECG of 26-May-2025 13:08, No significant change was found Referred By: Janice Johnson Electronically Signed By: ANGELITA MEDINA MD
[2025-10-14 16:26] LABS: Hematocrit 48.5 % (42.0-52.0); Hemoglobin 16.4 g/dl (14.0-18.0); Imm Gran Abs Auto 0.03 X10*3/uL (0.00-0.03); Imm Gran Pct Auto 0.4 % (0.0-0.4); Lymphocytes Absolute Auto 2.2 X10*3/uL (1.2-4.9); Mean Corpuscular HGB Conc 33.8 g/dl (31.0-36.0); Mean Corpuscular Hemoglobin 32.0 pg (27.0-33.0); Mean Corpuscular Volume 94.7 fL (80.0-98.0); NRBC Abs Auto 0.000 X10*3/uL (0.0-0.012); NRBC Pct Auto 0.0 /100WBC (0.0-0.2); PLT CLUMP 1; Red Blood Count 5.12 X10*6/uL (4.60-5.80); SCAN SMEAR FLAG 1
[2025-10-14 16:29] LABS: Alanine Aminotransferase 24 U/L (0-40); Albumin Level 4.2 g/dL (3.5-5.0); Alkaline Phosphatase 82 U/L (39-117); Anion Gap 18 (12-20); Aspartate Amino Transferase 53 U/L (5-37); Blood Urea Nitrogen 12 mg/dL (9-16); Calcium 9.3 mg/dL (8.4-10.2); Carbon Dioxide 26 mmol/L (22-29); Chloride 103 mmol/L (96-108); Creatinine Clr Calc Pharmacy 97.6; Estimated Glomerular Filt Rate > 60; Magnesium 1.7 mg/dL (1.6-2.6); Potassium 3.5 mmol/L (3.3-5.1); Sodium 143 mmol/L (135-145); Total Protein 7.4 g/dL (6.5-8.0)
[2025-10-14 16:34] LABS: Troponin-I High Sensitivity 32.4 ng/L (<3.5-35.0)
[2025-10-14 16:53] LABS: MANUAL DIFF FLAG NO; White Blood Count 6.9 X10*3/uL (4.8-10.8)
[2025-10-14 16:56] VITALS: BP 151/100; PULSE 120; RESP 18; O2SAT 95
[2025-10-14 16:58] LABS: Resp Syncy Virus RNA Qual PCR NEGATIVE (Negative); SARS COV2 PCR INHOUSE NEGATIVE (Negative)
[2025-10-14 17:43] LABS: Cannabinoid Screen Urine POSITIVE (Not Detect)
--- NOTE | 2025-10-14 19:36 | PC.NURSE ---
pt reports feeling sick reports nausea , feeling anxious, and requesting medicine for pain for wrist. MD Coffman made aware.
[2025-10-14 20:00] VITALS: BP 148/88; PULSE 99; RESP 16; TEMP 36.8; O2SAT 94
[2025-10-14 22:15] VITALS: BP 168/83; PULSE 82; RESP 18; TEMP 36.8; O2SAT 94
--- NOTE | 2025-10-14 23:17 | MHC.CARE ---
CARE Team received a call back from patient's friend Marilu, who was present with him when he arrived to the ED. She reports having known patient since March of 2025 and has been living with him since. She acknowledges patient has been making passive suicidal statements while intoxicated only. She is concerned about patient's diminished ability to care for himself due to his increased alcohol use. She reports patient has been drinking at least four quarts of vodka daily; states he drinks all night and doesn't sleep and has had multiple falls while intoxicated, injuring his right wrist and shoulder recently. She is currently at patient's home and states the condition of the home is poor. His kitchen is a mess with dirty dishes, trashes are full, urine all over the bathroom; she reports cat feces full in the litter box as well as in patient's bed and burn yates in the carpet from possible cigarette smoking. She states patient has been making irrational decisions and has adopted a cat that he is unable to care for. She reports patient while intoxicated has texted her that he is dying and doesn't want to do this anymore. She reprots patient has been in a deep depression since his partner and her mother one week a part back in January of this year. She is concerned patient will inadvertently harm himself as he is unable to stop drinking on his own. Marilu can be reached at [phone].
[2025-10-14 23:21] VITALS: BP 175/90; PULSE 97; RESP 22; TEMP 36.8; O2SAT 94
--- NOTE | 2025-10-14 23:28 | PC.NURSE ---
Report received and care assumed, pt awake alert, oriented, verbal and conversing freely. Initially standing at bedside using urinal as he was noted to crawl out of his bed (both side rails remained up at that time). His recent CIWA was reported as a 16, pt noted to be slightly diaphoretic, HR in the low to mid 90s and he reports tactile disturbances. He is also reporting pain to the right wrist that he cannot quantify but states It hurts a lot! . RN spoke with provider to discuss IV medication vs oral medication to assist with symptoms and new orders obtained. The pt was medicated per JAN and was provided with gingerale per his request. He was advised to ring for assistance prior to standing and has his callbell within reach
[2025-10-15 00:20] VITALS: BP 165/100; PULSE 109; RESP 20; O2SAT 92
[2025-10-15 02:00] VITALS: BP 151/90; PULSE 93; RESP 16; TEMP 36.9; O2SAT 95
--- NOTE | 2025-10-15 03:49 | PC.NURSE ---
pt has been resting comfortably for the majority of the night s/p the oral ativan dosing. respirations are even and unlabored without distress noted. callbell is noted to be within reach and RN will continue to monitor.
[2025-10-15 04:14] VITALS: BP 161/92; PULSE 96; TEMP 37.1; O2SAT 93
--- NOTE | 2025-10-15 05:19 | PC.NURSE ---
pt continues to rest comfortably in his stretcher with respirations even and unlabored and without distress noted. call frazier within reach, skin warm and dry
--- NOTE | 2025-10-15 05:20 | PC.NURSE ---
Late entry for 0020 pt denies SI/HI at this time stating Oh gosh no when RN asked the screening questions once again.
--- NOTE | 2025-10-15 05:51 | PC.NURSE ---
RN called to bedside by EDT to assess and view patient's left arm. Upon arrival to bedside the pt was noted to have swelling/puffiness to his left hand/fingers, the same side his #20G IV line was placed. IV line was placed to the left wrist prior to this RN's arrival and had previously flushed well and medication was administered without issue. Upon further assessment the pt was noted to have some circumferential swelling and firmness noted to the left forearm. The arm and hand are warm to touch, matching the pt's right arm and other body temp. Covering MD was unavailable at that time, ERNESTO Martinez called to bedside for assessment as well. Pt educated and informed that body would reabsorb the IVF. ID band and fall risk bracelet cut off and replaced to the right wrist. Pt reports still feeling unwell, skin is oily but there is no perspiration, endorsing 8/10 headache, nausea without vomiting, numbness/tingling, no tremors noted, no A/V hallucinations. CIWA to be updated
[2025-10-15 06:00] VITALS: BP 166/96; PULSE 93; TEMP 37.1; O2SAT 95
--- NOTE | 2025-10-15 09:28 | MHC.CARE ---
Pt does not meet the criteria for a higher level of care or present as an imminent risk. T/W spoke with Dr. Nadir Cary in regard to the case and he is agreeable with disposition at this time. Pt was only willing to admit to [facility] for ETOH treatment. [facility] does not have any bed availability and Pt has Medicare insurance only at this time which [facility] does not accept. Pt's ex girlfriend is helping Pt obtain insurance. Pt will D/C at this time.
[2025-10-15 09:42] VITALS: BP 142/86; PULSE 82; RESP 16; TEMP 36.8; O2SAT 96
== END 2025-10-15 09:58 | disposition home or self-care (01) ==
PROVIDERS: Physician Assistant Medical; Emergency Provider Emergency Medicine Emergency Medical Services; PCP Internal Medicine
DX: F10.129 Alcohol abuse with intoxication, unspecified (principal); F10.139 Alcohol abuse with withdrawal, unspecified; Y90.8 Blood alcohol level of 240 mg/100 ml or more; R45.851 Suicidal ideations; M25.531 Pain in right wrist; F43.10 Post-traumatic stress disorder, unspecified; I11.0 Hypertensive heart disease with heart failure; I50.9 Heart failure, unspecified; F17.210 Nicotine dependence, cigarettes, uncomplicated; F12.90 Cannabis use, unspecified, uncomplicated; Z79.899 Other long term (current) drug therapy; Z03.818 Encounter for observation for suspected exposure to other biological agents ruled out
CPT/HCPCS: 73110; 73130; 80053; 80307; 83735; 84484; 85025; 87637; 93005; 96361; 96374; 99285; J2250; S9485

== ENCOUNTER → 2025-10-14 15:48 | Outpatient (BNV) | payer MEDICARE, SELFPAY | PROVIDERS: Emergency Provider Emergency Medicine Emergency Medical Services; PCP Internal Medicine; Visit Provider Internal Medicine Cardiovascular Disease | DX: R00.0 Tachycardia, unspecified (principal) | CPT/HCPCS: 93010 ==

== ENCOUNTER → 2025-10-14 15:48 | Outpatient (BNV) | payer MEDICARE, SELFPAY | PROVIDERS: Emergency Provider Emergency Medicine Emergency Medical Services; PCP Internal Medicine; Visit Provider Radiology Diagnostic Radiology | DX: M25.531 Pain in right wrist (principal); M79.641 Pain in right hand | CPT/HCPCS: 73110; 73130 ==

== ENCOUNTER 2025-10-28 06:55 | Emergency (ER) | payer MEDICARE, SELFPAY ==
--- NOTE | ~2025-10-28 | XR_ITS ---
EXAMINATION: XR WRIST 3 OR MORE VIEWS RIGHT HISTORY: pain and swelling COMPARISON: Comparison is made with the prior examination dated 10/14/2025. FINDINGS: Four views of the right wrist including a scaphoid view are submitted. Osseous mineralization is normal. There is a transverse fracture of the distal radial metaphysis. No additional fracture is identified. There is no dislocation. The joint spaces are preserved. There is soft tissue swelling at the fracture site. XR/XR wrist RT min 3V IMPRESSION: Transverse fracture of the distal radial metaphysis. Electronically signed by: Eddie Guy MD 10/28/2025 08:05 AM [facility]
[2025-10-28 07:21] VITALS: BP 235/145; PULSE 80; RESP 16; TEMP 36.1; O2SAT 98; BMI 43.2
--- OUTSIDE RECORDS SUMMARY | 2025-10-28 07:49 | XMS_ITS | Clinical Summary ---
Author Organization [facility] Address [address] [place] [address] Phone Care Team Providers Care Manager Of Production Name Role Phone German Bryson MD Primary Care Provider [phone] Allergies No known active allergies Medications carvedilol [...] FOBT 2009 SIGMOIDOSCOPY 2009 VIRTUAL COLONOSCOPY 2009 RSV VACCINE (1 - Risk 50-74 years 1-dose series) 2014 ZOSTER VACCINES (1 of 2) 2014 Adult Td,Tdap Booster 12/05/2018 12/05/2008 CREATININE LEVEL 09/24/2020 09/24/2019, , 09/22/2019, Additional history exists POTASSIUM LEVEL 09/24/2020 09/24/2019, 09/04, 09/22/2019, Additional history exists LIPID PANEL 09/22/2024 09/22/2019 INFLUENZA VACCINE (#1) 2025 09/24/2019 COVID-19 VACCINE ( season) 2025 03/26/2021, 02/25/2021 HEPATITIS A VACCINES Aged Out No long [...] Date/Time Associated Diagnosis Comments BASIC METABOLIC PANEL (BMP) Routine 09/24/2019 5:28 AM EST LIPID PANEL Routine 09/22/2019 5:24 AM EST from Last 3 Months or Most Recently Relevant to Health Maintenance Results * (ABNORMAL) Basic metabolic panel (09/24/2019 5:28 AM EST) SODIUM 139 133 - 146 mmol/L [facility] CHLORIDE 99 96 - 108 mmol/L [facility] POTASSIUM 3.5 3.3 - 5.1 mmol/L [facility] CO2 30 21 - 35 mmol/L [facility] BUN 15 6 - 19 mg/dL [facility] CREATININE 0.90 0.5 - 1.5 mg/dL [facility] GLUCOSE 113(H) 70 - 99 mg/dL [facility] CALCIUM 8.8 8.4 - 10.3 mg/dL [facility] EGFR 96 >59 mL/min/1.7 3m2 [facility] Comment:If patient is black, multiply result by 1.159. Estimated glomerular filtration rate calculated using the CKD-EPI equation. ANION GAP 14 10 - 20 mmol/L [facility] Blood 09/24/2019 5:28 AM EST 09/24/2019 6:54 AM EST us Sloan Eid MD LAB BLOOD BKR ORDERABLES Final R esult [address] [address] * (ABNORMAL) Lipid panel (09/22/2019 5:24 AM EST) HDL 72 mg/dL [facility] Comment: Interpretation <40 mg/dL: Low HDL cholesterol (major risk factor for CHD) Greater than or equal to 60 mg/dL: High HDL cholesterol ( negative risk factor for CHD) HDL - cholesterol is affected by a number of factors, e.g. smoking, excerise, hormones, sex and age. CHOLESTEROL 168 0 - 240 mg/dL [facility] TRIGLYCERIDES 139 30 - 160 mg/dL [facility] LDL 68 50 - 129 mg/dL [facility] Comment: LDL levels in terms of risk for coronary heart disease: <100 mg/dL: Optimal 100-129 mg/dL: Near or above optimal 130-159 mg/dL: Borderline high 160-189 mg/dL: High >190 mg/dL: Very High CARDIAC RISK RATIO 2.3(L) 3.4 - 5.0 C [facility] Blood 09/22/2019 5:24 AM EST 09/22/2019 6:26 AM EST us Stephanie Monroe DO LAB BLOOD BKR ORDERABLES Final Result [address] [address] from Last 3 Months or Most Recently Relevant to Health Maintenance Insurance [facility] MEDIC[facility] A [facility] POS MEDICARE A [facility]MO POS MEDICARE A [facility]MO POS MEDICARE A [facility] HMO POS MEDICARE A [facility] HMO POS MEDICARE A [facility] HMO POS MEDICARE A [facility] HMO POS MEDICARE A [facility] HMO POS Advance Directives For more information, please contact: [phone] (9AM - 5PM Jessy[facility], Friday-Friday) Documents on File Type Date Recorded 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 09/27/2019 11:40 AM * Full Code (Confirmed) (Latest Code Status on File) Date Activated Date Inactivated Comments 09/21/2019 1:50 PM 09/24/2019 6:22 PM Question Answer Comments Code Status Confirmed With: Patient * Full Code (Presumed) Date Activated Date Inactivated Comments 09/21/2019 1:05 PM 09/21/2019 1:49 PM Care Teams Manager Of Production Relationship Specialty Start Date End Date German Bryson MD [email or web address] PCP - General Family Medicine 09/21/19 Additional Source Comments The information contained in this document represents components of the legal health record. It is not the complete legal health record.[facility]
--- OUTSIDE RECORDS SUMMARY | 2025-10-28 07:49 | XMS_ITS | Clinical Summary ---
Author Organization [facility] Address [address] [place] [address] Phone Care Team Providers Care Assembler Adjuster Name Role Phone Physician, No Pcp Primary [...] Diagnosed Date Resolved Date Alcohol withdrawal 12/20/2024 Surgical History Surgery Date Site/Laterality Comments KNEE [...] aneurysm Paternal Gra ndfather Age 60 Other: Wheeling's disease Sister 1 Relation Name Status Comments [...] your loved ones. For example, childcare center administrator or elderly care for an older adult? [...] Date Recorded What is your living situation? Unrecognized valu e 12/21/2024 Interpersonal Safety Answer Date Record ed Physical Abuse Unrecognized value 12/21/2024 Verbal Abuse Unrecognized value 12/21/2024 Sex and Gender Information Value Date Recorded Sex Assigned at Male 12/20/2024 7:06 PM EST Legal Sex Male 8:46 PM EST Gender Identity Male 12/20/2024 7:06 PM EST Sexual Orientation Straight 12/20/2024 7: 06 PM EST Last Filed Vital Signs Vital Sign [...] Health Maintenance Due Date Last Done Comments Colorectal Cancer Screening: Colonoscopy 1965 Hepatitis A Vaccines (1 of 2 - Risk 2-dose series) 1983 Pneumococcal Vaccine: 50+ Years (1 of 2 - PCV) 1983 RSV Immunization Adult Patients (1 - Risk 50-74 years 1-dose series) 2014 Zoster Vaccines (1 of 2) 2014 DTaP,Tdap,and Td Vaccines (2 - Td or Tdap) 12/05/2018 12/05/2008 Depression Screening 11/03/2024 Cholesterol Screening (Lipid Panel) 12/21/2024 09/22/2019 HIV Screening 12/21/2024 Hepatitis C Screening 12/21/2024 Lung Cancer Screening (Low Dose CT) 12/21/2024 COVID-19 Vaccine ( season) 2025 Influenza Vaccine (#1) 2025 09/24/2019 Social Influencers [...] mmol/L LAB CHEMISTRY METHOD 12/23/2024 7:19 AM [facility] Potassium 3.1(L) 3.5 - 5.5 mmol/L LAB CHEMISTRY METHOD 12/23/2024 7:19 AM [facility] Chloride 100 96 - 110 mmol/L LAB CHEMISTRY METHOD 12/23/2024 7:19 AM [facility] CO2 33(H) 21 - 32 mmol/L LAB CHEMISTRY METHOD 12/23/2024 7:19 AM [facility] Anion Gap 3 3 - 11 LAB CHEMISTRY METHOD 12/23/2024 7:19 AM [facility] Glucose 87 70 - 100 mg/dL LAB CHEMISTRY METHOD 12/23/2024 7:19 AM [facility] BUN 15 5 - 25 mg/dL LAB CHEMISTRY METHOD 12/23/2024 7:19 AM [facility] Creatinine 0.93 0.70 - 1.30 mg/dL LAB CHEMISTRY METHOD 12/23/2024 7:19 AM EST [facility] eGFR 94 >=60 mL/min/1. 73m2 LAB CHEMISTRY METHOD 12/23/2024 7:19 AM EST [facility] Comment:Calculation based on the Chronic Kidney Disease Epidemiology Collaboration (CKD-EPI) equation refit without adjustment for race. BUN/Creatinine Ratio 16.1 LAB CHEMISTRY METHOD 12/23/2024 7:19 AM [facility] Calcium 8.1(L) 8.5 - 10.5 mg/dL LAB CHEMISTRY METHOD 12/23/2024 7:19 AM [facility] Blood Venous blood specimen / Unknown Venipuncture / Unknown 12/23/2024 5:39 AM EST 12/23/2024 6:43 AM EST Gene Singh MD LAB BLOOD ORDERABLES nal Result [facility] [address] [place] [address], from Last 3 Months or Most Recently Relevant to Health Maintenance Insurance MEDICARE [facility] Advance Directives * Full Code - Default [...] currently active code status orders. Care Teams Assembler Adjuster Relationship Specialty Start Date End Date Physician, No Pcp PCP - General 12/20/24
--- NOTE | 2025-10-28 07:55 | ED_ITS ---
HPI - Extremity Problem General Chief complaint: Extremity Injury, Upper Stated complaint: ?dislocated R wrist Time Seen by Provider: 10/28/25 07:31 Source: patient Mode of arrival: ambulatory Limitations: no limitations History of Present Illness ED Provider: Janice Johnson PA-C HPI Narrative: Patient is a 60 year old male with a history of PTSD, HTN, alcohol use disorder with withdrawal seizures, and c.diff presenting to the emergency department today with worsening right wrist pain. Patient states that on 10/14/2025 he was evaluated in the emergency department for right wrist pain secondary to a previous seizure / fall and alcohol use / abuse. Patient states that his right wrist was imaged at that time and not found to be fractured. Patient states that the pain has continued and worsened. Patient states that he has been using an over the counter wrist brace. Patient states that he has not had any alcohol since his last discharge, has not had any falls, and has not had any seizures. Patient states that he has a history f high blood pressure and takes his medication at night. Patient denies any other complaints at this time. Related Data Previous Rx's ?Medication ?Instructions ?Recorded blood pressure monitor (Blood #1 ea 05/30/25 Pressure Kit) carvedilol 12.5 mg tablet 12.5 mg PO BID #60 tabs 05/04 06/27 folic acid 1 mg tablet 1 mg PO DAILY #30 tabs 05/30 magnesium oxide 400 mg (241.3 mg 400 mg PO BIDPC #20 t abs 05/30/25 magnesium) tablet melatonin 3 mg tablet 9 mg (3 x 3 mg) PO BEDTIME # 90 tabs 05/30/25 nicotine 21 mg/24 hr daily 21 mg transdermal DAILY #10 ea 05/30/25 transdermal patch oxcarbazepine 150 mg tablet 150 mg PO BID #180 tabs sertraline 25 mg tablet 25 mg PO DAILY #90 tabs 05/04 06/27 thiamine HCl (vitamin B1) 100 mg 100 mg PO DAILY #30 t abs 05/30/25 tablet trazodone 50 mg tablet 50 mg PO BEDTIME PRN Insomni a #10 05/30/25 tabs valsartan 40 mg tablet 20 mg PO DAILY #30 tabs 05/04 06/27 vancomycin 125 mg capsule 125 mg PO Q6H #40 caps 05/30 Allergies Allergy/AdvReac Type Severity Reaction Status Date / Time No Known Allergies (No Known Allergy Verified 10/28/25 07:24 Allergies*) Review of Systems Constitutional: Constitutional: Reports as per HPI Eyes: Eyes: Reports as per HPI ENT: Reports as per HPI Cardiovascular: Cardiovascular: Reports as per HPI Respiratory: Respiratory: Reports as per HPI Gastrointestinal: Gastrointestinal: Reports as per HPI Genitourinary: Genitourinary: Reports as per HPI Musculoskeletal: Musculoskeletal: Reports as per HPI Integumentary/Breasts: Skin/Breast: Reports as per HPI Neurologic: Reports as per HPI Psychiatric: Psychiatric: Reports as per HPI Endocrine: Endocrine: Reports as per HPI Hematologic/Lymphatic: Hematologic/Lymphatic: Reports as per HPI Allergic/Immunologic: Allergic/Immunologic: Reports as per HPI [facility] Past Medical History Attestation statement: The following information was validated with the patient. Source: old records reviewed and nursing notes reviewed Medical History Alcohol withdrawal Depression Hypomagnesemia Anxiety Clostridium difficile colitis Alcohol use disorder PTSD (post-traumatic stress disorder) Morbid obesity CHF (congestive heart failure) HTN (hypertension) Social History Social History Household Members: Spouse Housing: Condominium Do you presently have visiting nurse or other home services: No Alcohol intake: current Alcohol intake frequency: 3 or more drinks per day Alcohol type: hard liquor Comment: 1:1 sitter Patient Tobacco Use Status: Current everyday Tobacco user Tobacco use type: Cigarette Cigarette Packs Per Day: 1 Cigarettes Per Day: 20.0 Years Smoked: 45 e-Cigarette/Vaping Use: Never Used Second Hand Smoke Exposure: Yes Substance Use Type: Marijuana Advance Directives: No Advance Directives Information Provided: No service: No Sexual orientation: Straight/Heterosexual Physical Exam Vital Signs: Vital Signs: Last Vital Signs Temp 98.1 F 10/28/25 08:59 Pulse 85 10/28/25 08:59 Resp 20 10/28/25 08:59 BP 182/123 H 10/28/25 08:59 Pulse Ox 97 10/28/25 08:59 O2 Del Method Room Air 10/28/25 07:21 BMI result Body Mass Index 43.2 Const: General: cooperative, no acute distress, alert and awake Nutritional Appearance: well nourished Orientation/consciousness: patient oriented x3 HEENT: Head: Yes normal to inspection and Yes atraumatic Ears: hearing grossly normal bilaterally and external ears normal General nose exam: Normal external nose present, no nasal discharge noted and no epistaxis Face and sinus: Yes normal facial exam, No abrasion and No laceration Mouth: Normal oral and palatal mucosa present, no drooling and no muffled voice Eyes: General: appearance normal, both eyes and all related structures Periorbital: periorbital findings normal Eyelids: Yes eyelids normal Conjunctivae: conjunctivae normal Pupils: Equal, round and reactive pupils present EOM: EOMs intact bilaterally Neck: Neck: Yes normal visual inspection and Yes full ROM Resp: Effort & Inspection: normal respiratory effort and able to speak in complete sentences Neuro: General: patient oriented x3, moves all extremities and CN's II-XI intact bilaterally Cranial nerves: Yes Equal, round and reactive pupils present Cognition (Neuro): normal cognition Extrem: Other: Right wrist pain with ROM Mild swelling present to the dorsal right wrist General: Yes capillary refill normal Psych: Appearance: grossly normal Mental Status: mental status grossly normal Affect: normal affect Attitude: cooperative Thought process: Normal thought process present Thought content: Normal thought content present Insight: Good insight present (Psych) Medications Administered Discontinued Medications Generic Name Dose Route Start Last Admin Trade Name Veronica PRN Reason Stop Dose Admin Ketorolac Tromethamine 15 mg 10/28/25 08:11 10/28/25 08:17 Ketorolac Tromethamine 15 Mg/Ml Vial IM 10/28/25 08:12 15 mg ONCE ONE Administration Oxycodone HCl 5 mg 10/28/25 08:11 10/28/25 08:17 Oxycodone Hcl Immed Release 5 Mg Tablet PO 10/28/25 08:12 5 mg ONCE ONE Administration Medical Decision Making Medical Decision Making MDM Narrative: Patient is a 60 year old male with a history of PTSD, HTN, alcohol use disorder with withdrawal seizures, and c.diff presenting to the emergency department today with worsening right wrist pain. Patient's physical exam was as noted in the physical exam portion of this note. Patient's right wrist x-ray showed a transverse fracture of the right distal radial metaphysis. I reviewed the patient's previous right wrist x-ray performed on 10/14 and I did not appreciate any evidence of fracture at that time on that imaging. I explained my physical exam findings as well as all test results to the patient. I answered all questions asked by the patient. Patient was given IM Toradol and PO Oxycodone while in the department. Patient's right wrist was placed in a sugar tong splint, without incident. Patient's PMS was intact prior to and after splint placement. Patient was placed in a sling to hold the splint with ambulation, without incident. Patient's PMS was intact prior to and after sling placement. Patient was hypertensive while in the department - this is consistent with the fact that he has not taken his antihypertensive medications yet today. Patient has no evidence or symptoms of hypertensive urgency / emergency. I stressed the importance of the patient taking his medication as directed (either prescribed or as the over the counter packaging recommends). I stressed the importance of the patient following up with his primary care provider and the orthopedic team. I stressed the importance of the patient returning to the emergency department immediately if his symptoms were to worsen or if he were to develop any dizziness, shortness of breath, difficulty breathing, chest pain, blurry vision, loss of vision, nausea, vomiting, abdominal pain, fever, chills, back pain, or any other complaints. Patient verbalized agreement and understanding with this treatment plan and discharge. Differential Diagnosis Differential Diagnoses: The differential diagnosis associated with the presentation includes Right wrist fracture Right wrist sprain Right wrist strain Right wrist pain Admission/Observation Consideration of admission/observation: Escalation of care including admission/observation considered Patient would have been admitted to the hospital had his work up had any findings where hospital admission was appropriate and his clinical presentation warranted hospital admission. Independent Interpretation I performed an independent interpretation of an: Plain X-Ray Interpretation: My interpretation is in agreement with the radiologist's impression of this imaging study as written below. EXAMINATION: XR WRIST 3 OR MORE VIEWS RIGHT HISTORY: pain and swelling COMPARISON: Comparison is made with the prior examination dated 10/14/2025. FINDINGS: Four views of the right wrist including a scaphoid view are submitted. Osseous mineralization is normal. There is a transverse fracture of the distal radial metaphysis. No additional fracture is identified. There is no dislocation. The joint spaces are preserved. There is soft tissue swelling at the fracture site. XR/XR wrist RT min 3V IMPRESSION: Transverse fracture of the distal radial metaphysis. Electronically signed by: Eddie Guy MD 10/28/2025 08:05 AM EST Dictated By: Eddie Guy MD Signed By: Electronically signed by Eddie Guy MD 10/28/25 0805 Radiology Impression Discussion of test interpretation with radiology: I have reviewed the radiologist's reading. Procedures Orthopedic Splinting/Casting R wrist fracture: Side: right Upper Extremity Injury Location: wrist Upper Extremity Immobilizer: sling/shoulder immobilizer and sugar tong splint Discharge Plan Discharge Clinical Impression: Fracture of wrist Patient Disposition: Home, Self-Care Instructions: Wrist Fracture in Adults (ED) Additional Instructions: Do NOT bear weight / use the splinted extremity. Do NOT stick anything down / into your splint. Do NOT get your splint wet. Do NOT remove your splint. If you have any change in sensation, movement, or color of your right fingers - you may loosen the outer ROYCE wraps. If you find yourself loosening the ROYCE wraps to the point of seeing the white splint material underneath - STOP and proceed to your closest Emergency Department, immediately. Do NOT wear your sling line service technician. Only wear it with ambulation. Follow up with your primary care provider and the orthopedic team. Return to the emergency department immediately if your symptoms worsen or if you develop any numbness, tingling, dizziness, shortness of breath, difficulty breathing, chest pain, blurry vision, loss of vision, nausea, vomiting, abdominal pain, fever, chills, back pain, or any other complaints. Please see the information below about our Patient Portal. If you are not yet enrolled in the [facility] Patient Portal, you will receive an enrollment email invitation following your visit to any [facility] setting. You may also self-enroll in the Patient Portal by visiting our website: [email or web address] The following information is required to access the Patient Portal: - Your [facility] Medical Record Number - Your personal home email address (must match what is in your electronic medical record, Registration staff can assist with this) - Name - Date of Capabilities of the Patient Portal: - Message some providers - View upcoming appointments - Access your health summary, medical history, and visit history - View current conditions and allergies - View procedure and lab results - View your medications, including guidelines, side effects, and precautions - Complete pre-appointment questionnaires requested by your provider - Ready summary reports of your office visits and procedures To access the Patient Portal Mobile Gerry, follow these directions: - Search [employer] in the Gerry Store or Google Play Store - Download the Gerry - Search for [facility] - Enter your login/password Prescriptions: No Action carvedilol 12.5 mg Tablet 12.5 mg PO BID Qty: 60 0RF Protocol: Hold for SBP/HR < HOLD for SBP < : 90 HOLD for HR < : 60 vancomycin 125 mg Capsule 125 mg PO Q6H Qty: 40 0RF nicotine 21 mg/24 hr Patch 24 Hour 21 mg transdermal DAILY Qty: 10 0RF oxcarbazepine 150 mg Tablet 150 mg PO BID Qty: 180 0RF sertraline 25 mg Tablet 25 mg PO DAILY Qty: 90 0RF valsartan 40 mg Tablet 20 mg PO DAILY Qty: 30 0RF Protocol: Hold for SBP< HOLD for SBP < : 90 magnesium oxide 400 mg (241.3 mg magnesium) Tablet 400 mg PO BIDPC Qty: 20 0RF trazodone 50 mg Tablet 50 mg PO BEDTIME PRN (Reason: Insomnia) Qty: 10 0RF (DME) blood pressure monitor [Blood Pressure Kit] Kit See Rx Instructions .Route Qty: 1 0RF Rx Instructions: As directed thiamine HCl (vitamin B1) 100 mg tablet 100 mg PO DAILY Qty: 30 0RF folic acid 1 mg tablet 1 mg PO DAILY Qty: 30 0RF melatonin 3 mg Tablet 9 mg PO BEDTIME Qty: 90 0RF Referrals: [facility] [Provider Group] Referral Note: Call to establish and follow up with the orthopedic team for your right wrist fracture. Sawyer Beard [Primary Care Provider, Primary Care] Stand Alone Forms: Work/School Release Interventions: ED Discharge Assessment Last Done: 10/28/25 08:59 Discharge Date/Time: 10/28/25 09:00 Print Language: Turkish
[2025-10-28] MEDS: oxyCODONE HCl Immed Release 5 MG TABLET PO (08:17)
[2025-10-28 08:59] VITALS: BP 182/123; PULSE 85; RESP 20; TEMP 36.7; O2SAT 97
== END 2025-10-28 09:00 | disposition home or self-care (01) ==
PROVIDERS: Emergency Provider Emergency Medicine
DX: S52.501A Unspecified fracture of the lower end of right radius, initial encounter for closed fracture (principal); W19.XXXA Unspecified fall, initial encounter; Y93.9 Activity, unspecified; Y92.9 Unspecified place or not applicable; M25.531 Pain in right wrist; I10 Essential (primary) hypertension; F17.200 Nicotine dependence, unspecified, uncomplicated; Z71.6 Tobacco abuse counseling
CPT/HCPCS: 29105; 73110; 96372; 99283; 99284; J1885

== ENCOUNTER → 2025-10-28 07:42 | Outpatient (BNV) | payer MEDICARE, SELFPAY | PROVIDERS: Emergency Provider Emergency Medicine; Visit Provider Radiology Diagnostic Radiology | DX: S52.591A Other fractures of lower end of right radius, initial encounter for closed fracture (principal) | CPT/HCPCS: 73110 ==

== ENCOUNTER 2025-11-02 09:32 | Outpatient (REF) | payer MEDICARE, SELFPAY ==
--- NOTE | ~2025-11-02 | XR_ITS ---
EXAMINATION: XR WRIST 3 OR MORE VIEWS RIGHT HISTORY: M25.531 - Pain in right wrist COMPARISON: Comparison is made with the prior examination dated 10/28/2025. FINDINGS: Three views of the right wrist are submitted. Osseous mineralization is normal. Again seen is a fracture of the distal radial metaphysis. The fracture lines remain visible. The joint spaces are preserved. There is diffuse soft tissue swelling. XR/XR wrist RT min 3V IMPRESSION: Fracture of the distal radial metaphysis without change. Electronically signed by: Eddie Guy MD 11/02/2025 12:09 PM DONNY BRAUN
== END 2025-11-02 09:33 | disposition home or self-care (01) ==
LOC: HO.HOSX 09:32
PROVIDERS: Visit Provider Orthopaedic Surgery
DX: S52.501A Unspecified fracture of the lower end of right radius, initial encounter for closed fracture (principal); F10.139 Alcohol abuse with withdrawal, unspecified; W18.39XA Other fall on same level, initial encounter; Y92.69 Other specified industrial and construction area as the place of occurrence of the external cause; Y99.0 Civilian activity done for income or pay
CPT/HCPCS: 73110

== ENCOUNTER 2025-11-02 10:24 | Outpatient (AMB) | payer MEDICARE, SELFPAY ==
[2025-11-02 10:56] VITALS: BMI 43.2
--- NOTE | 2025-11-02 10:56 | MHC.OFFVIS ---
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 On 10/14/2025 he was evaluated in the emergency department for right wrist pain. Patient explains he fall and injured his wrist. Patient states that the pain has continued and worsened. Patient states that he has been using an over the counter wrist brace with little relief. Today patient states he continues to have on going pain around wrist and has some deformity. Denies numbness or tingling. Allergies No Known Allergies (No Known Allergies*) Allergy (Verified 11/02/25 11:03) HPI HPI FC-Fracture of right wrist-Limited ROM: Details: Joshua is a 60 year old right hand dominant man who presents for a right distal radius fracture, S/P fall, ~10/13/25, while at work. He was seen in [facility] ED for ETOH withdrawal symptoms, and was discharged. he was seen at [facility] ED on 10/14/25 for ETOH abuse, no fx was seen on X-rays. He was seen again on 10/28/25 for worsening right wrist pain and placed in a sugar-tong splint. He has been removing his splints at home and is not wearing one today. He complains of worsening right wrist pain today. He is a smoker and has a Hx of ETOH abuse, as well as withdrawal seizures. 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 he reports, but says he has an assistant customer service manager that can perform any lifting tasks for him at work [facility] Medical History Alcohol withdrawal Depression Hypomagnesemia Anxiety Clostridium difficile colitis Alcohol use disorder PTSD (post-traumatic stress disorder) Morbid obesity CHF (congestive heart failure) HTN (hypertension) Social History Household Members: Spouse Housing: Condominium Do you presently have visiting nurse or other home services: No Alcohol intake: current Alcohol intake frequency: 3 or more drinks per day Alcohol type: hard liquor Comment: 1:1 sitter Patient Tobacco Use Status: Current everyday Tobacco user Tobacco use type: Cigarette Cigarette Packs Per Day: 1 Cigarettes Per Day: 20.0 Years Smoked: 45 e-Cigarette/Vaping Use: Never Used Second Hand Smoke Exposure: Yes Substance Use Type: Marijuana service: No Sexual orientation: Straight/Heterosexual Review of Systems Const All systems reviewed & are unremarkable except as noted in HPI and below Physical Exam Vital Signs: BMI result Body Mass Index 43.2 Const General: cooperative, healthy appearing and no acute distress Orientation/consciousness: patient oriented x3 HEENT Head: Yes normocephalic and Yes atraumatic Eyes EOM: EOMs intact bilaterally Resp Effort & Inspection: normal respiratory effort and able to speak in complete sentences Cardio Jugular venous distension: no JVD Skin General skin exam: turgor normal Rashes: no rashes Neuro General: patient oriented x3 Extrem Other: Evaluation of Right Upper Extremity: The patient is alert, oriented, and in no acute distress Neuro: Median, Ulnar, Radial nerves motor and sensory intact and sensation is normal to the tips of all digits Vascular: Cap refill brisk ROM: He can make a fist and extend all hsi digits Skin: No lacerations or abrasions. General: Some swelling & ecchymosis about the right wrist No Erythema or evidence of infection. Most tender over the distal radius Not particularly tender about the elbow Radiographs: 3 views of the right wrist were taken, reviewed, and compared to images from 10/28/25 & 10/14/25 today in clinic. They show a distal radius metaphyseal fracture, transverse non-displaced on 10/14/2025. There was evidence of some displacement between that radiographs and the radiographs taken on 10/28/2025, but there was no increase in volar tilt at that time. Today's radiographs show an increase in VOLAR TILT from 8-21 degrees from 10/28 to -today (11/02/25). Psych Appearance: grossly normal Affect: normal affect Attitude: cooperative Assessment & Plan Assessment & Plan (1) Fracture of right distal radius: Code(s): S52.501A - Unspecified fracture of the lower end of right radius, initial encounter for closed fracture Category: Medical (2) Alcohol abuse with withdrawal: Code(s): F10.139 - Alcohol abuse with withdrawal, unspecified Category: Medical Plan Assessment & Plan: 1. Right distal radius metaphyseal fracture, transverse With ~20 degrees volar tilt From a fall, DOI: ~10/13/25 This injury occurred at work, but the patient did not report if he is seeking WC. This according to the ED note from 10/14/25 I educated him about this condition I discussed operative and non-operative treatment options, and I am recommending surgery. The patient would like to proceed with surgery, however he is concerned about taking any time off of work. I explained the recovery timeline and that he should expect full bone healing at least 8-12 weeks post-operatively, longer as he is a smoker. I told him I recommend that he take at least 2 weeks off from work. He finds this very difficult to do and is considering taking 1 week off of work following surgery. I did discuss with him at length the importance of not doing too much with this right hand in the 1st 4-6 weeks after surgery or risk displacing the fracture even after operative fixation. The risks and benefits of operative treatment were discussed with the patient and the patient wishes to proceed with surgery. These risks include, but are not limited to risk of damage to blood vessels, nerves, tendons, infection, recurrence, incomplete relief of preoperative symptoms, persistent pain, possible need for further surgery and the risks associated with regional blocks and anesthesia. I explained the effects of smoking on wound/bone healing, and recommend they stop smoking prior to surgery & while healing. This includes vaping, Marijuana, and other Nicotine products including patches used to help quit. They expressed understanding. The plan is to take the patient to the operating room sometime on 11/07/25 for the following procedures: 1. Right distal radius ORIF, under general All of the preoperative paperwork including the consent was reviewed today. All the patient's questions were answered. The patient understands that they will be contacted by our plastic surgery specialist soon to schedule this procedure He denies Diabetes, blood thinners, asthma, heart, lung, kidney issues He has a Hx of ETOH abuse and is a smoker, of both cigarettes & marijuana Scribed for Maggy Stevens MD by Nadir Lucero, medical administrative technician, on 11/02/25 at 11:10 AM, EST. Orders: Orders XR wrist RT min 3V Today M25.531 - Pain in right wrist Coding Level of Care Code New Pt Level 4 (99879) Diagnoses Fracture of right distal radius S52.501A Alcohol abuse with withdrawal F10.139
== END 2025-11-02 11:49 | disposition home or self-care (01) ==
LOC: HO.HOS 10:25
PROVIDERS: Visit Provider Orthopaedic Surgery
DX: S52.501A Unspecified fracture of the lower end of right radius, initial encounter for closed fracture (principal); F10.139 Alcohol abuse with withdrawal, unspecified
CPT/HCPCS: 99204

== ENCOUNTER → 2025-11-02 10:28 | Outpatient (BNV) | payer MEDICARE, SELFPAY | PROVIDERS: Visit Provider Radiology Diagnostic Radiology | DX: S52.501A Unspecified fracture of the lower end of right radius, initial encounter for closed fracture (principal) | CPT/HCPCS: 73110 ==